=== PATIENT | male | born 1960 ===

== ENCOUNTER 2024-02-03 10:49 | Inpatient (IN) ==
--- NOTE | 2024-02-03 10:53 | Emergency Department Note ---
Impression & Plan Aspiration pneumonia, Metabolic encephalopathy, Thrombocytopenia, Hypoglycemia, SHE (acute kidney injury), Acute dehydration ED Provider Note NAME: TREY DIALLO AGE: 63 SEX: M : 1960 ARRIVES VIA: Ambulance INFORMANT: Caregiver, nursing report ED PROVIDER(S): Salvatore Perez MD CHIEF COMPLAINT: Change in mentation MEDICAL DECISION MAKING: Patient presents due to concern for change in mentation. IV was established and blood work was obtained along with CT and chest x-ray. Patient's blood work shows a normal white count hemoglobin 8.8 chronic and stable. Thrombocytopenia noted. Patient was noted to potentially have petechiae noted to bilateral feet. Creatinine of 2.5 which is new for patient. Initial [id number] BSG 60 9 repeat 75. TSH high free T4 is normal. BioFire negative. The patient's chest x-ray and CT head did not show any acute concerning changes at this time. Given the patient's SHE did speak with the on-call medicine service and the patient was admitted to the hospitalist. Discussion w/ other healthcare providers: None Prior /Outside records reviewed: None Differential diagnosis: Infection, dehydration, metabolic abnormality, hypo/hyperglycemia, electrolyte imbalance, anemia, UTI, pneumonia, thyroid dysfunction among others were considered. Diagnostics, as interpreted by me: ECG: None Cardiac monitoring: An order was placed for continuous cardiac monitoring. The monitor shows a rate of 75 with sinus rhythm. Patient was placed on pulse oximetry Medical decision rules: None Imaging studies: I informally interpreted the patient's chest x-ray does not show obvious pneumonia or pneumothorax with formal report to follow. HPI: Patient presents due to concern for change in mentation. The patient reportedly is at [facility] being treated for aspiration pneumonia with IV vancomycin. Reportedly this morning less talkative and less himself. Patient reportedly is able to have conversations. [facility] been using a [facility] since being admitted and subsequently discharged on the IV vancomycin. Patient reportedly refused his morning medications. Has not been eating or drinking. No reported fever. No BSG checked prior to arrival. PAST MEDICAL HISTORY: See Below PAST SURGICAL HISTORY: See Below SOCIAL HISTORY: See Below HOME MEDICATIONS: See Below ALLERGIES: See Below VITALS: See Below PHYSICAL EXAMINATION: GENERAL: NAD, non-toxic. EYE EXAM: Normal conjunctiva. PERRL, no anisocoria and EOM's grossly intact w/o pain. OROPHARYNX: Moist mucus membranes, grossly normal dentition. NECK: Trachea midline, no stridor. Supple, no nuchal rigidity, no adenopathy, non-tender. No signs of meningismus. FROM of the neck with good chin to chest and neck extension. LUNGS: Alin rhonchi noted in the right chest. Normal chest wall mechanics. HEART: NSR, no MRG. ABDOMEN: Abdomen soft, non-tender, no masses, no rebound or guarding. BACK: No CVA TTP. SKIN: Possible petechiae of the bilateral dorsum of the feet. No significant purpura. UPPER EXTREMITIES: Upper extremities are grossly normal. LOWER EXTREMITIES: Grossly normal, no edema. 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 No obvious facial droop. Weakly moves bilateral lower extremities. Infection, dehydration, metabolic abnormality, hypo/hyperglycemia, electrolyte imbalance, anemia, UTI, pneumonia, thyroid dysfunction among others were considered. Past Med/Surg History Problem List (Updated 02/04/24 @ 08:48 by Salvatore Perez MD) Acute dehydration (Acute) SHE (acute kidney injury) (Acute) Septic shock PAF (paroxysmal atrial fibrillation) Hypoglycemia (Acute) Thrombocytopenia (Acute) Anemia Acute kidney injury superimposed on stage 3b chronic kidney disease Aspiration pneumonia (Acute) Catheter-associated urinary tract infection Bacteremia Metabolic encephalopathy (Acute) SVT (supraventricular tachycardia) (Acute) Medical History History of left heart catheterization (LHC) Hypothyroidism Bipolar disorder Chronic anemia BPH (benign prostatic hyperplasia) Horseshoe kidney Atrial fibrillation Intellectual disability HLD (hyperlipidemia) HTN (hypertension) CHB (complete heart block) Pacemaker Chronic kidney disease Epilepsy Sepsis Surgical History History of cardiac pacemaker H/O cystoscopy Family History Other Family history unobtainable Social History Smoking Status: Never smoker Hx Alcohol Use: No Hx Substance Use: No Preferred Language: Macedonian Communication Ability: non-verbal Beliefs That Will Affect Care: None marital status: Single Current Living Situation: Other Current Living Situation Comment: correction Feels Safe at Home: Yes Assistive Devices: Walker Allergies Allergies Allergy/AdvReac Type Severity Reaction Status Date / Time carbamazepine Allergy Intermediate SHORTNESS Verified 02/01/24 10:58 OF BREATH lamotrigine Allergy Intermediate RASH Verified 02/01/24 10:58 cat dander Allergy Verified 02/01/24 10:58 pollen extracts Allergy Verified 02/01/24 10:58 Home Meds Home Medications Medication Instructions Recorded Confirmed acetaminophen 325 mg tablet 650 mg PO QID PRN Fever/Pain 02/01/24 02/03/24 allopurinol 100 mg tablet 200 mg PO DAILY 02/01/24 02/03/24 atorvastatin 10 mg tablet 10 mg PO DAILY 02/01/24 02/03/24 cetirizine 10 mg capsule 10 mg PO DAILY 02/01/24 02/03/24 divalproex 500 mg tablet,extended 1,000 mg PO HS 02/01/24 02/03/24 release 24 hr docusate sodium 100 mg tablet 100 mg PO DAILY 02/01/24 02/03/24 famotidine 20 mg tablet 20 mg PO DAILY 02/01/24 02/03/24 gabapentin 100 mg capsule 100 mg PO TID 02/01/24 02/03/24 metoprolol succinate 25 mg 25 mg PO DAILY 02/01/24 02/03/24 tablet,extended release 24 hr olanzapine 10 mg tablet 10 mg PO BID 02/01/24 02/03/24 pantoprazole 40 mg tablet,delayed 40 mg PO DAILY 02/01/24 02/03/24 release (Protonix) tamsulosin 0.4 mg capsule 0.4 mg PO BID 02/01/24 02/03/24 topiramate 100 mg tablet 100 mg PO QPM 02/01/24 02/03/24 topiramate 50 mg tablet 50 mg PO QAM 02/01/24 02/03/24 bisacodyl 10 mg rectal suppository 10 mg [place] DAILY PRN Constipation 02/03/24 02/03/24 (Dulcolax (bisacodyl)) calcium carbonate (Calcium 600) 600 mg PO BID 02/03/24 02/03/24 cholecalciferol (vitamin D3) 25 50 mcg PO DAILY 02/03/24 02/03/24 mcg (1,000 unit) tablet (Vitamin D3) finasteride 5 mg tablet 5 mg PO DAILY 02/03/24 02/03/24 flecainide 50 mg tablet 50 mg PO BID 02/03/24 02/03/24 fluticasone propionate 50 1 spray intranasal BID 02/03/24 02/03/24 mcg/actuation nasal spray,suspension levothyroxine 75 mcg tablet 75 mcg PO QAM 02/03/24 02/03/24 magnesium hydroxide 400 mg/5 mL 2,400 mg PO DAILY PRN Constipation 02/03/24 02/03/24 oral suspension (Milk of Magnesia) nystatin 100,000 unit/gram topical 1 applic topical BID 02/03/24 02/03/24 cream psyllium husk 0.52 gram capsule 0.52 g PO QAM 02/03/24 02/03/24 rifampin 300 mg capsule 300 mg PO TID 02/03/24 02/03/24 scopolamine base 1 mg over 3 days 1 patch transdermal Q72H PRN 02/03/24 02/03/24 transdermal patch Nausea And Vomiting sodium phosphates 19 gram-7 118 ml [place] DAILY PRN Constipation 02/03/24 02/03/24 gram/118 mL enema (Fleet Enema) vancomycin 750 mg intravenous 750 mg IV DAILY 02/03/24 02/03/24 solution Results & Data (ED) Vital Signs Vital Signs - 24 hr 02/03/24 10:59 02/03/24 11:02 02/03/24 11:03 Temperature 36.7 C Temperature Source Axillary Pulse Rate 98 H 125 H Pulse Rate from SpO2 Sensor 63 Pulse Rhythm Regular Pulse Strength Normal Respiratory Rate 18 24 Respiratory Effort / Characteristics Non-Labored Respiratory Depth Normal Respiratory Pattern Regular Blood Pressure 100/65 102/77 Blood Pressure Mean 76 86 Blood Pressure Position Lying Pulse Oximetry 97 96 Oxygen Delivery Method Room Air Sepsis Recent Fever Within 48 Hours No Sepsis New/Unexplained Change in Mental Status No Sepsis Action Taken by Nursing No Action Required 02/03/24 11:04 02/03/24 11:11 02/03/24 11:15 Temperature Temperature Source Pulse Rate 90 Pulse Rate from SpO2 Sensor Pulse Rhythm Pulse Strength Respiratory Rate Respiratory Effort / Characteristics Respiratory Depth Respiratory Pattern Blood Pressure Blood Pressure Mean Blood Pressure Position Pulse Oximetry 100 97 Oxygen Delivery Method Room Air Room Air Sepsis Recent Fever Within 48 Hours Sepsis New/Unexplained Change in Mental Status Sepsis Action Taken by Nursing 02/03/24 11:30 02/03/24 11:30 02/03/24 11:30 Temperature Temperature Source Pulse Rate Pulse Rate from SpO2 Sensor 64 Pulse Rhythm Pulse Strength Respiratory Rate 24 Respiratory Effort / Characteristics Respiratory Depth Respiratory Pattern Blood Pressure 110/73 110/73 Blood Pressure Mean 85 85 Blood Pressure Position Pulse Oximetry 97 Oxygen Delivery Method Sepsis Recent Fever Within 48 Hours Sepsis New/Unexplained Change in Mental Status Sepsis Action Taken by Nursing 02/03/24 12:00 02/03/24 12:02 02/03/24 12:39 Temperature Temperature Source Pulse Rate 69 99 H Pulse Rate from SpO2 Sensor 60 Pulse Rhythm Pulse Strength Respiratory Rate 22 22 Respiratory Effort / Characteristics Respiratory Depth Respiratory Pattern Blood Pressure 121/50 L Blood Pressure Mean 63 Blood Pressure Position Pulse Oximetry 100 Oxygen Delivery Method Sepsis Recent Fever Within 48 Hours Sepsis New/Unexplained Change in Mental Status Sepsis Action Taken by [facility] Medications Current Medication List: was personally reviewed by me Laboratory Data Attestation: I reviewed the patient's lab results. 02/04/24 04:41 02/04/24 04:41 Lab Results 02/03/24 02/03/24 02/03/24 Range/Units 11:02 11:23 11:30 WBC 5.94 (4.8-10.8) K/ul RBC 2.85 L (4.70-6.10) M/uL Hgb 8.8 L (14.0-18.0) g/dl Hct 27.3 L (42.0-52.0) % MCV 95.8 (80.0-100.0) fL MCH 30.9 (25.0-34.0) pg MCHC 32.2 (32.0-36.0) g/dL RDW Std Deviation 62.4 H (36.4-46.3) fL RDW Coeff of Jenifer 17.8 H (11.5-14.5) % Plt Count 80 L (130-400) K/uL MPV 13.7 H (9.4-12.4) fL Immature Gran % (Auto) 0.8 % Neut % (Auto) 70.8 % Lymph % (Auto) 20.4 % Glynn % (Auto) 6.7 % Eos % (Auto) 1.0 % Baso % (Auto) 0.3 % Neut # (Auto) 4.20 (1.40-6.50) K/uL Lymph # (Auto) 1.21 (1.20-3.40) K/uL Glynn # (Auto) 0.40 (0.11-0.59) K/uL Eos # (Auto) 0.06 (0.00-0.50) K/uL Baso # (Auto) 0.02 (0.00-0.20) K/uL Immature Gran # (Auto) 0.05 (0.01-0.20) K/uL Absolute Nucleated RBC 0.05 (0.00-0.12) K/uL Nucleated RBC % (auto) 0.8 % Sodium 145 (136-145) mmol/L Potassium 4.6 (3.5-5.1) mmol/L Chloride 109 H (98-107) mmol/L Carbon Dioxide 28 (21-32) mmol/L Anion Gap 8 (3-11) BUN 56 H (6-23) mg/dl Creatinine 2.55 H (0.6-1.4) mg/dl Est Cr Clr Drug Dosing 29.2 ml/min eGFR 27.67 BUN/Creatinine Ratio 22.0 H (10-20) Glucose 75 (70-99(Fasting)) mg/dl POC Glucose 69 L* (70-99) mg/dl Calcium 10.2 (8.6-10.3) mg/dl Magnesium 2.5 H (1.7-2.4) mg/dl Total Bilirubin 0.5 (0.2-1.0) mg/dl AST 24 (13-39) U/L ALT 17 (7-52) U/L Alkaline Phosphatase 103 (34-104) U/L Total Creatine Kinase 23 L (30-223) U/L Total Protein 7.3 (6.0-8.3) gm/dl Albumin 2.7 L (3.4-5.0) gm/dl Globulin 4.6 H (2.5-4.0) gm/dl Albumin/Globulin Ratio 0.6 L (0.9-2) Procalcitonin 2.05 H (0-0.5) ng/ml TSH 5.261 H (0.300-4.500) uIu/ml Free T4 1.02 (0.61-1.60) ng/dl Urine Color Dark Yellow Urine Appearance Cloudy A (Clear) Urine pH 7.5 (4.5-7.5) Ur Specific Bradford 1.013 (1.000-1.030) Urine Protein 1+ H (Negative) Urine Glucose (UA) Negative (Negative) Urine Ketones Trace H (Negative) Urine Blood 3+ H (Negative) Urine Nitrite Negative (Negative) Urine Bilirubin Negative (Negative) Urine Urobilinogen Negative (Negative) Ur Leukocyte Esterase 3+ H (Negative) Urine WBC (Auto) >50 H (0-5) /hpf Urine RBC (Auto) >20 H (0-2) /hpf U Hyaline Cast (Auto) 3-5 H (0-2) /lpf U Epithel Cells (Auto) 0-2 (0-2) /hpf Urine Bacteria (Auto) None Seen (None Seen) Adenovirus (PCR) Not Detected (NotDetected) B. pertussis DNA (PCR) Not Detected (NotDetected) B.parapertussis DNA PCR Not Detected (NotDetected) C. pneumoniae DNA (PCR) Not Detected (NotDetected) Coronavirus OC43 (PCR) Not Detected (NotDetected) Coronavirus HKU1 (PCR) Not Detected (NotDetected) Coronavirus 229E (PCR) Not Detected (NotDetected) SARS-CoV-2 (PCR) Not Detected (NotDetected) Coronavirus NL63 (PCR) Not Detected (NotDetected) Human Metapneumovir PCR Not Detected (NotDetected) Influenza Type A (PCR) Not Detected (NotDetected) Influenza Type B (PCR) Not Detected (NotDetected) M. pneumoniae (PCR) Not Detected (NotDetected) Parainfluenza 1 (PCR) Not Detected (NotDetected) Parainfluenza 2 (PCR) Not Detected (NotDetected) Parainfluenza 3 (PCR) Not Detected (NotDetected) Parainfluenza 4 (PCR) Not Detected (NotDetected) RSV (PCR) Not Detected (NotDetected) Entero/Rhino (PCR) Not Detected (NotDetected) Administered Medications Calcium Carbonate (Calcium Carbonate 1250mg Tab) 1 tab PO BID SIMIN Stop: 03/04/24 20:59 Last Admin: 12/12/24 20:14 Dose: Not Given Documented By: ELC Divalproex Sodium (Divalproex Extended Release 500 Mg Tab) 1,000 mg PO HS [facility] Stop: 03/04/24 20:59 Last Admin: 02/03/24 20:14 Dose: Not Given Documented By: ELC Flecainide Acetate (Flecainide Acetate 100 Mg Tablet) 50 mg PO BID SIMIN Stop: 03/04/24 20:59 Last Admin: 02/03/24 20:14 Dose: Not Given Documented By: ELC Gabapentin (Gabapentin 100 Mg Cap) 100 mg PO TID SIMIN Stop: 03/04/24 20:59 Last Admin: 02/03/24 20:15 Dose: Not Given Documented By: JORDYN Dextrose/Sodium Chloride (D5w And 1/2nss) 1,000 mls @ 50 mls/hr IV .Q20H [facility] Stop: 02/04/24 09:14 Last Admin: 02/03/24 13:26 Dose: 50 mls/hr Documented By: ALBINO Piperacillin Sod/Tazobactam Sod (Zosyn) 4.5 gm in 100 mls @ 25 mls/hr IV Q8H [facility]; Protocol Stop: 02/10/24 20:59 Last Admin: 02/04/24 05:56 Dose: 25 mls/hr Documented By: Infusion: 02/04/24 00:49 Dose: Infused Documented By: Admin: 02/03/24 20:39 Dose: 25 mls/hr Documented By: JORDYN Daptomycin 400 mg/ Syringe 8 mls @ 4 mls/min IV Q48H [facility]; Protocol Stop: 02/17/24 14:59 Last Admin: 02/03/24 15:41 Dose: 4 mls/min Documented By: DUNIAL Norepinephrine Bitartrate (Levophed/D5w) 4 mg in 250 mls @ 17.404 mls/hr IV .[id number] [facility]; Protocol Stop: 03/04/24 20:29 Last Titration: 02/04/24 03:30 Dose: 0.07 mcg/kg/min, 17.4 mls/hr Documented By: Titration: 02/04/24 01:15 Dose: 0.05 mcg/kg/min, 12.4 mls/hr Documented By: Titration: 02/03/24 21:46 Dose: 0.07 mcg/kg/min, 17.4 mls/hr Documented By: Admin: 02/03/24 20:38 Dose: 0.05 mcg/kg/min, 12.4 mls/hr Documented By: JORDYN Co-signed By: MARIA VICTORIA Hydrocortisone Sodium (Succinate 100 mg/ Syringe) 2 mls @ 4 mls/min IV Q8H SIMIN Stop: 03/04/24 21:59 Last Admin: 02/04/24 05:59 Dose: 4 mls/min Documented By: Admin: 02/03/24 22:12 Dose: 4 mls/min Documented By: JORDYN Levothyroxine Sodium (Levothyroxine Sodium 75 Mcg Tablet) 75 mcg PO DAILYBB SIMIN Stop: 03/05/24 06:29 Last Admin: 02/04/24 05:56 Dose: Not Given Documented By: JORDYN Rifampin (Rifampin 300 Mg Capsule) 300 mg PO TID SIMIN Stop: 03/04/24 20:59 Last Admin: 02/03/24 20:32 Dose: Not Given Documented By: JORDYN Tamsulosin HCl (Tamsulosin Hcl 0.4 Mg Cap) 0.4 mg PO BID SIMIN Stop: 03/04/24 20:59 Last Admin: 02/03/24 20:32 Dose: Not Given Documented By: JORDYN Topiramate (Topiramate 100 Mg Tab) 100 mg PO QPM SIMIN Stop: 03/04/24 20:59 Last Admin: 02/03/24 20:32 Dose: Not Given Documented By: JORDYN Discontinued Medications Sodium Chloride (Nss) 500 mls @ 999 mls/hr IV .Q31M ONE Stop: 02/03/24 11:53 Last Infusion: 02/03/24 12:20 Dose: Infused Documented By: Admin: 02/03/24 11:49 Dose: 999 mls/hr Documented By: ALBINO Sodium Chloride (Nss) 1,000 mls @ 999 mls/hr IV .Q1H1M ONE Stop: 02/03/24 13:28 Last Infusion: 02/03/24 13:52 Dose: Infused Documented By: Admin: 02/03/24 13:01 Dose: 999 mls/hr Documented By: ALBINO Piperacillin Sod/Tazobactam Sod (Zosyn) 4.5 gm in 100 mls @ 200 mls/hr IV NOW STA; Protocol Stop: 02/03/24 15:15 Last Infusion: 02/03/24 17:08 Dose: Infused Documented By: Admin: 02/03/24 16:03 Dose: 200 mls/hr Documented By: MILIND Sodium Chloride (Nss) 1,000 mls @ 999 mls/hr IV .Q1H1M ONE Stop: 02/03/24 19:49 Last Infusion: 02/03/24 20:33 Dose: Infused Documented By: Admin: 02/03/24 18:54 Dose: 999 mls/hr Documented By: MILIND Levetiracetam (Levetiracetam 500 Mg/5 Ml Vial) 2,650 mg 40 mg/kg (2650 mg) IV NOW STA Stop: 02/04/24 03:08 Last Admin: 02/04/24 03:38 Dose: 2,650 mg Documented By: Jazzmine Lorazepam (Lorazepam 2 Mg/1 Ml Vial) Confirm Administered Dose 2 mg .ROUTE .STK- MED ONE Stop: 02/04/24 03:02 Last Admin: 02/04/24 03:35 Dose: Not Given Documented By: Jazzmine Lorazepam (Lorazepam 2 Mg/1 Ml Vial) 2 mg IV NOW STA Stop: 02/04/24 03:08 Last Admin: 02/04/24 03:35 Dose: 2 mg Documented By: Jazzmine Olanzapine (Olanzapine 10 Mg Tab) 10 mg PO BID SIMIN Stop: 03/04/24 20:59 Last Admin: 02/03/24 20:14 Dose: Not Given Documented By: [facility] Imaging Data Radiologist's Impression: Chest X-Ray 02/03/24 11:23 XR chest 1V portable HISTORY: 63 years-old Male weakness COMPARISON: 02/01/2024 TECHNIQUE: AP view of the chest FINDINGS: Cardiac silhouette is enlarged. There is persistent interstitial coarsening with ill-defined left basilar and right midlung predominant opacities. Overall improved aeration of the lungs. Probable trace pleural effusions. No pneumothorax. Left subclavian pacer/AICD. Bones appear grossly intact. IMPRESSION: 1. Cardiomegaly with improved aeration of the lungs suggestive of resolving pulmonary edema. 2. Trace pleural effusions. ACT 112: Negative or not required by law. The above report was generated using voice recognition software. It may contain grammatical, syntax or spelling errors. Electronically signed by: Jason Marte M.D. 02/03/2024 11:[address] 02/03/24 11:24 CT head/brain wo con CLINICAL HISTORY: change in mentation Technique: Contiguous axial CT images of the head were acquired from the base of the skull to the vertex without intravenous contrast administration. Images were viewed in brain, subdural and bone windows. Automated dose lowering techniques and/or adjustment according to patient size were utilized for this exam. Comparison: None available at the time of this dictation. Findings: Areas of decreased attenuation are present in the periventricular and subcortical white matter bilaterally consistent with small vessel ischemic disease. Generalized cerebral atrophy with commensurate enlargement of the ventricles, sulci, and cisterns is also present. There is no acute intracranial hemorrhage or evidence of acute territorial infarction. No shift of the midline structures, mass effect, or extra-axial abnormalities are shown. Atherosclerotic calcifications are present in the intracranial segments of the internal carotid arteries. Imaged portions of the paranasal sinuses and mastoid air cells are clear. The orbits appear normal. There are no acute fractures of the calvaria or scalp swelling. Impression: No acute intracranial hemorrhage, no evidence of acute territorial infarction or other acute intracranial disease process. ACT 112: Negative or not required by law. Electronically signed by: Jordan Gupta M.D. 02/03/2024 12:00 PM Discharge Plan Visit Data Chief Complaint: Weakness ED Provider: Salvatore Perez Discharge Problem: Aspiration pneumonia, Metabolic encephalopathy, Thrombocytopenia, Hypoglycemia, SHE (acute kidney injury), Acute dehydration Patient Disposition: Admitted As Inpatient Discharge Instructions Interventions: ED Discharge Assessment Last Done: 02/03/24 14:00 Discharge Problem: Aspiration pneumonia Qualifiers: Aspiration pneumonia type: unspecified Laterality: right Lung location: u nspecified part of lung Qualified Code(s): J69.0 - Pneumonitis due to inhalation of food and vomit
[2024-02-03 11:41] LABS: Basophils # (auto) 0.02 K/uL (0.00-0.20); Basophils % (auto) 0.3 %; Eosinophils # (auto) 0.06 K/uL (0.00-0.50); Hematocrit (blood only) 27.3 % (42.0-52.0); Hemoglobin 8.8 g/dl (14.0-18.0); Immature Granulocytes # (auto) 0.05 K/uL (0.01-0.20); Immature Granulocytes % (auto) 0.8 %; Lymphocytes # (auto) 1.21 K/uL (1.20-3.40); Lymphocytes % (auto) 20.4 %; Mean Corpuscular Hemoglobin 30.9 pg (25.0-34.0); Mean Corpuscular Hgb Conc 32.2 g/dL (32.0-36.0); Mean Corpuscular Volume 95.8 fL (80.0-100.0); Mean Platelet Volume 13.7 fL (9.4-12.4); Monocytes % (auto) 6.7 %; Neutrophils % (auto) 70.8 %; Nucleated RBC # (auto) 0.05 K/uL (0.00-0.12); Nucleated RBC % (auto) 0.8 %; Platelet Count 80 K/uL (130-400); RDW Coefficient of Variation 17.8 % (11.5-14.5); RDW Standard Deviation 62.4 fL (36.4-46.3); Red Blood Count 2.85 M/uL (4.70-6.10); White Blood Count 5.94 K/ul (4.8-10.8)
[2024-02-03] MEDS: SODIUM CHLORIDE 0.9% 500 ML IV ONE (11:49)
--- NOTE | 2024-02-03 11:59 | XRay Report ---
XR chest 1V portable HISTORY: 63 years-old Male weakness COMPARISON: 02/01/2024 TECHNIQUE: AP view of the chest FINDINGS: Cardiac silhouette is enlarged. There is persistent interstitial coarsening with ill-defined left bas ilar and right midlung predominant opacities. Overall improved aeration of the lungs. Probable trace pleural effusions. No pneumothorax. Left subclavian pacer/AICD. Bones appear grossly intact. IMPRESSION: 1. Cardiomegaly with improved aeration of the lungs suggestive of resolving pulmonary edema. 2. Trace pleural effusions. ACT 112: Negative or not required by law. The above report was generated using voice recognition software. It may contain grammatical, syntax o r spelling errors. Electronically signed by: Jason Marte M.D. 02/03/2024 11:58 AM
[2024-02-03 12:00] LABS: Albumin Globulin Ratio 0.6 (0.9-2); Albumin Level 2.7 gm/dl (3.4-5.0); Bilirubin,Total 0.5 mg/dl (0.2-1.0); Calcium 10.2 mg/dl (8.6-10.3); Creatinine Clr Calc Pharmacy 29.2 ml/min; Globulin 4.6 gm/dl (2.5-4.0); Magnesium 2.5 mg/dl (1.7-2.4); Potassium 4.6 mmol/L (3.5-5.1); Total Protein 7.3 gm/dl (6.0-8.3)
--- NOTE | 2024-02-03 12:01 | CT Scan Report ---
CT head/brain wo con CLINICAL HISTORY: change in mentation Technique: Contiguous axial CT images of the head were acquired from the base of the skull to the easton jon without intravenous contrast administration. Images were viewed in brain, subdural and [facility]. Automated dose lowering techniques and/or adjustment according to patient size were utilized for this exam. Comparison: None available at the time of this dictation. Findings: Areas of decreased attenuation are present in the periventricular and subcortical white matter bilate rally consistent with small vessel ischemic disease. Generalized cerebral atrophy with commensurate e nlargement of the ventricles, sulci, and cisterns is also present. There is no acute intracranial hem orrhage or evidence of acute territorial infarction. No shift of the midline structures, mass effect, or extra-axial abnormalities are shown. Atherosclerotic calcifications are present in the intracran ial segments of the internal carotid arteries. Imaged portions of the paranasal sinuses and mastoid air cells are clear. The orbits appear normal. There are no acute fractures of the calvaria or scalp swelling. Impression: No acute intracranial hemorrhage, no evidence of acute territorial infarction or other acute intracra nial disease process. ACT 112: Negative or not required by law. Electronically signed by: Jordan Gupta M.D. 02/03/2024 12:00 PM
[2024-02-03 12:12] LABS: Appearance Urine Cloudy (Clear); Bacteria Urine Automated None Seen (None Seen); Bilirubin Urine Negative (Negative); Blood Urine 3+ (Negative); Color Urine Dark Yellow; Epithelial Cell Urine Auto 0-2 /hpf (0-2); Glucose Urine UA Negative (Negative); Ketones Urine Trace (Negative); Leukocyte Esterase Urine 3+ (Negative); Nitrite Urine Negative (Negative); Protein Urine 1+ (Negative); RBC Urine Automated >20 /hpf (0-2); Specific Gravity Urine 1.013 (1.000-1.030); Urobilinogen Urine Negative (Negative); WBC Urine Automated >50 /hpf (0-5); pH Urine 7.5 (4.5-7.5)
[2024-02-03 12:14] LABS: Thyroid Stimulating Hormone 5.261 uIu/ml (0.300-4.500)
[2024-02-03 12:31] LABS: Adenovirus PCR Not Detected (NotDetected); Bordetella parapertussis PCR Not Detected (NotDetected); Bordetella pertussis PCR Not Detected (NotDetected); Chlamydia pneumoniae PCR Not Detected (NotDetected); Coronavirus 229E PCR Not Detected (NotDetected); Coronavirus CoV-2 (COVID19)PCR Not Detected (NotDetected); Coronavirus HKU1 PCR Not Detected (NotDetected); Coronavirus NL63 PCR Not Detected (NotDetected); Coronavirus OC43PCR Not Detected (NotDetected); Human Metapneumovirus PCR Not Detected (NotDetected); Influenza A PCR Not Detected (NotDetected); Influenza B PCR Not Detected (NotDetected); Mycoplasma pneumoniae PCR Not Detected (NotDetected); Parainfluenza Virus 1 PCR Not Detected (NotDetected); Parainfluenza Virus 2 PCR Not Detected (NotDetected); Parainfluenza Virus 3 PCR Not Detected (NotDetected); Parainfluenza Virus 4 PCR Not Detected (NotDetected); Respiratory Syncytial VirusPCR Not Detected (NotDetected); Rhinovirus/Enterovirus PCR Not Detected (NotDetected)
[2024-02-03 12:48] LABS: T4 Free Thyroxine 1.02 ng/dl (0.61-1.60)
--- NOTE | 2024-02-03 12:57 | History & Physical Report ---
Date of Service February 03, 2024 Assessment & Plan (1) Metabolic encephalopathy: (2) Bacteremia: (3) Catheter-associated urinary tract infection: (4) Aspiration pneumonia: (5) Acute kidney injury superimposed on stage 3b chronic kidney disease: (6) Anemia: (7) Thrombocytopenia: (8) Hypoglycemia: (9) PAF (paroxysmal atrial fibrillation): Plan This is a 63-year-old male who has a significant past medical history of baseline intellectual disability, atrial fibrillation on Eliquis, history of CHB status post permanent pacemaker placement, hypothyroidism, BPH, bipolar disorder, CKD stage III with baseline creatinine 1.4-1.5, horseshoe kidney, bilateral renal masses, BPH, chronic anemia who presents to ED secondary to altered mental status and lethargy. Recent hospitalization 01/11-01/24 @ [facility] / Staphylococcus Haemolyticus, PNA presumed aspiration, negative TTE/DE; however ID recommends treating with 6 week course of IV Vanco/rifampin given negative cultures with treatment and no clear source of bacteremia. He was seen and evaluated by ST and underwent videofluoroscopy which described moderate oral pharyngeal dysphagia. Hosp course also complicated with hematuria, a/c anemia, thrombocytopenia. He was D/C To [facility] to complete course of antibiotics. He is from a nursing home. In ED pt with mild hypotension, tachycardia, altered mental status, elevated BUN/Cr from baseline, worsening anemia/thrombocytopenia in setting of IV Vanco with elevated vanco level at 27, oral rifampin and concern for worsened aspiration Altered mental status with suspected metabolic encephalopathy Staph hemolyticus bacteremia - on treatment through 02/27 Possible Aspiration Pneumonia Possible catheter associated complicated UTI admit to PCU Consult infectious disease, + culture from [facility] 01/11 Staph hemolyticus, resistant except for vanco - unknown source, negative DE/TTE, cleared with treatment, ID recommend tx through 02/27 Switch to IV dapto due to concern for nephrotoxicity, add IV zosyn for aspiration coverage, and continue rifampin for now MRSA Swab, procal, CK ordered await blood and urine cultures Bilateral Petechiae Thrombocytopenia Acute on chronic anemia Hematuria ? if related to rifampin work up for HUS, hemolytic anemia, DIC obtain peripheral smear, PTT, PT/INR, Haptoglobin, LDH, fibrinogen, retic count repeat h/h @ 1900 Acute/Chronic CKD-3b baseline cr 1.4-1.5, consult nephro bun/cr 56 and 2.55, ? if pre renal in setting of poor intake vs intrarenal from ATN/nephrotoxicity gentle IVF D5 1/2NSS x 1 L follow labs Atrial Fibrillation hx of CHB s/p PPM HLD continue metoprolol and flecanide eliquis on hold due to bleeding, thrombocytopenia Hypoglycemia: no hx of T2DM, a1c 5.4 01/16, likely due to poor intake, on D5W + 1/2NSS, hypoglycemia protocol Falls - pt with 2 falls in 3 days, likely 2/2 to suspected illness, will need PT/OT when approp Mild Oropharyngeal dysphagia: had video fluoroscopy at [facility] which was negative for jade aspiration - continue with soft bite size meals, aspiration precautions Mild intellectual disability: resides in nursing home at baseline, 2 staff members at bedside on admission BPH/Gross hematuria: likely from traumatic cath vs thrombocytopenia - will need urology follow up at discharge, cath placed at [facility] Bipolar disorder: continue home meds, mood stable Seizure disorder: continue topamax, depakote, no witnessed seizure in several years Hypothyroidism: continue levothyroxine, TSH 5.261 uIu/ml and free T4 1.0 DVT ppx: Eliquis on hold, SCDS for now FULL CODE PCP: Guilherme Berger Dispo: admit to PCU, pt from SNF [facility] ( he was sent here from [facility] for IV antibiotics), plan to eventually return to nursing home if able Pts baseline is that he is very talkative, is aware of his staffs names and mostly functional of ADLS. He does need a walker to ambulate at baseline. PT was seen and examined in collaboration with Dr. Arrington, please see addendum I spent a total of 76 minutes reviewing notes, outpatient records, labs, medication, coordinating, documenting and providing care for this patient excluding time spent in the performance of separately billed services. History of Present Illness Chief Complaint: Referred by [facility] for AMS. Primary Care Provider: Scarlett Berger MD This is a 63-year-old male who has a significant past medical history of baseline intellectual disability, atrial fibrillation on Eliquis, history of CHB status post permanent pacemaker placement, hypothyroidism, BPH, bipolar disorder, CKD stage III with baseline creatinine 1.4-1.5, horseshoe kidney, bilateral renal masses, BPH, chronic anemia who presents to ED secondary to altered mental status and lethargy. Of significance patient resides in a nursing home due to his intellectual disability. 2 staff members from the nursing home are at bedside. At baseline he is very talkative and able to perform his own ADLS. Of significance patient was recently hospitalized at [facility] from 01/11 to 01/24 secondary to sepsis in setting of right lower lobe pneumonia and acute respiratory failure with hypoxia. CT chest showed a right lower lobe consolidation and he had a positive blood culture for coag negative staph. There was concern for aspiration pneumonia. He did have a speech evaluation and dysphagia eval revealed mild oropharyngeal dysphagia on videofluoroscopy and his diet was modified. Regarding positive blood culture infectious disease was involved. He underwent a TTE and DE which were negative for infectious endocarditis. Infectious disease recommended a 6-week course of IV vancomycin and oral rifampin to cover for IE given unknown course of bactermia. A PICC line was placed. His hospital course was complicated with episodes of hypoglycemia due to poor oral oral intake. This was treated with assisted feeding and D5 fluid administration. Further it was complicated by gross hematuria and nosebleeds. He did require Foster catheter placement. Because of this and worsening baseline anemia his Eliquis was placed on hold. ROS unobtainable from pt given underlying current cognition. Staff reports after being discharge from [facility] to [facility] he was his normal self and playing bingo approx 3 days ago. They went to see he him this morning and he was completely lethargic and not responding to normal questions which isn't like him. He also has another rash on his legs which was noticed at [facility] hospital. He had 2 falls in the past 3 days. It was also reported pts roommate tested positive for covid. He has a hx of seizure disorder but caregiver at bedside states she has been with him for 15 years and never witnessed seizure activity. In ED patient was tachycardic and borderline hypotensive. Lab work revealed H&H of 8.8 and 27.3, BUN 56, creatinine 2.55, glucose 69, mag 2.5, abnormal urinalysis, negative respiratory bio fire. His head CT was negative for acute abnormality. Chest x-ray revealed trace of bilateral pleural effusions and resolving pulmonary edema. Allergies Allergy/AdvReac Type Severity Reaction Status Date / Time carbamazepine Allergy Intermediate SHORTNESS Verified 02/01/24 10:58 OF BREATH lamotrigine Allergy Intermediate RASH Verified 02/01/24 10:58 cat dander Allergy Verified 02/01/24 10:58 pollen extracts Allergy Verified 02/01/24 10:58 Home Medications Medication Instructions Recorded Confirmed Type acetaminophen 325 mg tablet 650 mg PO QID PRN Fever/Pain 02/01/24 02/03/24 History allopurinol 100 mg tablet 200 mg PO DAILY 02/01/24 02/03/24 History atorvastatin 10 mg tablet 10 mg PO DAILY 02/01/24 02/03/24 History cetirizine 10 mg capsule 10 mg PO DAILY 02/01/24 02/03/24 History divalproex 500 mg tablet,extended 1,000 mg PO HS 02/01/24 02/03/24 History release 24 hr docusate sodium 100 mg tablet 100 mg PO DAILY 02/01/24 02/03/24 History famotidine 20 mg tablet 20 mg PO DAILY 02/01/24 02/03/24 History gabapentin 100 mg capsule 100 mg PO TID 02/01/24 02/03/24 History metoprolol succinate 25 mg 25 mg PO DAILY 02/01/24 02/03/24 History tablet,extended release 24 hr olanzapine 10 mg tablet 10 mg PO BID 02/01/24 02/03/24 History pantoprazole 40 mg tablet,delayed 40 mg PO DAILY 02/01/24 02/03/24 History release (Protonix) tamsulosin 0.4 mg capsule 0.4 mg PO BID 02/01/24 02/03/24 History topiramate 100 mg tablet 100 mg PO QPM 02/01/24 02/03/24 History topiramate 50 mg tablet 50 mg PO QAM 02/01/24 02/03/24 History bisacodyl 10 mg rectal suppository [address] DAILY PRN Constipation 02/03/24 02/03/24 History (Dulcolax (bisacodyl)) calcium carbonate (Calcium 600) 600 mg PO BID 02/03/24 02/03/24 History cholecalciferol (vitamin D3) 25 50 mcg PO DAILY 02/03/24 02/03/24 History mcg (1,000 unit) tablet (Vitamin D3) finasteride 5 mg tablet 5 mg PO DAILY 02/03/24 02/03/24 History flecainide 50 mg tablet 50 mg PO BID 02/03/24 02/03/24 History fluticasone propionate 50 1 spray intranasal BID 02/03/24 02/03/24 History mcg/actuation nasal spray,suspension levothyroxine 75 mcg tablet 75 mcg PO QAM 02/03/24 02/03/24 History magnesium hydroxide 400 mg/5 mL 2,400 mg PO DAILY PRN Constipation 02/03/24 02/03/24 History oral suspension (Milk of Magnesia) nystatin 100,000 unit/gram topical 1 applic topical BID 02/03/24 02/03/24 History cream psyllium husk 0.52 gram capsule 0.52 g PO QAM 02/03/24 02/03/24 History rifampin 300 mg capsule 300 mg PO TID 02/03/24 02/03/24 History scopolamine base 1 mg over 3 days 1 patch transdermal Q72H PRN 02/03/24 02/03/24 History transdermal patch Nausea And Vomiting sodium phosphates 19 gram-[address] DAILY PRN Constipation 02/03/24 02/03/24 History gram/118 mL enema (Fleet Enema) vancomycin 750 mg intravenous 750 mg IV DAILY 02/03/24 02/03/24 History solution Past Med/Surg History Problem List (Updated 02/03/24 @ 14:05 by Tamica Welch PA-C) PAF (paroxysmal atrial fibrillation) Hypoglycemia Thrombocytopenia Anemia Acute kidney injury superimposed on stage 3b chronic kidney disease Aspiration pneumonia Catheter-associated urinary tract infection Bacteremia Metabolic encephalopathy SVT (supraventricular tachycardia) (Acute) Medical History (Updated 02/03/24 @ 14:05 by Tamica Welch PA-C) History of left heart catheterization (LHC) Hypothyroidism Bipolar disorder Chronic anemia BPH (benign prostatic hyperplasia) Horseshoe kidney Atrial fibrillation Intellectual disability HLD (hyperlipidemia) HTN (hypertension) CHB (complete heart block) Pacemaker Chronic kidney disease Epilepsy Sepsis Surgical History (Updated 02/03/24 @ 13:26 by Tamica Welch PA-C) History of cardiac pacemaker H/O cystoscopy Family History (Updated 02/03/24 @ 13:26 by Tamica Welch PA-C) Other Family history unobtainable Social History (Updated 02/03/24 @ 13:26 by Tamica Welch PA-C) Smoking Status: Never smoker Hx Alcohol Use: No Hx Substance Use: No Preferred Language: Upper Sorbian Communication Ability: non-verbal Beliefs That Will Affect Care: None marital status: Single Current Living Situation: Other Current Living Situation Comment: nursing home Feels Safe at Home: Yes Assistive Devices: Walker Review of Systems Review of Systems: Unobtainable due to cognitive status Physical Exam Physical Exam: please refer to Dr. Arrington addendum for physical exam findings. Results & Data Results & Data Vital Signs (Past 12 Hours) Vital Signs Temp Pulse Resp BP Pulse Ox O2 Del Method 02/03/24 11:30 110/73 02/03/24 11:30 24 97 02/03/24 11:15 97 Room Air 02/03/24 11:11 100 Room Air 02/03/24 11:04 90 02/03/24 11:03 125 H 24 96 02/03/24 11:02 102/77 02/03/24 10:59 36.7 C 98 H 18 100/65 97 Room Air Laboratory Results I have independently reviewed and interpreted patient's admitting labs including CBC, CMP, mag, TSH, UA and troponin. Diagnostic Findings Chest X-Ray 02/03/24 11:23 XR chest 1V portable HISTORY: 63 years-old Male weakness COMPARISON: 02/01/2024 TECHNIQUE: AP view of the chest FINDINGS: Cardiac silhouette is enlarged. There is persistent interstitial coarsening with ill-defined left basilar and right midlung predominant opacities. Overall improved aeration of the lungs. Probable trace pleural effusions. No pneumothorax. Left subclavian pacer/AICD. Bones appear grossly intact. IMPRESSION: 1. Cardiomegaly with improved aeration of the lungs suggestive of resolving pulmonary edema. 2. Trace pleural effusions. ACT 112: Negative or not required by law. The above report was generated using voice recognition software. It may contain grammatical, syntax or spelling errors. Electronically signed by: Jason Marte M.D. 02/03/2024 11:[address] 02/03/24 11:24 CT head/brain wo con CLINICAL HISTORY: change in mentation Technique: Contiguous axial CT images of the head were acquired from the base of the skull to the vertex without intravenous contrast administration. Images were viewed in brain, subdural and bone windows. Automated dose lowering techniques and/or adjustment according to patient size were utilized for this exam. Comparison: None available at the time of this dictation. Findings: Areas of decreased attenuation are present in the periventricular and subcortical white matter bilaterally consistent with small vessel ischemic disease. Generalized cerebral atrophy with commensurate enlargement of the ventricles, sulci, and cisterns is also present. There is no acute intracranial hemorrhage or evidence of acute territorial infarction. No shift of the midline structures, mass effect, or extra-axial abnormalities are shown. Atherosclerotic calcifications are present in the intracranial segments of the internal carotid arteries. Imaged portions of the paranasal sinuses and mastoid air cells are clear. The orbits appear normal. There are no acute fractures of the calvaria or scalp swelling. Impression: No acute intracranial hemorrhage, no evidence of acute territorial infarction or other acute intracranial disease process. ACT 112: Negative or not required by law. Electronically signed by: Jordan Gupta M.D. 02/03/2024 12:00 PM Medications Administered Medication List Discontinued Medications Sodium Chloride (Nss) 500 mls @ 999 mls/hr IV .Q31M ONE Stop: 02/03/24 11:53 Last Admin: 02/03/24 11:49 Dose: 999 mls/hr Documented By: ALBINO COVID-19 Results Results COVID-19 Adm Lab Results: RBC 2.85 M/uL (4.70-6.10) L 02/03/24 WBC 5.94 K/ul (4.8-10.8) 02/03/24 Hgb 7.2 g/dl (14.0-18.0) L 02/03/24 Hct 22.7 % (42.0-52.0) L 02/03/24 Plt Count 80 K/uL (130-400) L 02/03/24 Neutrophils (%) (Auto) 70.8 % 02/03/24 Lymphocytes (%) (Auto) 20.4 % 02/03/24 Monocytes # (Auto) 0.40 K/uL (0.11-0.59) 02/03/24 Eosinophils # (Auto) 0.06 K/uL (0.00-0.50) 02/03/24 Immature Granulocyte % (Auto) 0.8 % 02/03/24 Neutrophils # (Auto) 4.20 K/uL (1.40-6.50) 02/03/24 Lymphocytes # (Auto) 1.21 K/uL (1.20-3.40) 02/03/24 Monocytes # (Auto) 0.40 K/uL (0.11-0.59) 02/03/24 Eosinophils # (Auto) 0.06 K/uL (0.00-0.50) 02/03/24 Basophils # (Auto) 0.02 K/uL (0.00-0.20) 02/03/24 Immature Granulocyte # (Auto) 0.05 K/uL (0.01-0.20) 4 Na 145 mmol/L (136-145) 02/03/24 K 4.6 mmol/L (3.5-5.1) 02/03/24 Cl 109 mmol/L (98-107) H 02/03/24 CO2 28 mmol/L (21-32) 02/03/24 Anion Gap 8 (3-11) 02/03/24 BUN 56 mg/dl (6-23) H 02/03/24 Creatinine 2.55 mg/dl (0.6-1.4) H 02/03/24 BUN/Creatinine Ratio 22.0 (10-20) H 02/03/24 Glucose Level 75 mg/dl (70-99(Fasting)) 02/03/24 Ca 10.2 mg/dl (8.6-10.3) 02/03/24 Total Bilirubin 0.5 mg/dl (0.2-1.0) 02/03/24 AST/SGOT 24 U/L (13-39) 02/03/24 ALT/SGPT 17 U/L (7-52) 02/03/24 Alkaline Phosphatase 103 U/L (34-104) 02/03/24 Total Protein 7.3 gm/dl (6.0-8.3) 02/03/24 Albumin 2.7 gm/dl (3.4-5.0) L 02/03/24 Globulin 4.6 gm/dl (2.5-4.0) H 02/03/24 Albumin/Globulin Ratio 0.6 (0.9-2) L 02/03/24 LDH 152 U/L (86-244) 02/03/24 Total CK 23 U/L (30-223) L 02/03/24 Procalcitonin 2.05 ng/ml (0-0.5) H 02/03/24 Fibrinogen 730 mg/dl (184-400) H 02/03/24 PTT 52 Seconds (21-31) H 02/03/24 INR 1.4 (0.9-1.1) H 02/03/24 Adenovirus (PCR) Not Detected (NotDetected) 02/03/24 B. parapertussis DNA (PCR) Not Detected (NotDetected) 01/22 04/17 B. pertussis DNA (PCR) Not Detected (NotDetected) 02/03/24 C. pneumoniae DNA (PCR) Not Detected (NotDetected) 4 Coronavirus Type OC43 (PCR) Not Detected (NotDetected) 02/14 Coronavirus Type HKU1 (PCR) Not Detected (NotDetected) 02/14 Coronavirus Type 229E (PCR) Not Detected (NotDetected) 02/14 COVID-19 PCR Not Detected (NotDetected) 02/03/24 Coronavirus Type NL63 (PCR) Not Detected (NotDetected) 02/14 Human Metapneumovirus (PCR) Not Detected (NotDetected) 02/14 Influenza Virus Type A (PCR) Not Detected (NotDetected) Influenza Virus Type B (PCR) Not Detected (NotDetected) M. pneumoniae (PCR) Not Detected (NotDetected) 02/03/24 Parainfluenza Type 1 (PCR) Not Detected (NotDetected) 01/22 04/17 Parainfluenza Type 2 (PCR) Not Detected (NotDetected) 01/22 04/17 Parainfluenza Type 3 (PCR) Not Detected (NotDetected) 01/22 04/17 Parainfluenza Type 4 (PCR) Not Detected (NotDetected) 01/22 04/17 RSV (PCR) Not Detected (NotDetected) 02/03/24 Enterovirus/Rhinovirus (PCR) Not Detected (NotDetected) Chest X-Ray 02/03/24 Code Status & VTE Plan VTE Prophylaxis Plan VTE Prophylaxis will be ordered: Yes Supervising Physician Co-Signing Physician Notes Patient is a 63-year-old male with history of intellectual disability, A-fib on anticoagulation with Eliquis, bipolar disorder, seizure disorder, GERD, gout, BPH, CKD stage III, chronic anemia and other medical problems who was recently hospitalized at [facility] and was treated for right lower lobe pneumonia, respiratory failure and staph hemolyticus bacteremia. Patient unable to provide history and most of the history is obtained from patient's caregivers at bedside. Patient underwent TTE, DE and was thought to be negative for infective endocarditis. Patient was evaluated by infectious disease recommended 6-week course of IV vancomycin and rifampin. Patient was discharged to personal care facility and later developed change in mental status. Patient has been refusing to take food, medications and has been confused which has been gradually worsening over the last 3 days. Patient was also noticed to have some hematuria but no known history of fever, chills. At baseline patient was able to make conversations but currently unable to and does not follow commands. Patient has been incontinent over the last 1 year and was recently placed on a Foster catheter which was exchanged 2 days ago. Please review HPI for complete details of presentation. I personally reviewed blood work and imaging studies. CT head showed no acute process. BioFire negative. Hemoglobin 8.8, hematocrit 27.3, platelet count 80K, creatinine elevated 2.5, BUN 56, glucose 69, TSH 5.26, normal free T4. LFTs within normal limits. Urinalysis suggestive of possible UTI. Vancomycin level elevated at 27.5. Chest x-ray suggestive of resolving pulmonary edema, trace pleural effusions. Patient's repeat blood cultures from 01/22/2024 at [facility] have been negative. Physical Exam: Vitals signs as noted above General Appearance: Thin, frail, chronic ill appearing, no apparent distress Head: normocephalic, Atraumatic Eyes: normal inspection, EOMI Neck: supple, Trachea midline Respiratory/Chest: Coarse decreased breath sounds,No accessory muscle use Cardiovascular: S1, S2, No murmur, + pacer Abdomen/GI:Soft, Non tender, Bowel sounds present Extremities/Musculoskeletal:normal inspection, 2+ edema Neurologic/Psych: Alert, awake, confused, grossly moves all extremities, does not follow commands. Unable to perform complete neurological exam. Skin: normal color, warm, + petechiae Acute metabolic encephalopathy Complicated urinary tract infection Possible sepsis SHE on CKD stage III Thrombocytopenia likely due to rifampin Rule out acute hemolytic anemia Staph hemolyticus bacteremia Right lower lobe pneumonia ? Secondary to aspiration Hypoglycemia Given worsening kidney function, will change vancomycin to daptomycin Added Zosyn Hemolytic workup pending. Continue rifampin for now Nephrology, infectious disease consulted Monitor renal function, avoid nephrotoxic agents as able Monitor I's and O's, daily weight IV fluids Speech therapy evaluation Avoid anticoagulation given hematuria, thrombocytopenia Fall, aspiration precautions Consider MRI brain if no improvement Place on hypoglycemia protocol Low threshold to move to ICU if blood pressure remains unimproved with IV fluids I personally interviewed and examined at bedside. Patient's care is coordinated with Tamica Welch PA-C. I have reviewed the advanced practitioner's documentation, and I agree with plan of care. Please refer to the documentation above for details of patient's presentation and for discussion of other issues. I spent a total [id number] coordinating, documenting, and providing care for this patient excluding time spent in the performance of separately billed soreni veronica.
[2024-02-03] MEDS: SODIUM CHLORIDE 0.9% 1,000 ML IV ONE ×2 (13:01→18:54)
[2024-02-03] MEDS: D5W AND 1/2NSS 1,000 ML IV SCH (13:26)
[2024-02-03] MEDS ORDERED: GLUCOSE 40% GEL 15 GM TUBE PO PRN (13:58)
[2024-02-03] MEDS ORDERED: DEXTROSE 50% 50 ML SYRINGE IV PRN (13:58)
[2024-02-03] MEDS ORDERED: CARBOHYDRATES FOR HYPOGLYCEMIA PO PRN (13:58)
[2024-02-03] MEDS ORDERED: GLUCOSE 10 TAB/TUBE PO PRN (13:58)
[2024-02-03] MEDS ORDERED: GLUCAGON FOR INJ 1 MG VIAL SQ PRN (13:58)
[2024-02-03] MEDS ORDERED: POLYETHYLENE (MIRALAX) 17 GM PACK PO PRN (14:28)
[2024-02-03] MEDS ORDERED: ACETAMINOPHEN 325 MG TAB PO PRN (14:28)
[2024-02-03 15:09] LABS: Reticulocyte % 3.35 % (0.50-2.00); Reticulocytes # 0.09 10^6/uL (0.020-0.100)
[2024-02-03 15:33] LABS: Fibrinogen 730 mg/dl (184-400); INR 1.4 (0.9-1.1); Partial Thromboplastin Ratio 1.9; Partial Thromboplastin Time 52 Seconds (21-31); Prothrombin Time 14.9 Seconds (9.0-12.0)
[2024-02-03] MEDS: DAPTOmycin 400 MG in SYRINGE 0 ML IV SCH (15:41)
[2024-02-03] MEDS: PIPERACILLIN/TAZOBACTAM 4.5 GM/100 ML BAG IV STA (16:03)
[2024-02-03 19:00] LABS: Hematocrit (blood only) 22.7 % (42.0-52.0); Hemoglobin 7.2 g/dl (14.0-18.0)
[2024-02-03] MEDS: CALCIUM CARBONATE 1250MG TAB PO SCH (20:14)
[2024-02-03] MEDS: DIVALPROEX EXTENDED RELEASE 500 MG TAB PO SCH (20:14)
[2024-02-03] MEDS: OLANZapine 10 MG TAB PO SCH (20:14)
[2024-02-03] MEDS: FLECAINIDE ACETATE 100 MG TABLET PO SCH (20:14)
[2024-02-03] MEDS: GABAPENTIN 100 MG CAP PO SCH (20:15)
--- NOTE | 2024-02-03 20:18 | Communication Note ---
Date of Service: February 03, 2024 @1845 was notified by RN pt BP 60/40s. 1L fluid bolus was ordered, repeat hgb 7.2, lactic acid 0.6 Pt is hypothermic 32.5C on Rossy Hugger. This is a change in condition from pts admission status. He received 2L of IVF in ED, additional 1L of fluid support in PCU and BP still 70/40s. Will transfer pt to ICU for vasopressor support. I discussed with pts guardian from [facility] [phone] and updated her on pts current change in condition. She informed me pts Sister, Priti Aaron, , is POA to make medical decisions regarding patients care. I spoke to Priti and updated her regarding her brothers current condition and guarded prognosis. She understands and is in agreement with plan of care DDx: Presumed Septic SHock, Hypovolemic Shock (though suspect hgb dilutional) Dispo: To ICU for vasopressor support Lorrie Welch PA-C
[2024-02-03] MEDS ORDERED: STAT IV Infusion **Titration per Protocol STA (20:26)
[2024-02-03] MEDS: TAMSULOSIN HCL 0.4 MG CAP PO SCH (20:32)
[2024-02-03] MEDS: TOPIRAMATE 100 MG TAB PO SCH (20:32)
[2024-02-03] MEDS: rifAMPin 300 MG CAPSULE PO SCH (20:32)
[2024-02-03] MEDS: NOREPINEPHRINE/D5W 4 MG/250 ML PLCT IV SCH (20:38)
[2024-02-03] MEDS: PIPERACILLIN/TAZOBACTAM 4.5 GM/100 ML BAG IV SCH (20:39)
[2024-02-03] MEDS ORDERED: MELATONIN 3 MG TAB PO PRN (21:00)
[2024-02-03 21:06] LABS: Albumin Globulin Ratio 0.6 (0.9-2); Albumin Level 2.3 gm/dl (3.4-5.0); BUN Creatinine Ratio 21.1 (10-20); Bilirubin,Total 0.3 mg/dl (0.2-1.0); Calcium 8.6 mg/dl (8.6-10.3); Creatinine Clr Calc Pharmacy 29.2 ml/min; Globulin 3.6 gm/dl (2.5-4.0); Phosphorus 4.9 mg/dl (2.5-4.9); Potassium 4.4 mmol/L (3.5-5.1); Total Protein 5.9 gm/dl (6.0-8.3)
[2024-02-03 21:13] LABS: Troponin I High Sensitivity 11.1 pg/ml (0-20)
[2024-02-03 21:22] LABS: Hematocrit (blood only) 23.1 % (42.0-52.0); Hemoglobin 7.5 g/dl (14.0-18.0); Mean Corpuscular Hgb Conc 32.5 g/dL (32.0-36.0); Mean Corpuscular Volume 95.5 fL (80.0-100.0); Mean Platelet Volume 12.1 fL (9.4-12.4); Nucleated RBC # (auto) 0.04 K/uL (0.00-0.12); Nucleated RBC % (auto) 0.9 %; Platelet Count 71 K/uL (130-400); RDW Coefficient of Variation 17.5 % (11.5-14.5); RDW Standard Deviation 61.9 fL (36.4-46.3); Red Blood Count 2.42 M/uL (4.70-6.10); White Blood Count 4.44 K/ul (4.8-10.8)
[2024-02-03] MEDS: HYDROCORTISONE SOD 100 MG in SYRINGE 0 ML IV SCH (22:12)
[2024-02-03 22:15] LABS: Anisocytosis Present; Basophils # (auto) 0.01 K/uL (0.00-0.20); Basophils % (auto) 0.2 %; Eosinophils # (auto) 0.03 K/uL (0.00-0.50); Eosinophils % (auto) 0.7 %; Immature Granulocytes # (auto) 0.04 K/uL (0.01-0.20); Immature Granulocytes % (auto) 0.9 %; Lymphocytes # (auto) 1.03 K/uL (1.20-3.40); Lymphocytes % (auto) 23.2 %; Monocytes # (auto) 0.33 K/uL (0.11-0.59); Monocytes % (auto) 7.4 %; Neutrophils % (auto) 67.6 %; Target Cells 1+
--- NOTE | 2024-02-04 01:05 | Critical Care Consultation ---
Date of Consultation February 03, 2024 Assessment & Plan (1) Septic shock: Reason Critically Ill: 63-year-old male with past medical history significant for cognitive deficit, atrial fibrillation (on Eliquis), BPH, seizure disorder, HLD, CKD, hypothyroidism, and recent diagnosis of bacteremia with Staphylococcus hemolyticus, presents to the ICU with septic shock requiring vasopressor support with Levophed drip. Neuro - Metabolic encephalopathypatient with altered mental status compared to baseline although he does have neurological deficit and seizure disorder. He was reported to be verbal at [facility]. - CT head negative for acute intracranial findings - Suspect underlying sepsis likely contributing. Elevated BUN may also be contributing to patient's encephalopathy. Will monitor closely for now Seizure disorderwe will start on valproic acid IV. Appears stable at this time. Monitor Cardiac - Septic shockpatient appears to be hypotensive requiring vasopressor support with Levophed drip - Progressive anemia likely hemodilution with multiple IV boluses. Continue with IV fluid resuscitation. Transfuse for hemoglobin less than 7 - Random cortisol 12, will start on hydrocortisone IV - See ID for treatment of sepsis below - Troponin unremarkable -Hold antihypertensives - Continuous monitoring on telemetry History of complete heart block/PAFcurrently in paced rhythm on monitor. Metoprolol on hold due to hypotension Respiratory - No history of pulmonary disease. Currently maintaining oxygen saturation on room air. Continuous monitoring pulse ox GI - N.p.o. for now GERDFamotidine RENAL/LYTES - SHE on CKD Initial creatinine of 2.55 with previous baseline around 1.73. Likely ATN in the setting of sepsis/hypotension - Continue with IV fluid resuscitation -Maintain MAP greater than 65 - Avoid nephrotoxins and renally adjust medications - Monitor routine BMPs and Replete electrolytes as indicated - Foleystrict I's and O's ENDO - Hypoglycemialikely secondary to sepsis. Dextrose added to IV fluids. Improving Hypothyroidismcontinue Synthroid when appropriate HEME - Anemia Hemoglobin 7.5 following aggressive fluid resuscitation likely hemodilution. Baseline hemoglobin is around 10 as of 01/25 - No indication for transfusion at this time. Will transfuse hemoglobin for less than 7 Thrombocytopeniapatient with platelet count of 75,000 in the setting of sepsis. No indication for transfusion at this time. Monitor routine CBC ID - Sepsisunsure of source at this time. Patient was undergoing treatment with IV vancomycin for Staphylococcus hemolyticus. Per report, DE was negative for vegetation - ID consult - Blood cultures and urine culture pending -Nasal MRSA negative -BioFire negative - Continue daptomycin, Zosyn LINES/IV ACCESS - PICC line, peripheral IV DVT PROPHYLAXIS - SCDs I have personally spent 55 minutes of critical care time in the direct management of this patient. This is a life/limb threatening event. This includes time spent evaluating patient, direct bedside care, chart review, placing o rders, interpretation of diagnostic studies, discussion with consultants, patient, and family members, as well as other required patient management activities. This time is exclusive of all separately billable procedures, and teaching time and separate from and in addition to any other critical care service time. Thank you for allowing us to participate in the care of this patient. Please refer to my attending physician's documentation for any further recommendations. (2) PAF (paroxysmal atrial fibrillation): (3) Hypoglycemia: (4) Thrombocytopenia: (5) Anemia: (6) Acute kidney injury superimposed on stage 3b chronic kidney disease: (7) Metabolic encephalopathy: History of Present Illness Attending Physician: Alton Arrington MD History of Present Illness Patient is a 63-year-old male with past medical history of PAF (on eliquis), Heart block (s/p pacemaker), hypothyroidism, epilepsy, CKD, gout, HLD, GERD, BPH, Intellectual disability and current resident of [facility]. Patient presented to the emergency department earlier this evening with altered mental status and reported the less talkative and less himself. He was undergoing treatment bacteremia of unknown source wiith Staphylococcus hemolyticus. In the emergency department patient was found to be tachycardic, hypotensive, and lab work concerning for SHE with elevated vancomycin level of 27. He was also found to be anemic with thrombocytopenia. Patient was started on broad-spectrum antibiotics and admitted to PCU initially, however he became progressively hypotensive after receiving adequate fluid resuscitation and was placed on vasopressors. Patient now transferred to ICU for further management. Allergies Allergy/AdvReac Type Severity Reaction Status Date / Time carbamazepine Allergy Intermediate SHORTNESS Verified 02/01/24 10:58 OF BREATH lamotrigine Allergy Intermediate RASH Verified 02/01/24 10:58 cat dander Allergy Verified 02/01/24 10:58 pollen extracts Allergy Verified 02/01/24 10:58 Home Medications Medication Instructions Recorded Confirmed Type acetaminophen 325 mg tablet 650 mg PO QID PRN Fever/Pain 02/01/24 02/03/24 History allopurinol 100 mg tablet 200 mg PO DAILY 02/01/24 02/03/24 History atorvastatin 10 mg tablet 10 mg PO DAILY 02/01/24 02/03/24 History cetirizine 10 mg capsule 10 mg PO DAILY 02/01/24 02/03/24 History divalproex 500 mg tablet,extended 1,000 mg PO HS 02/01/24 02/03/24 History release 24 hr docusate sodium 100 mg tablet 100 mg PO DAILY 02/01/24 02/03/24 History famotidine 20 mg tablet 20 mg PO DAILY 02/01/24 02/03/24 History gabapentin 100 mg capsule 100 mg PO TID 02/01/24 02/03/24 History metoprolol succinate 25 mg 25 mg PO DAILY 02/01/24 02/03/24 History tablet,extended release 24 hr olanzapine 10 mg tablet 10 mg PO BID 02/01/24 02/03/24 History pantoprazole 40 mg tablet,delayed 40 mg PO DAILY 02/01/24 02/03/24 History release (Protonix) tamsulosin 0.4 mg capsule 0.4 mg PO BID 02/01/24 02/03/24 History topiramate 100 mg tablet 100 mg PO QPM 02/01/24 02/03/24 History topiramate 50 mg tablet 50 mg PO QAM 02/01/24 02/03/24 History bisacodyl 10 mg rectal suppository 10 mg ID DAILY PRN Constipation 02/03/24 02/03/24 History (Dulcolax (bisacodyl)) calcium carbonate (Calcium 600) 600 mg PO BID 02/03/24 02/03/24 History cholecalciferol (vitamin D3) 25 50 mcg PO DAILY 02/03/24 02/03/24 History mcg (1,000 unit) tablet (Vitamin D3) finasteride 5 mg tablet 5 mg PO DAILY 02/03/24 02/03/24 History flecainide 50 mg tablet 50 mg PO BID 02/03/24 02/03/24 History fluticasone propionate 50 1 spray intranasal BID 02/03/24 02/03/24 History mcg/actuation nasal spray,suspension levothyroxine 75 mcg tablet 75 mcg PO QAM 02/03/24 02/03/24 History magnesium hydroxide 400 mg/5 mL 2,400 mg PO DAILY PRN Constipation 02/03/24 02/03/24 History oral suspension (Milk of Magnesia) nystatin 100,000 unit/gram topical 1 applic topical BID 02/03/24 02/03/24 History cream psyllium husk 0.52 gram capsule 0.52 g PO QAM 02/03/24 02/03/24 History rifampin 300 mg capsule 300 mg PO TID 02/03/24 02/03/24 History scopolamine base 1 mg over 3 days 1 patch transdermal Q72H PRN 02/03/24 02/03/24 History transdermal patch Nausea And Vomiting sodium phosphates 19 gram-7 118 ml ID DAILY PRN Constipation 02/03/24 02/03/24 History gram/118 mL enema (Fleet Enema) vancomycin 750 mg intravenous 750 mg IV DAILY 02/03/24 02/03/24 History solution Patient History Medical History (Updated 02/04/24 @ 01:33 by NIMA Brown) History of left heart catheterization (LHC) Hypothyroidism Bipolar disorder Chronic anemia BPH (benign prostatic hyperplasia) [place] kidney Atrial fibrillation Intellectual disability HLD (hyperlipidemia) HTN (hypertension) CHB (complete heart block) Pacemaker Chronic kidney disease Epilepsy Sepsis Surgical History (Updated 02/03/24 @ 13:26 by Tamica Welch PA-C) History of cardiac pacemaker H/O cystoscopy Family History (Updated 02/03/24 @ 13:26 by Tamica Welch PA-C) Other Family history unobtainable Social History (Updated 02/03/24 @ 13:26 by Tamica Welch PA-C) Smoking Status: Never smoker Hx Alcohol Use: No Hx Substance Use: No Preferred Language: Salvadorean Communication Ability: non-verbal Beliefs That Will Affect Care: None marital status: Single Current Living Situation: Other Current Living Situation Comment: care home Feels Safe at Home: Yes Assistive Devices: Walker Review of Systems Review of Systems: Unobtainable due to cognitive status Physical Exam Constitutional: + lethargic; + uncooperative Eyes: PERRL, conjunctivae normal, anicteric sclerae ENMT: external ear and nose normal, oropharynx normal Neck: trachea midline, no thyromegaly Respiratory: Rhonchi auscultated left lower lobe, symmetrical chest wall movement, mild ta chypnea but no use of accessory muscles. Symmetrical chest wall movement. Cardiovascular: Paced rhythm. No murmur. Bilateral lower extremity +2 edema. No JVD Gastrointestinal (Abdomen): normal bowel sounds, soft, nontender, no hepatosplenomegaly Musculoskeletal: no cyanosis or clubbing, extremities motor strength 5/5 Skin: no rashes, warm and dry Neurologic: Patient confused, does not follow commands. PERRLA. Cough gag corneal intact Psychiatric: A+Ox3, euthymic affect Results & Data Results & Data Vital Signs (Past 12 Hours) Vital Signs Temp Pulse Pulse Resp BP BP Pulse Ox 02/03/24 19:40 75 24 71/42 L 97 02/03/24 19:37 63/41 L 02/03/24 19:23 02/03/24 19:19 76/47 L 02/03/24 19:10 60 64/41 L 02/03/24 18:55 60 62/41 L 96 02/03/24 18:49 78/42 L 02/03/24 18:46 60 20 67/45 L 97 02/03/24 17:53 32.5 C L 02/03/24 16:00 32.1 C L 16 108/73 91 02/03/24 15:00 02/03/24 14:24 80 02/03/24 13:06 100 H 20 93/59 L 02/03/24 12:39 99 H 22 02/03/24 12:02 121/50 L 02/03/24 12:00 69 22 100 02/03/24 11:30 110/73 02/03/24 11:30 110/73 02/03/24 11:30 24 97 02/03/24 11:15 97 02/03/24 11:11 100 02/03/24 11:04 90 02/03/24 11:03 125 H 24 96 02/03/24 11:02 102/77 02/03/24 10:59 36.7 C 98 H 18 100/65 97 O2 Del Method 02/03/24 19:40 Room Air 02/03/24 19:37 02/03/24 19:23 Room Air 02/03/24 19:19 02/03/24 19:10 02/03/24 18:55 Room Air 02/03/24 18:49 02/03/24 18:46 Room Air 02/03/24 17:53 02/03/24 16:00 Room Air 02/03/24 15:00 Room Air 02/03/24 14:24 02/03/24 13:06 02/03/24 12:39 02/03/24 12:02 02/03/24 12:00 02/03/24 11:30 02/03/24 11:30 02/03/24 11:30 02/03/24 11:15 Room Air 02/03/24 11:11 Room Air 02/03/24 11:04 02/03/24 11:03 02/03/24 11:02 02/03/24 10:59 Room Air Coding Level of Care Code 19588 CRITICAL CARE 1ST 30-74M Diagnoses Septic shock A41.9; R65.21 PAF (paroxysmal atrial fibrillation) I48.0 Hypoglycemia E16.2 Thrombocytopenia D69.6 Anemia D64.9 Acute kidney injury superimposed on stage 3b chronic kidney disease N17.9; N18.32 Metabolic encephalopathy G93.41
[2024-02-04] MEDS: LORazepam 2 MG/1 ML VIAL IV STA (03:35)
[2024-02-04] MEDS: LORazepam 2 MG/1 ML VIAL ONE (03:35)
[2024-02-04] MEDS: levETIRAcetam 500 MG/5 ML VIAL IV STA (03:38)
[2024-02-04 05:02] LABS: Basophils # (auto) 0.01 K/uL (0.00-0.20); Basophils % (auto) 0.1 %; Eosinophils # (auto) 0.01 K/uL (0.00-0.50); Eosinophils % (auto) 0.1 %; Hemoglobin 7.8 g/dl (14.0-18.0); Immature Granulocytes % (auto) 1.3 %; Lymphocytes # (auto) 0.72 K/uL (1.20-3.40); Lymphocytes % (auto) 9.6 %; Mean Corpuscular Hgb Conc 32.5 g/dL (32.0-36.0); Mean Corpuscular Volume 95.2 fL (80.0-100.0); Mean Platelet Volume 12.8 fL (9.4-12.4); Monocytes # (auto) 0.22 K/uL (0.11-0.59); Monocytes % (auto) 2.9 %; Neutrophils # (auto) 6.42 K/uL (1.40-6.50); Nucleated RBC # (auto) 0.09 K/uL (0.00-0.12); Nucleated RBC % (auto) 1.2 %; Platelet Count 98 K/uL (130-400); RDW Coefficient of Variation 17.8 % (11.5-14.5); RDW Standard Deviation 61.1 fL (36.4-46.3); Red Blood Count 2.52 M/uL (4.70-6.10); White Blood Count 7.48 K/ul (4.8-10.8)
[2024-02-04 05:16] LABS: Albumin Globulin Ratio 0.6 (0.9-2); Albumin Level 2.5 gm/dl (3.4-5.0); BUN Creatinine Ratio 18.9 (10-20); Bilirubin,Total 0.3 mg/dl (0.2-1.0); Calcium 8.9 mg/dl (8.6-10.3); Creatinine Clr Calc Pharmacy 28.3 ml/min; Magnesium 2.1 mg/dl (1.7-2.4); Total Protein 6.5 gm/dl (6.0-8.3)
[2024-02-04 05:26] LABS: Polychromasia 1+; Target Cells 1+
[2024-02-04] MEDS: LEVOTHYROXINE SODIUM 75 MCG TABLET PO SCH (05:56)
[2024-02-04] MEDS: FAMOTIDINE 20 MG TAB PO SCH (08:57)
[2024-02-04] MEDS: allopurinoL 100 MG TAB PO SCH (08:57)
[2024-02-04] MEDS: CETIRIZINE HCL 10 MG TABLET PO SCH (08:57)
[2024-02-04] MEDS: CHOLECALCIFEROL 25 MCG (1000 UNITS) TAB PO SCH (08:57)
[2024-02-04] MEDS: DOCUSATE SODIUM 100 MG CAP PO SCH (08:57)
[2024-02-04] MEDS: FINASTERIDE 5 MG TAB PO SCH (08:58)
[2024-02-04] MEDS: TOPIRAMATE 50 MG TAB PO SCH (08:58)
[2024-02-04] MEDS: PANTOprazole 40 MG TAB PO SCH (08:58)
[2024-02-04] MEDS: ADVANCED PROBIOTIC 625 MG CAPSULE PO SCH (08:58)
[2024-02-04] MEDS ORDERED: METOPROLOL SUCC 25MG EXT REL TAB PO SCH (09:00)
--- NOTE | 2024-02-04 09:38 | Critical Care Progress Note ---
Date of Service February 04, 2024 Assessment & Plan (1) Septic shock: Plan: Reason Critically Ill: 63-year-old male with past medical history significant for cognitive deficit, atrial fibrillation (on Eliquis), BPH, seizure disorder, HLD, CKD, hypothyroidism, and recent diagnosis of bacteremia with Staphylococcus hemolyticus, presents to the ICU with septic shock requiring vasopressor support with Levophed drip. Neuro - Metabolic encephalopathypatient with altered mental status compared to baseline although he does have neurological deficit and seizure disorder. He was reported to be verbal at [facility]. Seizure disorderwe will start on valproic acid IV. Appears stable at this time. Monitor Breakthrough seizure -Reported to be on rifampin which could lower anticonvulsant dosing -Levels sent however they will be reference levels unsure turnaround time -Insert NG tube and will resume oral meds if possible Cardiac - Septic shockpatient appears to be hypotensive requiring vasopressor support with Levophed drip - Progressive anemia likely hemodilution with multiple IV boluses. Continue with IV fluid resuscitation. Transfuse for hemoglobin less than 7 - Random cortisol 12, will start on hydrocortisone IV - See ID for treatment of sepsis below - Troponin unremarkable - Hold antihypertensives - Continuous monitoring on telemetry Repeat echo History of complete heart block/PAFcurrently in paced rhythm on monitor. Metoprolol on hold due to hypotension Respiratory - No history of pulmonary disease. Currently maintaining oxygen saturation on room air. Continuous monitoring pulse ox GI - N.p.o. for now -Place NG tube/core safe for supplemental feeding GERDFamotidine RENAL/LYTES - SHE on CKD Initial creatinine of 2.55 with previous baseline around 1.73. Likely ATN in the setting of sepsis/hypotension - Continue with IV fluid resuscitation - Maintain MAP greater than 65 -Acute kidney injury could increase anticonvulsant levels however this clinically appears to be a breakthrough seizure - Monitor routine BMPs and Replete electrolytes as indicated - Foleystrict I's and O's ENDO - Hypoglycemialikely secondary to sepsis. Dextrose added to IV fluids. Impr oving Hypothyroidismcontinue Synthroid when appropriate HEME - Anemia Hemoglobin 7.5 following aggressive fluid resuscitation likely hemodilution. Baseline hemoglobin is around 10 as of 01/25 - No indication for transfusion at this time. Will transfuse hemoglobin for less than 7 Thrombocytopeniapatient with platelet count of 75,000 in the setting of sepsis. No indication for transfusion at this time. Monitor routine CBC ID - Sepsisunsure of source at this time. Patient was undergoing treatment with IV vancomycin for Staphylococcus hemolyticus. Per report, DE was negative for veg etation - ID consult: Discussed with ID -Discontinue rifampin - Continue daptomycin, Zosyn LINES/IV ACCESS - PICC line, peripheral IV DVT PROPHYLAXIS - SCDs (2) PAF (paroxysmal atrial fibrillation): (3) Hypoglycemia: (4) Thrombocytopenia: (5) Anemia: (6) Acute kidney injury superimposed on stage 3b chronic kidney disease: (7) Metabolic encephalopathy: Admission and Anticipated Discharge Date Admission Date: February 03, 2024 Supervising Physician Co-Signing Physician Notes I have personally spent 50 minutes of critical care time in the direct management of this patient. This is a life/limb threatening event. This includes time spent evaluating patient, direct bedside care, chart review, placing orders, interpretation of diagnostic studies, discussion with consultants, patient, and family members, as well as other required patient management activities. This time is exclusive of all separately billable procedures, and teaching time and separate from and in addition to any other critical care service time. Subjective Patient unable to participate in history taking Physical Exam Physical Exam: General: Arousable with verbal and tactile stimuli. Skin: Warm, dry, Head: Atraumatic Ears, nose, mouth and throat: airway patent Cardiovascular: Normal peripheral perfusion Respiratory: no respiratory distress Gastrointestinal: Non distended Musculoskeletal: No deformity Results & Data Results & Data Vital Signs (Past 12 Hours) Vital Signs Temp Pulse Resp BP Pulse Ox 02/04/24 06:45 104/55 L 02/04/24 06:27 36.0 C L 65 38 H 95 02/04/24 06:15 110/58 L 02/04/24 06:15 36.1 C L 60 34 H 95 02/04/24 06:03 36.1 C L 61 25 H 95 02/04/24 06:00 109/58 L 02/04/24 05:54 36.1 C L 61 28 H 95 02/04/24 05:45 110/63 02/04/24 05:36 36.2 C L 66 23 95 02/04/24 05:30 36.2 C L 64 30 H 96 02/04/24 05:30 110/62 02/04/24 05:30 110/62 02/04/24 05:30 110/62 02/04/24 05:30 110/62 02/04/24 05:15 108/58 L 02/04/24 05:12 36.2 C L 61 26 H 95 02/04/24 05:09 36.2 C L 63 31 H 96 02/04/24 04:45 89/65 L 02/04/24 04:39 36.3 C L 64 31 H 96 02/04/24 04:35 108/55 L 02/04/24 04:35 108/55 L 02/04/24 04:30 105/53 L 02/04/24 04:25 99/59 L 02/04/24 04:21 97/51 L 02/04/24 04:15 107/61 02/04/24 04:15 107/61 02/04/24 04:15 107/61 02/04/24 04:10 104/68 02/04/24 04:10 104/68 02/04/24 04:00 36.4 C L 62 26 H 95 02/04/24 04:00 78/50 L 02/04/24 04:00 78/50 L 02/04/24 04:00 78/50 L 02/04/24 03:55 97/57 L 02/04/24 03:55 97/57 L 02/04/24 03:55 97/57 L 02/04/24 03:48 36.5 C 70 35 H 97 02/04/24 03:47 106/62 02/04/24 03:47 106/62 02/04/24 03:45 36.5 C 64 27 H 95 02/04/24 03:41 104/56 L 02/04/24 03:41 104/56 L 02/04/24 03:41 104/56 L 02/04/24 03:39 36.5 C 71 36 H 95 02/04/24 03:36 36.5 C 82 46 H 96 02/04/24 03:36 98/54 L 02/04/24 03:36 98/54 L 02/04/24 03:25 99/47 L 02/04/24 03:15 107/56 L 02/04/24 03:06 36.6 C 98 H 33 H 95 02/04/24 03:05 89/66 L 02/04/24 03:05 89/66 L 02/04/24 03:03 36.6 C 122 H 39 H 95 02/04/24 03:00 94/68 L 02/04/24 03:00 94/68 L 02/04/24 03:00 94/68 L 02/04/24 03:00 94/68 L 02/04/24 02:50 98/51 L 02/04/24 02:48 36.6 C 68 36 H 94 02/04/24 02:45 36.6 C 69 29 H 95 02/04/24 02:45 96/51 L 02/04/24 02:45 96/51 L 02/04/24 02:40 97/52 L 02/04/24 02:40 97/52 L 02/04/24 02:36 36.6 C 78 33 H 94 02/04/24 02:35 99/51 L 02/04/24 02:35 99/51 L 02/04/24 02:27 36.6 C 109 H 40 H 94 02/04/24 02:26 95/62 L 02/04/24 02:10 110/55 L 02/04/24 02:09 36.6 C 62 37 H 97 02/04/24 02:05 103/55 L 02/04/24 02:05 103/55 L 02/04/24 02:05 103/55 L 02/04/24 02:05 103/55 L 02/04/24 02:03 36.6 C 61 30 H 97 02/04/24 02:00 103/57 L 02/04/24 02:00 103/57 L 02/04/24 02:00 103/57 L 02/04/24 01:55 95/70 L 02/04/24 01:55 95/70 L 02/04/24 01:51 36.6 C 62 33 H 96 02/04/24 01:50 108/55 L 02/04/24 01:50 108/55 L 02/04/24 01:45 107/55 L 02/04/24 01:13 70 02/04/24 01:11 99/61 L 02/04/24 01:05 107/60 02/04/24 00:55 103/59 L 02/04/24 00:51 36.5 C 70 32 H 96 02/04/24 00:50 101/57 L 02/04/24 00:50 101/57 L 02/04/24 00:50 101/57 L 02/04/24 00:48 36.5 C 64 31 H 95 02/04/24 00:45 98/53 L 02/04/24 00:40 106/53 L 02/04/24 00:40 106/53 L 02/04/24 00:36 36.5 C 67 31 H 96 02/04/24 00:35 108/51 L 02/04/24 00:35 108/51 L 02/04/24 00:35 108/51 L 02/04/24 00:35 108/51 L 02/04/24 00:30 36.5 C 65 24 96 02/04/24 00:30 101/55 L 02/04/24 00:30 101/55 L 02/04/24 00:25 99/49 L 02/04/24 00:25 99/49 L 02/04/24 00:20 113/64 02/04/24 00:15 36.4 C L 64 31 H 96 02/04/24 00:15 97/54 L 02/04/24 00:15 97/54 L 02/04/24 00:15 97/54 L 02/04/24 00:15 97/54 L 02/04/24 00:09 36.4 C L 78 32 H 95 02/04/24 00:05 105/55 L 02/04/24 00:01 104/56 L 02/03/24 23:55 109/55 L 02/03/24 23:50 100/58 L 02/03/24 23:45 36.1 C L 65 29 H 96 02/03/24 23:45 102/47 L 02/03/24 23:45 102/47 L 02/03/24 23:40 100/55 L 02/03/24 23:40 100/55 L 02/03/24 23:36 36.0 C L 62 23 92 02/03/24 23:35 100/51 L 02/03/24 23:35 100/51 L 02/03/24 23:35 100/51 L 02/03/24 23:30 101/49 L 02/03/24 23:30 101/49 L 02/03/24 23:30 101/49 L 02/03/24 23:30 101/49 L 02/03/24 23:30 36.0 C L 67 40 H 96 02/03/24 23:27 107/54 L 02/03/24 23:27 107/54 L 02/03/24 23:21 35.8 C L 64 24 97 02/03/24 23:20 114/52 L 02/03/24 21:45 79/48 L 02/03/24 21:42 34.6 C L 60 34 H 97 Critical Care Results & Data Vital Signs (Past 12 Hours) Vital Signs Temp Pulse Resp BP Pulse Ox 02/04/24 06:45 104/55 L 02/04/24 06:27 36.0 C L 65 38 H 95 02/04/24 06:15 110/58 L 02/04/24 06:15 36.1 C L 60 34 H 95 02/04/24 06:03 36.1 C L 61 25 H 95 02/04/24 06:00 109/58 L 02/04/24 05:54 36.1 C L 61 28 H 95 02/04/24 05:45 110/63 02/04/24 05:36 36.2 C L 66 23 95 02/04/24 05:30 36.2 C L 64 30 H 96 02/04/24 05:30 110/62 02/04/24 05:30 110/62 02/04/24 05:30 110/62 02/04/24 05:30 110/62 02/04/24 05:15 108/58 L 02/04/24 05:12 36.2 C L 61 26 H 95 02/04/24 05:09 36.2 C L 63 31 H 96 02/04/24 04:45 89/65 L 02/04/24 04:39 36.3 C L 64 31 H 96 02/04/24 04:35 108/55 L 02/04/24 04:35 108/55 L 02/04/24 04:30 105/53 L 02/04/24 04:25 99/59 L 02/04/24 04:21 97/51 L 02/04/24 04:15 107/61 02/04/24 04:15 107/61 02/04/24 04:15 107/61 02/04/24 04:10 104/68 02/04/24 04:10 104/68 02/04/24 04:00 36.4 C L 62 26 H 95 02/04/24 04:00 78/50 L 02/04/24 04:00 78/50 L 02/04/24 04:00 78/50 L 02/04/24 03:55 97/57 L 02/04/24 03:55 97/57 L 02/04/24 03:55 97/57 L 02/04/24 03:48 36.5 C 70 35 H 97 02/04/24 03:47 106/62 02/04/24 03:47 106/62 02/04/24 03:45 36.5 C 64 27 H 95 02/04/24 03:41 104/56 L 02/04/24 03:41 104/56 L 02/04/24 03:41 104/56 L 02/04/24 03:39 36.5 C 71 36 H 95 02/04/24 03:36 36.5 C 82 46 H 96 02/04/24 03:36 98/54 L 02/04/24 03:36 98/54 L 02/04/24 03:25 99/47 L 02/04/24 03:15 107/56 L 02/04/24 03:06 36.6 C 98 H 33 H 95 02/04/24 03:05 89/66 L 02/04/24 03:05 89/66 L 02/04/24 03:03 36.6 C 122 H 39 H 95 02/04/24 03:00 94/68 L 02/04/24 03:00 94/68 L 02/04/24 03:00 94/68 L 02/04/24 03:00 94/68 L 02/04/24 02:50 98/51 L 02/04/24 02:48 36.6 C 68 36 H 94 02/04/24 02:45 36.6 C 69 29 H 95 02/04/24 02:45 96/51 L 02/04/24 02:45 96/51 L 02/04/24 02:40 97/52 L 02/04/24 02:40 97/52 L 02/04/24 02:36 36.6 C 78 33 H 94 02/04/24 02:35 99/51 L 02/04/24 02:35 99/51 L 02/04/24 02:27 36.6 C 109 H 40 H 94 02/04/24 02:26 95/62 L 02/04/24 02:10 110/55 L 02/04/24 02:09 36.6 C 62 37 H 97 02/04/24 02:05 103/55 L 02/04/24 02:05 103/55 L 02/04/24 02:05 103/55 L 02/04/24 02:05 103/55 L 02/04/24 02:03 36.6 C 61 30 H 97 02/04/24 02:00 103/57 L 02/04/24 02:00 103/57 L 02/04/24 02:00 103/57 L 02/04/24 01:55 95/70 L 02/04/24 01:55 95/70 L 02/04/24 01:51 36.6 C 62 33 H 96 02/04/24 01:50 108/55 L 02/04/24 01:50 108/55 L 02/04/24 01:45 107/55 L 02/04/24 01:13 70 02/04/24 01:11 99/61 L 02/04/24 01:05 107/60 02/04/24 00:55 103/59 L 02/04/24 00:51 36.5 C 70 32 H 96 02/04/24 00:50 101/57 L 02/04/24 00:50 101/57 L 02/04/24 00:50 101/57 L 02/04/24 00:48 36.5 C 64 31 H 95 02/04/24 00:45 98/53 L 02/04/24 00:40 106/53 L 02/04/24 00:40 106/53 L 02/04/24 00:36 36.5 C 67 31 H 96 02/04/24 00:35 108/51 L 02/04/24 00:35 108/51 L 02/04/24 00:35 108/51 L 02/04/24 00:35 108/51 L 02/04/24 00:30 36.5 C 65 24 96 02/04/24 00:30 101/55 L 02/04/24 00:30 101/55 L 02/04/24 00:25 99/49 L 02/04/24 00:25 99/49 L 02/04/24 00:20 113/64 02/04/24 00:15 36.4 C L 64 31 H 96 02/04/24 00:15 97/54 L 02/04/24 00:15 97/54 L 02/04/24 00:15 97/54 L 02/04/24 00:15 97/54 L 02/04/24 00:09 36.4 C L 78 32 H 95 02/04/24 00:05 105/55 L 02/04/24 00:01 104/56 L 02/03/24 23:55 109/55 L 02/03/24 23:50 100/58 L 02/03/24 23:45 36.1 C L 65 29 H 96 02/03/24 23:45 102/47 L 02/03/24 23:45 102/47 L 02/03/24 23:40 100/55 L 02/03/24 23:40 100/55 L 02/03/24 23:36 36.0 C L 62 23 92 02/03/24 23:35 100/51 L 02/03/24 23:35 100/51 L 02/03/24 23:35 100/51 L 02/03/24 23:30 101/49 L 02/03/24 23:30 101/49 L 02/03/24 23:30 101/49 L 02/03/24 23:30 101/49 L 02/03/24 23:30 36.0 C L 67 40 H 96 02/03/24 23:27 107/54 L 02/03/24 23:27 107/54 L 02/03/24 23:21 35.8 C L 64 24 97 02/03/24 23:20 114/52 L 02/03/24 21:45 79/48 L 02/03/24 21:42 34.6 C L 60 34 H 97 Lab & Micro Results (Past 24 Hours) RBC 2.52 M/uL (4.70-6.10) L 02/04/24 WBC 7.48 K/ul (4.8-10.8) 02/04/24 Hgb 7.8 g/dl (14.0-18.0) L 02/04/24 Hct 24.0 % (42.0-52.0) L 02/04/24 MCV 95.2 fL (80.0-100.0) 02/04/24 MCH 31.0 pg (25.0-34.0) 02/04/24 MCHC 32.5 g/dL (32.0-36.0) 02/04/24 RDW Standard Deviation 61.1 fL (36.4-46.3) H 02/04/24 RDW Coefficient of Variation 17.8 % (11.5-14.5) H 02/04/24 Plt Count 98 K/uL (130-400) L 02/04/24 MPV 12.8 fL (9.4-12.4) H 02/04/24 Nucleated Red Blood Cells % (auto) 1.2 % 02/03 Nucleated RBC Absolute Count (auto) 0.09 K/uL (0.00-0.12) 1 04/06/23 Neutrophils (%) (Auto) 86.0 % 02/04/24 Lymphocytes (%) (Auto) 9.6 % 02/04/24 Monocytes # (Auto) 0.22 K/uL (0.11-0.59) 02/04/24 Eosinophils # (Auto) 0.01 K/uL (0.00-0.50) 02/04/24 Immature Granulocyte % (Auto) 1.3 % 02/04/24 Neutrophils # (Auto) 6.42 K/uL (1.40-6.50) 02/04/24 Lymphocytes # (Auto) 0.72 K/uL (1.20-3.40) L 02/04/24 Monocytes # (Auto) 0.22 K/uL (0.11-0.59) 02/04/24 Eosinophils # (Auto) 0.01 K/uL (0.00-0.50) 02/04/24 Basophils # (Auto) 0.01 K/uL (0.00-0.20) 02/04/24 Immature Granulocyte # (Auto) 0.10 K/uL (0.01-0.20) 4 Polychromasia 1+ 02/04/24 Anisocytosis Present 02/03/24 Target Cells 1+ 02/04/24 Na 145 mmol/L (136-145) 02/04/24 K 5.0 mmol/L (3.5-5.1) 02/04/24 Cl 115 mmol/L (98-107) H 02/04/24 CO2 22 mmol/L (21-32) 02/04/24 Anion Gap 8 (3-11) 02/04/24 BUN 48 mg/dl (6-23) H 02/04/24 Creatinine 2.54 mg/dl (0.6-1.4) H 02/04/24 BUN/Creatinine Ratio 18.9 (10-20) 02/04/24 Glu 105 mg/dl (70-99(Fasting)) H 02/04/24 Ca 8.9 mg/dl (8.6-10.3) 02/04/24 Phosphorus Level 4.9 mg/dl (2.5-4.9) 02/03/24 Total Bilirubin 0.3 mg/dl (0.2-1.0) 02/04/24 AST 22 U/L (13-39) 02/04/24 ALT 17 U/L (7-52) 02/04/24 Alkaline Phosphatase 163 U/L (34-104) H 02/04/24 TP 6.5 gm/dl (6.0-8.3) 02/04/24 Albumin 2.5 gm/dl (3.4-5.0) L 02/04/24 Globulin 4.0 gm/dl (2.5-4.0) 02/04/24 Albumin/Globulin Ratio 0.6 (0.9-2) L 02/04/24 Mg 2.1 mg/dl (1.7-2.4) 02/04/24 04:41 Calcium Level 8.9 mg/dl (8.6-10.3) 02/04/24 04:41 Diagnostic Findings (Past 24 Hours) Chest X-Ray 02/03/24 11:23 XR chest 1V portable HISTORY: 63 years-old Male weakness COMPARISON: 02/01/2024 TECHNIQUE: AP view of the chest FINDINGS: Cardiac silhouette is enlarged. There is persistent interstitial coarsening with ill-defined left basilar and right midlung predominant opacities. Overall improved aeration of the lungs. Probable trace pleural effusions. No pneumothorax. Left subclavian pacer/AICD. Bones appear grossly intact. IMPRESSION: 1. Cardiomegaly with improved aeration of the lungs suggestive of resolving pulmonary edema. 2. Trace pleural effusions. ACT 112: Negative or not required by law. The above report was generated using voice recognition software. It may contain grammatical, syntax or spelling errors. Electronically signed by: Jason Marte M.D. 02/03/2024 11:[address] 02/03/24 11:24 CT head/brain wo con CLINICAL HISTORY: change in mentation Technique: Contiguous axial CT images of the head were acquired from the base of the skull to the vertex without intravenous contrast administration. Images were viewed in brain, subdural and bone windows. Automated dose lowering techniques and/or adjustment according to patient size were utilized for this exam. Comparison: None available at the time of this dictation. Findings: Areas of decreased attenuation are present in the periventricular and subcortical white matter bilaterally consistent with small vessel ischemic disea se. Generalized cerebral atrophy with commensurate enlargement of the ventricles, sulci, and cisterns is also present. There is no acute intracranial hemorrhage or evidence of acute territorial infarction. No shift of the midline structures, mass effect, or extra-axial abnormalities are shown. Atherosclerotic calcifications are present in the intracranial segments of the internal carotid arteries. Imaged portions of the paranasal sinuses and mastoid air cells are clear. The orbits appear normal. There are no acute fractures of the calvaria or scalp swelling. Impression: No acute intracranial hemorrhage, no evidence of acute territorial infarction or other acute intracranial disease process. ACT 112: Negative or not required by law. Electronically signed by: Jordan Gupta M.D. 02/03/2024 12:00 PM I & O Totals 24 Hours 02/03/24 02/04/24 02/05/24 06:59 06:59 06:59 Intake Total 2802.563 / 2802.563 Output Total 656 / 656 Balance 2146.563 / 2146.563 Cumulative 02/03/24 10:36 thru 02/04/24 06:10 Intake Total 2802.563 Output Total 656 Balance 2146.563 RT Ventilator Mngmt (Last Documented) Ventilator Ordered Settings Respiratory Rate 38 02/04/24 06:27 Ventilator - PT Measurements Respiratory Rate 38 Coding Level of Care Code 08184 CRITICAL CARE 1ST 30-74M Diagnoses Septic shock A41.9; R65.21 PAF (paroxysmal atrial fibrillation) I48.0 Hypoglycemia E16.2 Thrombocytopenia D69.6 Anemia D64.9 Acute kidney injury superimposed on stage 3b chronic kidney disease N17.9; N18.32 Metabolic encephalopathy G93.41
[2024-02-04] MEDS: VALPROATE SOD 500 MG in DEXTROSE 5% 50 ML IV SCH (09:52)
--- NOTE | 2024-02-04 10:23 | Nephrology Consultation ---
Date of Consultation February 04, 2024 Assessment & Plan (1) Septic shock: Unclear source. Was already On Iv vancomicin. Vanco level high at 27 Off this drug now. BP is sill low and is pressors. has got lot of fluid already and also startedon Stress dose Steroid. (2) Acute kidney injury superimposed on stage 3b chronic kidney disease: SHE most likely Sec to ATN in the setting Of Possible sepsis and Hypotension. Despite aggressive iv hydration BP is still low and on Levophed now. Was on daily iV Vancomicin also and that could be the cause of SHE also. Currently vancomicin on hold and getting Iv Zosyn + dapto. less likely to ause renal issues so continue This is not simple pre renal SHE. Can give Iv fluid to some extent but very carefully. Already starting to progress to Pulm edema so may need lasix. Can give lasix if felt needed. Will co-ordinate with ICU. Creat actually went down a bit with adequate urine output so unlikely to need dialysis but will also depend on his overall status improvement. with SHE many meds levels could be affected so Do check levels of drugs where levels can be checked including Valproic Acid. hgb and PLT both low with sepsis. Will follow. May need PRBC if Drops below 7. Plan Case complexity high and total time spent 62 mins. Discussed with Primary team and Hospitalist team History of Present Illness Reason for Consultation: SHE on CKD Attending Physician: Israel Vences MD History of Present Illness 63/M-with baseline intellectual disability, atrial fibrillation on Eliquis, history of CHB status post permanent pacemaker placement, hypothyroidism, BPH, bipolar disorder, CKD stage III with baseline creatinine 1.4-1.5, horseshoe kidney, bilateral renal masses, BPH, chronic anemia who presented to ED secondary to altered mental status and lethargy. Patient resides in a detention due to his intellectual disability. At baseline he is very talkative and able to perform his own ADLS. Of significance patient was recently hospitalized at [facility] from 01/11 to 01/24 secondary to sepsis in setting of right lower lobe pneumonia and acute respiratory failure with hypoxia. CT chest showed a right lower lobe consolidation and he had a positive blood culture for coag negative staph. There was concern for aspiration pneumonia. He did have a speech evaluation and dysphagia eval revealed mild oropharyngeal dysphagia on videofluoroscopy and his diet was modified. Regarding positive blood culture infectious disease was involved. He underwent a TTE and DE which were negative for infectious endocarditis. Infectious disease recommended a 6-week course of IV vancomycin and oral rifampin to cover for IE given unknown course of bacteremia. A PICC line was placed. His hospital course was complicated with episodes of hypoglycemia due to poor oral oral intake. This was treated with assisted feeding and D5 fluid administration. Further it was complicated by gross hematuria and nosebleeds. He did require Foster catheter placement. Because of this and worsening baseline anemia his Eliquis was placed on hold. ROS unobtainable from pt given underlying current cognition. Staff reports after being discharge from [facility] to [facility] he was his normal self and playing bingo for 3 and then he became lethargic and not responding to normal questions. . It was also reported pts roommate tested positive for covid. He has a hx of seizure disorder but caregiver at bedside states she has been with him for 15 years and never witnessed seizure activity. In ED patient was tachycardic and borderline hypotensive. Lab work revealed H&H of 8.8 and 27.3, BUN 56, creatinine 2.55, glucose 69, mag 2.5, abnormal urinalysis, negative respiratory bio fire. His head CT was negative for acute abnormality. Chest x-ray revealed trace of bilateral pleural effusions and resolving pulmonary edema. So far Blood C/s here is negative. Vancomycin on hold. Got one dose of Daptomicin and currently getting Iv Zosyn. BP is still low and on norepi drip. Creat was 2.74 on admission and now is 2.54. while in [facility] creat was in the 1.4---1.6 range. Last creat 1.6 as of 01/25/2024. No new renal imaging here but making urine and Urine Output--650 ml so far. ROS----unable to obtain. Patiet is unresponsive.Care givers inlcuing one taking care of him for 15+ years was at bedside and reviewed. exam: Unresponsive. eyes Closed. Did not open eyes on name call. NO resp Dstress. BP is low 86/43 MM Moist. Neck Supple. No JVD. NG tube+ Limited exam--Chest Occ basal rhonchi CVS--tarce edema. RRR. Abd--Soft nontender. neuro--unresponsive and could not test Allergies Allergy/AdvReac Type Severity Reaction Status Date / Time carbamazepine Allergy Intermediate SHORTNESS Verified 02/01/24 10:58 OF BREATH lamotrigine Allergy Intermediate RASH Verified 02/01/24 10:58 cat dander Allergy Verified 02/01/24 10:58 pollen extracts Allergy Verified 02/01/24 10:58 Home Medications Medication Instructions Recorded Confirmed Type acetaminophen 325 mg tablet 650 mg PO QID PRN Fever/Pain 02/01/24 02/03/24 History allopurinol 100 mg tablet 200 mg PO DAILY 02/01/24 02/03/24 History atorvastatin 10 mg tablet 10 mg PO DAILY 02/01/24 02/03/24 History cetirizine 10 mg capsule 10 mg PO DAILY 02/01/24 02/03/24 History divalproex 500 mg tablet,extended 1,000 mg PO HS 02/01/24 02/03/24 History release 24 hr docusate sodium 100 mg tablet 100 mg PO DAILY 02/01/24 02/03/24 History famotidine 20 mg tablet 20 mg PO DAILY 02/01/24 02/03/24 History gabapentin 100 mg capsule 100 mg PO TID 02/01/24 02/03/24 History metoprolol succinate 25 mg 25 mg PO DAILY 02/01/24 02/03/24 History tablet,extended release 24 hr olanzapine 10 mg tablet 10 mg PO BID 02/01/24 02/03/24 History pantoprazole 40 mg tablet,delayed 40 mg PO DAILY 02/01/24 02/03/24 History release (Protonix) tamsulosin 0.4 mg capsule 0.4 mg PO BID 02/01/24 02/03/24 History topiramate 100 mg tablet 100 mg PO QPM 02/01/24 02/03/24 History topiramate 50 mg tablet 50 mg PO QAM 02/01/24 02/03/24 History bisacodyl 10 mg rectal suppository 10 mg PA DAILY PRN Constipation 02/03/24 02/03/24 History (Dulcolax (bisacodyl)) calcium carbonate (Calcium 600) 600 mg PO BID 02/03/24 02/03/24 History cholecalciferol (vitamin D3) 25 50 mcg PO DAILY 02/03/24 02/03/24 History mcg (1,000 unit) tablet (Vitamin D3) finasteride 5 mg tablet 5 mg PO DAILY 02/03/24 02/03/24 History flecainide 50 mg tablet 50 mg PO BID 02/03/24 02/03/24 History fluticasone propionate 50 1 spray intranasal BID 02/03/24 02/03/24 History mcg/actuation nasal spray,suspension levothyroxine 75 mcg tablet 75 mcg PO QAM 02/03/24 02/03/24 History magnesium hydroxide 400 mg/5 mL 2,400 mg PO DAILY PRN Constipation 02/03/24 02/03/24 History oral suspension (Milk of Magnesia) nystatin 100,000 unit/gram topical 1 applic topical BID 02/03/24 02/03/24 History cream psyllium husk 0.52 gram capsule 0.52 g PO QAM 02/03/24 02/03/24 History rifampin 300 mg capsule 300 mg PO TID 02/03/24 02/03/24 History scopolamine base 1 mg over 3 days 1 patch transdermal Q72H PRN 02/03/24 02/03/24 History transdermal patch Nausea And Vomiting sodium phosphates 19 gram-7 118 ml PA DAILY PRN Constipation 02/03/24 02/03/24 History gram/118 mL enema (Fleet Enema) vancomycin 750 mg intravenous 750 mg IV DAILY 02/03/24 02/03/24 History solution Patient History Medical History History of left heart catheterization (LHC) Hypothyroidism Bipolar disorder Chronic anemia BPH (benign prostatic hyperplasia) Horseshoe kidney Atrial fibrillation Intellectual disability HLD (hyperlipidemia) HTN (hypertension) CHB (complete heart block) Pacemaker Chronic kidney disease Epilepsy Sepsis Surgical History History of cardiac pacemaker H/O cystoscopy Family History Other Family history unobtainable Social History Smoking Status: Never smoker Hx Alcohol Use: No Hx Substance Use: No Preferred Language: German Communication Ability: non-verbal Beliefs That Will Affect Care: None marital status: Single Current Living Situation: Other Current Living Situation Comment: detention Feels Safe at Home: Yes Assistive Devices: Walker Results & Data Vital Signs (Past 12 Hours) Vital Signs Temp Pulse Resp BP BP Pulse Ox 02/04/24 10:19 86/43 L 02/04/24 06:45 104/55 L 02/04/24 06:27 36.0 C L 65 38 H 95 02/04/24 06:15 110/58 L 02/04/24 06:15 36.1 C L 60 34 H 95 02/04/24 06:03 36.1 C L 61 25 H 95 02/04/24 06:00 109/58 L 02/04/24 05:54 36.1 C L 61 28 H 95 02/04/24 05:45 110/63 02/04/24 05:36 36.2 C L 66 23 95 02/04/24 05:30 36.2 C L 64 30 H 96 02/04/24 05:30 110/62 02/04/24 05:30 110/62 02/04/24 05:30 110/62 02/04/24 05:30 110/62 02/04/24 05:15 108/58 L 02/04/24 05:12 36.2 C L 61 26 H 95 02/04/24 05:09 36.2 C L 63 31 H 96 02/04/24 04:45 89/65 L 02/04/24 04:39 36.3 C L 64 31 H 96 02/04/24 04:35 108/55 L 02/04/24 04:35 108/55 L 02/04/24 04:30 105/53 L 02/04/24 04:25 99/59 L 02/04/24 04:21 97/51 L 02/04/24 04:15 107/61 02/04/24 04:15 107/61 02/04/24 04:15 107/61 02/04/24 04:10 104/68 02/04/24 04:10 104/68 02/04/24 04:00 36.4 C L 62 26 H 95 02/04/24 04:00 78/50 L 02/04/24 04:00 78/50 L 02/04/24 04:00 78/50 L 02/04/24 03:55 97/57 L 02/04/24 03:55 97/57 L 02/04/24 03:55 97/57 L 02/04/24 03:48 36.5 C 70 35 H 97 02/04/24 03:47 106/62 02/04/24 03:47 106/62 02/04/24 03:45 36.5 C 64 27 H 95 02/04/24 03:41 104/56 L 02/04/24 03:41 104/56 L 02/04/24 03:41 104/56 L 02/04/24 03:39 36.5 C 71 36 H 95 02/04/24 03:36 36.5 C 82 46 H 96 02/04/24 03:36 98/54 L 02/04/24 03:36 98/54 L 02/04/24 03:25 99/47 L 02/04/24 03:15 107/56 L 02/04/24 03:06 36.6 C 98 H 33 H 95 02/04/24 03:05 89/66 L 02/04/24 03:05 89/66 L 02/04/24 03:03 36.6 C 122 H 39 H 95 02/04/24 03:00 94/68 L 02/04/24 03:00 94/68 L 02/04/24 03:00 94/68 L 02/04/24 03:00 94/68 L 02/04/24 02:50 98/51 L 02/04/24 02:48 36.6 C 68 36 H 94 02/04/24 02:45 36.6 C 69 29 H 95 02/04/24 02:45 96/51 L 02/04/24 02:45 96/51 L 02/04/24 02:40 97/52 L 02/04/24 02:40 97/52 L 02/04/24 02:36 36.6 C 78 33 H 94 02/04/24 02:35 99/51 L 02/04/24 02:35 99/51 L 02/04/24 02:27 36.6 C 109 H 40 H 94 02/04/24 02:26 95/62 L 02/04/24 02:10 110/55 L 02/04/24 02:09 36.6 C 62 37 H 97 02/04/24 02:05 103/55 L 02/04/24 02:05 103/55 L 02/04/24 02:05 103/55 L 02/04/24 02:05 103/55 L 02/04/24 02:03 36.6 C 61 30 H 97 02/04/24 02:00 103/57 L 02/04/24 02:00 103/57 L 02/04/24 02:00 103/57 L 02/04/24 01:55 95/70 L 02/04/24 01:55 95/70 L 02/04/24 01:51 36.6 C 62 33 H 96 02/04/24 01:50 108/55 L 02/04/24 01:50 108/55 L 02/04/24 01:45 107/55 L 02/04/24 01:13 70 02/04/24 01:11 99/61 L 02/04/24 01:05 107/60 02/04/24 00:55 103/59 L 02/04/24 00:51 36.5 C 70 32 H 96 02/04/24 00:50 101/57 L 02/04/24 00:50 101/57 L 02/04/24 00:50 101/57 L 02/04/24 00:48 36.5 C 64 31 H 95 02/04/24 00:45 98/53 L 02/04/24 00:40 106/53 L 02/04/24 00:40 106/53 L 02/04/24 00:36 36.5 C 67 31 H 96 02/04/24 00:35 108/51 L 02/04/24 00:35 108/51 L 02/04/24 00:35 108/51 L 02/04/24 00:35 108/51 L 02/04/24 00:30 36.5 C 65 24 96 02/04/24 00:30 101/55 L 02/04/24 00:30 101/55 L 02/04/24 00:25 99/49 L 02/04/24 00:25 99/49 L 02/04/24 00:20 113/64 02/04/24 00:15 36.4 C L 64 31 H 96 02/04/24 00:15 97/54 L 02/04/24 00:15 97/54 L 02/04/24 00:15 97/54 L 02/04/24 00:15 97/54 L 02/04/24 00:09 36.4 C L 78 32 H 95 02/04/24 00:05 105/55 L 02/04/24 00:01 104/56 L 02/03/24 23:55 109/55 L 02/03/24 23:50 100/58 L 02/03/24 23:45 36.1 C L 65 29 H 96 02/03/24 23:45 102/47 L 02/03/24 23:45 102/47 L 02/03/24 23:40 100/55 L 02/03/24 23:40 100/55 L 02/03/24 23:36 36.0 C L 62 23 92 02/03/24 23:35 100/51 L 02/03/24 23:35 100/51 L 02/03/24 23:35 100/51 L 02/03/24 23:30 101/49 L 02/03/24 23:30 101/49 L 02/03/24 23:30 101/49 L 02/03/24 23:30 101/49 L 02/03/24 23:30 36.0 C L 67 40 H 96 02/03/24 23:27 107/54 L 02/03/24 23:27 107/54 L 02/03/24 23:21 35.8 C L 64 24 97 02/03/24 23:20 114/52 L Laboratory Results CBC, renal Panel , urine tests, Imaging reviewed
--- NOTE | 2024-02-04 12:23 | Electrocardiogram Report ---
Test Reason : Blood Pressure : */* mmHG Vent. Rate : 62 BPM Atrial Rate : 62 BPM P-R Int : 178 ms QRS Dur : 232 ms QT Int : 590 ms P-R-T Axes : * 18 224 degrees QTcB Int : 598 ms AV dual-paced rhythm Abnormal ECG When compared with ECG of 05-Dec-2014 16:49, Electronic ventricular pacemaker has replaced Sinus rhythm Confirmed by Ricardo Blancas ([id number]) on 02/04/2024 12:23:30 PM Referred By: [facility] Confirmed By: Ricardo Blancas
--- NOTE | 2024-02-04 13:10 | Infectious Disease Consult ---
Date of Service February 04, 2024 Telehealth Information I performed this visit using a real-time telehealth connection between my location and the patients location ([facility]). After connecting through interactive tele-video, patient was identified by name and date of and/or wristband check.Patient (or authorized healthcare pest control service representative) was informed that this was a telemedicine visit and it was being conducted confidentially over secure lines. My office door was closed and no one else was present in the room with me.Patient (or authorized healthcare pest control service representative) provided consent to proceed with the visit, expressed an understanding of privacy and security of the telemedicine visit, and gave permission to have a hospital pest control service representative in the room in order to assist with the visit and to conduct portions of the visit, as needed. I informed the patient (or authorized healthcare pest control service representative) that I reviewed their record and presented the opportunity for them to ask any questions regarding the visit today. The patient agreed to participate. Assessment & Plan (1) Thrombocytopenia: Plan: Possibly related to vanco and/or RIF - I recommend to hold both of these ABX. Discuss the rifampin with pharmacy because even holding rifampin may cause drug- drug issues and other medications may need to be adjusted accordingly. Check tick panel including Anaplasma PCR. (2) Acute kidney injury superimposed on stage 3b chronic kidney disease: Plan: Possibly related to vanco. Agree with renally dosed daptomycin as dosed by your pharmacist. (3) Bacteremia: Plan: Noted history of CONS bacteremia with CIED. If the paitent's condition worsens (and espeically if his BCX turn positive for CONS) then I would re-address the need for CIED extraction with EP. Given the shock state, I would consider empirically removing central line(s). If the patient does not improve (or if he worsens), can consider giving a dose of micafungin pending blood culture results. (4) Metabolic encephalopathy: Plan: Possibly related to SHE on CKD. Will defer the need for further workup of a BODY LINER infection to the primary team. Plan No definite aspiration event as related by caretakers but no objection to continuing Zosyn pending culture results. History of Present Illness History of Present Illness The patient was admitted for change in mentation (in the context of a recent CONS bacteremia with CIED in place that is being treated with IV vancomycin and PO rifampin). Workup revealed SHE on CKD and thrombocytopenia. The patient was unable to provide ROS today but per staff at bedside there is no concern for productive cough/purulent secretions, abdominal distention/diarrhea, skin breakdown. Allergies Allergy/AdvReac Type Severity Reaction Status Date / Time carbamazepine Allergy Intermediate SHORTNESS Verified 02/01/24 10:58 OF BREATH lamotrigine Allergy Intermediate RASH Verified 02/01/24 10:58 cat dander Allergy Verified 02/01/24 10:58 pollen extracts Allergy Verified 02/01/24 10:58 Home Medications Medication Instructions Recorded Confirmed Type acetaminophen 325 mg tablet 650 mg PO QID PRN Fever/Pain 02/01/24 02/03/24 History allopurinol 100 mg tablet 200 mg PO DAILY 02/01/24 02/03/24 History atorvastatin 10 mg tablet 10 mg PO DAILY 02/01/24 02/03/24 History cetirizine 10 mg capsule 10 mg PO DAILY 02/01/24 02/03/24 History divalproex 500 mg tablet,extended 1,000 mg PO HS 02/01/24 02/03/24 History release 24 hr docusate sodium 100 mg tablet 100 mg PO DAILY 02/01/24 02/03/24 History famotidine 20 mg tablet 20 mg PO DAILY 02/01/24 02/03/24 History gabapentin 100 mg capsule 100 mg PO TID 02/01/24 02/03/24 History metoprolol succinate 25 mg 25 mg PO DAILY 02/01/24 02/03/24 History tablet,extended release 24 hr olanzapine 10 mg tablet 10 mg PO BID 02/01/24 02/03/24 History pantoprazole 40 mg tablet,delayed 40 mg PO DAILY 02/01/24 02/03/24 History release (Protonix) tamsulosin 0.4 mg capsule 0.4 mg PO BID 02/01/24 02/03/24 History topiramate 100 mg tablet 100 mg PO QPM 02/01/24 02/03/24 History topiramate 50 mg tablet 50 mg PO QAM 02/01/24 02/03/24 History bisacodyl 10 mg rectal suppository 10 mg [place] DAILY PRN Constipation 02/03/24 02/03/24 History (Dulcolax (bisacodyl)) calcium carbonate (Calcium 600) 600 mg PO BID 02/03/24 02/03/24 History cholecalciferol (vitamin D3) 25 50 mcg PO DAILY 02/03/24 02/03/24 History mcg (1,000 unit) tablet (Vitamin D3) finasteride 5 mg tablet 5 mg PO DAILY 02/03/24 02/03/24 History flecainide 50 mg tablet 50 mg PO BID 02/03/24 02/03/24 History fluticasone propionate 50 1 spray intranasal BID 02/03/24 02/03/24 History mcg/actuation nasal spray,suspension levothyroxine 75 mcg tablet 75 mcg PO QAM 02/03/24 02/03/24 History magnesium hydroxide 400 mg/5 mL 2,400 mg PO DAILY PRN Constipation 02/03/24 02/03/24 History oral suspension (Milk of Magnesia) nystatin 100,000 unit/gram topical 1 applic topical BID 02/03/24 02/03/24 History cream psyllium husk 0.52 gram capsule 0.52 g PO QAM 02/03/24 02/03/24 History rifampin 300 mg capsule 300 mg PO TID 02/03/24 02/03/24 History scopolamine base 1 mg over 3 days 1 patch transdermal Q72H PRN 02/03/24 02/03/24 History transdermal patch Nausea And Vomiting sodium phosphates 19 gram-7 118 ml [place] DAILY PRN Constipation 02/03/24 02/03/24 History gram/118 mL enema (Fleet Enema) vancomycin 750 mg intravenous 750 mg IV DAILY 02/03/24 02/03/24 History solution Patient History Medical History History of left heart catheterization (LHC) Hypothyroidism Bipolar disorder Chronic anemia BPH (benign prostatic hyperplasia) Horseshoe kidney Atrial fibrillation Intellectual disability HLD (hyperlipidemia) HTN (hypertension) CHB (complete heart block) Pacemaker Chronic kidney disease Epilepsy Sepsis Surgical History History of cardiac pacemaker H/O cystoscopy Family History Other Family history unobtainable Social History Smoking Status: Never smoker Hx Alcohol Use: No Hx Substance Use: No Preferred Language: Urdu Communication Ability: Impaired Beliefs That Will Affect Care: None marital status: Single Current Living Situation: Other Current Living Situation Comment: [facility] Feels Safe at Home: Yes Assistive Devices: Walker Review of Systems The patient was unable to provide a full ROS. Physical Exam Vitals: see EMR Exam limited due to constraints of telemedicine Gen/Constitutional: appears at stated age, ill, supine Head: AT, NC, not on MV Resp: not tachypneic, nml effort, symmetric chest rise, no accessory muscle use Derm: no visible diaphoresis, no visible jaundice Results & Data Vital Signs (Past 12 Hours) Vital Signs Temp Pulse Resp BP BP Pulse Ox 02/04/24 12:30 95/49 L 02/04/24 12:30 36.7 C 60 32 H 95 02/04/24 12:06 36.6 C 60 31 H 94 02/04/24 12:00 98/50 L 02/04/24 11:45 102/55 L 02/04/24 11:45 102/55 L 02/04/24 11:45 36.7 C 60 37 H 94 02/04/24 11:30 106/56 L 02/04/24 11:30 106/56 L 02/04/24 11:21 36.5 C 60 36 H 94 02/04/24 11:15 111/57 L 02/04/24 11:15 111/57 L 02/04/24 11:15 36.5 C 60 36 H 95 02/04/24 11:09 36.4 C L 60 37 H 95 02/04/24 10:30 115/54 L 02/04/24 10:30 115/54 L 02/04/24 10:29 36.2 C L 60 39 H 95 02/04/24 10:19 86/43 L 02/04/24 10:17 86/43 L 02/04/24 10:17 86/43 L 02/04/24 10:17 86/43 L 02/04/24 10:17 36.2 C L 60 27 H 94 02/04/24 10:02 36.1 C L 60 35 H 94 02/04/24 10:00 97/55 L 02/04/24 10:00 97/55 L 02/04/24 09:59 36.1 C L 60 36 H 94 02/04/24 09:45 94/54 L 12/13/24 09:45 94/54 L 02/04/24 09:45 94/54 L 02/04/24 09:45 94/54 L 02/04/24 09:38 35.9 C L 60 32 H 93 02/04/24 09:30 110/59 L 02/04/24 09:29 35.9 C L 60 38 H 95 02/04/24 09:00 35.7 C L 60 34 H 94 02/04/24 09:00 100/57 L 02/04/24 09:00 100/57 L 02/04/24 08:45 102/54 L 02/04/24 08:45 102/54 L 02/04/24 08:42 35.7 C L 60 29 H 94 02/04/24 08:30 35.7 C L 60 34 H 93 02/04/24 08:30 83/51 L 02/04/24 08:30 83/51 L 02/04/24 08:30 83/51 L 02/04/24 08:15 35.7 C L 62 31 H 91 02/04/24 08:15 105/61 02/04/24 08:15 105/61 02/04/24 06:45 104/55 L 02/04/24 06:27 36.0 C L 65 38 H 95 02/04/24 06:15 110/58 L 02/04/24 06:15 36.1 C L 60 34 H 95 02/04/24 06:03 36.1 C L 61 25 H 95 02/04/24 06:00 109/58 L 02/04/24 05:54 36.1 C L 61 28 H 95 02/04/24 05:45 110/63 02/04/24 05:36 36.2 C L 66 23 95 02/04/24 05:30 36.2 C L 64 30 H 96 02/04/24 05:30 110/62 02/04/24 05:30 110/62 02/04/24 05:30 110/62 02/04/24 05:30 110/62 02/04/24 05:15 108/58 L 02/04/24 05:12 36.2 C L 61 26 H 95 02/04/24 05:09 36.2 C L 63 31 H 96 02/04/24 04:45 89/65 L 02/04/24 04:39 36.3 C L 64 31 H 96 02/04/24 04:35 108/55 L 02/04/24 04:35 108/55 L 02/04/24 04:30 105/53 L 02/04/24 04:25 99/59 L 02/04/24 04:21 97/51 L 02/04/24 04:15 107/61 02/04/24 04:15 107/61 02/04/24 04:15 107/61 02/04/24 04:10 104/68 02/04/24 04:10 104/68 02/04/24 04:00 36.4 C L 62 26 H 95 02/04/24 04:00 78/50 L 02/04/24 04:00 78/50 L 02/04/24 04:00 78/50 L 02/04/24 03:55 97/57 L 02/04/24 03:55 97/57 L 02/04/24 03:55 97/57 L 02/04/24 03:48 36.5 C 70 35 H 97 02/04/24 03:47 106/62 02/04/24 03:47 106/62 02/04/24 03:45 36.5 C 64 27 H 95 02/04/24 03:41 104/56 L 02/04/24 03:41 104/56 L 02/04/24 03:41 104/56 L 02/04/24 03:39 36.5 C 71 36 H 95 02/04/24 03:36 36.5 C 82 46 H 96 02/04/24 03:36 98/54 L 02/04/24 03:36 98/54 L 02/04/24 03:25 99/47 L 02/04/24 03:15 107/56 L 02/04/24 03:06 36.6 C 98 H 33 H 95 02/04/24 03:05 89/66 L 02/04/24 03:05 89/66 L 02/04/24 03:03 36.6 C 122 H 39 H 95 02/04/24 03:00 94/68 L 02/04/24 03:00 94/68 L 02/04/24 03:00 94/68 L 02/04/24 03:00 94/68 L 02/04/24 02:50 98/51 L 02/04/24 02:48 36.6 C 68 36 H 94 02/04/24 02:45 36.6 C 69 29 H 95 02/04/24 02:45 96/51 L 02/04/24 02:45 96/51 L 02/04/24 02:40 97/52 L 02/04/24 02:40 97/52 L 02/04/24 02:36 36.6 C 78 33 H 94 02/04/24 02:35 99/51 L 02/04/24 02:35 99/51 L 02/04/24 02:27 36.6 C 109 H 40 H 94 02/04/24 02:26 95/62 L 02/04/24 02:10 110/55 L 02/04/24 02:09 36.6 C 62 37 H 97 02/04/24 02:05 103/55 L 02/04/24 02:05 103/55 L 02/04/24 02:05 103/55 L 02/04/24 02:05 103/55 L 02/04/24 02:03 36.6 C 61 30 H 97 02/04/24 02:00 103/57 L 02/04/24 02:00 103/57 L 02/04/24 02:00 103/57 L 02/04/24 01:55 95/70 L 02/04/24 01:55 95/70 L 02/04/24 01:51 36.6 C 62 33 H 96 02/04/24 01:50 108/55 L 02/04/24 01:50 108/55 L 02/04/24 01:45 107/55 L 02/04/24 01:13 70 02/04/24 01:11 99/61 L Laboratory Results SEE EMR Diagnostic Findings SEE EMR
--- NOTE | 2024-02-04 13:20 | XRay Report ---
KUB HISTORY: Status post placement of an enteric tube NG tube placement COMPARISON: None. FINDINGS: Cardiomegaly with partially imaged pacer leads. Distal tip of enteric tube projects over th e abdominal left upper quadrant, likely within the gastric body. Moderate colonic fecal retention. No nobstructive bowel gas pattern. No renal calculi. No ureteral calculi. No pneumoperitoneum or pneumat osis. No fracture. IMPRESSION: Distal tip of feeding tube projects over the stomach. ACT 112: Negative or not required by law. The above report was generated using voice recognition software. It may contain grammatical, syntax o r spelling errors. Electronically signed by: Jason Marte M.D. 02/04/2024 1:18 PM
[2024-02-04] MEDS: GABAPENTIN 250 MG/5 ML 470 ML BTL PO SCH (13:48)
[2024-02-04] MEDS ORDERED: PEPTAMEN 1.5 CAL 1,000 ML BAG NG SCH (14:00)
[2024-02-04] MEDS: TUBE FEEDING WATER FLUSH NG SCH (14:29)
[2024-02-04] MEDS: VALPROATE SOD 250 MG in DEXTROSE 5% 50 ML IV SCH (16:04)
--- NOTE | 2024-02-04 17:18 | Hospitalist Progress Note ---
Date of Service February 04, 2024 Assessment & Plan (1) Metabolic encephalopathy: (2) Bacteremia: (3) Catheter-associated urinary tract infection: (4) Aspiration pneumonia: (5) Acute kidney injury superimposed on stage 3b chronic kidney disease: (6) Anemia: (7) Thrombocytopenia: (8) Hypoglycemia: (9) PAF (paroxysmal atrial fibrillation): Plan Per admitting service notes with addendum: This is a 63-year-old male who has a significant past medical history of baseline intellectual disability, atrial fibrillation on Eliquis, history of CHB status post permanent pacemaker placement, hypothyroidism, BPH, bipolar disorder, CKD stage III with baseline creatinine 1.4-1.5, horseshoe kidney, bilateral renal masses, BPH, chronic anemia who presents to ED secondary to altered mental status and lethargy. Recent hospitalization 01/11-01/24 @ [facility] 2/ Staphylococcus Haemolyticus, PNA presumed aspiration, negative TTE/DE; however ID recommends treating with 6 week course of IV Vanco/rifampin given negative cultures with treatment and no clear source of bacteremia. He was seen and evaluated by ST and underwent videofluoroscopy which described moderate oral pharyngeal dysphagia. Hosp course also complicated with hematuria, a/c anemia, thrombocytopenia. He was D/C To [facility] to complete course of antibiotics. He is from a [place] [facility]. In ED pt with mild hypotension, tachycardia, altered mental status, elevated BUN/Cr from baseline, worsening anemia/thrombocytopenia in setting of IV Vanco with elevated vanco level at 27, oral rifampin and concern for worsened aspiration Septic shock Altered mental status with suspected metabolic encephalopathy Staph hemolyticus bacteremia - on treatment through 02/27 Possible Aspiration Pneumonia Possible catheter associated complicated UTI admit to PCU Consult infectious disease, + culture from [facility] 01/11 Staph hemolyticus, resistant except for vanco - unknown source, negative DE/TTE, cleared with treatment, ID recommend tx through 02/27 Switch to IV dapto due to concern for nephrotoxicity, add IV zosyn for aspiration coverage, and continue rifampin for now MRSA Swab, procal, CK ordered await blood and urine cultures 02/03 Remains on Levophed Also on hydrocortisone every 8 hours Follow-up cultures ID consulted Continue daptomycin plus Zosyn Bilateral Petechiae Thrombocytopenia Acute on chronic anemia Hematuria ? if related to rifampin work up for HUS, hemolytic anemia, DIC obtain peripheral smear, PTT, PT/INR, Haptoglobin, LDH, fibrinogen, retic count repeat h/h @ 1900 02/03 Hematuria seems to be resolving Hemoglobin stable at 7.8 Platelet count increased to 98 Peripheral smear: Nonspecific pancytopenia Vancomycin plus rifampicin discontinued Monitor closely Acute/Chronic CKD-3b baseline cr 1.4-1.5, consult nephro bun/cr 56 and 2.55, ? if pre renal in setting of poor intake vs intrarenal from ATN/nephrotoxicity gentle IVF D5 1/2NSS x 1 L follow labs 02/03 Creatinine 2.7, currently 2.5 Likely ATN from septic shock Nephrology on board Atrial Fibrillation hx of CHB s/p PPM HLD continue metoprolol and flecanide eliquis on hold due to bleeding, thrombocytopenia Hypoglycemia: no hx of T2DM, a1c 5.4 01/16, likely due to poor intake, on D5W + 1/2NSS, hypoglycemia protocol Falls - pt with 2 falls in 3 days, likely 2/2 to suspected illness, will need PT/OT when approp Mild Oropharyngeal dysphagia: had video fluoroscopy at [facility] which was negative for jade aspiration - continue with soft bite size meals, aspiration precautions Mild intellectual disability: resides in [place] [facility] at baseline, 2 staff members at bedside on admission BPH/Gross hematuria: likely from traumatic cath vs thrombocytopenia - will need urology follow up at discharge, cath placed at [facility] Bipolar disorder: continue home meds, mood stable Seizure disorder: continue topamax, depakote, no witnessed seizure in several years Hypothyroidism: continue levothyroxine, TSH 5.261 uIu/ml and free T4 1.0 DVT ppx: Eliquis on hold, SCDS for now FULL CODE PCP: Guilherme Berger Dispo: admit to PCU, pt from [facility] ( he was sent here from [facility] for IV antibiotics), plan to eventually return to [place] [facility] if able Pts baseline is that he is very talkative, is aware of his staffs names and mostly functional of ADLS. He does need a walker to ambulate at baseline. Admission and Anticipated Discharge Date Admission Date: February 03, 2024 Subjective Follow-up for septic shock, etc. Seen resting in bed, sitting up, very drowsy Does not appear to be in distress or pain Discussed with RN Patient only grimaces with painful stimuli Still on Levophed No other issues noted Review of Systems Review of Systems: Unobtainable due to reduced consciousness Physical Exam Physical Exam: General- Very drowsy, breathing with no effort or accessory muscle use Eyes- anicteric Neck- no JVD Lungs- clear breath sounds bilaterally, no rales/wheezes Heart- normal rate, regular rhythm; no murmurs Abdomen- normal bowel sounds, nondistended, soft, nontender Extremities- no pretibial edema, no calf tenderness Neuro- Very drowsy Skin- warm & dry Results & Data Results & Data Vital Signs (Past 12 Hours) Vital Signs Temp Pulse Resp BP BP Pulse Ox O2 Del Method 02/04/24 16:15 108/65 02/04/24 16:15 36.0 C L 60 32 H 94 02/04/24 16:00 108/65 02/04/24 16:00 36.0 C L 60 29 H 92 02/04/24 15:45 115/60 02/04/24 15:45 36.1 C L 60 32 H 94 02/04/24 15:30 36.1 C L 60 37 H 94 02/04/24 15:30 117/62 02/04/24 15:30 117/62 02/04/24 15:30 117/62 02/04/24 15:15 111/57 L 02/04/24 15:00 36.2 C L 61 42 H 94 02/04/24 15:00 109/59 L 02/04/24 14:45 114/60 02/04/24 14:45 114/60 02/04/24 14:45 36.2 C L 61 37 H 94 02/04/24 14:30 107/56 L 02/04/24 14:18 36.3 C L 60 34 H 92 02/04/24 14:15 103/55 L 02/04/24 14:12 36.3 C L 60 35 H 92 02/04/24 13:45 94/49 L 02/04/24 13:30 109/55 L 02/04/24 13:30 36.4 C L 62 32 H 92 02/04/24 13:26 103/53 L 02/04/24 13:15 103/53 L 02/04/24 13:00 110/55 L 02/04/24 12:54 36.5 C 64 24 91 02/04/24 12:45 112/50 L 02/04/24 12:36 36.5 C 66 21 96 02/04/24 12:30 95/49 L 02/04/24 12:30 36.7 C 60 32 H 95 02/04/24 12:06 36.6 C 60 31 H 94 02/04/24 12:00 98/50 L 02/04/24 11:45 102/55 L 02/04/24 11:45 102/55 L 02/04/24 11:45 36.7 C 60 37 H 94 02/04/24 11:30 106/56 L 02/04/24 11:30 106/56 L 02/04/24 11:21 36.5 C 60 36 H 94 02/04/24 11:15 111/57 L 02/04/24 11:15 111/57 L 02/04/24 11:15 36.5 C 60 36 H 95 02/04/24 11:09 36.4 C L 60 37 H 95 02/04/24 10:30 115/54 L 02/04/24 10:30 115/54 L 02/04/24 10:29 36.2 C L 60 39 H 95 02/04/24 10:19 86/43 L 02/04/24 10:17 86/43 L 02/04/24 10:17 86/43 L 02/04/24 10:17 86/43 L 02/04/24 10:17 36.2 C L 60 27 H 94 02/04/24 10:02 36.1 C L 60 35 H 94 02/04/24 10:00 97/55 L 02/04/24 10:00 97/55 L 02/04/24 09:59 36.1 C L 60 36 H 94 02/04/24 09:45 94/54 L 02/04/24 09:45 94/54 L 02/04/24 09:45 94/54 L 02/04/24 09:45 94/54 L 02/04/24 09:38 35.9 C L 60 32 H 93 02/04/24 09:30 110/59 L 02/04/24 09:29 35.9 C L 60 38 H 95 02/04/24 09:00 35.7 C L 60 34 H 94 02/04/24 09:00 100/57 L 02/04/24 09:00 100/57 L 02/04/24 08:45 102/54 L 02/04/24 08:45 102/54 L 02/04/24 08:42 35.7 C L 60 29 H 94 02/04/24 08:30 35.7 C L 60 34 H 93 02/04/24 08:30 83/51 L 02/04/24 08:30 83/51 L 02/04/24 08:30 83/51 L 02/04/24 08:15 35.7 C L 62 31 H 91 02/04/24 08:15 105/61 02/04/24 08:15 105/61 02/04/24 07:30 Room Air 02/04/24 06:45 104/55 L 02/04/24 06:27 36.0 C L 65 38 H 95 02/04/24 06:15 110/58 L 02/04/24 06:15 36.1 C L 60 34 H 95 02/04/24 06:03 36.1 C L 61 25 H 95 02/04/24 06:00 109/58 L 02/04/24 05:54 36.1 C L 61 28 H 95 02/04/24 05:45 110/63 02/04/24 05:36 36.2 C L 66 23 95 02/04/24 05:30 36.2 C L 64 30 H 96 02/04/24 05:30 110/62 02/04/24 05:30 110/62 02/04/24 05:30 110/62 02/04/24 05:30 110/62 all noted and reviewed including below (4) Aspiration pneumonia Aspiration pneumonia type: unspecified Laterality: right Lung location: unspecified part of lung Qualified Code(s): J69.0 - Pneumonitis due to inhalation of food and vomit
[2024-02-04] MEDS ORDERED: LANSOPRAZOLE 30 MG SOLTAB NG SCH (21:00)
[2024-02-05 05:09] LABS: Hematocrit (blood only) 25.1 % (42.0-52.0); Hemoglobin 8.1 g/dl (14.0-18.0); Mean Corpuscular Hemoglobin 30.9 pg (25.0-34.0); Mean Corpuscular Hgb Conc 32.3 g/dL (32.0-36.0); Mean Corpuscular Volume 95.8 fL (80.0-100.0); Mean Platelet Volume 12.6 fL (9.4-12.4); Nucleated RBC # (auto) 0.24 K/uL (0.00-0.12); Nucleated RBC % (auto) 2.9 %; Platelet Count 96 K/uL (130-400); RDW Coefficient of Variation 18.1 % (11.5-14.5); RDW Standard Deviation 63.3 fL (36.4-46.3); Red Blood Count 2.62 M/uL (4.70-6.10); White Blood Count 8.15 K/ul (4.8-10.8)
[2024-02-05 05:29] LABS: Basophils # (auto) 0.01 K/uL (0.00-0.20); Basophils % (auto) 0.1 %; Immature Granulocytes # (auto) 0.43 K/uL (0.01-0.20); Immature Granulocytes % (auto) 5.3 %; Lymphocytes % (auto) 13.5 %; Monocytes # (auto) 0.23 K/uL (0.11-0.59); Monocytes % (auto) 2.8 %; Neutrophils # (auto) 6.38 K/uL (1.40-6.50); Neutrophils % (auto) 78.3 %; Polychromasia 1+; Target Cells 2+
[2024-02-05 05:30] LABS: Calcium 8.8 mg/dl (8.6-10.3); Creatinine Clr Calc Pharmacy 28.5 ml/min; Magnesium 2.1 mg/dl (1.7-2.4); Phosphorus 3.3 mg/dl (2.5-4.9); Potassium 4.1 mmol/L (3.5-5.1)
[2024-02-05] MEDS: LANSOPRAZOLE 30 MG SOLTAB NG SCH (11:03)
--- NOTE | 2024-02-05 12:37 | Critical Care Progress Note ---
Date of Service February 05, 2024 Assessment & Plan (1) Septic shock: Plan: Reason Critically Ill: 63-year-old male with past medical history significant for cognitive deficit, atrial fibrillation (on Eliquis), BPH, seizure disorder, HLD, CKD, hypothyroidism, and recent diagnosis of bacteremia with Staphylococcus hemolyticus, presents to the ICU with septic shock requiring vasopressor support with Levophed drip. Neuro - Metabolic encephalopathypatient with altered mental status compared to baseline although he does have neurological deficit and seizure disorder. He was reported to be verbal at [facility]. Seizure disorderwe will start on valproic acid IV. Appears stable at this time. Monitor Breakthrough seizure -Reported to be on rifampin which could lower anticonvulsant dosing -Levels sent however they will be reference levels unsure turnaround time -Insert NG tube and will resume oral meds if possible Cardiac - Septic shockresolved -History of recent Staphylococcus haemolyticus with presumed aspiration pneumonia Repeat echo History of complete heart block/PAFcurrently in paced rhythm on monitor. Metoprolol on hold due to hypotension Respiratory - No history of pulmonary disease. Currently maintaining oxygen saturation on room air. -Records indicated known history of silent aspiration -Patient eats at baseline, will keep patient n.p.o. today, presuming usp is comfortable knowing risks of recurrent silent aspiration GI - N.p.o. for now GERDFamotidine RENAL/LYTES - SHE on CKDcreatinine remains elevated -Continue supplemental IV fluids until taking full nutrition - Foleystrict I's and O's ENDO - Hypothyroidismcontinue Synthroid when appropriate Relative adrenal insufficiency on stress dose steroids HEME - Anemia Hemoglobin 7.5 following aggressive fluid resuscitation likely hemodilution. Baseline hemoglobin is around 10 as of 01/25 - No indication for transfusion at this time. Will transfuse hemoglobin for less than 7 Thrombocytopeniasuspect related to underlying medical conditions/infection, no active bleeding will start heparin 5000 units twice daily subcu ID - Sepsisunsure of source at this time. Patient was undergoing treatment with IV vancomycin for Staphylococcus hemolyticus. Per report, DE was negative for vegetation - ID consult: Discussed with ID -Discontinue rifampin - Continue daptomycin, Zosyn LINES/IV ACCESS - PICC line, peripheral IV DVT PROPHYLAXIS - SCDs (2) PAF (paroxysmal atrial fibrillation): (3) Hypoglycemia: (4) Thrombocytopenia: (5) Anemia: (6) Acute kidney injury superimposed on stage 3b chronic kidney disease: (7) Metabolic encephalopathy: Admission and Anticipated Discharge Date Admission Date: February 03, 2024 Subjective More readily arousable today somewhat interactive. Vasoactives were able to be discontinued today at approximately 6:00 Since patient self discontinued course a feeding tube. Physical Exam Physical Exam: General: Arousable with verbal stimuli. Skin: Warm, dry, Head: Atraumatic Ears, nose, mouth and throat: airway patent Cardiovascular: Normal peripheral perfusion Respiratory: no respiratory distress Gastrointestinal: Non distended Musculoskeletal: No deformity Results & Data Results & Data Vital Signs (Past 12 Hours) Vital Signs Temp Pulse Resp BP Pulse Ox O2 Del Method 02/05/24 10:45 119/63 02/05/24 10:42 35.8 C L 60 38 H 94 02/05/24 10:30 119/62 02/05/24 10:30 35.9 C L 60 38 H 95 02/05/24 10:24 35.9 C L 66 37 H 95 02/05/24 10:15 117/60 02/05/24 10:00 113/59 L 02/05/24 09:51 35.8 C L 60 36 H 91 02/05/24 09:45 117/58 L 02/05/24 09:33 36.3 C L 61 41 H 96 02/05/24 09:30 122/65 02/05/24 09:24 36.3 C L 60 42 H 96 02/05/24 09:16 114/72 02/05/24 09:03 36.4 C L 62 36 H 97 02/05/24 09:00 115/60 02/05/24 09:00 36.4 C L 62 30 H 96 02/05/24 08:45 115/60 02/05/24 08:42 36.5 C 66 35 H 96 02/05/24 08:30 121/63 02/05/24 08:15 117/70 02/05/24 08:15 36.6 C 65 21 96 02/05/24 08:00 36.6 C 60 37 H 96 02/05/24 08:00 114/62 02/05/24 07:30 110/57 L 02/05/24 07:30 36.7 C 61 37 H 95 02/05/24 07:30 Room Air 02/05/24 07:15 115/56 L 02/05/24 07:12 36.7 C 69 20 94 02/05/24 07:09 36.7 C 61 41 H 94 02/05/24 07:00 111/55 L 02/05/24 06:45 104/51 L 02/05/24 06:33 36.9 C 60 38 H 91 02/05/24 06:30 111/57 L 02/05/24 06:18 36.9 C 60 8 L 95 02/05/24 06:15 115/66 02/05/24 06:15 115/66 02/05/24 06:15 115/66 02/05/24 06:15 115/66 02/05/24 06:12 36.9 C 60 38 H 98 02/05/24 06:00 37.0 C 62 17 97 02/05/24 06:00 118/68 02/05/24 05:51 37.0 C 72 21 96 02/05/24 05:45 105/55 L 02/05/24 05:45 105/55 L 02/05/24 05:30 102/54 L 02/05/24 05:30 102/54 L 02/05/24 05:30 102/54 L 02/05/24 05:18 37.2 C 61 41 H 93 02/05/24 05:15 110/54 L 02/05/24 05:15 37.2 C 62 39 H 94 02/05/24 05:09 37.2 C 61 40 H 93 02/05/24 05:00 126/64 02/05/24 05:00 126/64 02/05/24 04:57 37.3 C 66 22 94 02/05/24 04:45 112/53 L 02/05/24 04:45 112/53 L 02/05/24 04:36 37.4 C 67 18 94 02/05/24 04:30 113/61 02/05/24 04:30 113/61 02/05/24 04:30 113/61 02/05/24 04:30 37.4 C 76 45 H 94 02/05/24 04:00 103/52 L 02/05/24 04:00 37.5 C 60 41 H 94 02/05/24 03:45 37.5 C 60 39 H 94 02/05/24 03:45 108/51 L 02/05/24 03:45 108/51 L 02/05/24 03:45 108/51 L 02/05/24 03:30 103/50 L 02/05/24 03:30 37.5 C 60 43 H 93 02/05/24 03:06 37.5 C 60 37 H 95 02/05/24 03:00 107/54 L 02/05/24 02:54 37.5 C 61 31 H 97 02/05/24 02:45 110/57 L 02/05/24 02:30 109/54 L 02/05/24 02:30 109/54 L 02/05/24 02:24 37.5 C 60 42 H 90 02/05/24 02:15 37.5 C 62 34 H 97 02/05/24 02:15 104/51 L 02/05/24 02:06 37.5 C 61 29 H 96 02/05/24 02:00 103/52 L 02/05/24 01:57 37.5 C 62 38 H 95 02/05/24 01:48 37.4 C 69 20 93 02/05/24 01:45 97/55 L 02/05/24 01:45 97/55 L 02/05/24 01:18 37.4 C 60 36 H 93 02/05/24 01:15 99/49 L 02/05/24 01:15 99/49 L 02/05/24 01:15 99/49 L 02/05/24 01:09 37.3 C 60 36 H 92 02/05/24 01:00 37.3 C 60 39 H 95 02/05/24 01:00 98/49 L 02/05/24 01:00 98/49 L 02/05/24 01:00 98/49 L 02/05/24 00:45 106/51 L 02/05/24 00:45 106/51 L Critical Care Results & Data Vital Signs (Past 12 Hours) Vital Signs Temp Pulse Resp BP Pulse Ox O2 Del Method 02/05/24 10:45 119/63 02/05/24 10:42 35.8 C L 60 38 H 94 02/05/24 10:30 119/62 02/05/24 10:30 35.9 C L 60 38 H 95 02/05/24 10:24 35.9 C L 66 37 H 95 02/05/24 10:15 117/60 02/05/24 10:00 113/59 L 02/05/24 09:51 35.8 C L 60 36 H 91 02/05/24 09:45 117/58 L 02/05/24 09:33 36.3 C L 61 41 H 96 02/05/24 09:30 122/65 02/05/24 09:24 36.3 C L 60 42 H 96 02/05/24 09:16 114/72 02/05/24 09:03 36.4 C L 62 36 H 97 02/05/24 09:00 115/60 02/05/24 09:00 36.4 C L 62 30 H 96 02/05/24 08:45 115/60 02/05/24 08:42 36.5 C 66 35 H 96 02/05/24 08:30 121/63 02/05/24 08:15 117/70 02/05/24 08:15 36.6 C 65 21 96 02/05/24 08:00 36.6 C 60 37 H 96 02/05/24 08:00 114/62 02/05/24 07:30 110/57 L 02/05/24 07:30 36.7 C 61 37 H 95 02/05/24 07:30 Room Air 02/05/24 07:15 115/56 L 02/05/24 07:12 36.7 C 69 20 94 02/05/24 07:09 36.7 C 61 41 H 94 02/05/24 07:00 111/55 L 02/05/24 06:45 104/51 L 02/05/24 06:33 36.9 C 60 38 H 91 02/05/24 06:30 111/57 L 02/05/24 06:18 36.9 C 60 8 L 95 02/05/24 06:15 115/66 02/05/24 06:15 115/66 02/05/24 06:15 115/66 02/05/24 06:15 115/66 02/05/24 06:12 36.9 C 60 38 H 98 02/05/24 06:00 37.0 C 62 17 97 02/05/24 06:00 118/68 02/05/24 05:51 37.0 C 72 21 96 02/05/24 05:45 105/55 L 02/05/24 05:45 105/55 L 02/05/24 05:30 102/54 L 02/05/24 05:30 102/54 L 02/05/24 05:30 102/54 L 02/05/24 05:18 37.2 C 61 41 H 93 02/05/24 05:15 110/54 L 02/05/24 05:15 37.2 C 62 39 H 94 02/05/24 05:09 37.2 C 61 40 H 93 02/05/24 05:00 126/64 02/05/24 05:00 126/64 02/05/24 04:57 37.3 C 66 22 94 02/05/24 04:45 112/53 L 02/05/24 04:45 112/53 L 02/05/24 04:36 37.4 C 67 18 94 02/05/24 04:30 113/61 02/05/24 04:30 113/61 02/05/24 04:30 113/61 02/05/24 04:30 37.4 C 76 45 H 94 02/05/24 04:00 103/52 L 02/05/24 04:00 37.5 C 60 41 H 94 02/05/24 03:45 37.5 C 60 39 H 94 02/05/24 03:45 108/51 L 02/05/24 03:45 108/51 L 02/05/24 03:45 108/51 L 02/05/24 03:30 103/50 L 02/05/24 03:30 37.5 C 60 43 H 93 02/05/24 03:06 37.5 C 60 37 H 95 02/05/24 03:00 107/54 L 02/05/24 02:54 37.5 C 61 31 H 97 02/05/24 02:45 110/57 L 02/05/24 02:30 109/54 L 02/05/24 02:30 109/54 L 02/05/24 02:24 37.5 C 60 42 H 90 02/05/24 02:15 37.5 C 62 34 H 97 02/05/24 02:15 104/51 L 02/05/24 02:06 37.5 C 61 29 H 96 02/05/24 02:00 103/52 L 02/05/24 01:57 37.5 C 62 38 H 95 02/05/24 01:48 37.4 C 69 20 93 02/05/24 01:45 97/55 L 02/05/24 01:45 97/55 L 02/05/24 01:18 37.4 C 60 36 H 93 02/05/24 01:15 99/49 L 02/05/24 01:15 99/49 L 02/05/24 01:15 99/49 L 02/05/24 01:09 37.3 C 60 36 H 92 02/05/24 01:00 37.3 C 60 39 H 95 02/05/24 01:00 98/49 L 02/05/24 01:00 98/49 L 02/05/24 01:00 98/49 L 02/05/24 00:45 106/51 L 02/05/24 00:45 106/51 L Lab & Micro Results (Past 24 Hours) RBC 2.62 M/uL (4.70-6.10) L 02/05/24 WBC 8.15 K/ul (4.8-10.8) 02/05/24 Hgb 8.1 g/dl (14.0-18.0) L 02/05/24 Hct 25.1 % (42.0-52.0) L 02/05/24 MCV 95.8 fL (80.0-100.0) 02/05/24 MCH 30.9 pg (25.0-34.0) 02/05/24 MCHC 32.3 g/dL (32.0-36.0) 02/05/24 RDW Standard Deviation 63.3 fL (36.4-46.3) H 02/05/24 RDW Coefficient of Variation 18.1 % (11.5-14.5) H 02/05/24 Plt Count 96 K/uL (130-400) L 02/05/24 MPV 12.6 fL (9.4-12.4) H 02/05/24 Nucleated Red Blood Cells % (auto) 2.9 % 02/04 Nucleated RBC Absolute Count (auto) 0.24 K/uL (0.00-0.12) H 02/05/24 Neutrophils (%) (Auto) 78.3 % 02/05/24 Lymphocytes (%) (Auto) 13.5 % 02/05/24 Monocytes # (Auto) 0.23 K/uL (0.11-0.59) 02/05/24 Eosinophils # (Auto) 0.00 K/uL (0.00-0.50) 02/05/24 Immature Granulocyte % (Auto) 5.3 % 02/05/24 Neutrophils # (Auto) 6.38 K/uL (1.40-6.50) 02/05/24 Lymphocytes # (Auto) 1.10 K/uL (1.20-3.40) L 02/05/24 Monocytes # (Auto) 0.23 K/uL (0.11-0.59) 02/05/24 Eosinophils # (Auto) 0.00 K/uL (0.00-0.50) 02/05/24 Basophils # (Auto) 0.01 K/uL (0.00-0.20) 02/05/24 Immature Granulocyte # (Auto) 0.43 K/uL (0.01-0.20) H 02/04 Hyposegmented Neutrophils 1+ 02/05/24 Polychromasia 1+ 02/05/24 Target Cells 2+ 02/05/24 Na 145 mmol/L (136-145) 02/05/24 K 4.1 mmol/L (3.5-5.1) 02/05/24 Cl 115 mmol/L (98-107) H 02/05/24 CO2 24 mmol/L (21-32) 02/05/24 Anion Gap 6 (3-11) 02/05/24 BUN 39 mg/dl (6-23) H 02/05/24 Creatinine 2.60 mg/dl (0.6-1.4) H 02/05/24 BUN/Creatinine Ratio 15.0 (10-20) 02/05/24 Glu 177 mg/dl (70-99(Fasting)) H 02/05/24 Ca 8.8 mg/dl (8.6-10.3) 02/05/24 Phosphorus Level 3.3 mg/dl (2.5-4.9) 02/05/24 Mg 2.1 mg/dl (1.7-2.4) 02/05/24 04:27 Calcium Level 8.8 mg/dl (8.6-10.3) 02/05/24 04:27 Microbiology 02/03/24 11:30 Urine Culture - Final Urine,Straight Cath No growth - less than 1,000 colonies/mL. 02/03/24 14:44 Aerobic Blood Culture - Preliminary Blood No growth in Aerobic bottle after 24 hours. Anaerobic Blood Culture - Preliminary No growth in Anaerobic bottle after 24 hours. 02/03/24 14:00 Aerobic Blood Culture - Preliminary Blood No growth in Aerobic bottle after 24 hours. Anaerobic Blood Culture - Preliminary No growth in Anaerobic bottle after 24 hours. Diagnostic Findings (Past 24 Hours) KUB X-Ray 02/04/24 12:15 KUB HISTORY: Status post placement of an enteric tube NG tube placement COMPARISON: None. FINDINGS: Cardiomegaly with partially imaged pacer leads. Distal tip of enteric tube projects over the abdominal left upper quadrant, likely within the gastric body. Moderate colonic fecal retention. Nonobstructive bowel gas pattern. No renal calculi. No ureteral calculi. No pneumoperitoneum or pneumatosis. No fracture. IMPRESSION: Distal tip of feeding tube projects over the stomach. ACT 112: Negative or not required by law. The above report was generated using voice recognition software. It may contain grammatical, syntax or spelling errors. Electronically signed by: Jason Marte M.D. 02/04/2024 1:18 PM I & O Totals 24 Hours 02/04/24 02/05/24 02/06/24 06:59 06:59 06:59 Intake Total 2802.563 / 2802.563 1986.614 / 614 152.5 / 152.5 Output Total 656 / 656 900 / 900 Balance 2146.563 / 2146.563 1087.614 / 1087.614 151.5 / 151.5 Cumulative 02/03/24 10:36 thru 02/05/24 12:29 Intake Total 4942.677 Output Total 1557 Balance 3385.677 RT Ventilator Mngmt (Last Documented) Ventilator Ordered Settings Respiratory Rate 38 02/05/24 10:42 Ventilator - PT Measurements Respiratory Rate 38 Coding Level of Care Code 83016 SUB INP/OBS CARE 3/50MIN Diagnoses Septic shock A41.9; R65.21 PAF (paroxysmal atrial fibrillation) I48.0 Hypoglycemia E16.2 Thrombocytopenia D69.6 Anemia D64.9 Acute kidney injury superimposed on stage 3b chronic kidney disease N17.9; N18.32 Metabolic encephalopathy G93.41
--- NOTE | 2024-02-05 15:33 | Nephrology Progress Note ---
Date of Service February 05, 2024 Assessment & Plan (1) Acute kidney injury superimposed on stage 3b chronic kidney disease: Plan: Plateau'd stage 1 nonoliguric SHE most likely Sec to ATN in the setting Of sepsis and Hypotension. most recent baseline creatinine mid ones. no longer needing pressors. Was on daily iV Vancomicin [employer] and that could be the cause of SHE also. Currently vancomicin on hold and getting Iv Zosyn + dapto. less likely to ause renal issues so continue This is not simple pre renal SHE but on the whole today would not give IV fluid or lasix, though could give latter if worsening respiratory status. Can give Iv fluid to some extent but very carefully. Already starting to progress to Pulm edema so may need lasix. Can give lasix if felt needed. Will co-ordinate with ICU. Creat actually went down a bit with adequate urine output so unlikely to need dialysis but will also depend on his overall status improvement. with SHE many meds levels could be affected >> VPA and topa levels pending and does remain on both meds at this time. hgb and PLT both low with sepsis but stable. Will follow. May need PRBC if Drops below 7. (2) Septic shock: Plan: Source unclear and improving now. Was already On Iv vancomycin for S hemolyticus bacteremia. Vanco level high at 27 on presentation > no vanco this admission; on dapto now. off pressors now and BP holding has got lot of fluid already (2.9L + on the admission); and also on Stress dose Steroid. Admission and Anticipated Discharge Date Admission Date: February 03, 2024 Subjective awake today and following commands, trying to verbalize per RN. ROS limited for me. off pressors Review of Systems 2 Review of Systems: Other (limited by cognitive/clinical status) Physical Exam 2 Constitutional: well developed, well nourished, + frail appearing and comfortable; no acute distress Eyes: EOM intact bilaterally ENMT: Mouth: + dry oral mucous membranes Respiratory: normal respiratory effort Auscultation: + diminished lung sounds Cardiovascular: Rate/Rhythm: regular rate and regular rhythm Extremities: n o edema Gastrointestinal (Abdomen): Inspection/Auscultation: normal bowel sounds P ercussion/Palpation: abdomen soft; abdomen nontender Musculoskeletal: Extremities: strength 5/5 throughout Skin: no rashes, warm and dry Neurologic: schwarz, fluent speech, no tremor Results & Data Vital Signs (Past 12 Hours) Vital Signs Temp Pulse Resp BP Pulse Ox O2 Del Method 02/05/24 12:30 126/63 02/05/24 12:30 126/63 02/05/24 12:24 66 11 L 93 02/05/24 12:15 127/63 02/05/24 12:15 127/63 02/05/24 12:15 127/63 02/05/24 12:09 35.1 C L 66 43 H 94 02/05/24 12:01 123/58 L 02/05/24 12:01 123/58 L 02/05/24 11:54 35.6 C L 60 28 H 95 02/05/24 11:45 117/73 02/05/24 11:45 35.8 C L 64 36 H 96 02/05/24 11:30 116/64 02/05/24 11:30 116/64 02/05/24 11:30 35.8 C L 60 33 H 95 02/05/24 11:15 118/59 L 02/05/24 11:15 118/59 L 02/05/24 11:15 35.8 C L 60 33 H 94 02/05/24 11:00 122/61 02/05/24 11:00 35.8 C L 66 25 H 94 02/05/24 10:48 35.8 C L 63 34 H 94 02/05/24 10:45 119/63 02/05/24 10:42 35.8 C L 60 38 H 94 02/05/24 10:30 119/62 02/05/24 10:30 35.9 C L 60 38 H 95 02/05/24 10:24 35.9 C L 66 37 H 95 02/05/24 10:15 117/60 02/05/24 10:00 113/59 L 02/05/24 09:51 35.8 C L 60 36 H 91 02/05/24 09:45 117/58 L 02/05/24 09:33 36.3 C L 61 41 H 96 02/05/24 09:30 122/65 02/05/24 09:24 36.3 C L 60 42 H 96 02/05/24 09:16 114/72 02/05/24 09:03 36.4 C L 62 36 H 97 02/05/24 09:00 115/60 02/05/24 09:00 36.4 C L 62 30 H 96 02/05/24 08:45 115/60 02/05/24 08:42 36.5 C 66 35 H 96 02/05/24 08:30 121/63 02/05/24 08:15 117/70 02/05/24 08:15 36.6 C 65 21 96 02/05/24 08:00 36.6 C 60 37 H 96 02/05/24 08:00 114/62 02/05/24 07:30 110/57 L 02/05/24 07:30 36.7 C 61 37 H 95 02/05/24 07:30 Room Air 02/05/24 07:15 115/56 L 02/05/24 07:12 36.7 C 69 20 94 02/05/24 07:09 36.7 C 61 41 H 94 02/05/24 07:00 111/55 L 02/05/24 06:45 104/51 L 02/05/24 06:33 36.9 C 60 38 H 91 02/05/24 06:30 111/57 L 02/05/24 06:18 36.9 C 60 8 L 95 02/05/24 06:15 115/66 02/05/24 06:15 115/66 02/05/24 06:15 115/66 02/05/24 06:15 115/66 02/05/24 06:12 36.9 C 60 38 H 98 02/05/24 06:00 37.0 C 62 17 97 02/05/24 06:00 118/68 02/05/24 05:51 37.0 C 72 21 96 02/05/24 05:45 105/55 L 02/05/24 05:45 105/55 L 02/05/24 05:30 102/54 L 02/05/24 05:30 102/54 L 02/05/24 05:30 102/54 L 02/05/24 05:18 37.2 C 61 41 H 93 02/05/24 05:15 110/54 L 02/05/24 05:15 37.2 C 62 39 H 94 02/05/24 05:09 37.2 C 61 40 H 93 02/05/24 05:00 126/64 12/14/24 05:00 126/64 02/05/24 04:57 37.3 C 66 22 94 02/05/24 04:45 112/53 L 02/05/24 04:45 112/53 L 02/05/24 04:36 37.4 C 67 18 94 02/05/24 04:30 113/61 02/05/24 04:30 113/61 02/05/24 04:30 113/61 02/05/24 04:30 37.4 C 76 45 H 94 02/05/24 04:00 103/52 L 02/05/24 04:00 37.5 C 60 41 H 94 02/05/24 03:45 37.5 C 60 39 H 94 02/05/24 03:45 108/51 L 02/05/24 03:45 108/51 L 02/05/24 03:45 108/51 L Laboratory Results 02/05/24 04:27 02/05/24 04:27
[2024-02-05] MEDS: DAPTOmycin 550 MG in SYRINGE 0 ML IV SCH (16:08)
--- NOTE | 2024-02-05 17:12 | Hospitalist Progress Note ---
Date of Service February 05, 2024 Assessment & Plan (1) Metabolic encephalopathy: (2) Bacteremia: (3) Catheter-associated urinary tract infection: (4) Aspiration pneumonia: (5) Acute kidney injury superimposed on stage 3b chronic kidney disease: (6) Anemia: (7) Thrombocytopenia: (8) Hypoglycemia: (9) PAF (paroxysmal atrial fibrillation): Plan Per admitting service notes with addendum: This is a 63-year-old male who has a significant past medical history of baseline intellectual disability, atrial fibrillation on Eliquis, history of CHB status post permanent pacemaker placement, hypothyroidism, BPH, bipolar disorder, CKD stage III with baseline creatinine 1.4-1.5, horseshoe kidney, bilateral renal masses, BPH, chronic anemia who presents to ED secondary to altered mental status and lethargy. Recent hospitalization 01/11-01/24 @ [facility] 2/ Staphylococcus Haemolyticus, PNA presumed aspiration, negative TTE/DE; however ID recommends treating with 6 week course of IV Vanco/rifampin given negative cultures with treatment and no clear source of bacteremia. He was seen and evaluated by ST and underwent videofluoroscopy which described moderate oral pharyngeal dysphagia. Hosp course also complicated with hematuria, a/c anemia, thrombocytopenia. He was D/C To [facility] to complete course of antibiotics. He is from a long-term. In ED pt with mild hypotension, tachycardia, altered mental status, elevated BUN/Cr from baseline, worsening anemia/thrombocytopenia in setting of IV Vanco with elevated vanco level at 27, oral rifampin and concern for worsened aspiration Septic shock Altered mental status with suspected metabolic encephalopathy Staph hemolyticus bacteremia - on treatment through 02/27 Possible Aspiration Pneumonia Possible catheter associated complicated UTI admit to PCU Consult infectious disease, + culture from [facility] 01/11 Staph hemolyticus, resistant except for vanco - unknown source, negative DE/TTE, cleared with treatment, ID recommend tx through 02/27 Switch to IV dapto due to concern for nephrotoxicity, add IV zosyn for aspiration coverage, and continue rifampin for now MRSA Swab, procal, CK ordered await blood and urine cultures 02/03 Remains on Levophed Also on hydrocortisone every 8 hours Follow-up cultures ID consulted Continue daptomycin plus Zosyn 02/04 Blood pressure improved Off Levophed Insulin hydrocortisone every 8 hours Blood culture and urine culture negative so far Continue daptomycin plus Zosyn Bilateral Petechiae Thrombocytopenia Acute on chronic anemia Hematuria ? if related to rifampin work up for HUS, hemolytic anemia, DIC obtain peripheral smear, PTT, PT/INR, Haptoglobin, LDH, fibrinogen, retic count repeat h/h @ 1900 02/03 Hematuria seems to be resolving Hemoglobin stable at 7.8 Platelet count increased to 98 Peripheral smear: Nonspecific pancytopenia Vancomycin plus rifampicin discontinued Monitor closely 02/04 Hemoglobin 8.1 Platelet count 96 No signs of active bleeding Monitor closely Acute/Chronic CKD-3b baseline cr 1.4-1.5, consult nephro bun/cr 56 and 2.55, ? if pre renal in setting of poor intake vs intrarenal from ATN/nephrotoxicity gentle IVF D5 1/2NSS x 1 L follow labs 02/03 Creatinine 2.7, currently 2.5 Likely ATN from septic shock Nephrology on board 02/04 Creatinine 2.6 Nephro on board Atrial Fibrillation hx of CHB s/p PPM HLD continue metoprolol and flecanide eliquis on hold due to bleeding, thrombocytopenia Hypoglycemia: no hx of T2DM, a1c 5.4 01/16, likely due to poor intake, on D5W + 1/2NSS, hypoglycemia protocol Falls - pt with 2 falls in 3 days, likely 2/2 to suspected illness, will need PT/OT when approp Mild Oropharyngeal dysphagia: had video fluoroscopy at [facility] which was negative for jade aspiration - continue with soft bite size meals, aspiration precautions -- Tube feeding started Mild intellectual disability: resides in long-term at baseline, 2 staff members at bedside on admission BPH/Gross hematuria: likely from traumatic cath vs thrombocytopenia - will need urology follow up at discharge, cath placed at [facility] Bipolar disorder: continue home meds, mood stable Seizure disorder: continue topamax, depakote, no witnessed seizure in several years -- Valproic acid added for possible breakthrough seizure Hypothyroidism: continue levothyroxine, TSH 5.261 uIu/ml and free T4 1.0 DVT ppx: Eliquis on hold, SCDS for now FULL CODE PCP: Guilherme Berger Dispo: ICU Admission and Anticipated Discharge Date Admission Date: February 03, 2024 Subjective Follow-up for septic shock, etc. Seen resting in bed, sitting up Off Levophed drip Opens eyes to verbal stimuli, but still not conversant or follows commands No signs of pain, shortness of breath Tube feeding via NG tube also in progress No other issues per juvenile corrections officer of Systems Review of Systems: all noted and negative except for above Physical Exam Physical Exam: General- opening eyes, breathing with no effort or accessory muscle use Eyes- anicteric Neck- no JVD Lungs- mild rales at the bases Heart- normal rate, regular rhythm; no murmurs Abdomen- normal bowel sounds, nondistended, soft, no tenderness Extremities- no pretibial edema, no calf tenderness Neuro-no new gross focal neurologic deficits Skin- warm & dry Results & Data Results & Data Vital Signs (Past 12 Hours) Vital Signs Temp Pulse Resp BP Pulse Ox O2 Del Method 02/05/24 16:45 123/60 02/05/24 16:33 36.7 C 60 93 02/05/24 16:31 124/73 02/05/24 16:27 36.7 C 61 94 02/05/24 16:16 131/78 02/05/24 16:02 132/60 02/05/24 15:54 36.8 C 66 37 H 94 02/05/24 15:45 122/67 02/05/24 15:42 36.8 C 60 25 H 93 02/05/24 15:36 36.8 C 60 27 H 92 02/05/24 15:30 124/65 02/05/24 15:18 36.8 C 60 26 H 93 02/05/24 15:15 36.8 C 60 20 92 02/05/24 15:15 124/65 02/05/24 15:00 125/61 02/05/24 15:00 36.8 C 60 38 H 91 02/05/24 14:45 127/64 02/05/24 14:39 36.8 C 61 16 92 02/05/24 14:31 130/62 02/05/24 14:30 36.7 C 60 23 92 02/05/24 14:16 129/61 02/05/24 14:09 36.7 C 60 34 H 92 02/05/24 14:00 36.7 C 61 26 H 92 02/05/24 13:45 122/63 02/05/24 13:45 36.7 C 60 18 92 02/05/24 13:30 36.7 C 60 31 H 91 02/05/24 13:30 125/57 L 02/05/24 13:15 116/75 02/05/24 13:15 36.7 C 62 28 H 90 02/05/24 13:03 36.6 C 60 25 H 94 02/05/24 13:00 117/66 02/05/24 12:57 36.6 C 63 31 H 93 02/05/24 12:46 120/64 02/05/24 12:33 36.6 C 61 37 H 93 02/05/24 12:30 126/63 02/05/24 12:30 126/63 02/05/24 12:24 66 11 L 93 02/05/24 12:15 127/63 02/05/24 12:15 127/63 02/05/24 12:15 127/63 02/05/24 12:09 35.1 C L 66 43 H 94 02/05/24 12:01 123/58 L 02/05/24 12:01 123/58 L 02/05/24 11:54 35.6 C L 60 28 H 95 02/05/24 11:45 117/73 02/05/24 11:45 35.8 C L 64 36 H 96 02/05/24 11:30 116/64 02/05/24 11:30 116/64 02/05/24 11:30 35.8 C L 60 33 H 95 02/05/24 11:15 118/59 L 02/05/24 11:15 118/59 L 02/05/24 11:15 35.8 C L 60 33 H 94 02/05/24 11:00 122/61 02/05/24 11:00 35.8 C L 66 25 H 94 02/05/24 10:48 35.8 C L 63 34 H 94 02/05/24 10:45 119/63 02/05/24 10:42 35.8 C L 60 38 H 94 02/05/24 10:30 119/62 02/05/24 10:30 35.9 C L 60 38 H 95 02/05/24 10:24 35.9 C L 66 37 H 95 02/05/24 10:15 117/60 02/05/24 10:00 113/59 L 02/05/24 09:51 35.8 C L 60 36 H 91 02/05/24 09:45 117/58 L 02/05/24 09:33 36.3 C L 61 41 H 96 02/05/24 09:30 122/65 02/05/24 09:24 36.3 C L 60 42 H 96 02/05/24 09:16 114/72 02/05/24 09:03 36.4 C L 62 36 H 97 02/05/24 09:00 115/60 02/05/24 09:00 36.4 C L 62 30 H 96 02/05/24 08:45 115/60 02/05/24 08:42 36.5 C 66 35 H 96 02/05/24 08:30 121/63 02/05/24 08:15 117/70 02/05/24 08:15 36.6 C 65 21 96 02/05/24 08:00 36.6 C 60 37 H 96 02/05/24 08:00 114/62 02/05/24 07:30 110/57 L 02/05/24 07:30 36.7 C 61 37 H 95 02/05/24 07:30 Room Air 02/05/24 07:15 115/56 L 02/05/24 07:12 36.7 C 69 20 94 02/05/24 07:09 36.7 C 61 41 H 94 02/05/24 07:00 111/55 L 02/05/24 06:45 104/51 L 02/05/24 06:33 36.9 C 60 38 H 91 02/05/24 06:30 111/57 L 02/05/24 06:18 36.9 C 60 8 L 95 02/05/24 06:15 115/66 02/05/24 06:15 115/66 02/05/24 06:15 115/66 02/05/24 06:15 115/66 02/05/24 06:12 36.9 C 60 38 H 98 02/05/24 06:00 37.0 C 62 17 97 02/05/24 06:00 118/68 02/05/24 05:51 37.0 C 72 21 96 02/05/24 05:45 105/55 L 02/05/24 05:45 105/55 L 02/05/24 05:30 102/54 L 02/05/24 05:30 102/54 L 02/05/24 05:30 102/54 L 02/05/24 05:18 37.2 C 61 41 H 93 02/05/24 05:15 110/54 L 02/05/24 05:15 37.2 C 62 39 H 94 02/05/24 05:09 37.2 C 61 40 H 93 all noted and reviewed including below (4) Aspiration pneumonia Aspiration pneumonia type: unspecified Laterality: right Lung location: uns pecified part of lung Qualified Code(s): J69.0 - Pneumonitis due to inhalation of food and vomit
[2024-02-05] MEDS: HEPARIN SOD 5,000 UNIT/0.5 ML VIAL SQ SCH (21:36)
[2024-02-06 04:53] LABS: Hematocrit (blood only) 23.9 % (42.0-52.0); Hemoglobin 7.6 g/dl (14.0-18.0); Mean Corpuscular Hemoglobin 30.5 pg (25.0-34.0); Mean Corpuscular Hgb Conc 31.8 g/dL (32.0-36.0); Mean Platelet Volume 12.2 fL (9.4-12.4); Nucleated RBC # (auto) 0.09 K/uL (0.00-0.12); Nucleated RBC % (auto) 1.1 %; Platelet Count 94 K/uL (130-400); RDW Coefficient of Variation 17.6 % (11.5-14.5); Red Blood Count 2.49 M/uL (4.70-6.10); White Blood Count 8.29 K/ul (4.8-10.8)
[2024-02-06 04:55] LABS: BUN Creatinine Ratio 15.1 (10-20); Calcium 8.8 mg/dl (8.6-10.3); Creatinine Clr Calc Pharmacy 33.7 ml/min; Magnesium 2.2 mg/dl (1.7-2.4); Phosphorus 3.4 mg/dl (2.5-4.9); Potassium 3.5 mmol/L (3.5-5.1)
[2024-02-06 05:03] LABS: Basophils # (auto) 0.01 K/uL (0.00-0.20); Basophils % (auto) 0.1 %; Hypochromasia Present; Immature Granulocytes # (auto) 0.64 K/uL (0.01-0.20); Immature Granulocytes % (auto) 7.7 %; Lymphocytes # (auto) 1.44 K/uL (1.20-3.40); Lymphocytes % (auto) 17.4 %; Monocytes # (auto) 0.35 K/uL (0.11-0.59); Monocytes % (auto) 4.2 %; Neutrophils # (auto) 5.85 K/uL (1.40-6.50); Neutrophils % (auto) 70.6 %
[2024-02-06] MEDS ORDERED: ACETAMINOPHEN SUSP 325 MG/10.15 ML UDC PO PRN (10:14)
--- NOTE | 2024-02-06 10:30 | Critical Care Progress Note ---
Date of Service February 06, 2024 Assessment & Plan (1) Septic shock: Plan: Neuro - Metabolic encephalopathysignificantly improved, possibly at baseline Seizure disorder -Possible breakthrough seizure: No seizure-like activity since initial report -Discontinuing IV Depakote and reinitiate home medications Cardiac - Septic shockresolved -History of recent Staphylococcus haemolyticus with presumed aspiration pneumonia History of complete heart block/PAFcurrently in paced rhythm on monitor. Respiratory - No history of pulmonary disease. Currently maintaining oxygen saturation on room air. -Records indicated known history of silent aspiration -Patient eats at baseline, will keep patient n.p.o. today, presuming alf is comfortable knowing risks of recurrent silent aspiration GI - Restart diet GERDFamotidine RENAL/LYTES - SHE on CKDcreatinine improving -Reviewed nephrology notes off supplemental fluids - Foleystrict I's and O's ENDO - Hypothyroidismcontinue Synthroid when appropriate Relative adrenal insufficiency on stress dose steroids -Discontinuing stress dose steroids HEME - Anemia Baseline hemoglobin is around 10 as of 01/25 - No indication for transfusion at this time. Will transfuse hemoglobin for less than 7 Thrombocytopeniasuspect related to underlying medical conditions/infection, DVT prophylaxis: No active bleeding will start heparin 5000 units twice daily subcu ID - Sepsisless likely patient was undergoing treatment with IV vancomycin for Staphylococcus hemolyticus. Per report, DE was negative for vegetation - ID consult: Reviewed ID consult -Discontinue rifampin - Continue daptomycin -Repeat echocardiogram: Transthoracic is unchanged from prior, will discontinue Zosyn. Continue daptomycin and follow-up with infectious disease regarding antibiotic for Staphylococcus haemolyticus LINES/IV ACCESS - PICC line, peripheral IV Critical care needs have resolved stable for downgrade out of ICU. (2) PAF (paroxysmal atrial fibrillation): (3) Hypoglycemia: (4) Thrombocytopenia: (5) Anemia: (6) Acute kidney injury superimposed on stage 3b chronic kidney disease: (7) Metabolic encephalopathy: Admission and Anticipated Discharge Date Admission Date: February 03, 2024 Subjective Patient alert and interactive pointing at television. I suspect this is approximately near the patient's baseline Physical Exam Physical Exam: General: Alert. nontoxic. Skin: Warm, dry, Head: Atraumatic Ears, nose, mouth and throat: airway patent Cardiovascular: Normal peripheral perfusion Respiratory: no respiratory distress Gastrointestinal: Non distended Musculoskeletal: No deformity Results & Data Results & Data Vital Signs (Past 12 Hours) Vital Signs Temp Pulse Resp BP Pulse Ox O2 Del Method O2 Flow Rate 02/06/24 09:00 36.2 C L 60 23 145/93 H 95 Room Air 02/06/24 08:00 36.1 C L 58 L 24 145/71 H 94 Room Air 02/06/24 08:00 Room Air 02/06/24 08:00 36.1 C L 02/06/24 07:00 35.9 C L 58 L 22 133/89 99 Room Air 02/06/24 06:00 126/87 02/06/24 06:00 126/87 02/06/24 06:00 35.4 C L 62 26 H 97 02/06/24 05:03 60 30 H 96 02/06/24 05:00 137/78 02/06/24 05:00 137/78 02/06/24 05:00 137/78 02/06/24 04:21 63 30 H 95 02/06/24 04:03 63 32 H 96 02/06/24 04:00 128/67 02/06/24 04:00 128/67 02/06/24 04:00 128/67 02/06/24 04:00 128/67 02/06/24 03:54 60 38 H 88 L 02/06/24 03:33 61 30 H 88 L 02/06/24 03:00 63 19 94 02/06/24 03:00 126/63 02/06/24 03:00 126/63 02/06/24 03:00 126/63 02/06/24 02:30 66 34 H 96 02/06/24 02:09 25.1 C L 63 37 H 95 02/06/24 02:00 130/66 02/06/24 02:00 130/66 02/06/24 01:48 36.6 C 60 27 H 96 02/06/24 01:39 36.6 C 63 41 H 97 02/06/24 01:00 126/66 02/06/24 01:00 126/66 02/06/24 01:00 126/66 02/06/24 01:00 126/66 02/06/24 01:00 126/66 02/06/24 01:00 36.6 C 63 32 H 97 02/06/24 00:34 130/68 02/06/24 00:34 130/68 02/06/24 00:30 36.5 C 60 29 H 96 02/06/24 00:00 36.5 C 60 29 H 98 02/05/24 23:42 36.4 C L 60 32 H 98 02/05/24 23:15 36.2 C L 60 30 H 98 02/05/24 22:47 Nasal Cannula 2 02/05/24 22:42 36.1 C L 60 35 H 95 02/05/24 22:39 155/72 H 02/05/24 22:39 155/72 H 02/05/24 22:39 155/72 H 02/05/24 22:33 36.1 C L 60 33 H 96 Critical Care Results & Data Vital Signs (Past 12 Hours) Vital Signs Temp Pulse Resp BP Pulse Ox O2 Del Method O2 Flow Rate 02/06/24 09:00 36.2 C L 60 23 145/93 H 95 Room Air 02/06/24 08:00 36.1 C L 58 L 24 145/71 H 94 Room Air 02/06/24 08:00 Room Air 02/06/24 08:00 36.1 C L 02/06/24 07:00 35.9 C L 58 L 22 133/89 99 Room Air 02/06/24 06:00 126/87 02/06/24 06:00 126/87 02/06/24 06:00 35.4 C L 62 26 H 97 02/06/24 05:03 60 30 H 96 02/06/24 05:00 137/78 02/06/24 05:00 137/78 02/06/24 05:00 137/78 02/06/24 04:21 63 30 H 95 02/06/24 04:03 63 32 H 96 02/06/24 04:00 128/67 02/06/24 04:00 128/67 02/06/24 04:00 128/67 02/06/24 04:00 128/67 02/06/24 03:54 60 38 H 88 L 02/06/24 03:33 61 30 H 88 L 02/06/24 03:00 63 19 94 02/06/24 03:00 126/63 02/06/24 03:00 126/63 02/06/24 03:00 126/63 02/06/24 02:30 66 34 H 96 02/06/24 02:09 25.1 C L 63 37 H 95 02/06/24 02:00 130/66 02/06/24 02:00 130/66 02/06/24 01:48 36.6 C 60 27 H 96 02/06/24 01:39 36.6 C 63 41 H 97 02/06/24 01:00 126/66 02/06/24 01:00 126/66 02/06/24 01:00 126/66 02/06/24 01:00 126/66 02/06/24 01:00 12602/06/24 01:00 36.6 C 63 32 H 97 02/06/24 00:34 130/68 02/06/24 00:34 130/68 02/06/24 00:30 36.5 C 60 29 H 96 02/06/24 00:00 36.5 C 60 29 H 98 02/05/24 23:42 36.4 C L 60 32 H 98 02/05/24 23:15 36.2 C L 60 30 H 98 02/05/24 22:47 Nasal Cannula 2 02/05/24 22:42 36.1 C L 60 35 H 95 02/05/24 22:39 155/72 H 02/05/24 22:39 155/72 H 02/05/24 22:39 155/72 H 02/05/24 22:33 36.1 C L 60 33 H 96 Lab & Micro Results (Past 24 Hours) RBC 2.49 M/uL (4.70-6.10) L 02/06/24 WBC 8.29 K/ul (4.8-10.8) 02/06/24 Hgb 7.6 g/dl (14.0-18.0) L 02/06/24 Hct 23.9 % (42.0-52.0) L 02/06/24 MCV 96.0 fL (80.0-100.0) 02/06/24 MCH 30.5 pg (25.0-34.0) 02/06/24 MCHC 31.8 g/dL (32.0-36.0) L 02/06/24 RDW Standard Deviation 62.0 fL (36.4-46.3) H 02/06/24 RDW Coefficient of Variation 17.6 % (11.5-14.5) H 02/06/24 Plt Count 94 K/uL (130-400) L 02/06/24 MPV 12.2 fL (9.4-12.4) 02/06/24 Nucleated Red Blood Cells % (auto) 1.1 % 02/05 Nucleated RBC Absolute Count (auto) 0.09 K/uL (0.00-0.12) 1 04/08/23 Neutrophils (%) (Auto) 70.6 % 02/06/24 Lymphocytes (%) (Auto) 17.4 % 02/06/24 Monocytes # (Auto) 0.35 K/uL (0.11-0.59) 02/06/24 Eosinophils # (Auto) 0.00 K/uL (0.00-0.50) 02/06/24 Immature Granulocyte % (Auto) 7.7 % 02/06/24 Neutrophils # (Auto) 5.85 K/uL (1.40-6.50) 02/06/24 Lymphocytes # (Auto) 1.44 K/uL (1.20-3.40) 02/06/24 Monocytes # (Auto) 0.35 K/uL (0.11-0.59) 02/06/24 Eosinophils # (Auto) 0.00 K/uL (0.00-0.50) 02/06/24 Basophils # (Auto) 0.01 K/uL (0.00-0.20) 02/06/24 Immature Granulocyte # (Auto) 0.64 K/uL (0.01-0.20) H 02/05 Hyposegmented Neutrophils 1+ 02/06/24 Hypochromasia Present 02/06/24 Na 147 mmol/L (136-145) H 02/06/24 K 3.5 mmol/L (3.5-5.1) 02/06/24 Cl 117 mmol/L (98-107) H 02/06/24 CO2 25 mmol/L (21-32) 02/06/24 Anion Gap 5 (3-11) 02/06/24 BUN 33 mg/dl (6-23) H 02/06/24 Creatinine 2.19 mg/dl (0.6-1.4) H 02/06/24 BUN/Creatinine Ratio 15.1 (10-20) 02/06/24 Glu 146 mg/dl (70-99(Fasting)) H 02/06/24 Ca 8.8 mg/dl (8.6-10.3) 02/06/24 Phosphorus Level 3.4 mg/dl (2.5-4.9) 02/06/24 Mg 2.2 mg/dl (1.7-2.4) 02/06/24 04:11 Calcium Level 8.8 mg/dl (8.6-10.3) 02/06/24 04:11 Microbiology 02/03/24 14:44 Aerobic Blood Culture - Preliminary Blood No growth in Aerobic bottle after 48 hours. Anaerobic Blood Culture - Preliminary No growth in Anaerobic bottle after 48 hours. 02/03/24 14:00 Aerobic Blood Culture - Preliminary Blood No growth in Aerobic bottle after 48 hours. Anaerobic Blood Culture - Preliminary No growth in Anaerobic bottle after 48 hours. 02/03/24 11:30 Urine Culture - Final Urine,Straight Cath No growth - less than 1,000 colonies/mL. I & O Totals 24 Hours 02/05/24 02/06/24 02/07/24 06:59 06:59 06:59 Intake Total 1987.614 / 1987.614 510.0 / 510.0 100 / 100 Output Total 900 / 900 948 / 948 82 / 82 Balance 1087.614 / 1087.614 -438.0 / -438.0 Cumulative 02/03/24 10:36 thru 02/06/24 09:55 Intake Total 5400.177 Output Total 2586 Balance 2814.177 RT Ventilator Mngmt (Last Documented) Ventilator Ordered Settings Respiratory Rate 23 02/06/24 09:00 Ventilator - PT Measurements Respiratory Rate 23 Coding Level of Care Code 07796 SUB INP/OBS CARE 3/50MIN Diagnoses Septic shock A41.9; R65.21 PAF (paroxysmal atrial fibrillation) I48.0 Hypoglycemia E16.2 Thrombocytopenia D69.6 Anemia D64.9 Acute kidney injury superimposed on stage 3b chronic kidney disease N17.9; N18.32 Metabolic encephalopathy G93.41
--- NOTE | 2024-02-06 13:51 | Nephrology Progress Note ---
Date of Service February 06, 2024 Assessment & Plan (1) Acute kidney injury superimposed on stage 3b chronic kidney disease: Plan: improving stage 1 nonoliguric SHE most likely Sec to ATN in the setting Of sepsis and Hypotension. most recent baseline creatinine mid ones. Creat peaked at 2.7 on 02/02 admission; down to 2.2 today. no longer needing pressors. 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 Currently vancomicin on hold and getting Iv Zosyn + dapto. less likely to ause renal issues so continue This is not simple pre renal SHE, but creat improving w/ supportive care. Remains on RA w/ no edema and now w/ sNa climbing >>already getting 20 mEq IV K >>will give 1/2 L D5W as well for mild hypernatremia sNa 147 with SHE many meds levels could be affected >> VPA and topa levels pending and does remain on both meds at this time. hgb and PLT both low with sepsis and hgb down to 7.6 today. Will follow. May need PRBC if Drops below 7. (2) Septic shock: Plan: Unclear if aspiration PNA or catheter assoc complicated UTI; improving now. Was already On Iv vancomycin for S hemolyticus bacteremia. Vanco level high at 27 on presentation > no vanco this admission; on dapto now. off pressors now and BP holding 2.8L + on the admission; and also on Stress dose Steroid. Admission and Anticipated Discharge Date Admission Date: February 03, 2024 Subjective no interval events. more alert/interactive today but still basically nonverbal. pulled out his OG yesterday. Review of Systems 2 Review of Systems: Unobtainable due to cognitive status Physical Exam 2 Constitutional: well developed, well nourished, + frail appearing and comfortable; no acute distress Eyes: EOM intact bilaterally ENMT: Mouth: + dry oral mucous membranes Respiratory: normal respiratory effort Auscultation: + diminished lung sounds Cardiovascular: Rate/Rhythm: regular rate and regular rhythm Extremities: n o edema Gastrointestinal (Abdomen): Inspection/Auscultation: normal bowel sounds P ercussion/Palpation: abdomen soft; abdomen nontender Musculoskeletal: Extremities: strength 5/5 throughout Skin: no rashes, warm and dry Results & Data Vital Signs (Past 12 Hours) Vital Signs Temp Pulse Resp BP Pulse Ox O2 Del Method 12/15/24 13:00 36.3 C L 62 18 128/70 95 Room Air 02/06/24 12:03 36.2 C L 75 25 H 128/70 95 Room Air 02/06/24 12:00 36.2 C L 61 24 128/70 96 Room Air 02/06/24 11:00 36.1 C L 60 23 143/74 H 97 Room Air 02/06/24 10:00 36.1 C L 60 16 95 02/06/24 09:00 36.2 C L 60 23 145/93 H 95 Room Air 02/06/24 08:00 36.1 C L 58 L 24 145/71 H 94 Room Air 02/06/24 08:00 Room Air 02/06/24 08:00 36.1 C L 02/06/24 07:00 35.9 C L 58 L 22 133/89 99 Room Air 02/06/24 06:00 126/87 02/06/24 06:00 126/87 02/06/24 06:00 35.4 C L 62 26 H 97 02/06/24 05:03 60 30 H 96 02/06/24 05:00 137/78 02/06/24 05:00 137/78 02/06/24 05:00 137/78 02/06/24 04:21 63 30 H 95 02/06/24 04:03 63 32 H 96 02/06/24 04:00 128/67 02/06/24 04:00 128/67 02/06/24 04:00 128/67 02/06/24 04:00 128/67 02/06/24 03:54 60 38 H 88 L 02/06/24 03:33 61 30 H 88 L 02/06/24 03:00 63 19 94 02/06/24 03:00 126/63 02/06/24 03:00 126/63 02/06/24 03:00 126/63 02/06/24 02:30 66 34 H 96 02/06/24 02:09 25.1 C L 63 37 H 95 02/06/24 02:00 130/66 02/06/24 02:00 130/66 Laboratory Results 02/06/24 04:11 02/06/24 04:11
--- NOTE | 2024-02-06 17:04 | Hospitalist Progress Note ---
Date of Service February 06, 2024 delayed entry date of service noted above Assessment & Plan (1) Metabolic encephalopathy: (2) Bacteremia: (3) Catheter-associated urinary tract infection: (4) Aspiration pneumonia: (5) Acute kidney injury superimposed on stage 3b chronic kidney disease: (6) Anemia: (7) Thrombocytopenia: (8) Hypoglycemia: (9) PAF (paroxysmal atrial fibrillation): Plan Per admitting service notes with addendum: This is a 63-year-old male who has a significant past medical history of baseline intellectual disability, atrial fibrillation on Eliquis, history of CHB status post permanent pacemaker placement, hypothyroidism, BPH, bipolar disorder, CKD stage III with baseline creatinine 1.4-1.5, horseshoe kidney, bilateral renal masses, BPH, chronic anemia who presents to ED secondary to altered mental status and lethargy. Recent hospitalization 01/11-01/24 @ [facility] 03/26 Staphylococcus Haemolyticus, PNA presumed aspiration, negative TTE/DE; however ID recommends treating with 6 week course of IV Vanco/rifampin given negative cultures with treatment and no clear source of bacteremia. He was seen and evaluated by ST and underwent videofluoroscopy which described moderate oral pharyngeal dysphagia. Hosp course also complicated with hematuria, a/c anemia, thrombocytopenia. He was D/C To [facility] to complete course of antibiotics. [facility] is [facility] a [facility]. In ED pt with mild hypotension, tachycardia, altered mental status, elevated BUN/Cr from baseline, worsening anemia/thrombocytopenia in setting of IV Vanco with elevated vanco level at 27, oral rifampin and concern for worsened aspiration Septic shock Altered mental status with suspected metabolic encephalopathy Staph hemolyticus bacteremia - on treatment through 02/27 Possible Aspiration Pneumonia Possible catheter associated complicated UTI admit to PCU Consult infectious disease, + culture from [facility] 01/11 Staph hemolyticus, resistant except for vanco - unknown source, negative DE/TTE, cleared with treatment, ID recommend tx through 02/27 Switch to IV dapto due to concern for nephrotoxicity, add IV zosyn for aspiration coverage, and continue rifampin for now MRSA Swab, procal, CK ordered await blood and urine cultures 02/03 Remains on Levophed Also on hydrocortisone every 8 hours Follow-up cultures ID consulted Continue daptomycin plus Zosyn 02/04 Blood pressure improved Off Levophed Insulin hydrocortisone every 8 hours Blood culture and urine culture negative so far Continue daptomycin plus Zosyn 02/05 mental status much better urine culture: negative blood cultures: negative Zosyn discontinued Daptomycin continued- on treatment for previously diagnosed Staph hemolyticus bacteremia until 02/27 Bilateral Petechiae Thrombocytopenia Acute on chronic anemia Hematuria ? if related to rifampin work up for HUS, hemolytic anemia, DIC obtain peripheral smear, PTT, PT/INR, Haptoglobin, LDH, fibrinogen, retic count repeat h/h @ 1900 02/03 Hematuria seems to be resolving Hemoglobin stable at 7.8 Platelet count increased to 98 Peripheral smear: Nonspecific pancytopenia Vancomycin plus rifampicin discontinued Monitor closely 02/04 Hemoglobin 8.1 Platelet count 96 No signs of active bleeding Monitor closely 02/05 Hg stable at 7.6 Acute/Chronic CKD-3b baseline cr 1.4-1.5, consult nephro bun/cr 56 and 2.55, ? if pre renal in setting of poor intake vs intrarenal from ATN/nephrotoxicity gentle IVF D5 1/2NSS x 1 L follow labs 02/03 Creatinine 2.7, currently 2.5 Likely ATN from septic shock Nephrology on board 02/04 Creatinine 2.6 Nephro on board 02/05 crea 2.7 --> 2.6 --> 2.19 Nephro on board Atrial Fibrillation hx of CHB s/p PPM HLD continue metoprolol and flecainide eliquis on hold due to bleeding, thrombocytopenia notified by RN re: episode of non sustained v tach? seen on telemetry pacemaker interrogation ordered Hypoglycemia: no hx of T2DM, a1c 5.4 01/16, likely due to poor intake, on D5W + 1/2NSS given, hypoglycemia protocol -- no recurrence Falls - pt with 2 falls in 3 days, likely 2/2 to suspected illness -- PT/OT eval Mild Oropharyngeal dysphagia: had video fluoroscopy at [facility] which was negative for jade aspiration - continue with soft bite size meals, aspiration precautions Mild intellectual disability: resides in [facility] at baseline, 2 staff members at bedside on admission BPH/Gross hematuria: likely from traumatic cath vs thrombocytopenia - will need urology follow up at discharge, cath placed at [facility] -- resolved Bipolar disorder: continue home meds, mood stable Seizure disorder: continue topamax, depakote, no witnessed seizure in several years -- on Valproic acid Hypothyroidism: continue levothyroxine, TSH 5.261 uIu/ml and free T4 1.0 DVT ppx: Eliquis on hold, SCDS for now FULL CODE PCP: Guilherme Berger Dispo: transfer to PCU Admission and Anticipated Discharge Date Admission Date: February 03, 2024 Subjective ff up for septic shock, etc seen resting in bed, sitting up in good spirits, alert, trying to communicate with few words no shortness of breath, pain no other symptoms Review of Systems Review of Systems: all noted and negative except for above Physical Exam Physical Exam: General-alert, not in distress, speaks in sentences with no effort or accessory muscle use Eyes- anicteric Neck- no JVD Lungs- clear breath sounds bilaterally, no crackles/wheezing Heart- normal rate, regular rhythm; no murmurs Abdomen- normal bowel sounds, nondistended, soft, nontender Extremities- no pretibial edema, no calf tenderness Foster cath in place: yellow uring Neuro- alert, no new gross focal neurologic deficits Skin- warm & dry Results & Data Results & Data Vital Signs (Past 12 Hours) Vital Signs Temp Pulse Resp BP Pulse Ox O2 Del Method 02/06/24 16:00 62 19 122/68 97 Room Air 02/06/24 16:00 36.5 C 02/06/24 15:00 63 18 132/75 96 Room Air 02/06/24 14:00 36.4 C L 60 25 H 132/72 96 Room Air 02/06/24 13:00 36.3 C L 62 18 128/70 95 Room Air 02/06/24 12:03 36.2 C L 75 25 H 128/70 95 Room Air 02/06/24 12:00 36.2 C L 61 24 128/70 96 Room Air 02/06/24 11:00 36.1 C L 60 23 143/74 H 97 Room Air 02/06/24 10:00 36.1 C L 60 16 95 02/06/24 09:00 36.2 C L 60 23 145/93 H 95 Room Air 02/06/24 08:00 36.1 C L 58 L 24 145/71 H 94 Room Air 02/06/24 08:00 Room Air 02/06/24 08:00 36.1 C L 02/06/24 07:00 35.9 C L 58 L 22 133/89 99 Room Air 02/06/24 06:00 126/87 12/15/24 06:00 02/06/24 06:00 35.4 C L 62 26 H 97 all noted and reviewed including below (4) Aspiration pneumonia Aspiration pneumonia type: unspecified Laterality: right Lung location: unspecified part of lung Qualified Code(s): J69.0 - Pneumonitis due to inhalation of food and vomit
[2024-02-06] MEDS: VALPROIC ACID SOLN 250 MG/5 ML UDC PO SCH (18:19)
[2024-02-06] MEDS: POTASSIUM CHLORIDE / WTR 10 MEQ/100 ML PLCT IV SCH (18:30)
[2024-02-06] MEDS: DEXTROSE 5% 500 ML IV SCH (20:03)
[2024-02-06] MEDS: CALCIUM CARBONATE 500 MG CHEWABLE TAB PO SCH (20:13)
--- NOTE | 2024-02-06 20:53 | Communication Note ---
Date of Service: February 06, 2024 Aspiration concerns with crushed pills as per RN. MEDICAID NURSE reconsult in a.m.
[2024-02-07 05:13] LABS: Hematocrit (blood only) 25.5 % (42.0-52.0); Mean Corpuscular Hemoglobin 30.3 pg (25.0-34.0); Mean Corpuscular Hgb Conc 31.4 g/dL (32.0-36.0); Mean Corpuscular Volume 96.6 fL (80.0-100.0); Nucleated RBC # (auto) 0.07 K/uL (0.00-0.12); Platelet Count 97 K/uL (130-400); RDW Coefficient of Variation 17.5 % (11.5-14.5); RDW Standard Deviation 61.8 fL (36.4-46.3); Red Blood Count 2.64 M/uL (4.70-6.10); White Blood Count 7.21 K/ul (4.8-10.8)
[2024-02-07 05:26] LABS: BUN Creatinine Ratio 15.6 (10-20); Creatinine Clr Calc Pharmacy 35.5 ml/min; Magnesium 2.1 mg/dl (1.7-2.4); Phosphorus 3.3 mg/dl (2.5-4.9); Potassium 3.2 mmol/L (3.5-5.1)
[2024-02-07 06:10] LABS: Basophils # (auto) 0.03 K/uL (0.00-0.20); Basophils % (auto) 0.4 %; Eosinophils # (auto) 0.14 K/uL (0.00-0.50); Eosinophils % (auto) 1.9 %; Immature Granulocytes # (auto) 0.42 K/uL (0.01-0.20); Immature Granulocytes % (auto) 5.8 %; Lymphocytes # (auto) 2.56 K/uL (1.20-3.40); Lymphocytes % (auto) 35.5 %; Monocytes # (auto) 0.43 K/uL (0.11-0.59); Neutrophils # (auto) 3.63 K/uL (1.40-6.50); Neutrophils % (auto) 50.4 %; Polychromasia 1+; Target Cells 1+
[2024-02-07] MEDS ORDERED: DOCUSATE SODIUM SYRUP 100 MG/10 ML UDC PO SCH (09:00)
[2024-02-07] MEDS ORDERED: allopurinoL 100 MG TAB PEG SCH (09:00)
[2024-02-07] MEDS: POTASSIUM CHLORIDE CRTAB 20 MEQ TABCR PO STA (09:29)
[2024-02-07] MEDS: FAMOTIDINE SUSP 20 MG/2.5 ML UDP PO SCH (10:16)
[2024-02-07] MEDS: allopurinoL 100 MG TAB PO SCH (10:17)
[2024-02-07] MEDS: CETIRIZINE ORAL SOLN 1 MG/ML PEG SCH (10:18)
--- NOTE | 2024-02-07 11:32 | Nephrology Progress Note ---
Date of Service February 07, 2024 Assessment & Plan Admission and Anticipated Discharge Date Admission Date: February 03, 2024 Subjective Assessment & Plan (1) Acute kidney injury superimposed on stage 3b chronic kidney disease: Plan: nonoliguric SHE most likely Sec to ATN in the setting Of sepsis and Hypotension. most recent baseline creatinine mid ones. Creat peaked at 2.7 on 02/02 admission; down to 2 today. no longer needing pressors. 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 Currently vancomicin on hold and getting Iv Zosyn + dapto. less likely to cause renal issues so continue This is not simple pre renal SHE, but creat improving w/ supportive care. Remains on RA w/ no edema and now w/ sNa climbing--encourage free fluid intake. hgb and PLT both low with sepsis but both are rising slowly--so good sign. May need PRBC if Drops below 7. (2) Septic shock: Plan: Unclear if aspiration PNA or catheter assoc complicated UTI; improving now. Was already On Iv vancomycin for S hemolyticus bacteremia. Vanco level high at 27 on presentation > no vanco this admission; on dapto now. off pressors now and BP holding Subjective no interval events. more alert/interactive today. Review of Systems Review of Systems: Unobtainable due to cognitive status Physical Exam Constitutional: well developed, well nourished, + frail appearing and comfortable; no acute distress Eyes: EOM intact bilaterally ENMT: Mouth: + dry oral mucous membranes Respiratory: normal respiratory effort Auscultation: + diminished lung sounds Cardiovascular: Rate/Rhythm: regular rate and regular rhythm Extremities: no edema Gastrointestinal (Abdomen): Inspection/Auscultation: normal bowel sounds Percussion/Palpation: abdomen soft; abdomen nontender Musculoskeletal: Extremities: strength 5/5 throughout Skin: no rashes, warm and dry Results & Data Vital Signs (Past 12 Hours) Vital Signs Temp Pulse Pulse Resp BP Pulse Ox O2 Del Method 02/07/24 11:24 36.3 C L 63 18 163/82 H 98 Room Air 02/07/24 09:30 65 02/07/24 09:30 Room Air 02/07/24 07:14 36.5 C 64 18 146/76 H 96 Room Air 02/07/24 02:30 36.3 C L 62 16 132/72 94 Room Air 02/07/24 00:00 60
--- NOTE | 2024-02-07 12:21 | Hospitalist Progress Note ---
Date of Service February 07, 2024 Assessment & Plan (1) Metabolic encephalopathy: (2) Bacteremia: (3) Catheter-associated urinary tract infection: (4) Aspiration pneumonia: (5) Acute kidney injury superimposed on stage 3b chronic kidney disease: (6) Anemia: (7) Thrombocytopenia: (8) Hypoglycemia: (9) PAF (paroxysmal atrial fibrillation): Plan Per admitting service notes with addendum: This is a 63-year-old male who has a significant past medical history of baseline intellectual disability, atrial fibrillation on Eliquis, history of CHB status post permanent pacemaker placement, hypothyroidism, BPH, bipolar disorder, CKD stage III with baseline creatinine 1.4-1.5, horseshoe kidney, bilateral renal masses, BPH, chronic anemia who presents to ED secondary to altered mental status and lethargy. Recent hospitalization 01/11-01/24 @ [facility] 2/ Staphylococcus Haemolyticus, PNA presumed aspiration, negative TTE/DE; however ID recommends treating with 6 week course of IV Vanco/rifampin given negative cultures with treatment and no clear source of bacteremia. He was seen and evaluated by ST and underwent videofluoroscopy which described moderate oral pharyngeal dysphagia. Hosp course also complicated with hematuria, a/c anemia, thrombocytopenia. He was D/C To [facility] to complete course of antibiotics. [facility] In ED pt with mild hypotension, tachycardia, altered mental status, elevated BUN/Cr from baseline, worsening anemia/thrombocytopenia in setting of IV Vanco with elevated vanco level at 27, oral rifampin and concern for worsened aspiration Septic shock Altered mental status with suspected metabolic encephalopathy Staph hemolyticus bacteremia - on treatment through 02/27 Possible Aspiration Pneumonia Possible catheter associated complicated UTI admit to PCU Consult infectious disease, + culture from [facility] 01/11 Staph hemolyticus, resistant except for vanco - unknown source, negative DE/TTE, cleared with treatment, ID recommend tx through 02/27 Switch to IV dapto due to concern for nephrotoxicity, add IV zosyn for aspiration coverage, and continue rifampin for now MRSA Swab, procal, CK ordered await blood and urine cultures 02/03 Remains on Levophed Also on hydrocortisone every 8 hours Follow-up cultures ID consulted Continue daptomycin plus Zosyn 02/04 Blood pressure improved Off Levophed Insulin hydrocortisone every 8 hours Blood culture and urine culture negative so far Continue daptomycin plus Zosyn 02/05 mental status much better urine culture: negative blood cultures: negative Zosyn discontinued Daptomycin continued- on treatment for previously diagnosed Staph hemolyticus bacteremia until 02/27 02/06 afebrile mental status continues to improve continue Dapto Bilateral Petechiae Thrombocytopenia Acute on chronic anemia Hematuria ? if related to rifampin work up for HUS, hemolytic anemia, DIC obtain peripheral smear, PTT, PT/INR, Haptoglobin, LDH, fibrinogen, retic count repeat h/h @ 1900 02/03 Hematuria seems to be resolving Hemoglobin stable at 7.8 Platelet count increased to 98 Peripheral smear: Nonspecific pancytopenia Vancomycin plus rifampicin discontinued Monitor closely 02/04 Hemoglobin 8.1 Platelet count 96 No signs of active bleeding Monitor closely 02/05 Hg stable at 7.6 02/06 Hg stable at 8.0 Acute/Chronic CKD-3b baseline cr 1.4-1.5, consult nephro bun/cr 56 and 2.55, ? if pre renal in setting of poor intake vs intrarenal from ATN/nephrotoxicity gentle IVF D5 1/2NSS x 1 L follow labs 02/03 Creatinine 2.7, currently 2.5 Likely ATN from septic shock Nephrology on board 02/04 Creatinine 2.6 Nephro on board 02/05 crea 2.7 --> 2.6 --> 2.19 Nephro on board 02/06 crea 2.0 Atrial Fibrillation hx of CHB s/p PPM HLD metoprolol held for low BP flecainide continued eliquis on hold due to bleeding, thrombocytopenia notified by RN re: episode of non sustained v tach? seen on telemetry pacemaker interrogation ordered: pending -- hopefully resume Eliquis Hypoglycemia: no hx of T2DM, a1c 5.4 01/16, likely due to poor intake, on D5W + 1/2NSS given, hypoglycemia protocol -- no recurrence Falls - pt with 2 falls in 3 days, likely 2/2 to suspected illness -- PT/OT eval Mild Oropharyngeal dysphagia: had video fluoroscopy at [facility] which was negative for jade aspiration - continue with soft bite size meals, aspiration precautions -- Speech Therapy eval requested today Mild intellectual disability: [facility], 2 staff members at bedside on admission BPH/Gross hematuria: likely from traumatic cath vs thrombocytopenia - will need urology follow up at discharge, cath placed at [facility] -- resolved Bipolar disorder: continue home medication, mood stable Seizure disorder: continue topamax, depakote, no witnessed seizure in several years -- on Valproic acid Hypothyroidism: continue levothyroxine, TSH 5.261 uIu/ml and free T4 1.0 DVT ppx: Eliquis on hold, Heparin SC BID FULL CODE PCP: Guilherme Berger Dispo: PCU PT/OT evaluation Admission and Anticipated Discharge Date Admission Date: February 03, 2024 Subjective ff up for septic shock, etc seen resting in bed, comfortable sitting up, in good spirits seen resting in bed, comfortable trying to talk, interactive no shortness of breath, pain Review of Systems Review of Systems: all noted and negative except for above Physical Exam Physical Exam: General- not in distress, speaks in sentences with no effort or accessory muscle use Eyes- anicteric Neck- no JVD Lungs- clear breath sounds bilaterally, no rales/wheezes Heart- normal rate, regular rhythm; no murmurs Abdomen- normal bowel sounds, nondistended, soft, no tenderness Extremities- no pretibial edema, no calf tenderness Neuro- alert, no new gross focal neurologic deficits Skin- warm & dry Results & Data Results & Data Vital Signs (Past 12 Hours) Vital Signs Temp Pulse Pulse Resp BP Pulse Ox O2 Del Method 02/07/24 11:24 36.3 C L 63 18 163/82 H 98 Room Air 02/07/24 09:30 65 02/07/24 09:30 Room Air 02/07/24 07:14 36.5 C 64 18 146/76 H 96 Room Air 02/07/24 02:30 36.3 C L 62 16 132/72 94 Room Air all noted and reviewed including below (4) Aspiration pneumonia Aspiration pneumonia type: unspecified Laterality: right Lung location: unspecified part of lung Qualified Code(s): J69.0 - Pneumonitis due to inhalation of food and vomit
[2024-02-07] MEDS: VALPROATE SOD 250 MG in DEXTROSE 5% 50 ML IV SCH (13:10)
[2024-02-07] MEDS: FAMOTIDINE 20MG IV PUSH 20 MG/5 ML SYR IV SCH (13:11)
[2024-02-07] MEDS: POTASSIUM CHLORIDE / WTR 10 MEQ/100 ML PLCT IV SCH (13:54)
[2024-02-07] MEDS: DEXTROSE 5% 1,000 ML IV SCH (14:57)
[2024-02-07] MEDS: DAPTOmycin 550 MG in SYRINGE 0 ML IV SCH (14:58)
--- NOTE | 2024-02-08 11:05 | Nephrology Progress Note ---
Date of Service February 08, 2024 Assessment & Plan Admission and Anticipated Discharge Date Admission Date: February 03, 2024 Subjective Assessment & Plan (1) Acute kidney injury superimposed on stage 3b chronic kidney disease: Plan: nonoliguric SHE most likely Sec to ATN in the setting Of sepsis and Hypotension. most recent baseline creatinine mid ones. Creat peaked at 2.7 on 02/02 admission; down to 2 today. no longer needing pressors. 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 Currently vancomicin on hold and getting Iv Zosyn + dapto. less likely to cause renal issues so continue This is not simple pre renal SHE, but creat improving but slowly. not quite to baseline but should get there eventually. Given hypernatremia/exam and [place]k of adequate PO--continue d5w at 60ml /hr. Daily CBC and renal panel. No labs today. Remains on RA w/ no edema and now w/ sNa climbing--encourage free fluid intake. hgb and PLT both low with sepsis but both are rising slowly--so good sign. May need PRBC if Drops below 7. (2) Septic shock: Plan: Unclear if aspiration PNA or catheter assoc complicated UTI. improving now. Was already On Iv vancomycin for S hemolyticus bacteremia. Vanco level high at 27 on presentation > no vanco this admission; on dapto now. off pressors now and BP holding Subjective no interval events. more alert/interactive Review of Systems Review of Systems: Unobtainable due to cognitive status Physical Exam Constitutional: well developed, well nourished, + frail appearing and comfortable; no acute distress Eyes: EOM intact bilaterally ENMT: Mouth: + dry oral mucous membranes Respiratory: normal respiratory effort Auscultation: + diminished lung sounds Cardiovascular: Rate/Rhythm: regular rate and regular rhythm Extremities: no edema Gastrointestinal (Abdomen): Inspection/Auscultation: normal bowel sounds Percussion/Palpation: abdomen soft; abdomen nontender Musculoskeletal: Extremities: strength 5/5 throughout Skin: no rashes, warm and dry Results & Data Vital Signs (Past 12 Hours) Vital Signs Temp Pulse Pulse Resp BP Pulse Ox O2 Del Method 02/08/24 10:55 36.2 C L 69 18 118/71 96 Room Air 02/08/24 08:12 36.4 C L 68 18 161/88 H 96 Room Air 02/08/24 07:52 Room Air 02/08/24 07:22 60 02/08/24 03:48 36.3 C L 64 17 132/80 95 Room Air 02/07/24 23:16 36.4 C L 60 17 134/80 96 Room Air
[2024-02-08] MEDS: ACETAMINOPHEN 1,000 MG/100 ML VIAL IV PRN (12:03)
[2024-02-08] MEDS: CETIRIZINE ORAL SOLN 1 MG/ML PO SCH (12:06)
[2024-02-08 14:57] LABS: Topiramate 1.4 mcg/mL (see note); Valproic Acid, Free <4.0 mg/L (4.8-17.3); Valproic Acid, Total 16.8 mg/L (50.0-100.0)
--- NOTE | 2024-02-08 17:51 | Hospitalist Progress Note ---
Date of Service February 08, 2024 Assessment & Plan (1) Septic shock: Plan: (1) Metabolic encephalopathy: (2) Bacteremia: (3) Catheter-associated urinary tract infection: (4) Aspiration pneumonia: (5) Acute kidney injury superimposed on stage 3b chronic kidney disease: (6) Anemia: (7) Thrombocytopenia: (8) Hypoglycemia: (9) PAF (paroxysmal atrial fibrillation): Plan Per admitting service notes with addendum: This is a 63-year-old male who has a significant past medical history of baseline intellectual disability, atrial fibrillation on Eliquis, history of CHB status post permanent pacemaker placement, hypothyroidism, BPH, bipolar disorder, CKD stage III with baseline creatinine 1.4-1.5, horseshoe kidney, bilateral renal masses, BPH, chronic anemia who presents to ED secondary to altered mental status and lethargy. Recent hospitalization 01/11-01/24 @ [facility] / Staphylococcus Haemolyticus, PNA presumed aspiration, negative TTE/DE; however ID recommends treating with 6 week course of IV Vanco/rifampin given negative cultures with treatment and no clear source of bacteremia. He was seen and evaluated by ST and underwent videofluoroscopy which described moderate oral pharyngeal dysphagia. Hosp course also complicated with hematuria, a/c anemia, thrombocytopenia. He was D/C To [facility] to complete course of antibiotics. [facility]. In ED pt with mild hypotension, tachycardia, altered mental status, elevated BUN/Cr from baseline, worsening anemia/thrombocytopenia in setting of IV Vanco with elevated vanco level at 27, oral rifampin and concern for worsened aspiration Septic shock Altered mental status with suspected metabolic encephalopathy likely from Staph hemolyticus bacteremia - on treatment through 02/27 Possible Aspiration Pneumonia? Possible catheter associated complicated UTI- ruled out Consult infectious disease, + culture from [facility] 01/11 Staph hemolyticus, resistant except for vanco - unknown source, negative DE/TTE, cleared with treatment, ID recommend tx through 02/27 Switch to IV dapto due to concern for nephrotoxicity, add IV zosyn for aspiration coverage, and continue rifampin for now MRSA Swab, procal, CK ordered await blood and urine cultures 02/03 Remains on Levophed Also on hydrocortisone every 8 hours ID consulted Continue daptomycin plus Zosyn 02/04 Blood pressure improved Off Levophed Insulin hydrocortisone every 8 hours Blood culture and urine culture negative so far Continue daptomycin plus Zosyn 02/05 mental status much better urine culture: negative blood cultures: negative Zosyn discontinued Daptomycin continued- on treatment for previously diagnosed Staph hemolyticus bacteremia until 02/27 02/06 afebrile mental status continues to improve continue Dapto 02/07 remains afebrile, clinically stable continue Daptomycin scheduled to finish 02/28/24 touch base with ID to confirm above plan Bilateral Petechiae Thrombocytopenia Acute on chronic anemia Hematuria- resolved possibly from Vanco + Rifampicin being taken as outpatient--> discontinued 02/03 Hematuria seems to be resolving Hemoglobin stable at 7.8 Platelet count increased to 98 Peripheral smear: Nonspecific pancytopenia Vancomycin plus rifampicin discontinued Monitor closely 02/04 Hemoglobin 8.1 Platelet count 96 No signs of active bleeding Monitor closely 02/05 Hg stable at 7.6 02/06 Hg stable at 8.0 02/07 Hg stable at 8.0 Plt also stable at 90s Acute/Chronic CKD-3b baseline cr 1.4-1.5, consult nephro bun/cr 56 and 2.55, ? if pre renal in setting of poor intake vs intrarenal from ATN/nephrotoxicity gentle IVF D5 1/2NSS x 1 L follow labs 02/03 Creatinine 2.7, currently 2.5 Likely ATN from septic shock Nephrology on board 02/04 Creatinine 2.6 Nephro on board 02/05 crea 2.7 --> 2.6 --> 2.19 Nephro on board 02/06 crea 2.0 Atrial Fibrillation hx of CHB s/p PPM HLD metoprolol held for low BP flecainide continued eliquis held due to bleeding, thrombocytopenia notified by RN re: episode of non sustained v tach? seen on telemetry pacemaker interrogation ordered: pending -- HR stable -- resume Eliquis tomorrow Hypoglycemia: no hx of T2DM, a1c 5.4 01/16, likely due to poor intake, on D5W + 1/2NSS given, hypoglycemia protocol -- no recurrence Falls - pt with 2 falls in 3 days, likely 2/2 to suspected illness -- PT/OT eval Mild Oropharyngeal dysphagia: had video fluoroscopy at [facility] which was negative for jade aspiration - continue with soft bite size meals, aspiration precautions -- as per Caregivers, patient was having drooling while at the penitentiary At [facility], patient was found to have mild dysphagia discharge after hospitalization to [facility], patient noted to have worsening of dysphagia -- Speech Therapy eval: recommend full liquid diet As of today, patient is able to take crushed medications In the afternoon was also able to take some pudding/ice cream Hopefully, patient's oral intake will continue to improve in 1 to 2 days Mild intellectual disability: resides in penitentiary at baseline, 2 staff members at bedside on admission BPH/Gross hematuria: likely from traumatic cath vs thrombocytopenia - will need urology follow up at discharge, cath placed at [facility] -- resolved Bipolar disorder: continue home medication, mood stable Seizure disorder: continue topamax, depakote, no witnessed seizure in several years -- on Valproic acid IV --> cause of facial rash? transition to usual Depakote at Hypothyroidism: continue levothyroxine, TSH 5.261 uIu/ml and free T4 1.0 DVT ppx: Eliquis on hold, Heparin SC BID FULL CODE PCP: Guilherme Berger Dispo: PCU PT/OT evaluation Admission and Anticipated Discharge Date Admission Date: February 03, 2024 Subjective ff up for septic shock, etc seen with patient's caregivers at bedside resting in bed, sitting up, alert, in good spirits, smiling comfortable, not in distress no shortness of breath, pain speech still not at baseline per caregivers- somewhat garbled able to take crushed meds this morning, was not opening mouth when offered clear liquid diet Review of Systems Review of Systems: all noted and negative except for above Physical Exam Physical Exam: General-awake, alert, playful, not in distress, speaks in sentences with no effort or accessory muscle use Face- mild papular erythematous rash BL sides of the face and anterior neck Eyes- anicteric Neck- no JVD Lungs- clear breath sounds bilaterally, no rales/wheezes Heart- normal rate, regular rhythm; no murmurs Abdomen- normal bowel sounds, nondistended, soft, nontender Extremities- no pretibial edema, no calf tenderness Neuro- alert, no new gross focal neurologic deficits Skin- warm & dry Results & Data Results & Data Vital Signs (Past 12 Hours) Vital Signs Temp Pulse Pulse Resp BP Pulse Ox O2 Del Method 02/08/24 15:32 36.1 C L 63 18 117/65 98 Room Air 12/17/24 14:18 60 02/08/24 10:55 36.2 C L 69 18 118/71 96 Room Air 02/08/24 08:12 36.4 C L 68 18 161/88 H 96 Room Air 02/08/24 07:52 Room Air 02/08/24 07:22 60 all noted and reviewed including below
[2024-02-08] MEDS: DIVALPROEX EXTENDED RELEASE 500 MG TAB PO ONE (20:33)
[2024-02-09 07:06] LABS: Albumin Level 2.3 gm/dl (3.4-5.0); BUN Creatinine Ratio 14.9 (10-20); Calcium 8.9 mg/dl (8.6-10.3); Creatinine Clr Calc Pharmacy 46.8 ml/min; Phosphorus 3.9 mg/dl (2.5-4.9); Potassium 3.8 mmol/L (3.5-5.1)
[2024-02-09 07:16] LABS: Basophils # (auto) 0.01 K/uL (0.00-0.20); Basophils % (auto) 0.2 %; Eosinophils # (auto) 0.17 K/uL (0.00-0.50); Eosinophils % (auto) 2.6 %; Hematocrit (blood only) 25.4 % (42.0-52.0); Hemoglobin 8.1 g/dl (14.0-18.0); Immature Granulocytes % (auto) 6.1 %; Lymphocytes # (auto) 1.92 K/uL (1.20-3.40); Lymphocytes % (auto) 29.4 %; Mean Corpuscular Hemoglobin 30.6 pg (25.0-34.0); Mean Corpuscular Hgb Conc 31.9 g/dL (32.0-36.0); Mean Corpuscular Volume 95.8 fL (80.0-100.0); Mean Platelet Volume 11.3 fL (9.4-12.4); Monocytes # (auto) 0.36 K/uL (0.11-0.59); Monocytes % (auto) 5.5 %; Neutrophils # (auto) 3.66 K/uL (1.40-6.50); Neutrophils % (auto) 56.2 %; Nucleated RBC # (auto) 0.04 K/uL (0.00-0.12); Nucleated RBC % (auto) 0.6 %; Platelet Count 89 K/uL (130-400); RDW Coefficient of Variation 17.3 % (11.5-14.5); RDW Standard Deviation 60.5 fL (36.4-46.3); Red Blood Count 2.65 M/uL (4.70-6.10); White Blood Count 6.52 K/ul (4.8-10.8)
[2024-02-09] MEDS: LANSOPRAZOLE 30 MG SOLTAB PO SCH (09:10)
--- NOTE | 2024-02-09 17:08 | Hospitalist Progress Note ---
Date of Service February 09, 2024 Assessment & Plan (1) Septic shock: Plan: Per previous hospitalist w/ addendum: (1) Metabolic encephalopathy: (2) Bacteremia: (3) Catheter-associated urinary tract infection: (4) Aspiration pneumonia: (5) Acute kidney injury superimposed on stage 3b chronic kidney disease: (6) Anemia: (7) Thrombocytopenia: (8) Hypoglycemia: (9) PAF (paroxysmal atrial fibrillation): Plan Per admitting service notes with addendum: This is a 63-year-old male who has a significant past medical history of baseline intellectual disability, atrial fibrillation on Eliquis, history of CHB status post permanent pacemaker placement, hypothyroidism, BPH, bipolar disorder, CKD stage III with baseline creatinine 1.4-1.5, horseshoe kidney, bilateral renal masses, BPH, chronic anemia who presents to ED secondary to altered mental status and lethargy. Recent hospitalization 01/11-01/24 @ [facility] 2/ Staphylococcus Haemolyticus, PNA presumed aspiration, negative TTE/DE; however ID recommends treating with 6 week course of IV Vanco/rifampin given negative cultures with treatment and no clear source of bacteremia. He was seen and evaluated by ST and underwent videofluoroscopy which described moderate oral pharyngeal dysphagia. Hosp course also complicated with hematuria, a/c anemia, thrombocytopenia. He was D/C To [facility] to complete course of antibiotics. He is from a intermediate. In ED pt with mild hypotension, tachycardia, altered mental status, elevated BUN/Cr from baseline, worsening anemia/thrombocytopenia in setting of IV Vanco with elevated vanco level at 27, oral rifampin and concern for worsened aspiration Septic shock Altered mental status with suspected metabolic encephalopathy likely from Staph hemolyticus bacteremia - on treatment through 02/27 Possible Aspiration Pneumonia? Possible catheter associated complicated UTI- ruled out Consult infectious disease, + culture from [facility] 01/11 Staph hemolyticus, resistant except for vanco - unknown source, negative DE/TTE, cleared with treatment, ID recommend tx through 02/27 Switched to IV dapto due to concern for nephrotoxicity, added IV zosyn for aspiration coverage, and continued rifampin initially MRSA Swab, procal, CK ordered await blood and urine cultures 02/03 on Levophed, on hydrocortisone every 8 hours ID consulted Continue daptomycin + Zosyn 02/04 Off Levophed 02/05 mental status improved urine culture: negative blood cultures: negative Zosyn discontinued Daptomycin continued- on treatment for previously diagnosed Staph hemolyticus bacteremia until 02/27 02/06 afebrile mental status continues to improve continue Dapto 02/07 remains afebrile, clinically stable continue Daptomycin scheduled to finish 02/28/24 touch base with ID to confirm above plan 02/08 Met pt today. Pt awake, no complaints, asking about going home. No caregivers at the bedside. Per RN pt seems improved from yesterday. ID contacted - will further discuss plan Bilateral Petechiae Thrombocytopenia Acute on chronic anemia Hematuria- resolved possibly from Vanco + Rifampicin being taken as outpatient--> discontinued 02/03 Hematuria seems to be resolving, Hemoglobin 7.8, Platelet 98 Peripheral smear: Nonspecific pancytopenia Vancomycin plus rifampicin discontinued 02/04 Hemoglobin 8.1, Platelet count 96 No signs of active bleeding 02/07 Hg stable at 8.0 Plt also stable at 90s Acute/Chronic CKD-3b baseline cr 1.4-1.5, consulted nephrology bun/cr 56 and 2.55, ? if pre renal in setting of poor intake vs intrarenal from ATN/nephrotoxicity gentle IVF D5 1/2NSS x 1 L follow labs 02/03 Creatinine 2.7, Likely ATN from septic shock Nephrology following 02/05 Cr 2.7 --> 2.6 --> 2.19 02/08 Cr 1.7 Atrial Fibrillation hx of CHB s/p PPM HLD Metoprolol held for low BP Flecainide continued Eliquis held due to bleeding, thrombocytopenia notified by RN re: episode of non sustained v tach? seen on telemetry pacemaker interrogation ordered by previous provider -- HR stable -- resume Eliquis tomorrow Hypoglycemia: no hx of T2DM, a1c 5.4 01/16, likely due to poor intake, on D5W + 1/2NSS given, hypoglycemia protocol -- no recurrence Falls - pt with 2 falls in 3 days, likely 2/2 to suspected illness -- PT/OT eval Mild Oropharyngeal dysphagia: had video fluoroscopy at [facility] which was negative for jade aspiration - continue with soft bite size meals, aspiration precautions -- as per Caregivers, patient was having drooling while at the intermediate At [facility], patient was found to have mild dysphagia discharge after hospitalization to [facility], patient noted to have worsening of dysphagia -- Speech Therapy eval: recommend full liquid diet Hopefully, patient's oral intake will continue to improve in 1 to 2 days Mild intellectual disability: resides in intermediate at baseline, 2 staff members at bedside on admission BPH/Gross hematuria: likely from traumatic cath vs thrombocytopenia - will need urology follow up at discharge, cath placed at [facility] -- resolved Bipolar disorder: continue home medication, mood stable Seizure disorder: continue topamax, depakote, no witnessed seizure in several years -- on Valproic acid IV --> cause of facial rash? transition to usual Depakote at Hypothyroidism: continue levothyroxine, TSH 5.261 uIu/ml and free T4 1.0 DVT ppx: Eliquis on hold, Heparin SC BID FULL CODE PCP: Guilherme Berger Dispo: PCU PT/OT evaluation Admission and Anticipated Discharge Date Admission Date: February 03, 2024 Subjective Pt seen in follow up of septic shock, etc Pt is sitting up in bed in NAD. States he feels well and keeps saying that he wants to go home. comfortable, not in distress no shortness of breath, pain Discussed w/ RN - pt seems to be improving from yesterday Review of Systems Review of Systems: All systems reviewed & are unremarkable except as noted in Subjective Physical Exam Physical Exam: General-awake, alert, not in distress, speaks in sentences with no effort or accessory muscle use Eyes- anicteric Neck- no JVD Lungs- clear breath sounds bilaterally, no rales/wheezes Heart- normal rate, regular rhythm; no murmurs Abdomen- normal bowel sounds, nondistended, soft, nontender Extremities- no pretibial edema, no calf tenderness Neuro- alert, no new gross focal neurologic deficits Skin- warm & dry Results & Data Results & Data Vital Signs (Past 12 Hours) Vital Signs Temp Pulse Pulse Resp BP Pulse Ox O2 Del Method 02/09/24 15:54 60 02/09/24 15:16 36.7 C 65 18 145/74 H 96 Room Air 02/09/24 11:44 36.7 C 63 18 124/69 93 Room Air 02/09/24 10:16 Room Air 02/09/24 07:51 60 02/09/24 07:07 36.8 C 68 18 125/62 93 Room Air Laboratory Results 02/09/24 02/09/24 Range/Units 13:37 05:53 WBC 6.52 (4.8-10.8) K/ul RBC 2.65 L (4.70-6.10) M/uL Hgb 8.1 L (14.0-18.0) g/dl Hct 25.4 L (42.0-52.0) % MCV 95.8 (80.0-100.0) fL MCH 30.6 (25.0-34.0) pg MCHC 31.9 L (32.0-36.0) g/dL RDW Std Deviation 60.5 H (36.4-46.3) fL RDW Coeff of Jenifer 17.3 H (11.5-14.5) % Plt Count 89 L (130-400) K/uL MPV 11.3 (9.4-12.4) fL Immature Gran % (Auto) 6.1 % Neut % (Auto) 56.2 % Lymph % (Auto) 29.4 % Candler % (Auto) 5.5 % Eos % (Auto) 2.6 % Baso % (Auto) 0.2 % Neut # (Auto) 3.66 (1.40-6.50) K/uL Lymph # (Auto) 1.92 (1.20-3.40) K/uL Candler # (Auto) 0.36 (0.11-0.59) K/uL Eos # (Auto) 0.17 (0.00-0.50) K/uL Baso # (Auto) 0.01 (0.00-0.20) K/uL Immature Gran # (Auto) 0.40 H (0.01-0.20) K/uL Absolute Nucleated RBC 0.04 (0.00-0.12) K/uL Nucleated RBC % (auto) 0.6 % Sodium 147 H (136-145) mmol/L Potassium 3.8 (3.5-5.1) mmol/L Chloride 115 H (98-107) mmol/L Carbon Dioxide 27 (21-32) mmol/L Anion Gap 5 (3-11) BUN 25 H (6-23) mg/dl Creatinine 1.68 H (0.6-1.4) mg/dl Est Cr Clr Drug Dosing 46.8 ml/min eGFR 45.66 BUN/Creatinine Ratio 14.9 (10-20) Glucose 78 (70-99(Fasting)) mg/dl Calcium 8.9 (8.6-10.3) mg/dl Phosphorus 3.9 (2.5-4.9) mg/dl Albumin 2.3 L (3.4-5.0) gm/dl Stl C. diff Tox B Gene Negative Cdiff Gene (Neg) Medications Administered Current Inpatient Medications Allopurinol (Allopurinol 100 Mg Tab) 100 mg PO DAILY [facility] Stop: 03/08/24 08:59 Last Admin: 02/09/24 09:10 Dose: 100 mg Calcium Carbonate (Calcium Carbonate 500 Mg Chewable Tab) 500 mg PO BID [facility] Stop: 03/07/24 20:59 Last Admin: 02/09/24 09:10 Dose: 500 mg Cetirizine HCl (Cetirizine Oral Soln 1 Mg/Ml) 10 mg PO DAILY [facility] Stop: 03/09/24 09:59 Last Admin: 02/09/24 09:13 Dose: 10 mg Dextrose (Dextrose 50% 50 Ml Syringe) 25 - 50 ml IV UD PRN; Protocol PRN Reason: Hypoglycemia Protocol Stop: 03/04/24 13:57 Divalproex Sodium (Divalproex Extended Release 500 Mg Tab) 1,000 mg PO HS [facility] Stop: 03/10/24 20:59 Docusate Sodium (Docusate Sodium Syrup 100 Mg/10 Ml Udc) 100 mg PO DAILY [facility] Stop: 03/08/24 08:59 Famotidine (Famotidine 20 Mg Tab) 20 mg PO DAILY [facility]; Protocol Stop: 03/11/24 08:59 Finasteride (Finasteride 5 Mg Tab) 5 mg PO DAILY [facility] Stop: 03/05/24 08:59 Last Admin: 02/05/24 09:11 Dose: 5 mg Flecainide Acetate (Flecainide Acetate 100 Mg Tablet) 50 mg PO BID [facility] Stop: 03/04/24 20:59 Last Admin: 02/09/24 10:45 Dose: 50 mg Gabapentin (Gabapentin 250 Mg/5 Ml 470 Ml Btl) 100 mg PO TID [facility] Stop: 03/05/24 13:59 Last Admin: 02/09/24 15:06 Dose: 100 mg Glucagon (Glucagon For Inj 1 Mg Vial) 1 mg SQ UD PRN; Protocol PRN Reason: Hypoglycemia Protocol Stop: 03/04/24 13:57 Glucose (Glucose 40% Gel 15 Gm Tube) 15 - 30 gm PO UD PRN; Protocol PRN Reason: Hypoglycemia Protocol Stop: 03/04/24 13:57 Glucose (Glucose 10 Tab/Tube) 4 - 8 tab PO UD PRN; Protocol PRN Reason: Hypoglycemia Protocol Stop: 03/04/24 13:57 Heparin Sodium (Porcine) (Heparin Sod 5,000 Unit/0.5 Ml Vial) 5,000 units SQ Q12 [facility] Stop: 03/06/24 20:59 Last Admin: 02/09/24 09:10 Dose: 5,000 units Daptomycin 550 mg/ Syringe 11 mls @ 4 mls/min IV Q24H [facility]; Protocol Stop: 02/17/24 14:59 Last Admin: 02/09/24 15:06 Dose: 4 mls/min Acetaminophen (Ofirmev) 1,000 mg in 100 mls @ 400 mls/hr IV Q8H PRN PRN Reason: fever/chills Stop: 02/11/24 11:51 Last Infusion: 02/09/24 16:08 Dose: Infused Lactobacillus Acidophilus (Advanced Probiotic 625 Mg Capsule) 1,250 mg PO DAILY [facility] Stop: 03/05/24 08:59 Last Admin: 02/05/24 09:11 Dose: 1,250 mg Lansoprazole (Lansoprazole 30 Mg Soltab) 30 mg PO DAILY [facility] Stop: 03/10/24 08:59 Last Admin: 02/09/24 09:10 Dose: 30 mg Levothyroxine Sodium (Levothyroxine Sodium 75 Mcg Tablet) 75 mcg PO DAILYBB [facility] Stop: 03/05/24 06:29 Last Admin: 02/09/24 06:44 Dose: 75 mcg Miscellaneous (Carbohydrates For Hypoglycemia ) 15 - 30 gm PO UD PRN PRN Reason: Hypoglycemia Protocol Stop: 03/04/24 13:57 Ondansetron HCl (Ondansetron Inj 2 Mg/Ml 2 Ml Vial) 4 mg IV Q6H PRN PRN Reason: Nausea Stop: 03/04/24 14:27 Polyethylene Glycol (Polyethylene (Miralax) 17 Gm Pack) 17 gm PO DAILY PRN PRN Reason: Constipation Stop: 03/04/24 14:27 Rifampin (Rifampin 300 Mg Capsule) 300 mg PO TID [facility] Stop: 03/04/24 20:59 Last Admin: 02/04/24 13:44 Dose: 300 mg Tamsulosin HCl (Tamsulosin Hcl 0.4 Mg Cap) 0.4 mg PO BID [facility] Stop: 03/04/24 20:59 Last Admin: 02/05/24 21:32 Dose: Not Given Topiramate (Topiramate 100 Mg Tab) 100 mg PO QPM [facility] Stop: 03/04/24 20:59 Last Admin: 02/08/24 20:32 Dose: 100 mg Topiramate (Topiramate 50 Mg Tab) 50 mg PO QAM [facility] Stop: 03/05/24 08:59 Last Admin: 02/09/24 09:10 Dose: 50 mg Vitamin D (Cholecalciferol 25 Mcg (1000 Units) Tab) 50 mcg PO DAILY [facility] Stop: 03/05/24 08:59 Last Admin: 02/05/24 11:03 Dose: Not Given
--- NOTE | 2024-02-09 18:15 | Nephrology Progress Note ---
Date of Service February 09, 2024 Assessment & Plan (1) Acute kidney injury superimposed on stage 3b chronic kidney disease: Plan: improving stage 1 nonoliguric SHE most likely Sec to ATN in the setting Of sepsis and Hypotension. most recent baseline creatinine mid ones. Creat peaked at 2.7 on 02/02 admission; down to 1.7 today. needed pressors earlier in admission Was on daily iV Vancomicin [employer] and that could be the cause of SHE also. Currently vancomycin on hold and getting dapto. less likely to cause renal issues so continue This is not simple pre renal SHE, but creat improving w/ supportive care. Remains on RA w/ no edema and now w/ sNa climbing sodium levels > 147 - steady x 2 days >> suggest D5W at 100 mL hourly (so ordered) and continue to feed pt with SHE many meds levels could be affected >> VPA and topa levels pending and does remain on both meds at this time. hgb and PLT both low with sepsis and hgb down to 7.6 today. Will follow. May need PRBC if Drops below 7. Will sign off No specific nephro f/u recs except htat he should have bmp at pcp office after d/c likely that hypernatremia will be ongoing /IVF dependent unless pt fed/ helped to drink consistently Care coordinated w/ Dr Bonilla re f/u labs, feeding, likelihood of chornic hypernatremia via TText; we are in agreemnt. (2) Septic shock: Plan: Unclear if aspiration PNA or catheter assoc complicated UTI; improving now. Was already On Iv vancomycin for S hemolyticus bacteremia. Vanco level high at 27 on presentation > no vanco this admission; on dapto now. off pressors now and BP holding 2.8L + on the admission; and also on Stress dose Steroid. Admission and Anticipated Discharge Date Admission Date: February 03, 2024 Subjective no interval events. more alert; being fed at meals. Review of Systems 2 Review of Systems: Unobtainable due to cognitive status Physical Exam 2 Constitutional: well developed, + frail appearing and comfortable; no acute distress (tries repeatedly to converse but I can't understand/no words) Eyes: EOM intact bilaterally ENMT: Mouth: + dry oral mucous membranes Respiratory: normal respiratory effort Auscultation: + diminished lung sounds Cardiovascular: Rate/Rhythm: regular rate and regular rhythm Extremities: n o edema Gastrointestinal (Abdomen): Inspection/Auscultation: normal bowel sounds P ercussion/Palpation: abdomen soft; abdomen nontender Musculoskeletal: Extremities: strength 5/5 throughout Skin: no rashes, warm and dry Results & Data Vital Signs (Past 12 Hours) Vital Signs Temp Pulse Pulse Resp BP Pulse Ox O2 Del Method 02/09/24 15:54 60 02/09/24 15:16 36.7 C 65 18 145/74 H 96 Room Air 02/09/24 11:44 36.7 C 63 18 124/69 93 Room Air 02/09/24 10:16 Room Air 02/09/24 07:51 60 02/09/24 07:07 36.8 C 68 18 125/62 93 Room Air Laboratory Results 02/09/24 05:53 02/09/24 05:53
[2024-02-09] MEDS: DEXTROSE 5% 1,000 ML IV SCH (18:40)
[2024-02-09] MEDS: DIVALPROEX EXTENDED RELEASE 500 MG TAB PO SCH (21:06)
[2024-02-10] MEDS: LACTOBACILLUS ACIDOPHILUS 1 GM PACK PO SCH (07:29)
[2024-02-10 07:46] LABS: Basophils # (auto) 0.02 K/uL (0.00-0.20); Basophils % (auto) 0.2 %; Eosinophils # (auto) 0.13 K/uL (0.00-0.50); Eosinophils % (auto) 1.6 %; Hematocrit (blood only) 22.7 % (42.0-52.0); Hemoglobin 7.3 g/dl (14.0-18.0); Immature Granulocytes # (auto) 0.28 K/uL (0.01-0.20); Immature Granulocytes % (auto) 3.4 %; Lymphocytes # (auto) 1.57 K/uL (1.20-3.40); Lymphocytes % (auto) 19.3 %; Mean Corpuscular Hemoglobin 30.8 pg (25.0-34.0); Mean Corpuscular Hgb Conc 32.2 g/dL (32.0-36.0); Mean Corpuscular Volume 95.8 fL (80.0-100.0); Mean Platelet Volume 11.9 fL (9.4-12.4); Monocytes # (auto) 0.41 K/uL (0.11-0.59); Neutrophils # (auto) 5.72 K/uL (1.40-6.50); Neutrophils % (auto) 70.5 %; Nucleated RBC # (auto) 0.02 K/uL (0.00-0.12); Nucleated RBC % (auto) 0.2 %; Platelet Count 88 K/uL (130-400); RDW Coefficient of Variation 17.2 % (11.5-14.5); Red Blood Count 2.37 M/uL (4.70-6.10); White Blood Count 8.13 K/ul (4.8-10.8)
[2024-02-10 08:02] LABS: Albumin Level 2.3 gm/dl (3.4-5.0); BUN Creatinine Ratio 12.9 (10-20); Calcium 8.7 mg/dl (8.6-10.3); Creatinine Clr Calc Pharmacy 44.6 ml/min; Magnesium 1.7 mg/dl (1.7-2.4); Phosphorus 3.5 mg/dl (2.5-4.9); Potassium 3.8 mmol/L (3.5-5.1)
[2024-02-10 08:10] LABS: Anisocytosis Present
[2024-02-10] MEDS: FAMOTIDINE 20 MG TAB PO SCH (08:12)
--- NOTE | 2024-02-10 08:56 | Infectious Disease Progress Nt ---
Date of Service February 10, 2024 Telehealth Information I performed this visit using a real-time telehealth connection between my location and the patients location ([facility]). After connecting through interactive tele-video, patient was identified by name and date of and/or wristband check.Patient (or authorized healthcare human resources representative) was informed that this was a telemedicine visit and it was being conducted confidentially over secure lines. My office door was closed and no one else was present in the room with me.Patient (or authorized healthcare human resources representative) provided consent to proceed with the visit, expressed an understanding of privacy and security of the telemedicine visit, and gave permission to have a hospital human resources representative in the room in order to assist with the visit and to conduct portions of the visit, as needed. I informed the patient (or authorized healthcare human resources representative) that I reviewed their record and presented the opportunity for them to ask any questions regarding the visit today. The patient agreed to participate. Subjective INFECTIOUS DISEASES COMMUNICATION NOTE Re-reviewed clinical course, labs and micro results from December at [facility] and this admission at [facility]. Risk/benefit ratio seems to be in favor of abx cessation altogether at this point. No evidence of ongoing infection. Outside DE negative. Some side effects from abx noted to date. ID will sign off for now. Please call with any questions or should his clinical course change. Results & Data Vital Signs (Past 12 Hours) Vital Signs Temp Pulse Pulse Resp BP Pulse Ox O2 Del Method 02/10/24 08:01 36.5 C 65 17 145/68 H 95 Room Air 02/10/24 07:39 Room Air 02/10/24 07:39 61 02/10/24 04:00 36.5 C 60 18 134/68 96 Room Air 02/09/24 23:54 62 02/09/24 22:43 36.2 C L 60 18 158/76 H 96 Room Air
[2024-02-10] MEDS: MAGNESIUM SULFATE / D5W 1 GM/100 ML BAG IV ONE (10:26)
--- NOTE | 2024-02-10 10:31 | Hospitalist Progress Note ---
Date of Service February 10, 2024 Assessment & Plan (1) Septic shock: Plan: Per previous hospitalist w/ addendum: (1) Metabolic encephalopathy: (2) Bacteremia: (3) Catheter-associated urinary tract infection: (4) Aspiration pneumonia: (5) Acute kidney injury superimposed on stage 3b chronic kidney disease: (6) Anemia: (7) Thrombocytopenia: (8) Hypoglycemia: (9) PAF (paroxysmal atrial fibrillation): Plan Per admitting service notes with addendum: This is a 63-year-old male who has a significant past medical history of baseline intellectual disability, atrial fibrillation on Eliquis, history of CHB status post permanent pacemaker placement, hypothyroidism, BPH, bipolar disorder, CKD stage III with baseline creatinine 1.4-1.5, horseshoe kidney, bilateral renal masses, BPH, chronic anemia who presents to ED secondary to altered mental status and lethargy. Recent hospitalization 01/11-01/24 @ [facility] 2/ Staphylococcus Haemolyticus, PNA presumed aspiration, negative TTE/DE; however ID recommends treating with 6 week course of IV Vanco/rifampin given negative cultures with treatment and no clear source of bacteremia. He was seen and evaluated by ST and underwent videofluoroscopy which described moderate oral pharyngeal dysphagia. Hosp course also complicated with hematuria, a/c anemia, thrombocytopenia. He was D/C To [facility] to complete course of antibiotics. He is from a correction. In ED pt with mild hypotension, tachycardia, altered mental status, elevated BUN/Cr from baseline, worsening anemia/thrombocytopenia in setting of IV Vanco with elevated vanco level at 27, oral rifampin and concern for worsened aspiration Septic shock Altered mental status with suspected metabolic encephalopathy likely from Staph hemolyticus bacteremia - on treatment through 02/27 Possible Aspiration Pneumonia? Possible catheter associated complicated UTI- ruled out Consult infectious disease, + culture from [facility] 01/11 Staph hemolyticus, resistant except for vanco - unknown source, negative DE/TTE, cleared with treatment, ID recommend tx through 02/27 Switched to IV dapto due to concern for nephrotoxicity, added IV zosyn for aspiration coverage, and continued rifampin initially MRSA Swab, procal, CK ordered await blood and urine cultures 02/03 on Levophed, on hydrocortisone every 8 hours ID consulted Continue daptomycin + Zosyn 02/04 Off Levophed 02/05 mental status improved urine culture: negative blood cultures: negative Zosyn discontinued Daptomycin continued- on treatment for previously diagnosed Staph hemolyticus bacteremia until 02/27 02/06 afebrile mental status continues to improve continue Dapto 02/07 remains afebrile, clinically stable continue Daptomycin scheduled to finish 02/28/24 touch base with ID to confirm above plan 02/08 Met pt today. Pt awake, no complaints, asking about going home. No caregivers at the bedside. Per RN pt seems improved from yesterday. ID contacted - will further discuss plan 02/09 Discussed w/ ID - will stop daptomycin Bilateral Petechiae Thrombocytopenia Acute on chronic anemia Hematuria- resolved possibly from Vanco + Rifampicin being taken as outpatient--> discontinued 02/03 Hematuria seems to be resolving, Hemoglobin 7.8, Platelet 98 Peripheral smear: Nonspecific pancytopenia Vancomycin plus rifampicin discontinued 02/04 Hemoglobin 8.1, Platelet count 96 No signs of active bleeding 02/07 Hg stable at 8.0 Plt also stable at 90s 02/09 Hgb 7.3, cont. to monitor Acute/Chronic CKD-3b baseline cr 1.4-1.5, consulted nephrology bun/cr 56 and 2.55, ? if pre renal in setting of poor intake vs intrarenal from ATN/nephrotoxicity gentle IVF D5 1/2NSS x 1 L follow labs 02/03 Creatinine 2.7, Likely ATN from septic shock Nephrology following 02/05 Cr 2.7 --> 2.6 --> 2.19 02/08 - Cr 1.7 Hypernatremia Nephrology was consulted Will sign off No specific nephro f/u recs except htat he should have bmp at pcp office after d/c likely that hypernatremia will be ongoing /IVF dependent unless pt fed/ helped to drink consistently Atrial Fibrillation hx of CHB s/p PPM HLD Metoprolol held for low BP Flecainide continued Eliquis held due to bleeding, thrombocytopenia notified by RN re: episode of non sustained v tach? seen on telemetry pacemaker interrogation ordered by previous provider -- HR stable -- resume Eliquis when Hgb stable (current hgb 7.3, down from 8) Hypoglycemia: no hx of T2DM, a1c 5.4 01/16, likely due to poor intake, on D5W + 1/2NSS given, hypoglycemia protocol -- no recurrence Falls - pt with 2 falls in 3 days, likely 2/2 to suspected illness -- PT/OT eval Mild Oropharyngeal dysphagia: had video fluoroscopy at [facility] which was negative for jade aspiration - continue with soft bite size meals, aspiration precautions -- as per Caregivers, patient was having drooling while at the correction At [facility], patient was found to have mild dysphagia discharge after hospitalization to [facility], patient noted to have worsening of dysphagia -- Speech Therapy eval: recommend full liquid diet Hopefully, patient's oral intake will continue to improve in 1 to 2 days Mild intellectual disability: resides in correction at baseline, 2 staff members at bedside on admission BPH/Gross hematuria: likely from traumatic cath vs thrombocytopenia - will need urology follow up at discharge, cath placed at [facility] -- resolved Bipolar disorder: continue home medication, mood stable Seizure disorder: continue topamax, depakote, no witnessed seizure in several years -- on Valproic acid IV --> cause of facial rash? transition to usual Depakote at Hypothyroidism: continue levothyroxine, TSH 5.261 uIu/ml and free T4 1.0 DVT ppx: Eliquis on hold, Heparin SC BID FULL CODE PCP: Guilherme Berger Dispo: PCU PT/OT evaluation Admission and Anticipated Discharge Date Admission Date: February 03, 2024 Subjective Pt seen in follow up of septic shock, etc Pt is sitting up in bed in NAD. States he feels well and keeps saying that he wants to go home. comfortable, not in distress no shortness of breath, pain Discussed w/ RN - pt seems to be improving Discussed w/ ID - will stop abx altogether - daptomycin stopped Review of Systems Review of Systems: All systems reviewed & are unremarkable except as noted in Subjective Physical Exam Physical Exam: General-awake, alert, not in distress, speaks in sentences with no effort or accessory muscle use Eyes- anicteric Neck- no JVD Lungs- clear breath sounds bilaterally, no rales/wheezes Heart- normal rate, regular rhythm; no murmurs Abdomen- normal bowel sounds, nondistended, soft, nontender Extremities- no pretibial edema, no calf tenderness Neuro- alert, no new gross focal neurologic deficits Skin- warm & dry Results & Data Results & Data Vital Signs (Past 12 Hours) Vital Signs Temp Pulse Pulse Resp BP Pulse Ox O2 Del Method 02/10/24 08:01 36.5 C 65 17 145/68 H 95 Room Air 02/10/24 07:39 Room Air 02/10/24 07:39 61 02/10/24 04:00 36.5 C 60 18 134/68 96 Room Air 02/09/24 23:54 62 02/09/24 22:43 36.2 C L 60 18 158/76 H 96 Room Air Laboratory Results 02/10/24 02/09/24 Range/Units 07:05 13:37 WBC 8.13 (4.8-10.8) K/ul RBC 2.37 L (4.70-6.10) M/uL Hgb 7.3 L (14.0-18.0) g/dl Hct 22.7 L (42.0-52.0) % MCV 95.8 (80.0-100.0) fL MCH 30.8 (25.0-34.0) pg MCHC 32.2 (32.0-36.0) g/dL RDW Std Deviation 60.0 H (36.4-46.3) fL RDW Coeff of Jenifer 17.2 H (11.5-14.5) % Plt Count 88 L (130-400) K/uL MPV 11.9 (9.4-12.4) fL Immature Gran % (Auto) 3.4 % Neut % (Auto) 70.5 % Lymph % (Auto) 19.3 % [place] % (Auto) 5.0 % Eos % (Auto) 1.6 % Baso % (Auto) 0.2 % Neut # (Auto) 5.72 (1.40-6.50) K/uL Lymph # (Auto) 1.57 (1.20-3.40) K/uL [place] # (Auto) 0.41 (0.11-0.59) K/uL Eos # (Auto) 0.13 (0.00-0.50) K/uL Baso # (Auto) 0.02 (0.00-0.20) K/uL Immature Gran # (Auto) 0.28 H (0.01-0.20) K/uL Absolute Nucleated RBC 0.02 (0.00-0.12) K/uL Nucleated RBC % (auto) 0.2 % Anisocytosis Present Sodium 146 H (136-145) mmol/L Potassium 3.8 (3.5-5.1) mmol/L Chloride 114 H (98-107) mmol/L Carbon Dioxide 29 (21-32) mmol/L Anion Gap 3 (3-11) BUN 22 (6-23) mg/dl Creatinine 1.71 H (0.6-1.4) mg/dl Est Cr Clr Drug Dosing 44.6 ml/min eGFR 44.70 BUN/Creatinine Ratio 12.9 (10-20) Glucose 97 (70-99(Fasting)) mg/dl Calcium 8.7 (8.6-10.3) mg/dl Phosphorus 3.5 (2.5-4.9) mg/dl Magnesium 1.7 (1.7-2.4) mg/dl Albumin 2.3 L (3.4-5.0) gm/dl Stl C. diff Tox B Gene Negative Cdiff Gene (Neg) Medications Administered Current Inpatient Medications Allopurinol (Allopurinol 100 Mg Tab) 100 mg PO DAILY SIMIN Stop: 03/08/24 08:59 Last Admin: 02/10/24 08:12 Dose: 100 mg Calcium Carbonate (Calcium Carbonate 500 Mg Chewable Tab) 500 mg PO BID SIMIN Stop: 03/07/24 20:59 Last Admin: 02/10/24 08:12 Dose: 500 mg Cetirizine HCl (Cetirizine Oral Soln 1 Mg/Ml) 10 mg PO DAILY SIMIN Stop: 03/09/24 09:59 Last Admin: 02/10/24 08:10 Dose: 10 mg Dextrose (Dextrose 50% 50 Ml Syringe) 25 - 50 ml IV UD PRN; Protocol PRN Reason: Hypoglycemia Protocol Stop: 03/04/24 13:57 Divalproex Sodium (Divalproex Extended Release 500 Mg Tab) 1,000 mg PO HS SIMIN Stop: 03/10/24 20:59 Last Admin: 02/09/24 21:06 Dose: 1,000 mg Docusate Sodium (Docusate Sodium Syrup 100 Mg/10 Ml Udc) 100 mg PO DAILY SIMIN Stop: 03/08/24 08:59 Famotidine (Famotidine 20 Mg Tab) 20 mg PO DAILY [facility]; Protocol Stop: 03/11/24 08:59 Last Admin: 02/10/24 08:12 Dose: 20 mg Finasteride (Finasteride 5 Mg Tab) 5 mg PO DAILY [facility] Stop: 03/05/24 08:59 Last Admin: 02/05/24 09:11 Dose: 5 mg Flecainide Acetate (Flecainide Acetate 100 Mg Tablet) 50 mg PO BID [facility] Stop: 03/04/24 20:59 Last Admin: 02/10/24 08:12 Dose: 50 mg Gabapentin (Gabapentin 250 Mg/5 Ml 470 Ml Btl) 100 mg PO TID [facility] Stop: 03/05/24 13:59 Last Admin: 02/10/24 08:10 Dose: 100 mg Glucagon (Glucagon For Inj 1 Mg Vial) 1 mg SQ UD PRN; Protocol PRN Reason: Hypoglycemia Protocol Stop: 03/04/24 13:57 Glucose (Glucose 40% Gel 15 Gm Tube) 15 - 30 gm PO UD PRN; Protocol PRN Reason: Hypoglycemia Protocol Stop: 03/04/24 13:57 Glucose (Glucose 10 Tab/Tube) 4 - 8 tab PO UD PRN; Protocol PRN Reason: Hypoglycemia Protocol Stop: 03/04/24 13:57 Heparin Sodium (Porcine) (Heparin Sod 5,000 Unit/0.5 Ml Vial) 5,000 units SQ Q12 SIMIN Stop: 03/06/24 20:59 Last Admin: 02/10/24 07:26 Dose: 5,000 units Acetaminophen (Ofirmev) 1,000 mg in 100 mls @ 400 mls/hr IV Q8H PRN PRN Reason: fever/chills Stop: 02/11/24 11:51 Last Infusion: 02/09/24 16:08 Dose: Infused Dextrose (D5w) 1,000 mls @ 80 mls/hr IV .[id number] [facility] Stop: 02/10/24 18:29 Last Admin: 02/10/24 07:23 Dose: 80 mls/hr Magnesium Sulfate/Dextrose (Magnesium Sulfate / D5w) 1 gm in 100 mls @ 50 mls/hr IV ONE ONE Stop: 02/10/24 12:14 Last Admin: 02/10/24 10:26 Dose: 50 mls/hr Lactobacillus Acidophilus (Advanced Probiotic 625 Mg Capsule) 1,250 mg PO DAILY SIMIN Stop: 03/05/24 08:59 Last Admin: 02/05/24 09:11 Dose: 1,250 mg Lactobacillus Acidophilus (Lactobacillus Acidophilus 1 Gm Pack) 1 packet PO TIDM SIMIN Stop: 03/11/24 07:59 Last Admin: 02/10/24 10:28 Dose: 1 packet Lansoprazole (Lansoprazole 30 Mg Soltab) 30 mg PO DAILY SIMIN Stop: 03/10/24 08:59 Last Admin: 02/10/24 08:12 Dose: 30 mg Levothyroxine Sodium (Levothyroxine Sodium 75 Mcg Tablet) 75 mcg PO DAILYBB SIMIN Stop: 03/05/24 06:29 Last Admin: 02/10/24 05:34 Dose: 75 mcg Miscellaneous (Carbohydrates For Hypoglycemia ) 15 - 30 gm PO UD PRN PRN Reason: Hypoglycemia Protocol Stop: 03/04/24 13:57 Ondansetron HCl (Ondansetron Inj 2 Mg/Ml 2 Ml Vial) 4 mg IV Q6H PRN PRN Reason: Nausea Stop: 03/04/24 14:27 Polyethylene Glycol (Polyethylene (Miralax) 17 Gm Pack) 17 gm PO DAILY PRN PRN Reason: Constipation Stop: 03/04/24 14:27 Rifampin (Rifampin 300 Mg Capsule) 300 mg PO TID SIMIN Stop: 03/04/24 20:59 Last Admin: 02/04/24 13:44 Dose: 300 mg Tamsulosin HCl (Tamsulosin Hcl 0.4 Mg Cap) 0.4 mg PO BID SIMIN Stop: 03/04/24 20:59 Last Admin: 02/05/24 21:32 Dose: Not Given Topiramate (Topiramate 100 Mg Tab) 100 mg PO QPM SIMIN Stop: 03/04/24 20:59 Last Admin: 02/09/24 21:27 Dose: 100 mg Topiramate (Topiramate 50 Mg Tab) 50 mg PO QAM [facility] Stop: 03/05/24 08:59 Last Admin: 02/10/24 08:13 Dose: 50 mg Vitamin D (Cholecalciferol 25 Mcg (1000 Units) Tab) 50 mcg PO DAILY SIMIN Stop: 03/05/24 08:59 Last Admin: 02/05/24 11:03 Dose: Not Given
[2024-02-10 18:57] LABS: Hemoglobin 7.7 g/dl (14.0-18.0)
[2024-02-11 07:22] LABS: Hemoglobin 7.9 g/dl (14.0-18.0); Mean Corpuscular Hemoglobin 30.5 pg (25.0-34.0); Mean Corpuscular Hgb Conc 31.6 g/dL (32.0-36.0); Mean Corpuscular Volume 96.5 fL (80.0-100.0); Mean Platelet Volume 11.8 fL (9.4-12.4); Platelet Count 99 K/uL (130-400); RDW Coefficient of Variation 17.4 % (11.5-14.5); RDW Standard Deviation 62.2 fL (36.4-46.3); Red Blood Count 2.59 M/uL (4.70-6.10); White Blood Count 7.83 K/ul (4.8-10.8)
[2024-02-11 07:35] LABS: Albumin Level 2.4 gm/dl (3.4-5.0); BUN Creatinine Ratio 11.5 (10-20); Calcium 8.9 mg/dl (8.6-10.3); Creatinine Clr Calc Pharmacy 41.8 ml/min; Magnesium 1.9 mg/dl (1.7-2.4); Phosphorus 3.5 mg/dl (2.5-4.9)
[2024-02-11 07:39] LABS: Basophils # (auto) 0.01 K/uL (0.00-0.20); Basophils % (auto) 0.1 %; Eosinophils # (auto) 0.13 K/uL (0.00-0.50); Eosinophils % (auto) 1.7 %; Immature Granulocytes # (auto) 0.14 K/uL (0.01-0.20); Immature Granulocytes % (auto) 1.8 %; Lymphocytes # (auto) 1.78 K/uL (1.20-3.40); Lymphocytes % (auto) 22.7 %; Monocytes % (auto) 5.1 %; Neutrophils # (auto) 5.37 K/uL (1.40-6.50); Neutrophils % (auto) 68.6 %; Platelet Estimate Decreased (Normal); Polychromasia 1+
--- NOTE | 2024-02-11 07:44 | Hospitalist Progress Note ---
Date of Service February 11, 2024 Assessment & Plan (1) Septic shock: Plan: Per previous hospitalist w/ addendum: (1) Metabolic encephalopathy: (2) Bacteremia: (3) Catheter-associated urinary tract infection: (4) Aspiration pneumonia: (5) Acute kidney injury superimposed on stage 3b chronic kidney disease: (6) Anemia: (7) Thrombocytopenia: (8) Hypoglycemia: (9) PAF (paroxysmal atrial fibrillation): Plan Per admitting service notes with addendum: This is a 63-year-old male who has a significant past medical history of baseline intellectual disability, atrial fibrillation on Eliquis, history of CHB status post permanent pacemaker placement, hypothyroidism, BPH, bipolar disorder, CKD stage III with baseline creatinine 1.4-1.5, horseshoe kidney, bilateral renal masses, BPH, chronic anemia who presents to ED secondary to altered mental status and lethargy. Recent hospitalization 01/11-01/24 @ [facility] 2/ Staphylococcus Haemolyticus, PNA presumed aspiration, negative TTE/DE; however ID recommends treating with 6 week course of IV Vanco/rifampin given negative cultures with treatment and no clear source of bacteremia. He was seen and evaluated by ST and underwent videofluoroscopy which described moderate oral pharyngeal dysphagia. Hosp course also complicated with hematuria, a/c anemia, thrombocytopenia. He was D/C To [facility] to complete course of antibiotics. He is from a prison. In ED pt with mild hypotension, tachycardia, altered mental status, elevated BUN/Cr from baseline, worsening anemia/thrombocytopenia in setting of IV Vanco with elevated vanco level at 27, oral rifampin and concern for worsened aspiration Septic shock Altered mental status with suspected metabolic encephalopathy likely from Staph hemolyticus bacteremia - on treatment through 02/27 Possible Aspiration Pneumonia? Possible catheter associated complicated UTI- ruled out Consult infectious disease, + culture from [facility] 01/11 Staph hemolyticus, resistant except for vanco - unknown source, negative DE/TTE, cleared with treatment, ID recommend tx through 02/27 Switched to IV dapto due to concern for nephrotoxicity, added IV zosyn for aspiration coverage, and continued rifampin initially MRSA Swab, procal, CK ordered await blood and urine cultures 02/03 on Levophed, on hydrocortisone every 8 hours ID consulted Continue daptomycin + Zosyn 02/04 Off Levophed 02/05 mental status improved urine culture: negative blood cultures: negative Zosyn discontinued Daptomycin continued- on treatment for previously diagnosed Staph hemolyticus bacteremia until 02/27 02/06 afebrile mental status continues to improve continue Dapto 02/07 remains afebrile, clinically stable continue Daptomycin scheduled to finish 02/28/24 touch base with ID to confirm above plan 02/08 Met pt today. Pt awake, no complaints, asking about going home. No caregivers at the bedside. Per RN pt seems improved from yesterday. ID contacted - will further discuss plan 02/09 Discussed w/ ID - Daptomycin stopped Bilateral Petechiae Thrombocytopenia Acute on chronic anemia Hematuria- resolved possibly from Vanco + Rifampicin being taken as outpatient--> discontinued 02/03 Hematuria seems to be resolving, Hemoglobin 7.8, Platelet 98 Peripheral smear: Nonspecific pancytopenia Vancomycin plus rifampicin discontinued 02/04 Hemoglobin 8.1, Platelet count 96 No signs of active bleeding 02/07 Hg stable at 8.0 Plt also stable at 90s 02/09 Hgb 7.3, cont. to monitor 02/10 Hgb 7.9 Acute/Chronic CKD-3b baseline cr 1.4-1.5, consulted nephrology bun/cr 56 and 2.55, ? if pre renal in setting of poor intake vs intrarenal from ATN/nephrotoxicity gentle IVF D5 1/2NSS x 1 L follow labs 02/03 Creatinine 2.7, Likely ATN from septic shock Nephrology following 02/05 Cr 2.7 --> 2.6 --> 2.19 02/08 - Cr 1.7 Hypernatremia Nephrology was consulted Will sign off No specific nephro f/u recs except htat he should have bmp at pcp office after d/c likely that hypernatremia will be ongoing /IVF dependent unless pt fed/ helped to drink consistently Atrial Fibrillation hx of CHB s/p PPM HLD Metoprolol held for low BP Flecainide continued Eliquis held due to bleeding, thrombocytopenia notified by RN re: episode of non sustained v tach? seen on telemetry pacemaker interrogation ordered by previous provider -- HR stable -- (02/10) will resume Eliquis and cont to monitor Hgb and plt Hypoglycemia: no hx of T2DM, a1c 5.4 01/16, likely due to poor intake, on D5W + 1/2NSS given, hypoglycemia protocol -- no recurrence Falls - pt with 2 falls in 3 days, likely 2/2 to suspected illness -- PT/OT eval Mild Oropharyngeal dysphagia: had video fluoroscopy at [facility] which was negative for jade aspiration - continue with soft bite size meals, aspiration precautions -- as per Caregivers, patient was having drooling while at the prison At [facility], patient was found to have mild dysphagia discharge after hospitalization to [facility], patient noted to have worsening of dysphagia -- Speech Therapy eval: recommend full liquid diet Hopefully, patient's oral intake will continue to improve in 1 to 2 days Mild intellectual disability: resides in prison at baseline, 2 staff members at bedside on admission BPH/Gross hematuria: likely from traumatic cath vs thrombocytopenia - will need urology follow up at discharge, cath placed at [facility] -- resolved Bipolar disorder: continue home medication, mood stable Seizure disorder: continue topamax, depakote, no witnessed seizure in several years -- on Valproic acid IV --> cause of facial rash? transition to usual Depakote at Hypothyroidism: continue levothyroxine, TSH 5.261 uIu/ml and free T4 1.0 DVT ppx: Eliquis resume FULL CODE PCP: Guilherme Berger Dispo: PCU PT/OT evaluation Admission and Anticipated Discharge Date Admission Date: February 03, 2024 Subjective Pt seen in follow up of septic shock, etc Pt is sitting up in bed in NAD. States he feels well and keeps saying that he wants to go home. comfortable, not in distress no shortness of breath, pain Discussed w/ RN - pt seems to be improving, ate better this AM Discussed w/ ID yesterday - stopped abx altogether - daptomycin stopped Review of Systems Review of Systems: All systems reviewed & are unremarkable except as noted in Subjective Physical Exam Physical Exam: General-awake, alert, not in distress, speaks in sentences with no effort or accessory muscle use Eyes- anicteric Neck- no JVD Lungs- clear breath sounds bilaterally, no rales/wheezes Heart- normal rate, regular rhythm; no murmurs Abdomen- normal bowel sounds, nondistended, soft, nontender Extremities- no pretibial edema, no calf tenderness Neuro- alert, no new gross focal neurologic deficits Skin- warm & dry Results & Data Results & Data Vital Signs (Past 12 Hours) Vital Signs Temp Pulse Pulse Resp BP Pulse Ox O2 Del Method 02/10/24 23:06 36.9 C 59 L 22 147/78 H 96 Room Air 02/10/24 23:02 60 02/10/24 19:56 36.8 C 62 19 132/73 95 Room Air Laboratory Results 02/11/24 02/10/24 02/10/24 Range/Units 06:41 18:34 07:05 WBC 7.83 8.13 (4.8-10.8) K/ul RBC 2.59 L 2.37 L (4.70-6.10) M/uL Hgb 7.9 L 7.7 L 7.3 L (14.0-18.0) g/dl Hct 25.0 L 24.0 L 22.7 L (42.0-52.0) % MCV 96.5 95.8 (80.0-100.0) fL MCH 30.5 30.8 (25.0-34.0) pg MCHC 31.6 L 32.2 (32.0-36.0) g/dL RDW Std Deviation 62.2 H 60.0 H (36.4-46.3) fL RDW Coeff of Jenifer 17.4 H 17.2 H (11.5-14.5) % Plt Count 99 L 88 L (130-400) K/uL MPV 11.8 11.9 (9.4-12.4) fL Immature Gran % (Auto) 1.8 3.4 % Neut % (Auto) 68.6 70.5 % Lymph % (Auto) 22.7 19.3 % Sargent % (Auto) 5.1 5.0 % Eos % (Auto) 1.7 1.6 % Baso % (Auto) 0.1 0.2 % Neut # (Auto) 5.37 5.72 (1.40-6.50) K/uL Lymph # (Auto) 1.78 1.57 (1.20-3.40) K/uL Sargent # (Auto) 0.40 0.41 (0.11-0.59) K/uL Eos # (Auto) 0.13 0.13 (0.00-0.50) K/uL Baso # (Auto) 0.01 0.02 (0.00-0.20) K/uL Immature Gran # (Auto) 0.14 0.28 H (0.01-0.20) K/uL Absolute Nucleated RBC 0.02 (0.00-0.12) K/uL Nucleated RBC % (auto) 0.2 % Platelet Estimate Decreased L (Normal) Polychromasia 1+ Anisocytosis Present Sodium 145 146 H (136-145) mmol/L Potassium 4.0 3.8 (3.5-5.1) mmol/L Chloride 113 H 114 H (98-107) mmol/L Carbon Dioxide 27 29 (21-32) mmol/L Anion Gap 5 3 (3-11) BUN 20 22 (6-23) mg/dl Creatinine 1.74 H 1.71 H (0.6-1.4) mg/dl Est Cr Clr Drug Dosing 41.8 44.6 ml/min eGFR 43.78 44.70 BUN/Creatinine Ratio 11.5 12.9 (10-20) Glucose 73 97 (70-99(Fasting)) mg/dl Calcium 8.9 8.7 (8.6-10.3) mg/dl Phosphorus 3.5 3.5 (2.5-4.9) mg/dl Magnesium 1.9 1.7 (1.7-2.4) mg/dl Albumin 2.4 L 2.3 L (3.4-5.0) gm/dl Medications Administered Current Inpatient Medications Allopurinol (Allopurinol 100 Mg Tab) 100 mg PO DAILY SIMIN Stop: 03/08/24 08:59 Last Admin: 02/10/24 08:12 Dose: 100 mg Calcium Carbonate (Calcium Carbonate 500 Mg Chewable Tab) 500 mg PO BID SIMIN Stop: 03/07/24 20:59 Last Admin: 02/10/24 21:00 Dose: 500 mg Cetirizine HCl (Cetirizine Oral Soln 1 Mg/Ml) 10 mg PO DAILY SIMIN Stop: 03/09/24 09:59 Last Admin: 02/10/24 08:10 Dose: 10 mg Dextrose (Dextrose 50% 50 Ml Syringe) 25 - 50 ml IV UD PRN; Protocol PRN Reason: Hypoglycemia Protocol Stop: 03/04/24 13:57 Divalproex Sodium (Divalproex Extended Release 500 Mg Tab) 1,000 mg PO HS [facility] Stop: 03/10/24 20:59 Last Admin: 02/10/24 20:57 Dose: 1,000 mg Docusate Sodium (Docusate Sodium Syrup 100 Mg/10 Ml Udc) 100 mg PO DAILY [facility] Stop: 03/08/24 08:59 Famotidine (Famotidine 20 Mg Tab) 20 mg PO DAILY [facility]; Protocol Stop: 03/11/24 08:59 Last Admin: 02/10/24 08:12 Dose: 20 mg Finasteride (Finasteride 5 Mg Tab) 5 mg PO DAILY [facility] Stop: 03/05/24 08:59 Last Admin: 02/05/24 09:11 Dose: 5 mg Flecainide Acetate (Flecainide Acetate 100 Mg Tablet) 50 mg PO BID [facility] Stop: 03/04/24 20:59 Last Admin: 02/10/24 20:58 Dose: 50 mg Gabapentin (Gabapentin 250 Mg/5 Ml 470 Ml Btl) 100 mg PO TID [facility] Stop: 03/05/24 13:59 Last Admin: 02/10/24 21:00 Dose: 100 mg Glucagon (Glucagon For Inj 1 Mg Vial) 1 mg SQ UD PRN; Protocol PRN Reason: Hypoglycemia Protocol Stop: 03/04/24 13:57 Glucose (Glucose 40% Gel 15 Gm Tube) 15 - 30 gm PO UD PRN; Protocol PRN Reason: Hypoglycemia Protocol Stop: 03/04/24 13:57 Glucose (Glucose 10 Tab/Tube) 4 - 8 tab PO UD PRN; Protocol PRN Reason: Hypoglycemia Protocol Stop: 03/04/24 13:57 Heparin Sodium (Porcine) (Heparin Sod 5,000 Unit/0.5 Ml Vial) 5,000 units SQ Q12 [facility] Stop: 03/06/24 20:59 Last Admin: 02/10/24 21:00 Dose: 5,000 units Acetaminophen (Ofirmev) 1,000 mg in 100 mls @ 400 mls/hr IV Q8H PRN PRN Reason: fever/chills Stop: 02/11/24 11:51 Last Infusion: 02/09/24 16:08 Dose: Infused Magnesium Sulfate/Dextrose (Magnesium Sulfate / D5w) 1 gm in 100 mls @ 50 mls /hr IV ONE ONE Stop: 02/11/24 09:39 Lactobacillus Acidophilus (Advanced Probiotic 625 Mg Capsule) 1,250 mg PO DAILY SIMIN Stop: 03/05/24 08:59 Last Admin: 02/05/24 09:11 Dose: 1,250 mg Lactobacillus Acidophilus (Lactobacillus Acidophilus 1 Gm Pack) 1 packet PO TIDM [facility] Stop: 03/11/24 07:59 Last Admin: 02/10/24 18:06 Dose: 1 packet Lansoprazole (Lansoprazole 30 Mg Soltab) 30 mg PO DAILY [facility] Stop: 03/10/24 08:59 Last Admin: 02/10/24 08:12 Dose: 30 mg Levothyroxine Sodium (Levothyroxine Sodium 75 Mcg Tablet) 75 mcg PO DAILYBB [facility] Stop: 03/05/24 06:29 Last Admin: 02/11/24 06:28 Dose: 75 mcg Miscellaneous (Carbohydrates For Hypoglycemia ) 15 - 30 gm PO UD PRN PRN Reason: Hypoglycemia Protocol Stop: 03/04/24 13:57 Ondansetron HCl (Ondansetron Inj 2 Mg/Ml 2 Ml Vial) 4 mg IV Q6H PRN PRN Reason: Nausea Stop: 03/04/24 14:27 Polyethylene Glycol (Polyethylene (Miralax) 17 Gm Pack) 17 gm PO DAILY PRN PRN Reason: Constipation Stop: 03/04/24 14:27 Rifampin (Rifampin 300 Mg Capsule) 300 mg PO TID [facility] Stop: 03/04/24 20:59 Last Admin: 02/04/24 13:44 Dose: 300 mg Tamsulosin HCl (Tamsulosin Hcl 0.4 Mg Cap) 0.4 mg PO BID [facility] Stop: 03/04/24 20:59 Last Admin: 02/05/24 21:32 Dose: Not Given Topiramate (Topiramate 100 Mg Tab) 100 mg PO QPM [facility] Stop: 03/04/24 20:59 Last Admin: 02/10/24 20:57 Dose: 100 mg Topiramate (Topiramate 50 Mg Tab) 50 mg PO QAM [facility] Stop: 03/05/24 08:59 Last Admin: 02/10/24 08:13 Dose: 50 mg Vitamin D (Cholecalciferol 25 Mcg (1000 Units) Tab) 50 mcg PO DAILY [facility] Stop: 03/05/24 08:59 Last Admin: 02/05/24 11:03 Dose: Not Given
[2024-02-11] MEDS: MAGNESIUM SULFATE / D5W 1 GM/100 ML BAG IV ONE (08:50)
[2024-02-11] MEDS: ONDANSETRON INJ 2 MG/ML 2 ML VIAL IV PRN (20:47)
[2024-02-11] MEDS: APIXABAN 5 MG TABLET PO SCH (20:47)
[2024-02-11] MEDS: ACETAMINOPHEN 325 MG TAB PO PRN (20:48)
[2024-02-11] MEDS: OLANZapine 10 MG TAB PO STA (22:44)
[2024-02-12] MEDS: LORazepam 2 MG/1 ML VIAL IV STA (00:38)
[2024-02-12 08:24] LABS: Basophils # (auto) 0.02 K/uL (0.00-0.20); Basophils % (auto) 0.4 %; Eosinophils # (auto) 0.15 K/uL (0.00-0.50); Eosinophils % (auto) 2.9 %; Hematocrit (blood only) 26.2 % (42.0-52.0); Hemoglobin 8.1 g/dl (14.0-18.0); Immature Granulocytes # (auto) 0.05 K/uL (0.01-0.20); Lymphocytes # (auto) 2.02 K/uL (1.20-3.40); Lymphocytes % (auto) 38.4 %; Mean Corpuscular Hemoglobin 30.2 pg (25.0-34.0); Mean Corpuscular Hgb Conc 30.9 g/dL (32.0-36.0); Mean Corpuscular Volume 97.8 fL (80.0-100.0); Mean Platelet Volume 11.7 fL (9.4-12.4); Monocytes # (auto) 0.32 K/uL (0.11-0.59); Monocytes % (auto) 6.1 %; Neutrophils % (auto) 51.2 %; Platelet Count 119 K/uL (130-400); RDW Coefficient of Variation 17.6 % (11.5-14.5); RDW Standard Deviation 63.2 fL (36.4-46.3); Red Blood Count 2.68 M/uL (4.70-6.10); White Blood Count 5.26 K/ul (4.8-10.8)
[2024-02-12 08:38] LABS: Albumin Level 2.5 gm/dl (3.4-5.0); BUN Creatinine Ratio 13.1 (10-20); Calcium 9.1 mg/dl (8.6-10.3); Creatinine Clr Calc Pharmacy 40.6 ml/min; Magnesium 2.2 mg/dl (1.7-2.4); Phosphorus 4.2 mg/dl (2.5-4.9)
--- NOTE | 2024-02-12 08:58 | Hospitalist Progress Note ---
Date of Service February 12, 2024 Assessment & Plan (1) Septic shock: Plan: Per previous hospitalist w/ addendum: (1) Metabolic encephalopathy: (2) Bacteremia: (3) Catheter-associated urinary tract infection: (4) Aspiration pneumonia: (5) Acute kidney injury superimposed on stage 3b chronic kidney disease: (6) Anemia: (7) Thrombocytopenia: (8) Hypoglycemia: (9) PAF (paroxysmal atrial fibrillation): Plan Per admitting service notes with addendum: This is a 63-year-old male who has a significant past medical history of baseline intellectual disability, atrial fibrillation on Eliquis, history of CHB status post permanent pacemaker placement, hypothyroidism, BPH, bipolar disorder, CKD stage III with baseline creatinine 1.4-1.5, horseshoe kidney, bilateral renal masses, BPH, chronic anemia who presents to ED secondary to altered mental status and lethargy. Recent hospitalization 01/11-01/24 @ [facility] 2/ Staphylococcus Haemolyticus, PNA presumed aspiration, negative TTE/DE; however ID recommends treating with 6 week course of IV Vanco/rifampin given negative cultures with treatment and no clear source of bacteremia. He was seen and evaluated by ST and underwent videofluoroscopy which described moderate oral pharyngeal dysphagia. Hosp course also complicated with hematuria, a/c anemia, thrombocytopenia. He was D/C To [facility] to complete course of antibiotics. He is from a prison. In ED pt with mild hypotension, tachycardia, altered mental status, elevated BUN/Cr from baseline, worsening anemia/thrombocytopenia in setting of IV Vanco with elevated vanco level at 27, oral rifampin and concern for worsened aspiration Septic shock Altered mental status with suspected metabolic encephalopathy likely from Staph hemolyticus bacteremia - on treatment through 02/27 Possible Aspiration Pneumonia? Possible catheter associated complicated UTI- ruled out Consult infectious disease, + culture from [facility] 01/11 Staph hemolyticus, resistant except for vanco - unknown source, negative DE/TTE, cleared with treatment, ID recommend tx through 02/27 Switched to IV dapto due to concern for nephrotoxicity, added IV zosyn for aspiration coverage, and continued rifampin initially MRSA Swab, procal, CK ordered await blood and urine cultures 02/03 on Levophed, on hydrocortisone every 8 hours ID consulted Continue daptomycin + Zosyn 02/04 Off Levophed 02/05 mental status improved urine culture: negative blood cultures: negative Zosyn discontinued Daptomycin continued- on treatment for previously diagnosed Staph hemolyticus bacteremia until 02/27 02/06 afebrile mental status continues to improve continue Dapto 02/07 remains afebrile, clinically stable continue Daptomycin scheduled to finish 02/28/24 touch base with ID to confirm above plan 02/08 Met pt today. Pt awake, no complaints, asking about going home. No caregivers at the bedside. Per RN pt seems improved from yesterday. ID contacted - will further discuss plan 02/09 Discussed w/ ID - Daptomycin stopped 02/11 Pt found hypothermic today 35.6C. Repeated temp. rectally, w/ RN at the bedside - 34.2C, on repeat rectally again 35.5C. BP down 99/65. IVF, albumin ordered. Blood cultx, CXR stat, UA/cultx ordered, CBC, CMP, mag, phos. procalcitonin, random cortisol, lactate. zosyn, daptomycin started will replace sadler - w/ temp. sensor jose bro will also obtain CT abd.pelvis BP rechecked 115/71 Bilateral Petechiae Thrombocytopenia Acute on chronic anemia Hematuria- resolved possibly from Vanco + Rifampicin being taken as outpatient--> discontinued 02/03 Hematuria seems to be resolving, Hemoglobin 7.8, Platelet 98 Peripheral smear: Nonspecific pancytopenia Vancomycin plus rifampicin discontinued 02/04 Hemoglobin 8.1, Platelet count 96 No signs of active bleeding 02/07 Hg stable at 8.0 Plt also stable at 90s 02/09 Hgb 7.3, cont. to monitor 02/10 Hgb 7.9 Acute/Chronic CKD-3b baseline cr 1.4-1.5, consulted nephrology bun/cr 56 and 2.55, ? if pre renal in setting of poor intake vs intrarenal from ATN/nephrotoxicity gentle IVF D5 1/2NSS x 1 L follow labs 02/03 Creatinine 2.7, Likely ATN from septic shock Nephrology following 02/05 Cr 2.7 --> 2.6 --> 2.19 02/08 - Cr 1.7 Hypernatremia Nephrology was consulted Will sign off No specific nephro f/u recs except htat he should have bmp at pcp office after d/c likely that hypernatremia will be ongoing /IVF dependent unless pt fed/ helped to drink consistently Atrial Fibrillation hx of CHB s/p PPM HLD Metoprolol held for low BP Flecainide continued Eliquis held due to bleeding, thrombocytopenia notified by RN re: episode of non sustained v tach? 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 with subc ppx heparin Hypoglycemia: no hx of T2DM, a1c 5.4 01/16, likely due to poor intake, on D5W + 1/2NSS given, hypoglycemia protocol -- no recurrence Falls - pt with 2 falls in 3 days, likely 2/2 to suspected illness -- PT/OT eval Mild Oropharyngeal dysphagia: had video fluoroscopy at [facility] which was negative for jade aspiration - continue with soft bite size meals, aspiration precautions -- as per Caregivers, patient was having drooling while at the prison At [facility], patient was found to have mild dysphagia discharge after hospitalization to [facility], patient noted to have worsening of dysphagia -- Speech Therapy eval: recommend full liquid diet Hopefully, patient's oral intake will continue to improve in 1 to 2 days Mild intellectual disability: resides in prison at baseline, 2 staff members at bedside on admission BPH/Gross hematuria: likely from traumatic cath vs thrombocytopenia - will need urology follow up at discharge, cath placed at [facility] -- resolved Bipolar disorder: continue home medication, mood stable Seizure disorder: continue topamax, depakote, no witnessed seizure in several years -- on Valproic acid IV --> cause of facial rash? transitioned to usual Depakote at Hypothyroidism: continue levothyroxine, TSH 5.261 uIu/ml and free T4 1.0 DVT ppx: Eliquis resume -> back to heparin subc FULL CODE PCP: Guilherme Berger Dispo: PCU PT/OT evaluation Admission and Anticipated Discharge Date Admission Date: February 03, 2024 Subjective Pt seen in follow up of septic shock, etc Pt is sitting up in bed in NAD. Overall seems comfortable, per RN ate breakfast. Pt keeps saying that he wants to go home. no shortness of breath, pain Pt found hypothermic today 35.6C. Repeated temp. rectally, w/ RN at the bedside - 34.2C, on repeat rectally again 35.5C. BP down 99/65. IVF, albumin ordered. Blood cultx, CXR stat, UA/cultx ordered, CBC, CMP, mag, phos. procalcitonin, random cortisol, lactate. zosyn, daptomycin started will replace sadler - w/ temp. sensor jose bro will also obtain CT abd.pelvis BP rechecked 115/71 Discussed w/ RN in detail, and w/ pharmacy Review of Systems Review of Systems: All systems reviewed & are unremarkable except as noted in Subjective Physical Exam Physical Exam: General-awake, alert, not in distress, speaks in sentences with no effort or accessory muscle use Eyes- anicteric Neck- no JVD Lungs- clear breath sounds bilaterally, no rales/wheezes Heart- normal rate, regular rhythm; no murmurs Abdomen- normal bowel sounds, nondistended, soft, nontender Extremities- no pretibial edema, no calf tenderness Neuro- alert, no new gross focal neurologic deficits Skin- warm & dry Results & Data Results & Data Vital Signs (Past 12 Hours) Vital Signs Temp Pulse Pulse Resp BP Pulse Ox O2 Del Method 02/12/24 07:40 36.7 C 70 18 119/75 98 Room Air 02/11/24 23:34 61 02/11/24 23:08 36.5 C 61 22 138/78 95 Room Air Laboratory Results 02/12/24 Range/Units 07:56 WBC 5.26 (4.8-10.8) K/ul RBC 2.68 L (4.70-6.10) M/uL Hgb 8.1 L (14.0-18.0) g/dl Hct 26.2 L (42.0-52.0) % MCV 97.8 (80.0-100.0) fL MCH 30.2 (25.0-34.0) pg MCHC 30.9 L (32.0-36.0) g/dL RDW Std Deviation 63.2 H (36.4-46.3) fL RDW Coeff of Jenifer 17.6 H (11.5-14.5) % Plt Count 119 L (130-400) K/uL MPV 11.7 (9.4-12.4) fL Immature Gran % (Auto) 1.0 % Neut % (Auto) 51.2 % Lymph % (Auto) 38.4 % Simpson % (Auto) 6.1 % Eos % (Auto) 2.9 % Baso % (Auto) 0.4 % Neut # (Auto) 2.70 (1.40-6.50) K/uL Lymph # (Auto) 2.02 (1.20-3.40) K/uL Simpson # (Auto) 0.32 (0.11-0.59) K/uL Eos # (Auto) 0.15 (0.00-0.50) K/uL Baso # (Auto) 0.02 (0.00-0.20) K/uL Immature Gran # (Auto) 0.05 (0.01-0.20) K/uL Sodium 142 (136-145) mmol/L Potassium 4.0 (3.5-5.1) mmol/L Chloride 110 H (98-107) mmol/L Carbon Dioxide 28 (21-32) mmol/L Anion Gap 4 (3-11) BUN 23 (6-23) mg/dl Creatinine 1.76 H (0.6-1.4) mg/dl Est Cr Clr Drug Dosing 40.6 ml/min eGFR 43.18 BUN/Creatinine Ratio 13.1 (10-20) Glucose 72 (70-99(Fasting)) mg/dl Calcium 9.1 (8.6-10.3) mg/dl Phosphorus 4.2 (2.5-4.9) mg/dl Magnesium 2.2 (1.7-2.4) mg/dl Albumin 2.5 L (3.4-5.0) gm/dl Medications Administered Current Inpatient Medications Acetaminophen (Acetaminophen 325 Mg Tab) 650 mg PO Q6H PRN PRN Reason: Pain or Fever Stop: 03/12/24 19:45 Last Admin: 02/11/24 20:48 Dose: 650 mg Allopurinol (Allopurinol 100 Mg Tab) 100 mg PO DAILY [facility] Stop: 03/08/24 08:59 Last Admin: 02/12/24 08:29 Dose: 100 mg Apixaban (Apixaban 5 Mg Tablet) 5 mg PO BID [facility] Stop: 03/12/24 20:59 Last Admin: 02/12/24 08:29 Dose: 5 mg Calcium Carbonate (Calcium Carbonate 500 Mg Chewable Tab) 500 mg PO BID [facility] Stop: 03/07/24 20:59 Last Admin: 02/11/24 20:49 Dose: 500 mg Cetirizine HCl (Cetirizine Oral Soln 1 Mg/Ml) 10 mg PO DAILY [facility] Stop: 03/09/24 09:59 Last Admin: 02/11/24 08:50 Dose: 10 mg Dextrose (Dextrose 50% 50 Ml Syringe) 25 - 50 ml IV UD PRN; Protocol PRN Reason: Hypoglycemia Protocol Stop: 03/04/24 13:57 Divalproex Sodium (Divalproex Extended Release 500 Mg Tab) 1,000 mg PO HS [facility] Stop: 03/10/24 20:59 Last Admin: 02/11/24 20:49 Dose: 1,000 mg Docusate Sodium (Docusate Sodium Syrup 100 Mg/10 Ml Udc) 100 mg PO DAILY [facility] Stop: 03/08/24 08:59 Famotidine (Famotidine 20 Mg Tab) 20 mg PO DAILY [facility]; Protocol Stop: 03/11/24 08:59 Last Admin: 02/12/24 08:30 Dose: 20 mg Finasteride (Finasteride 5 Mg Tab) 5 mg PO DAILY [facility] Stop: 03/05/24 08:59 Last Admin: 02/05/24 09:11 Dose: 5 mg Flecainide Acetate (Flecainide Acetate 100 Mg Tablet) 50 mg PO BID [facility] Stop: 03/04/24 20:59 Last Admin: 02/11/24 20:50 Dose: 50 mg Gabapentin (Gabapentin 250 Mg/5 Ml 470 Ml Btl) 100 mg PO TID [facility] Stop: 03/05/24 13:59 Last Admin: 02/12/24 08:55 Dose: 100 mg Glucagon (Glucagon For Inj 1 Mg Vial) 1 mg SQ UD PRN; Protocol PRN Reason: Hypoglycemia Protocol Stop: 03/04/24 13:57 Glucose (Glucose 40% Gel 15 Gm Tube) 15 - 30 gm PO UD PRN; Protocol PRN Reason: Hypoglycemia Protocol Stop: 03/04/24 13:57 Glucose (Glucose 10 Tab/Tube) 4 - 8 tab PO UD PRN; Protocol PRN Reason: Hypoglycemia Protocol Stop: 03/04/24 13:57 Heparin Sodium (Porcine) (Heparin Sod 5,000 Unit/0.5 Ml Vial) 5,000 units SQ Q12 [facility] Stop: 03/13/24 20:59 Lactobacillus Acidophilus (Advanced Probiotic 625 Mg Capsule) 1,250 mg PO DAILY [facility] Stop: 03/05/24 08:59 Last Admin: 02/05/24 09:11 Dose: 1,250 mg Lactobacillus Acidophilus (Lactobacillus Acidophilus 1 Gm Pack) 1 packet PO TIDM [facility] Stop: 03/11/24 07:59 Last Admin: 02/12/24 08:28 Dose: 1 packet Lansoprazole (Lansoprazole 30 Mg Soltab) 30 mg PO DAILY [facility] Stop: 03/10/24 08:59 Last Admin: 02/12/24 08:36 Dose: 30 mg Levothyroxine Sodium (Levothyroxine Sodium 75 Mcg Tablet) 75 mcg PO DAILYBB [facility] Stop: 03/05/24 06:29 Last Admin: 02/12/24 06:25 Dose: 75 mcg Miscellaneous (Carbohydrates For Hypoglycemia ) 15 - 30 gm PO UD PRN PRN Reason: Hypoglycemia Protocol Stop: 03/04/24 13:57 Ondansetron HCl (Ondansetron Inj 2 Mg/Ml 2 Ml Vial) 4 mg IV Q6H PRN PRN Reason: Nausea Stop: 03/04/24 14:27 Last Admin: 02/11/24 20:47 Dose: 4 mg Polyethylene Glycol (Polyethylene (Miralax) 17 Gm Pack) 17 gm PO DAILY PRN PRN Reason: Constipation Stop: 03/04/24 14:27 Rifampin (Rifampin 300 Mg Capsule) 300 mg PO TID [facility] Stop: 03/04/24 20:59 Last Admin: 02/04/24 13:44 Dose: 300 mg Tamsulosin HCl (Tamsulosin Hcl 0.4 Mg Cap) 0.4 mg PO BID [facility] Stop: 03/04/24 20:59 Last Admin: 02/05/24 21:32 Dose: Not Given Topiramate (Topiramate 100 Mg Tab) 100 mg PO QPM [facility] Stop: 03/04/24 20:59 Last Admin: 02/11/24 20:49 Dose: 100 mg Topiramate (Topiramate 50 Mg Tab) 50 mg PO QAM [facility] Stop: 03/05/24 08:59 Last Admin: 02/12/24 08:36 Dose: 50 mg Vitamin D (Cholecalciferol 25 Mcg (1000 Units) Tab) 50 mcg PO DAILY [facility] Stop: 03/05/24 08:59 Last Admin: 02/05/24 11:03 Dose: Not Given
[2024-02-12] MEDS ORDERED: HEPARIN SOD 5,000 UNIT/0.5 ML VIAL SQ SCH (09:00)
[2024-02-12] MEDS: SODIUM CHLORIDE 0.9% 1,000 ML IV ONE (16:11)
[2024-02-12] MEDS: ALBUMIN 25% 25 GM/100 ML VIAL IV ONE (16:18)
--- NOTE | 2024-02-12 16:20 | XRay Report ---
EXAM: Radiograph of the Chest 1 View INDICATION: Sepsis. TECHNIQUE: Frontal view of the chest. COMPARISON: 02/03/2024 FINDINGS: Lungs and pleural spaces: No consolidation or pulmonary edema. No pleural effusion or pneumothorax. Heart: Stable enlargement and pacing device. Mediastinum: Normal contour. Bones/joints: No fracture, erosion or dislocation. Soft tissues: No abnormality noted. No radiopaque foreign body noted. Tubes, lines and devices: Right peripherally inserted central catheter (PICC) tip in the distal superior vena cava. Upper abdomen: No abnormality noted. IMPRESSION: No acute cardiopulmonary disease. ACT 112: Negative or not required by law. Electronically signed by Rowena Recio 02-12-2024 4:20 PM
[2024-02-12] MEDS: 4.5GM X1 IV STA (16:28)
[2024-02-12] MEDS: DAPTOmycin 400 MG in SYRINGE 0 ML IV SCH (16:28)
[2024-02-12 16:47] LABS: Hematocrit (blood only) 25.6 % (42.0-52.0); Mean Corpuscular Hemoglobin 30.5 pg (25.0-34.0); Mean Corpuscular Hgb Conc 31.3 g/dL (32.0-36.0); Mean Corpuscular Volume 97.7 fL (80.0-100.0); Mean Platelet Volume 11.3 fL (9.4-12.4); Platelet Count 129 K/uL (130-400); RDW Coefficient of Variation 17.3 % (11.5-14.5); Red Blood Count 2.62 M/uL (4.70-6.10)
[2024-02-12 17:02] LABS: Albumin Globulin Ratio 0.7 (0.9-2); Albumin Level 2.7 gm/dl (3.4-5.0); BUN Creatinine Ratio 16.2 (10-20); Bilirubin,Total 0.3 mg/dl (0.2-1.0); Calcium 9.2 mg/dl (8.6-10.3); Creatinine Clr Calc Pharmacy 41.3 ml/min; Magnesium 2.1 mg/dl (1.7-2.4); Phosphorus 4.3 mg/dl (2.5-4.9); Total Protein 6.7 gm/dl (6.0-8.3)
[2024-02-12 17:25] LABS: Appearance Urine Clear (Clear); Bilirubin Urine Negative (Negative); Blood Urine Negative (Negative); Color Urine Yellow; Glucose Urine UA Negative (Negative); Ketones Urine Negative (Negative); Leukocyte Esterase Urine Negative (Negative); Nitrite Urine Negative (Negative); Protein Urine Negative (Negative); Specific Gravity Urine 1.012 (1.000-1.030); Urobilinogen Urine Negative (Negative); pH Urine 6.5 (4.5-7.5)
[2024-02-12] MEDS: DAPTOmycin 150 MG in SYRINGE 0 ML IV ONE (17:40)
[2024-02-12] MEDS: PIPERACILLIN/TAZOBACTAM 4.5 GM/100 ML BAG IV SCH (21:06)
[2024-02-12] MEDS: HEPARIN SOD 5,000 UNIT/0.5 ML VIAL SQ SCH (21:11)
--- NOTE | 2024-02-13 02:35 | CT Scan Report ---
Exam(s): CT ABDOMEN + PELVIS Without Contrast EXAM: CT Abdomen and Pelvis Without Intravenous Contrast CLINICAL HISTORY: Reason for exam: anemia, sepsis. TECHNIQUE: Axial computed tomography images of the abdomen and pelvis without intravenous contrast. Automated exposure control was utilized for the study. A dose lowering technique was utilized adhering to the principles of ALARA. COMPARISON: No relevant prior studies available. FINDINGS: Exam is limited due to lack of contrast. The exam is further limited due to artifact. Lung bases: There is a small left pleural effusion with a trace right pleural effusion. There are bibasilar areas of atelectasis. The heart is enlarged. ABDOMEN: Liver: Lucencies within the liver appear to represent unopacified blood vessels. Gallbladder and bile ducts: No calcified stones. No ductal dilation. Pancreas: The visualized portions of the pancreas, on this noncontrast study, are grossly unremarkable.. Spleen: No splenomegaly. Adrenals: No mass. Kidneys and ureters: The patient has a horseshoe shaped kidney. No obstructing stones. No hydronephrosis. There are hyperdense lesions noted in the kidney. There is a 2.5 cm soft tissue density noted on the right lower pole. Stomach and bowel: There are retained foodstuffs within the stomach. There is air and stool noted in the colon.. PELVIS: Appendix: Unremarkable CT scan appearance noted the appendix.. Bladder: A Foster catheter is noted within the urinary bladder. There is thickening of the urinary bladder wall.. Reproductive: Unremarkable as visualized. ABDOMEN and PELVIS: Intraperitoneal space: No free air. No significant fluid collection. Bones/joints: There are degenerative changes in the spine.. Soft tissues: Unremarkable. Vasculature: No abdominal aortic aneurysm. Lymph nodes: No enlarged lymph nodes. IMPRESSION: Limited exam. There is a small left pleural effusion and a trace right pleural effusion with bibasilar areas of atelectasis. There is thickening of the urinary bladder wall. This may be due to hypertrophy. Cannot exclude cystitis. The patient has a horseshoe shaped kidney. There are hyperdense lesions within the kidney . There is a 2.5 cm soft tissue density within the right side of the kidney. These may represent complex cysts. Masses cannot be excluded on this noncontrast study. Electronically signed by: Loyd Jaramillo MD 02/13/24 02:34 AM
[2024-02-13 06:44] LABS: Hematocrit (blood only) 24.9 % (42.0-52.0); Hemoglobin 7.7 g/dl (14.0-18.0); Mean Corpuscular Hemoglobin 30.4 pg (25.0-34.0); Mean Corpuscular Hgb Conc 30.9 g/dL (32.0-36.0); Mean Corpuscular Volume 98.4 fL (80.0-100.0); Mean Platelet Volume 11.3 fL (9.4-12.4); Platelet Count 143 K/uL (130-400); RDW Coefficient of Variation 17.1 % (11.5-14.5); RDW Standard Deviation 61.7 fL (36.4-46.3); Red Blood Count 2.53 M/uL (4.70-6.10); White Blood Count 6.54 K/ul (4.8-10.8)
[2024-02-13 07:09] LABS: BUN Creatinine Ratio 13.6 (10-20); Creatinine Clr Calc Pharmacy 37.5 ml/min; Phosphorus 4.1 mg/dl (2.5-4.9); Potassium 4.1 mmol/L (3.5-5.1)
--- NOTE | 2024-02-13 07:41 | Hospitalist Progress Note ---
Date of Service February 13, 2024 Assessment & Plan (1) Septic shock: Plan: Per previous hospitalist w/ addendum: (1) Metabolic encephalopathy: (2) Bacteremia: (3) Catheter-associated urinary tract infection: (4) Aspiration pneumonia: (5) Acute kidney injury superimposed on stage 3b chronic kidney disease: (6) Anemia: (7) Thrombocytopenia: (8) Hypoglycemia: (9) PAF (paroxysmal atrial fibrillation): Plan Per admitting service notes with addendum: This is a 63-year-old male who has a significant past medical history of baseline intellectual disability, atrial fibrillation on Eliquis, history of CHB status post permanent pacemaker placement, hypothyroidism, BPH, bipolar disorder, CKD stage III with baseline creatinine 1.4-1.5, horseshoe kidney, bilateral renal masses, BPH, chronic anemia who presents to ED secondary to altered mental status and lethargy. Recent hospitalization 01/11-01/24 @ [facility] 2/ Staphylococcus Haemolyticus, PNA presumed aspiration, negative TTE/DE; however ID recommends treating with 6 week course of IV Vanco/rifampin given negative cultures with treatment and no clear source of bacteremia. He was seen and evaluated by ST and underwent videofluoroscopy which described moderate oral pharyngeal dysphagia. Hosp course also complicated with hematuria, a/c anemia, thrombocytopenia. He was D/C To [facility] to complete course of antibiotics. [facility]. In ED pt with mild hypotension, tachycardia, altered mental status, elevated BUN/Cr from baseline, worsening anemia/thrombocytopenia in setting of IV Vanco with elevated vanco level at 27, oral rifampin and concern for worsened aspiration Septic shock Altered mental status with suspected metabolic encephalopathy likely from Staph hemolyticus bacteremia - on treatment through 02/27 Possible Aspiration Pneumonia? Possible catheter associated complicated UTI- ruled out Consult infectious disease, + culture from [facility] 01/11 Staph hemolyticus, resistant except for vanco - unknown source, negative DE/TTE, cleared with treatment, ID recommend tx through 02/27 Switched to IV dapto due to concern for nephrotoxicity, added IV zosyn for aspiration coverage, and continued rifampin initially MRSA Swab, procal, CK ordered await blood and urine cultures 02/03 on Levophed, on hydrocortisone every 8 hours ID consulted Continue daptomycin + Zosyn 02/04 Off Levophed 02/05 mental status improved urine culture: negative blood cultures: negative Zosyn discontinued Daptomycin continued- on treatment for previously diagnosed Staph hemolyticus bacteremia until 02/27 02/06 afebrile mental status continues to improve continue Dapto 02/07 remains afebrile, clinically stable continue Daptomycin scheduled to finish 02/28/24 touch base with ID to confirm above plan 02/08 Met pt today. Pt awake, no complaints, asking about going home. No caregivers at the bedside. Per RN pt seems improved from yesterday. ID contacted - will further discuss plan 02/09 Discussed w/ ID - Daptomycin stopped 02/11 Pt found hypothermic today 35.6C. Repeated temp. rectally, w/ RN at the bedside - 34.2C, on repeat rectally again 35.5C. BP down 99/65. IVF, albumin ordered. Blood cultx, CXR stat, UA/cultx ordered, CBC, CMP, mag, phos. procalcitonin, random cortisol, lactate. zosyn, daptomycin started will replace sadler - w/ temp. sensor jose hugger will also obtain CT abd.pelvis BP rechecked 115/71 02/12 UA negative Pt's temp. normal - off jose hugger blood cultx pending CXR - negat. procal normal lactate normal cortisol 8- CT abd.pelvis - There is a small left pleural effusion and a trace right pleural effusion with bibasilar areas of atelectasis. There is thickening of the urinary bladder wall. This may be due to hypertrophy. Cannot exclude cystitis. The patient has a horseshoe shaped kidney. There are hyperdense lesions within the kidney . There is a 2.5 cm soft tissue density within the right side of the kidney. These may represent complex cysts. Masses cannot be excluded on this noncontrast study. will further discuss w/ urology Overall pt is feeling well today. Hgb stable, Plt count improved. Updated caregiver at the bedside Bilateral Petechiae Thrombocytopenia Acute on chronic anemia Hematuria- resolved possibly from Vanco + Rifampicin being taken as outpatient--> discontinued 02/03 Hematuria seems to be resolving, Hemoglobin 7.8, Platelet 98 Peripheral smear: Nonspecific pancytopenia Vancomycin plus rifampicin discontinued 02/04 Hemoglobin 8.1, Platelet count 96 No signs of active bleeding 02/07 Hg stable at 8.0 Plt also stable at 90s 02/09 Hgb 7.3, cont. to monitor 02/10 Hgb 7.9 02/12 Hgb 7.7, Plt 143 Acute/Chronic CKD-3b baseline cr 1.4-1.5, consulted nephrology bun/cr 56 and 2.55, ? if pre renal in setting of poor intake vs intrarenal from ATN/nephrotoxicity gentle IVF D5 1/2NSS x 1 L follow labs 02/03 Creatinine 2.7, Likely ATN from septic shock Nephrology following 02/05 Cr 2.7 --> 2.6 --> 2.19 02/08 - Cr 1.7 Hypernatremia Nephrology was consulted Will sign off No specific nephro f/u recs except htat he should have bmp at pcp office after d/c likely that hypernatremia will be ongoing /IVF dependent unless pt fed/ helped to drink consistently Atrial Fibrillation hx of CHB s/p PPM HLD Metoprolol held for low BP Flecainide continued Eliquis held due to bleeding, thrombocytopenia notified by RN re: episode of non sustained v tach? 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 with subc ppx heparin Hypoglycemia: no hx of T2DM, a1c 5.4 01/16, likely due to poor intake, on D5W + 1/2NSS given, hypoglycemia protocol -- no recurrence Falls - pt with 2 falls in 3 days, likely 2/2 to suspected illness -- PT/OT eval Mild Oropharyngeal dysphagia: had video fluoroscopy at [facility] which was negative for jade aspiration - continue with soft bite size meals, aspiration precautions -- as per Caregivers, patient was having drooling while at the [facility], patient was found to have mild dysphagia discharge after hospitalization to [facility], patient noted to have worsening of dysphagia -- Speech Therapy eval: recommend full liquid diet Hopefully, patient's oral intake will continue to improve in 1 to 2 days Mild intellectual disability: resides in penitentiary at baseline, 2 staff members at bedside on admission BPH/Gross hematuria: likely from traumatic cath vs thrombocytopenia - will need urology follow up at discharge, cath placed at [facility] -- resolved Bipolar disorder: continue home medication, mood stable Seizure disorder: continue topamax, depakote, no witnessed seizure in several years -- on Valproic acid IV --> cause of facial rash? transitioned to usual Depakote at Hypothyroidism: continue levothyroxine, TSH 5.261 uIu/ml and free T4 1.0 DVT ppx: heparin subc FULL CODE PCP: Guilherme Berger Dispo: PCU PT/OT evaluation Admission and Anticipated Discharge Date Admission Date: February 03, 2024 Subjective Pt seen in follow up of septic shock, etc Pt is sitting up in bed in NAD. Overall seems comfortable. no shortness of breath, pain Caregiver present at the bedside and updated in room 201. Yesterday pt found hypothermic 35.6C. Repeated temp. rectally, w/ RN at the bedside - 34.2C, on repeat rectally again 35.5C. BP down 99/65. IVF, albumin ordered. Blood cultx, CXR stat, UA/cultx ordered, CBC, CMP, mag, phos. procalcitonin, random cortisol, lactate. zosyn, daptomycin started Replaced sadler - w/ temp. sensor jose hugger also obtained CT abd.pelvis BP rechecked 115/71 At midnight pt off jose hugger and temp. now normal. Plt count increased/ improved Review of Systems Review of Systems: All systems reviewed & are unremarkable except as noted in Subjective Physical Exam Physical Exam: General-awake, alert, not in distress, speaks in sentences with no effort or accessory muscle use Eyes- anicteric Neck- no JVD Lungs- clear breath sounds bilaterally, no rales/wheezes Heart- normal rate, regular rhythm; no murmurs Abdomen- normal bowel sounds, nondistended, soft, nontender Extremities- no pretibial edema, no calf tenderness Neuro- alert, no new gross focal neurologic deficits Skin- warm & dry Results & Data Results & Data Vital Signs (Past 12 Hours) Vital Signs Temp Pulse Pulse Resp BP Pulse Ox O2 Del Method 02/13/24 07:38 36.9 C 60 18 125/64 92 Room Air 02/13/24 06:00 36.8 C 02/13/24 04:35 36.9 C 63 18 135/72 93 Room Air 02/13/24 01:30 36.8 C 02/12/24 23:30 37.1 C 02/12/24 23:00 60 02/12/24 22:05 37 C 66 19 118/66 96 Room Air 02/12/24 22:00 Room Air 02/12/24 21:00 37.0 C 02/12/24 21:00 37.0 C 02/12/24 19:50 36.4 C L 02/12/24 19:45 36.4 C L 60 18 115/64 94 Room Air Laboratory Results 02/13/24 02/12/24 02/12/24 Range/Units 05:49 17:25 16:38 WBC 6.54 (4.8-10.8) K/ul RBC 2.53 L (4.70-6.10) M/uL Hgb 7.7 L (14.0-18.0) g/dl Hct 24.9 L (42.0-52.0) % MCV 98.4 (80.0-100.0) fL MCH 30.4 (25.0-34.0) pg MCHC 30.9 L (32.0-36.0) g/dL RDW Std Deviation 61.7 H (36.4-46.3) fL RDW Coeff of Jenifer 17.1 H (11.5-14.5) % Plt Count 143 (130-400) K/uL MPV 11.3 (9.4-12.4) fL Immature Gran % (Auto) % Neut % (Auto) % Lymph % (Auto) % Divide % (Auto) % Eos % (Auto) % Baso % (Auto) % Neut # (Auto) (1.40-6.50) K/uL Lymph # (Auto) (1.20-3.40) K/uL Divide # (Auto) (0.11-0.59) K/uL Eos # (Auto) (0.00-0.50) K/uL Baso # (Auto) (0.00-0.20) K/uL Immature Gran # (Auto) (0.01-0.20) K/uL Sodium 145 (136-145) mmol/L Potassium 4.1 (3.5-5.1) mmol/L Chloride 112 H (98-107) mmol/L Carbon Dioxide 28 (21-32) mmol/L Anion Gap 5 (3-11) BUN 25 H (6-23) mg/dl Creatinine 1.84 H (0.6-1.4) mg/dl Est Cr Clr Drug Dosing 37.5 ml/min eGFR 40.94 BUN/Creatinine Ratio 13.6 (10-20) Glucose 72 (70-99(Fasting)) mg/dl Lactate 0.7 (0.4-2.0) mmol/L Calcium 9.0 (8.6-10.3) mg/dl Phosphorus 4.1 (2.5-4.9) mg/dl Magnesium 2.0 (1.7-2.4) mg/dl Total Bilirubin (0.2-1.0) mg/dl AST (13-39) U/L ALT (7-52) U/L Alkaline Phosphatase (34-104) U/L Total Protein (6.0-8.3) gm/dl Albumin (3.4-5.0) gm/dl Globulin (2.5-4.0) gm/dl Albumin/Globulin Ratio (0.9-2) Procalcitonin (0-0.5) ng/ml Random Cortisol mcg/dl Urine Color Yellow Urine Appearance Clear (Clear) Urine pH 6.5 (4.5-7.5) Ur Specific [place] 1.012 (1.000-1.030) Urine Protein Negative (Negative) Urine Glucose (UA) Negative (Negative) Urine Ketones Negative (Negative) Urine Blood Negative (Negative) Urine Nitrite Negative (Negative) Urine Bilirubin Negative (Negative) Urine Urobilinogen Negative (Negative) Ur Leukocyte Esterase Negative (Negative) 02/12/24 02/12/24 Range/Units 16:31 07:56 WBC 6.40 5.26 (4.8-10.8) K/ul RBC 2.62 L 2.68 L (4.70-6.10) M/uL Hgb 8.0 L 8.1 L (14.0-18.0) g/dl Hct 25.6 L 26.2 L (42.0-52.0) % MCV 97.7 97.8 (80.0-100.0) fL MCH 30.5 30.2 (25.0-34.0) pg MCHC 31.3 L 30.9 L (32.0-36.0) g/dL RDW Std Deviation 61.0 H 63.2 H (36.4-46.3) fL RDW Coeff of Jenifer 17.3 H 17.6 H (11.5-14.5) % Plt Count 129 L 119 L (130-400) K/uL MPV 11.3 11.7 (9.4-12.4) fL Immature Gran % (Auto) 1.0 % Neut % (Auto) 51.2 % Lymph % (Auto) 38.4 % Divide % (Auto) 6.1 % Eos % (Auto) 2.9 % Baso % (Auto) 0.4 % Neut # (Auto) 2.70 (1.40-6.50) K/uL Lymph # (Auto) 2.02 (1.20-3.40) K/uL Divide # (Auto) 0.32 (0.11-0.59) K/uL Eos # (Auto) 0.15 (0.00-0.50) K/uL Baso # (Auto) 0.02 (0.00-0.20) K/uL Immature Gran # (Auto) 0.05 (0.01-0.20) K/uL Sodium 141 142 (136-145) mmol/L Potassium 4.0 4.0 (3.5-5.1) mmol/L Chloride 109 H 110 H (98-107) mmol/L Carbon Dioxide 28 28 (21-32) mmol/L Anion Gap 4 4 (3-11) BUN 28 H 23 (6-23) mg/dl Creatinine 1.73 H 1.76 H (0.6-1.4) mg/dl Est Cr Clr Drug Dosing 41.3 40.6 ml/min eGFR 44.08 43.18 BUN/Creatinine Ratio 16.2 13.1 (10-20) Glucose 115 H 72 (70-99(Fasting)) mg/dl Lactate (0.4-2.0) mmol/L Calcium 9.2 9.1 (8.6-10.3) mg/dl Phosphorus 4.3 4.2 (2.5-4.9) mg/dl Magnesium 2.1 2.2 (1.7-2.4) mg/dl Total Bilirubin 0.3 (0.2-1.0) mg/dl AST 18 (13-39) U/L ALT 13 (7-52) U/L Alkaline Phosphatase 107 H (34-104) U/L Total Protein 6.7 (6.0-8.3) gm/dl Albumin 2.7 L 2.5 L (3.4-5.0) gm/dl Globulin 4.0 (2.5-4.0) gm/dl Albumin/Globulin Ratio 0.7 L (0.9-2) Procalcitonin 0.10 (0-0.5) ng/ml Random Cortisol 8.91 mcg/dl Urine Color Urine Appearance (Clear) Urine pH (4.5-7.5) Ur Specific [place] (1.000-1.030) Urine Protein (Negative) Urine Glucose (UA) (Negative) Urine Ketones (Negative) Urine Blood (Negative) Urine Nitrite (Negative) Urine Bilirubin (Negative) Urine Urobilinogen (Negative) Ur Leukocyte Esterase (Negative) Medications Administered Current Inpatient Medications Acetaminophen (Acetaminophen 325 Mg Tab) 650 mg PO Q6H PRN PRN Reason: Pain or Fever Stop: 03/12/24 19:45 Last Admin: 02/12/24 10:57 Dose: 650 mg Allopurinol (Allopurinol 100 Mg Tab) 100 mg PO DAILY [facility] Stop: 03/08/24 08:59 Last Admin: 02/12/24 08:29 Dose: 100 mg Apixaban (Apixaban 5 Mg Tablet) 5 mg PO BID [facility] Stop: 03/12/24 20:59 Last Admin: 02/12/24 08:29 Dose: 5 mg Calcium Carbonate (Calcium Carbonate 500 Mg Chewable Tab) 500 mg PO BID [facility] Stop: 03/07/24 20:59 Last Admin: 02/12/24 21:10 Dose: 500 mg Cetirizine HCl (Cetirizine Oral Soln 1 Mg/Ml) 10 mg PO DAILY [facility] Stop: 03/09/24 09:59 Last Admin: 02/12/24 09:14 Dose: 10 mg Dextrose (Dextrose 50% 50 Ml Syringe) 25 - 50 ml IV UD PRN; Protocol PRN Reason: Hypoglycemia Protocol Stop: 03/04/24 13:57 Divalproex Sodium (Divalproex Extended Release 500 Mg Tab) 1,000 mg PO HS [facility] Stop: 03/10/24 20:59 Last Admin: 02/12/24 21:04 Dose: 1,000 mg Docusate Sodium (Docusate Sodium Syrup 100 Mg/10 Ml Udc) 100 mg PO DAILY [facility] Stop: 03/08/24 08:59 Famotidine (Famotidine 20 Mg Tab) 20 mg PO DAILY [facility]; Protocol Stop: 03/11/24 08:59 Last Admin: 02/12/24 08:30 Dose: 20 mg Finasteride (Finasteride 5 Mg Tab) 5 mg PO DAILY [facility] Stop: 03/05/24 08:59 Last Admin: 02/05/24 09:11 Dose: 5 mg Flecainide Acetate (Flecainide Acetate 100 Mg Tablet) 50 mg PO BID [facility] Stop: 03/04/24 20:59 Last Admin: 02/12/24 21:05 Dose: 50 mg Gabapentin (Gabapentin 250 Mg/5 Ml 470 Ml Btl) 100 mg PO TID [facility] Stop: 03/05/24 13:59 Last Admin: 02/12/24 21:06 Dose: 100 mg Glucagon (Glucagon For Inj 1 Mg Vial) 1 mg SQ UD PRN; Protocol PRN Reason: Hypoglycemia Protocol Stop: 03/04/24 13:57 Glucose (Glucose 40% Gel 15 Gm Tube) 15 - 30 gm PO UD PRN; Protocol PRN Reason: Hypoglycemia Protocol Stop: 03/04/24 13:57 Glucose (Glucose 10 Tab/Tube) 4 - 8 tab PO UD PRN; Protocol PRN Reason: Hypoglycemia Protocol Stop: 03/04/24 13:57 Heparin Sodium (Porcine) (Heparin Sod 5,000 Unit/0.5 Ml Vial) 5,000 units SQ Q12 [facility] Stop: 03/13/24 20:59 Last Admin: 02/12/24 21:11 Dose: 5,000 units Piperacillin Sod/Tazobactam Sod (Zosyn) 4.5 gm in 100 mls @ 25 mls/hr IV Q8H [facility]; Protocol Stop: 02/14/24 20:59 Last Admin: 02/13/24 04:37 Dose: 25 mls/hr Daptomycin 550 mg/ Syringe 11 mls @ 5.5 mls/min IV Q24H [facility]; Protocol Stop: 02/15/24 15:59 Lactobacillus Acidophilus (Advanced Probiotic 625 Mg Capsule) 1,250 mg PO DAILY [facility] Stop: 03/05/24 08:59 Last Admin: 02/05/24 09:11 Dose: 1,250 mg Lactobacillus Acidophilus (Lactobacillus Acidophilus 1 Gm Pack) 1 packet PO TIDM [facility] Stop: 03/11/24 07:59 Last Admin: 02/12/24 16:29 Dose: 1 packet Lansoprazole (Lansoprazole 30 Mg Soltab) 30 mg PO DAILY [facility] Stop: 03/10/24 08:59 Last Admin: 02/12/24 08:36 Dose: 30 mg Levothyroxine Sodium (Levothyroxine Sodium 75 Mcg Tablet) 75 mcg PO DAILYBB [facility] Stop: 03/05/24 06:29 Last Admin: 02/13/24 05:30 Dose: 75 mcg Miscellaneous (Carbohydrates For Hypoglycemia ) 15 - 30 gm PO UD PRN PRN Reason: Hypoglycemia Protocol Stop: 03/04/24 13:57 Ondansetron HCl (Ondansetron Inj 2 Mg/Ml 2 Ml Vial) 4 mg IV Q6H PRN PRN Reason: Nausea Stop: 03/04/24 14:27 Last Admin: 02/11/24 20:47 Dose: 4 mg Polyethylene Glycol (Polyethylene (Miralax) 17 Gm Pack) 17 gm PO DAILY PRN PRN Reason: Constipation Stop: 03/04/24 14:27 Rifampin (Rifampin 300 Mg Capsule) 300 mg PO TID [facility] Stop: 03/04/24 20:59 Last Admin: 02/04/24 13:44 Dose: 300 mg Tamsulosin HCl (Tamsulosin Hcl 0.4 Mg Cap) 0.4 mg PO BID [facility] Stop: 03/04/24 20:59 Last Admin: 02/05/24 21:32 Dose: Not Given Topiramate (Topiramate 100 Mg Tab) 100 mg PO QPM [facility] Stop: 03/04/24 20:59 Last Admin: 02/12/24 21:05 Dose: 100 mg Topiramate (Topiramate 50 Mg Tab) 50 mg PO QAM [facility] Stop: 03/05/24 08:59 Last Admin: 02/12/24 08:36 Dose: 50 mg Vitamin D (Cholecalciferol 25 Mcg (1000 Units) Tab) 50 mcg PO DAILY [facility] Stop: 03/05/24 08:59 Last Admin: 02/05/24 11:03 Dose: Not Given
[2024-02-13] MEDS: DAPTOmycin 550 MG in SYRINGE 0 ML IV SCH (17:02)
[2024-02-13 23:41] LABS: A calco-baum cmplx NotReported Not Detected (NotDetected); Bact fragilis Not Reported Not Detected (NotDetected); Blood Culture Id Panel See PCR Comment (NotDetected); C auris Not Reported Not Detected (NotDetected); Calbicans Not Reported Not Detected (NotDetected); Candida glabrata Not Reported Not Detected (NotDetected); Candida krusei Not Reported Not Detected (NotDetected); Cneoformans/gatti Not Reported Not Detected (NotDetected); Cparapsilosis Not Reported Not Detected (NotDetected); E cloacae compx Not Reported Not Detected (NotDetected); Efaecalis Not Reported Not Detected (NotDetected); Efaecium Not Reported Not Detected (NotDetected); Enterobacterales Not Reported Not Detected (NotDetected); Escherichia coli Not Reported Not Detected (NotDetected); H influenzae Not Reported Not Detected (NotDetected); K aerogenes Not Reported Not Detected (NotDetected); Koxytoca Not Reported Not Detected (NotDetected); Kpneumoniae grp Not Reported Not Detected (NotDetected); Lmonocyt Not Reported Not Detected (NotDetected); N meningitidis Not Reported Not Detected (NotDetected); P aeruginosa Not Reported Not Detected (NotDetected); Proteus spp Not Reported Not Detected (NotDetected); Salmonella spp Not Reported Not Detected (NotDetected); Staph lugdunensis Not Reported Not Detected (NotDetected); Staph spp. Not Reported DETECTED (NotDetected); Staphaureus Not Reported Not Detected (NotDetected); Staphepi Not Reported Not Detected (NotDetected); Stenmaltophilia Not Reported Not Detected (NotDetected); Strep agal(GrpB) Not Reported Not Detected (NotDetected); Strep pneum Not Reported Not Detected (NotDetected); Strep pyog (GrpA) Not Reported Not Detected (NotDetected); Strep spp Not Reported Not Detected (NotDetected)
[2024-02-13 23:52] LABS: Staphylococcus spp. DETECTED (NotDetected)
[2024-02-14 06:40] LABS: Hematocrit (blood only) 25.5 % (42.0-52.0); Hemoglobin 7.9 g/dl (14.0-18.0); Mean Corpuscular Hemoglobin 30.3 pg (25.0-34.0); Mean Corpuscular Volume 97.7 fL (80.0-100.0); Mean Platelet Volume 11.8 fL (9.4-12.4); Platelet Count 197 K/uL (130-400); RDW Coefficient of Variation 17.2 % (11.5-14.5); RDW Standard Deviation 61.5 fL (36.4-46.3); Red Blood Count 2.61 M/uL (4.70-6.10); White Blood Count 6.56 K/ul (4.8-10.8)
[2024-02-14 06:58] LABS: BUN Creatinine Ratio 11.9 (10-20); Calcium 9.5 mg/dl (8.6-10.3); Creatinine Clr Calc Pharmacy 31.7 ml/min; Phosphorus 3.3 mg/dl (2.5-4.9); Potassium 4.3 mmol/L (3.5-5.1)
--- NOTE | 2024-02-14 08:24 | Hospitalist Progress Note ---
Date of Service February 14, 2024 Assessment & Plan (1) Septic shock: Plan: Per previous hospitalist w/ addendum: (1) Metabolic encephalopathy: (2) Bacteremia: (3) Catheter-associated urinary tract infection: (4) Aspiration pneumonia: (5) Acute kidney injury superimposed on stage 3b chronic kidney disease: (6) Anemia: (7) Thrombocytopenia: (8) Hypoglycemia: (9) PAF (paroxysmal atrial fibrillation): Plan Per admitting service notes with addendum: This is a 63-year-old male who has a significant past medical history of baseline intellectual disability, atrial fibrillation on Eliquis, history of CHB status post permanent pacemaker placement, hypothyroidism, BPH, bipolar disorder, CKD stage III with baseline creatinine 1.4-1.5, horseshoe kidney, bilateral renal masses, BPH, chronic anemia who presents to ED secondary to altered mental status and lethargy. Recent hospitalization 01/11-01/24 @ [facility] 2/ Staphylococcus Haemolyticus, PNA presumed aspiration, negative TTE/DE; however ID recommends treating with 6 week course of IV Vanco/rifampin given negative cultures with treatment and no clear source of bacteremia. He was seen and evaluated by ST and underwent videofluoroscopy which described moderate oral pharyngeal dysphagia. Hosp course also complicated with hematuria, a/c anemia, thrombocytopenia. He was D/C To [facility] to complete course of antibiotics. He is from a detention. In ED pt with mild hypotension, tachycardia, altered mental status, elevated BUN/Cr from baseline, worsening anemia/thrombocytopenia in setting of IV Vanco with elevated vanco level at 27, oral rifampin and concern for worsened aspiration Septic shock Altered mental status with suspected metabolic encephalopathy likely from Staph hemolyticus bacteremia - on treatment through 02/27 Possible Aspiration Pneumonia? Possible catheter associated complicated UTI- ruled out Consult infectious disease, + culture from [facility] 01/11 Staph hemolyticus, resistant except for vanco - unknown source, negative DE/TTE, cleared with treatment, ID recommend tx through 02/27 Switched to IV dapto due to concern for nephrotoxicity, added IV zosyn for aspiration coverage, and continued rifampin initially MRSA Swab, procal, CK ordered await blood and urine cultures 02/03 on Levophed, on hydrocortisone every 8 hours ID consulted Continue daptomycin + Zosyn 02/04 Off Levophed 02/05 mental status improved urine culture: negative blood cultures: negative Zosyn discontinued Daptomycin continued- on treatment for previously diagnosed Staph hemolyticus bacteremia until 02/27 02/06 afebrile mental status continues to improve continue Dapto 02/07 remains afebrile, clinically stable continue Daptomycin scheduled to finish 02/28/24 touch base with ID to confirm above plan 02/08 Met pt today. Pt awake, no complaints, asking about going home. No caregivers at the bedside. Per RN pt seems improved from yesterday. ID contacted - will further discuss plan 02/09 Discussed w/ ID - Daptomycin stopped 02/11 Pt found hypothermic today 35.6C. Repeated temp. rectally, w/ RN at the bedside - 34.2C, on repeat rectally again 35.5C. BP down 99/65. IVF, albumin ordered. Blood cultx, CXR stat, UA/cultx ordered, CBC, CMP, mag, phos. procalcitonin, random cortisol, lactate. zosyn, daptomycin started will replace sadler - w/ temp. sensor jose hugger will also obtain CT abd.pelvis BP rechecked 115/71 02/12 UA negative Pt's temp. normal - off jose hugger blood cultx pending CXR - negat. procal normal lactate normal cortisol 8-11 CT abd.pelvis - There is a small left pleural effusion and a trace right pleural effusion with bibasilar areas of atelectasis. There is thickening of the urinary bladder wall. This may be due to hypertrophy. Cannot exclude cystitis. The patient has a horseshoe shaped kidney. There are hyperdense lesions within the kidney . There is a 2.5 cm soft tissue density within the right side of the kidney. These may represent complex cysts. Masses cannot be excluded on this noncontrast study. Will further discuss w/ urology Overall pt is feeling well today. Hgb stable, Plt count improved. Updated caregiver at the bedside 02/13 Blood cultx from 02/11 positive for staph - pt already on broad spectrum abx BP low again when pt placed to chair - received NS Bolus and albumin Hgb stable, plt count improved, no leukocytosis Cont. to closely monitor, follow final blood cultx results consult urology given abnormal CT - renal cyst/mass Bilateral Petechiae Thrombocytopenia Acute on chronic anemia Hematuria- resolved possibly from Vanco + Rifampicin being taken as outpatient--> discontinued 02/03 Hematuria seems to be resolving, Hemoglobin 7.8, Platelet 98 Peripheral smear: Nonspecific pancytopenia Vancomycin plus rifampicin discontinued 02/04 Hemoglobin 8.1, Platelet count 96 No signs of active bleeding 02/07 Hg stable at 8.0 Plt also stable at 90s 02/09 Hgb 7.3, cont. to monitor 02/10 Hgb 7.9 02/12 Hgb 7.7, Plt 143 02/13 Hgb 7.9, Plt 197 Acute/Chronic CKD-3b baseline cr 1.4-1.5, consulted nephrology bun/cr 56 and 2.55, ? if pre renal in setting of poor intake vs intrarenal from ATN/nephrotoxicity gentle IVF D5 1/2NSS x 1 L follow labs 02/03 Creatinine 2.7, Likely ATN from septic shock Nephrology following 02/05 Cr 2.7 --> 2.6 --> 2.19 02/08 - Cr 1.7 02/13 Cr 2.1 Hypernatremia Nephrology was consulted Will sign off No specific nephro f/u recs except htat he should have bmp at pcp office after d/c likely that hypernatremia will be ongoing /IVF dependent unless pt fed/ helped to drink consistently Atrial Fibrillation hx of CHB s/p PPM HLD Metoprolol held for low BP Flecainide continued Eliquis held due to bleeding, thrombocytopenia notified by RN re: episode of non sustained v tach? seen on telemetry pacemaker interrogation ordered by previous provider -- HR stable -- (02/10) will resume Eliquis and cont to monitor Hgb and plt Discussed w/ pharmacist as I don't see Eliquis listed on home meds - per pharmacist - Eliquis was discontinued by pt's curriculum facilitator in October - will again cont. with subc ppx heparin Hypoglycemia: no hx of T2DM, a1c 5.4 01/16, likely due to poor intake, on D5W + 1/2NSS given, hypoglycemia protocol -- no recurrence Falls - pt with 2 falls in 3 days, likely 2/2 to suspected illness -- PT/OT eval Mild Oropharyngeal dysphagia: had video fluoroscopy at [facility] which was negative for jade aspiration - continue with soft bite size meals, aspiration precautions -- as per Caregivers, patient was having drooling while at the detention At [facility], patient was found to have mild dysphagia discharge after hospitalization to [facility], patient noted to have worsening of dysphagia -- Speech Therapy eval: recommend full liquid diet Hopefully, patient's oral intake will continue to improve in 1 to 2 days Mild intellectual disability: resides in detention at baseline, 2 staff members at bedside on admission BPH/Gross hematuria: likely from traumatic cath vs thrombocytopenia - will need urology follow up at discharge, cath placed at [facility] -- resolved Bipolar disorder: continue home medication, mood stable Seizure disorder: continue topamax, depakote, no witnessed seizure in several years -- on Valproic acid IV --> cause of facial rash? transitioned to usual Depakote at Hypothyroidism: continue levothyroxine, TSH 5.261 uIu/ml and free T4 1.0 DVT ppx: heparin subc FULL CODE PCP: Guilherme Berger Dispo: PCU PT/OT evaluation Admission and Anticipated Discharge Date Admission Date: February 03, 2024 Subjective Pt seen in follow up of septic shock, etc Pt is sitting up in bed in NAD. Overall seems comfortable. no shortness of breath, pain Caregiver present yesterday at the bedside and updated in room 201. On 02/11 - pt found hypothermic 35.6C. Repeated temp. rectally, w/ RN at the bedside - 34.2C, on repeat rectally again 35.5C. BP down 99/65. IVF, albumin ordered. Blood cultx, CXR stat, UA/cultx ordered, CBC, CMP, mag, phos. procalcitonin, random cortisol, lactate. zosyn, daptomycin started Replaced sadler - w/ temp. sensor jose hugger also obtained CT abd.pelvis Pt is off jose hugger and temp. now normal. Plt count increased/ improved Repeat Blood cutx posit. for staph BP low when pt in chair - gave NS bolus and albumin Review of Systems Review of Systems: All systems reviewed & are unremarkable except as noted in Subjective Physical Exam Physical Exam: General-awake, alert, not in distress, speaks in sentences with no effort or accessory muscle use Eyes- anicteric Neck- no JVD Lungs- clear breath sounds bilaterally, no rales/wheezes Heart- normal rate, regular rhythm; no murmurs Abdomen- normal bowel sounds, nondistended, soft, nontender Extremities- no pretibial edema, no calf tenderness Neuro- alert, no new gross focal neurologic deficits Skin- warm & dry Results & Data Results & Data Vital Signs (Past 12 Hours) Vital Signs Temp Pulse Pulse Resp BP Pulse Ox O2 Del Method 02/14/24 07:33 37.1 C 62 18 142/86 H 95 Room Air 02/14/24 07:16 68 02/14/24 03:00 37.2 C 60 17 131/70 94 Room Air 02/13/24 23:20 65 97 Room Air 02/13/24 23:17 37.0 C 92 H 20 122/70 91 Room Air 02/13/24 23:00 64 02/13/24 21:45 Room Air Laboratory Results 02/14/24 02/13/24 02/12/24 Range/Units 05:32 08:38 16:25 WBC 6.56 (4.8-10.8) K/ul RBC 2.61 L (4.70-6.10) M/uL Hgb 7.9 L (14.0-18.0) g/dl Hct 25.5 L (42.0-52.0) % MCV 97.7 (80.0-100.0) fL MCH 30.3 (25.0-34.0) pg MCHC 31.0 L (32.0-36.0) g/dL RDW Std Deviation 61.5 H (36.4-46.3) fL RDW Coeff of Jenifer 17.2 H (11.5-14.5) % Plt Count 197 (130-400) K/uL MPV 11.8 (9.4-12.4) fL Sodium 145 (136-145) mmol/L Potassium 4.3 (3.5-5.1) mmol/L Chloride 112 H (98-107) mmol/L Carbon Dioxide 28 (21-32) mmol/L Anion Gap 5 (3-11) BUN 25 H (6-23) mg/dl Creatinine 2.10 H (0.6-1.4) mg/dl Est Cr Clr Drug Dosing 31.7 ml/min eGFR 34.93 BUN/Creatinine Ratio 11.9 (10-20) Glucose 74 (70-99(Fasting)) mg/dl Calcium 9.5 (8.6-10.3) mg/dl Phosphorus 3.3 (2.5-4.9) mg/dl Magnesium 2.0 (1.7-2.4) mg/dl Cortisol AM Sample 9.89 (6.2-22.6) mcg/dl Staphylococcus sp PCR DETECTED A (NotDetected) Bld Cult ID Panel PCR See PCR Comment (NotDetected) Medications Administered Current Inpatient Medications Acetaminophen (Acetaminophen 325 Mg Tab) 650 mg PO Q6H PRN PRN Reason: Pain or Fever Stop: 03/12/24 19:45 Last Admin: 02/12/24 10:57 Dose: 650 mg Allopurinol (Allopurinol 100 Mg Tab) 100 mg PO DAILY [facility] Stop: 03/08/24 08:59 Last Admin: 02/14/24 07:39 Dose: 100 mg Apixaban (Apixaban 5 Mg Tablet) 5 mg PO BID [facility] Stop: 03/12/24 20:59 Last Admin: 02/12/24 08:29 Dose: 5 mg Calcium Carbonate (Calcium Carbonate 500 Mg Chewable Tab) 500 mg PO BID [facility] Stop: 03/07/24 20:59 Last Admin: 02/14/24 07:46 Dose: 500 mg Cetirizine HCl (Cetirizine Oral Soln 1 Mg/Ml) 10 mg PO DAILY [facility] Stop: 03/09/24 09:59 Last Admin: 02/14/24 07:38 Dose: 10 mg Dextrose (Dextrose 50% 50 Ml Syringe) 25 - 50 ml IV UD PRN; Protocol PRN Reason: Hypoglycemia Protocol Stop: 03/04/24 13:57 Divalproex Sodium (Divalproex Extended Release 500 Mg Tab) 1,000 mg PO HS [facility] Stop: 03/10/24 20:59 Last Admin: 02/13/24 20:51 Dose: 1,000 mg Docusate Sodium (Docusate Sodium Syrup 100 Mg/10 Ml Udc) 100 mg PO DAILY [facility] Stop: 03/08/24 08:59 Famotidine (Famotidine 20 Mg Tab) 20 mg PO DAILY [facility]; Protocol Stop: 03/11/24 08:59 Last Admin: 02/14/24 07:39 Dose: 20 mg Finasteride (Finasteride 5 Mg Tab) 5 mg PO DAILY [facility] Stop: 03/05/24 08:59 Last Admin: 02/05/24 09:11 Dose: 5 mg Flecainide Acetate (Flecainide Acetate 100 Mg Tablet) 50 mg PO BID [facility] Stop: 03/04/24 20:59 Last Admin: 02/14/24 07:39 Dose: 50 mg Gabapentin (Gabapentin 250 Mg/5 Ml 470 Ml Btl) 100 mg PO TID [facility] Stop: 03/05/24 13:59 Last Admin: 02/14/24 07:46 Dose: 100 mg Glucagon (Glucagon For Inj 1 Mg Vial) 1 mg SQ UD PRN; Protocol PRN Reason: Hypoglycemia Protocol Stop: 03/04/24 13:57 Glucose (Glucose 40% Gel 15 Gm Tube) 15 - 30 gm PO UD PRN; Protocol PRN Reason: Hypoglycemia Protocol Stop: 03/04/24 13:57 Glucose (Glucose 10 Tab/Tube) 4 - 8 tab PO UD PRN; Protocol PRN Reason: Hypoglycemia Protocol Stop: 03/04/24 13:57 Heparin Sodium (Porcine) (Heparin Sod 5,000 Unit/0.5 Ml Vial) 5,000 units SQ Q12 [facility] Stop: 03/13/24 20:59 Last Admin: 02/14/24 07:46 Dose: 5,000 units Piperacillin Sod/Tazobactam Sod (Zosyn) 4.5 gm in 100 mls @ 25 mls/hr IV Q8H [facility]; Protocol Stop: 02/14/24 20:59 Last Admin: 02/14/24 04:30 Dose: 25 mls/hr Daptomycin 550 mg/ Syringe 11 mls @ 5.5 mls/min IV Q24H [facility]; Protocol Stop: 02/15/24 15:59 Last Admin: 02/13/24 17:02 Dose: 5.5 mls/min Lactobacillus Acidophilus (Advanced Probiotic 625 Mg Capsule) 1,250 mg PO DAILY [facility] Stop: 03/05/24 08:59 Last Admin: 02/05/24 09:11 Dose: 1,250 mg Lactobacillus Acidophilus (Lactobacillus Acidophilus 1 Gm Pack) 1 packet PO TIDM [facility] Stop: 03/11/24 07:59 Last Admin: 02/14/24 07:39 Dose: 1 packet Lansoprazole (Lansoprazole 30 Mg Soltab) 30 mg PO DAILY [facility] Stop: 03/10/24 08:59 Last Admin: 02/14/24 07:38 Dose: 30 mg Levothyroxine Sodium (Levothyroxine Sodium 75 Mcg Tablet) 75 mcg PO DAILYBB [facility] Stop: 03/05/24 06:29 Last Admin: 02/14/24 05:30 Dose: 75 mcg Miscellaneous (Carbohydrates For Hypoglycemia ) 15 - 30 gm PO UD PRN PRN Reason: Hypoglycemia Protocol Stop: 03/04/24 13:57 Ondansetron HCl (Ondansetron Inj 2 Mg/Ml 2 Ml Vial) 4 mg IV Q6H PRN PRN Reason: Nausea Stop: 03/04/24 14:27 Last Admin: 02/11/24 20:47 Dose: 4 mg Polyethylene Glycol (Polyethylene (Miralax) 17 Gm Pack) 17 gm PO DAILY PRN PRN Reason: Constipation Stop: 03/04/24 14:27 Rifampin (Rifampin 300 Mg Capsule) 300 mg PO TID [facility] Stop: 03/04/24 20:59 Last Admin: 02/04/24 13:44 Dose: 300 mg Tamsulosin HCl (Tamsulosin Hcl 0.4 Mg Cap) 0.4 mg PO BID [facility] Stop: 03/04/24 20:59 Last Admin: 02/05/24 21:32 Dose: Not Given Topiramate (Topiramate 100 Mg Tab) 100 mg PO QPM [facility] Stop: 03/04/24 20:59 Last Admin: 02/13/24 20:51 Dose: 100 mg Topiramate (Topiramate 50 Mg Tab) 50 mg PO QAM [facility] Stop: 03/05/24 08:59 Last Admin: 02/14/24 07:37 Dose: 50 mg Vitamin D (Cholecalciferol 25 Mcg (1000 Units) Tab) 50 mcg PO DAILY [facility] Stop: 03/05/24 08:59 Last Admin: 02/05/24 11:03 Dose: Not Given
[2024-02-14] MEDS: ALBUMIN 25% 25 GM/100 ML VIAL IV ONE (11:32)
[2024-02-14] MEDS: SODIUM CHLORIDE 0.9% 500 ML IV ONE (11:33)
--- NOTE | 2024-02-14 19:42 | Urology Consultation ---
Date of Consultation February 14, 2024 Assessment & Plan (1) Kidney mass: Patient has been admitted on the hospitalist service. Will defer treatment of patient's underlying medical conditions to their discretion Urology has been asked to see for possible kidney mass and from our perspective would recommend the following: The cyst/mass in question was performed noncontrast CT scan. It would be preferable to have a CT scan with and without intravenous contrast for better delineation of this mass, however the patient has acute kidney injury and this cannot be performed at this time The underlying with question would be how aggressively kidney mass would be persistent/treated in this patient. I did discuss with nursing staff and patient does have a legal guardian and may be best to discuss with this individual if any further diagnostic testing would be desired. Additional recommendations will be forthcoming based on further discussion with patient's legal guardian and his clinical course as unfolds History of Present Illness Reason for Consultation: Kidney mass Attending Physician: Reji Bonilla MD History of Present Illness , This is a 63-year-old male who has been admitted to [facility] since 02/03/2024. The patient has been admitted secondary to metabolic encephalopathy, bacteremia, aspiration pneumonia, acute kidney injury superimposed on chronic kidney disease, and aspiration pneumonia. The patient has a baseline intellectual disability improved to be a very poor historian. I did obtain a history from review of chart as well as discussion with the nurse. Nursing staff notes that the patient has a chronic Foster Foster catheter in place and this has been changed this admission. He was admitted on the above-noted date the above noted problems and has been treated with antibiotics. Patient recently, on 02/12/[address] scan of the abdomen pelvis without contrast. This study was performed as the patient has underlying anemia and sepsis. On this study the patient was noted to have a horseshoe shaped kidney with hyperdense lesions within the kidney. There is a 2.5 cm soft tissue density in the right side of the kidney and the interpreting radiologist could not verify if this represented a complex cyst or mass. I did question the patient on urologic symptoms such as back or flank pain, fevers, shakes, chills, or dysuria but due to his underlying cognitive disability as he was unable to provide any meaningful information. Patient's most recent labs included a CBC from today were white blood cell count and platelet count are normal. His hemoglobin and hematocrit are 7.9 and 25.5. Sodium and potassium are both normal. His BUN and creatinine are 25 and 2.1. His most recent urinalysis was from 02/12/2024 which was negative for infection. He did of note, have a urinalysis on 02/03/2024 with urine was cloudy and he had 3+ leukocyte esterase and pyuria with greater than 50 white blood cells per high-power field. There is no bacteria or nitrates on this study. It is nowhere the mention that the patient did have a urine culture from this date which was negative for growth. At the time of my interview he was resting comfortably in bed he was no distress Allergies Allergy/AdvReac Type Severity Reaction Status Date / Time carbamazepine Allergy Intermediate SHORTNESS Verified 02/01/24 10:58 OF BREATH lamotrigine Allergy Intermediate RASH Verified 02/01/24 10:58 cat dander Allergy Verified 02/01/24 10:58 pollen extracts Allergy Verified 02/01/24 10:58 Home Medications Medication Instructions Recorded Confirmed Type acetaminophen 325 mg tablet 650 mg PO QID PRN Fever/Pain 02/01/24 02/03/24 History allopurinol 100 mg tablet 200 mg PO DAILY 02/01/24 02/03/24 History atorvastatin 10 mg tablet 10 mg PO DAILY 02/01/24 02/03/24 History cetirizine 10 mg capsule 10 mg PO DAILY 02/01/24 02/03/24 History divalproex 500 mg tablet,extended 1,000 mg PO HS 02/01/24 02/03/24 History release 24 hr docusate sodium 100 mg tablet 100 mg PO DAILY 02/01/24 02/03/24 History famotidine 20 mg tablet 20 mg PO DAILY 02/01/24 02/03/24 History gabapentin 100 mg capsule 100 mg PO TID 02/01/24 02/03/24 History metoprolol succinate 25 mg 25 mg PO DAILY 02/01/24 02/03/24 History tablet,extended release 24 hr olanzapine 10 mg tablet 10 mg PO BID 02/01/24 02/03/24 History pantoprazole 40 mg tablet,delayed 40 mg PO DAILY 02/01/24 02/03/24 History release (Protonix) tamsulosin 0.4 mg capsule 0.4 mg PO BID 02/01/24 02/03/24 History topiramate 100 mg tablet 100 mg PO QPM 02/01/24 02/03/24 History topiramate 50 mg tablet 50 mg PO QAM 02/01/24 02/03/24 History bisacodyl 10 mg rectal suppository 10 mg [place] DAILY PRN Constipation 02/03/24 02/03/24 History (Dulcolax (bisacodyl)) calcium carbonate (Calcium 600) 600 mg PO BID 02/03/24 02/03/24 History cholecalciferol (vitamin D3) 25 50 mcg PO DAILY 02/03/24 02/03/24 History mcg (1,000 unit) tablet (Vitamin D3) finasteride 5 mg tablet 5 mg PO DAILY 02/03/24 02/03/24 History flecainide 50 mg tablet 50 mg PO BID 02/03/24 02/03/24 History fluticasone propionate 50 1 spray intranasal BID 02/03/24 02/03/24 History mcg/actuation nasal spray,suspension levothyroxine 75 mcg tablet 75 mcg PO QAM 02/03/24 02/03/24 History magnesium hydroxide 400 mg/5 mL 2,400 mg PO DAILY PRN Constipation 02/03/24 02/03/24 History oral suspension (Milk of Magnesia) nystatin 100,000 unit/gram topical 1 applic topical BID 02/03/24 02/03/24 History cream psyllium husk 0.52 gram capsule 0.52 g PO QAM 02/03/24 02/03/24 History rifampin 300 mg capsule 300 mg PO TID 02/03/24 02/03/24 History scopolamine base 1 mg over 3 days 1 patch transdermal Q72H PRN 02/03/24 02/03/24 History transdermal patch Nausea And Vomiting sodium phosphates 19 gram-7 118 ml [place] DAILY PRN Constipation 02/03/24 02/03/24 History gram/118 mL enema (Fleet Enema) vancomycin 750 mg intravenous 750 mg IV DAILY 02/03/24 02/03/24 History solution apixaban 5 mg tablet (Eliquis) 5 mg PO BID 02/11/24 02/11/24 History Patient History Medical History History of left heart catheterization (LHC) Hypothyroidism Bipolar disorder Chronic anemia BPH (benign prostatic hyperplasia) Horseshoe kidney Atrial fibrillation Intellectual disability HLD (hyperlipidemia) HTN (hypertension) CHB (complete heart block) Pacemaker Chronic kidney disease Epilepsy Sepsis Surgical History History of cardiac pacemaker H/O cystoscopy Family History Other Family history unobtainable Social History Smoking Status: Never smoker Hx Alcohol Use: No Hx Substance Use: No Preferred Language: [place] Communication Ability: Impaired Beliefs That Will Affect Care: None marital status: Single Current Living Situation: Other Current Living Situation Comment: [facility] Feels Safe at Home: Yes Assistive Devices: Walker Review of Systems Review of Systems: All systems reviewed & are unremarkable except as noted in HPI & below Physical Exam Constitutional: no acute distress Eyes: no conjunctival abnormality ENMT: Ears: no external ear abnormality Neck: trachea midline Respiratory: normal respiratory effort; no respiratory distress and no labored breathing Cardiovascular: Rate/Rhythm: regular rate and regular rhythm Gastrointestinal (Abdomen): Soft and nondistended. Palpation did not appear to elicit pain Musculoskeletal: No calf tenderness Skin: no rashes Neurologic: Patient is able to move all 4 extremities without noted focal deficits Psychiatric: Patient is alert only to person Genitourinary: No CVA tenderness with percussion bilaterally. Foster catheter is in place and is draining yellow urine and appears to be patent and draining appropriately Results & Data Vital Signs (Past 12 Hours) Vital Signs Temp Pulse Pulse Resp BP Pulse Ox O2 Del Method 02/14/24 19:19 36.3 C L 60 16 111/67 96 Room Air 02/14/24 15:44 36.7 C 62 17 118/66 95 Room Air 02/14/24 14:25 60 02/14/24 13:37 119/62 02/14/24 11:13 37.4 C 70 18 90/58 L 93 Room Air 02/14/24 08:00 Room Air PG Care Time/CCT Total # of Minutes Spent Total Time Spent with Patient: Total time spent is greater than 50% in coordination of care (as documented) at patient's floor/unit and/or counseling patient: Coding Level of Care Code 97193 IN/OBS CONSULT LVL 5,80M Diagnoses Kidney mass N28.89
--- NOTE | 2024-02-15 09:39 | Urology Progress Note ---
Date of Service February 15, 2024 Assessment & Plan (1) Kidney mass: Plan: Follow-up of right renal complex cyst versus mass Patient will need additional imaging to better characterize 2.5 cm right renal lesion Plan for additional imaging as an outpatient if patient's guardian wishes to pursue Can consider CT w/wo contrast if renal function permits or do surveillance with noncontrast CTs May not be a candidate for an MRI given presence of pacemaker No acute intervention at this time Continue medical management per hospital medicine service Will arrange outpatient follow-up with our service for imaging and management will sign off, please contact our service with any additional questions or concerns Admission and Anticipated Discharge Date Admission Date: February 03, 2024 Subjective Patient seen and examined at bedside this morning. He is awake and alert, appears comfortable. He is unable to provide meaningful history/ROS. Foster intact Review of Systems Review of Systems: As per HPI. Physical Exam Constitutional: no acute distress Respiratory: no respiratory distress and no labored breathing Neurologic: moves all extremities and awake Psychiatric: Orientation: alert Genitourinary: Foster patent and draining clear yellow urine Results & Data Vital Signs (Past 12 Hours) Vital Signs Temp Pulse Pulse Resp BP Pulse Ox O2 Del Method 02/15/24 08:00 Room Air 02/15/24 07:38 36.5 C 61 17 136/68 96 Room Air 02/15/24 07:21 60 02/15/24 03:01 36.6 C 80 21 130/80 94 Room Air 02/14/24 21:47 60 PG Care Time/CCT Total # of Minutes Spent Total Time Spent with Patient: Total time spent is greater than 50% in coordination of care (as documented) at patient's floor/unit and/or counseling patient: Coding Level of Care Code 30047 SUB INP/OBS CARE 03/18MIN Diagnoses Kidney mass N28.89
[2024-02-15 09:59] LABS: Hematocrit (blood only) 24.5 % (42.0-52.0); Hemoglobin 7.7 g/dl (14.0-18.0); Mean Corpuscular Hemoglobin 30.3 pg (25.0-34.0); Mean Corpuscular Hgb Conc 31.4 g/dL (32.0-36.0); Mean Corpuscular Volume 96.5 fL (80.0-100.0); Mean Platelet Volume 11.2 fL (9.4-12.4); Platelet Count 206 K/uL (130-400); RDW Coefficient of Variation 16.6 % (11.5-14.5); RDW Standard Deviation 58.9 fL (36.4-46.3); Red Blood Count 2.54 M/uL (4.70-6.10); White Blood Count 6.29 K/ul (4.8-10.8)
[2024-02-15 10:11] LABS: BUN Creatinine Ratio 11.1 (10-20); Calcium 9.5 mg/dl (8.6-10.3); Creatinine Clr Calc Pharmacy 32.1 ml/min; Magnesium 1.9 mg/dl (1.7-2.4); Potassium 3.6 mmol/L (3.5-5.1)
--- NOTE | 2024-02-15 14:21 | Hospitalist Progress Note ---
Date of Service February 15, 2024 Assessment & Plan (1) Septic shock: Plan: Per previous hospitalist w/ addendum: (1) Metabolic encephalopathy: (2) Bacteremia: (3) Catheter-associated urinary tract infection: (4) Aspiration pneumonia: (5) Acute kidney injury superimposed on stage 3b chronic kidney disease: (6) Anemia: (7) Thrombocytopenia: (8) Hypoglycemia: (9) PAF (paroxysmal atrial fibrillation): Plan Per admitting service notes with addendum: This is a 63-year-old male who has a significant past medical history of baseline intellectual disability, atrial fibrillation on Eliquis, history of CHB status post permanent pacemaker placement, hypothyroidism, BPH, bipolar disorder, CKD stage III with baseline creatinine 1.4-1.5, horseshoe kidney, bilateral renal masses, BPH, chronic anemia who presents to ED secondary to altered mental status and lethargy. Recent hospitalization 01/11-01/24 @ [facility] 2/ Staphylococcus Haemolyticus, PNA presumed aspiration, negative TTE/DE; however ID recommends treating with 6 week course of IV Vanco/rifampin given negative cultures with treatment and no clear source of bacteremia. He was seen and evaluated by ST and underwent videofluoroscopy which described moderate oral pharyngeal dysphagia. Hosp course also complicated with hematuria, a/c anemia, thrombocytopenia. He was D/C To [facility] to complete course of antibiotics. [facility] a [facility]. In ED pt with mild hypotension, tachycardia, altered mental status, elevated BUN/Cr from baseline, worsening anemia/thrombocytopenia in setting of IV Vanco with elevated vanco level at 27, oral rifampin and concern for worsened aspiration Septic shock Altered mental status with suspected metabolic encephalopathy likely from Staph hemolyticus bacteremia - on treatment through 02/27 Possible Aspiration Pneumonia? Possible catheter associated complicated UTI- ruled out Consult infectious disease, + culture from [facility] 01/11 Staph hemolyticus, resistant except for vanco - unknown source, negative DE/TTE, cleared with treatment, ID recommend tx through 02/27 Switched to IV dapto due to concern for nephrotoxicity, added IV zosyn for aspiration coverage, and continued rifampin initially MRSA Swab, procal, CK ordered await blood and urine cultures 02/03 on Levophed, on hydrocortisone every 8 hours ID consulted Continue daptomycin + Zosyn 02/04 Off Levophed 02/05 mental status improved urine culture: negative blood cultures: negative Zosyn discontinued Daptomycin continued- on treatment for previously diagnosed Staph hemolyticus bacteremia until 02/27 02/06 afebrile mental status continues to improve continue Dapto 02/07 remains afebrile, clinically stable continue Daptomycin scheduled to finish 02/28/24 touch base with ID to confirm above plan 02/08 Met pt today. Pt awake, no complaints, asking about going home. No caregivers at the bedside. Per RN pt seems improved from yesterday. ID contacted - will further discuss plan 02/09 Discussed w/ ID - Daptomycin stopped 02/11 Pt found hypothermic today 35.6C. Repeated temp. rectally, w/ RN at the bedside - 34.2C, on repeat rectally again 35.5C. BP down 99/65. IVF, albumin ordered. Blood cultx, CXR stat, UA/cultx ordered, CBC, CMP, mag, phos. procalcitonin, random cortisol, lactate. zosyn, daptomycin started will replace sadler - w/ temp. sensor jose hugger will also obtain CT abd.pelvis BP rechecked 115/71 02/12 UA negative Pt's temp. normal - off jose hugger blood cultx pending CXR - negat. procal normal lactate normal cortisol 8-11 CT abd.pelvis - There is a small left pleural effusion and a trace right pleural effusion with bibasilar areas of atelectasis. There is thickening of the urinary bladder wall. This may be due to hypertrophy. Cannot exclude cystitis. The patient has a horseshoe shaped kidney. There are hyperdense lesions within the kidney . There is a 2.5 cm soft tissue density within the right side of the kidney. These may represent complex cysts. Masses cannot be excluded on this noncontrast study. Will further discuss w/ urology Overall pt is feeling well today. Hgb stable, Plt count improved. Updated caregiver at the bedside 02/13 Blood cultx from 02/11 positive for staph - pt already on broad spectrum abx BP low again when pt placed to chair - received NS Bolus and albumin Hgb stable, plt count improved, no leukocytosis Cont. to closely monitor, follow final blood cultx results consult urology given abnormal CT - renal cyst/mass - per urology - will further work-up as outpt 02/14 blood cultx posit for staph epi and staph capitis ? contaminant -> will discuss w/ ID (contacted Ariella Alejandre from [facility] If felt like contaminant will need to explore other reasons for pt's hypothermia, hypotension episodes such as poss. adrenal insufficiency, cortsisol levels obtained 10-02, will need to further discuss w/ endocrine Bilateral Petechiae Thrombocytopenia Acute on chronic anemia Hematuria- resolved possibly from Vanco + Rifampicin being taken as outpatient--> discontinued 02/03 Hematuria seems to be resolving, Hemoglobin 7.8, Platelet 98 Peripheral smear: Nonspecific pancytopenia Vancomycin plus rifampicin discontinued 02/04 Hemoglobin 8.1, Platelet count 96 No signs of active bleeding 02/07 Hg stable at 8.0 Plt also stable at 90s 02/09 Hgb 7.3, cont. to monitor 02/10 Hgb 7.9 02/12 Hgb 7.7, Plt 143 02/13 Hgb 7.9, Plt 197 Acute/Chronic CKD-3b baseline cr 1.4-1.5, consulted nephrology bun/cr 56 and 2.55, ? if pre renal in setting of poor intake vs intrarenal from ATN/nephrotoxicity gentle IVF D5 1/2NSS x 1 L follow labs 02/03 Creatinine 2.7, Likely ATN from septic shock Nephrology following 02/05 Cr 2.7 --> 2.6 --> 2.19 02/08 - Cr 1.7 02/13 Cr 2.1 Hypernatremia Nephrology was consulted Will sign off No specific nephro f/u recs except htat he should have bmp at pcp office after d/c likely that hypernatremia will be ongoing /IVF dependent unless pt fed/ helped to drink consistently Atrial Fibrillation hx of CHB s/p PPM HLD Metoprolol held for low BP Flecainide continued Eliquis held due to bleeding, thrombocytopenia notified by RN re: episode of non sustained v tach? 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 with subc ppx heparin Hypoglycemia: no hx of T2DM, a1c 5.4 01/16, likely due to poor intake, on D5W + 1/2NSS given, hypoglycemia protocol -- no recurrence Falls - pt with 2 falls in 3 days, likely 2/2 to suspected illness -- PT/OT eval Mild Oropharyngeal dysphagia: had video fluoroscopy at [facility] which was negative for jade aspiration - continue with soft bite size meals, aspiration precautions -- as per Caregivers, patient was having drooling while at the [facility]p At [facility], patient was found to have mild dysphagia discharge after hospitalization to [facility], patient noted to have worsening of dysphagia -- Speech Therapy eval: recommend full liquid diet Hopefully, patient's oral intake will continue to improve in 1 to 2 days Mild intellectual disability: resides in [facility] at baseline, 2 staff members at bedside on admission BPH/Gross hematuria: likely from traumatic cath vs thrombocytopenia - will need urology follow up at discharge, cath placed at [facility] -- resolved Bipolar disorder: continue home medication, mood stable Seizure disorder: continue topamax, depakote, no witnessed seizure in several years -- on Valproic acid IV --> cause of facial rash? transitioned to usual Depakote at Hypothyroidism: continue levothyroxine, TSH 5.261 uIu/ml and free T4 1.0 DVT ppx: heparin subc FULL CODE PCP: Guilherme Berger Dispo: PCU PT/OT evaluation Admission and Anticipated Discharge Date Admission Date: February 03, 2024 Subjective Pt seen in follow up of septic shock, etc Pt is sitting up in bed in NAD. Overall seems comfortable. no shortness of breath, pain On 02/11 - pt found hypothermic 35.6C. Repeated temp. rectally, w/ RN at the bedside - 34.2C, on repeat rectally again 35.5C. BP down 99/65. IVF, albumin ordered. Blood cultx, CXR stat, UA/cultx ordered, CBC, CMP, mag, p hos. procalcitonin, random cortisol, lactate. zosyn, daptomycin started Replaced sadler - w/ temp. sensor jose hugger also obtained CT abd.pelvis Pt is off jose hugger and temp. now normal. Plt count increased/ improved Repeat Blood cutx posit. for staph epi and staph capitis - ? contaminant BP low yesterday when pt in chair - gave NS bolus and albumin - BP now improved Review of Systems Review of Systems: All systems reviewed & are unremarkable except as noted in Subjective Physical Exam Physical Exam: General-awake, alert, not in distress, speaks in sentences with no effort or accessory muscle use Eyes- anicteric Neck- no JVD Lungs- clear breath sounds bilaterally, no rales/wheezes Heart- normal rate, regular rhythm; no murmurs Abdomen- normal bowel sounds, nondistended, soft, nontender Extremities- no pretibial edema, no calf tenderness Neuro- alert, no new gross focal neurologic deficits Skin- warm & dry Results & Data Results & Data Vital Signs (Past 12 Hours) Vital Signs Temp Pulse Pulse Resp BP Pulse Ox O2 Del Method 02/15/24 14:14 60 02/15/24 12:00 36.7 C 61 17 135/69 97 Room Air 02/15/24 08:00 Room Air 02/15/24 07:38 36.5 C 61 17 136/68 96 Room Air 02/15/24 07:21 60 02/15/24 03:01 36.6 C 80 21 130/80 94 Room Air Laboratory Results 02/15/24 Range/Units 09:27 WBC 6.29 (4.8-10.8) K/ul RBC 2.54 L (4.70-6.10) M/uL Hgb 7.7 L (14.0-18.0) g/dl Hct 24.5 L (42.0-52.0) % MCV 96.5 (80.0-100.0) fL MCH 30.3 (25.0-34.0) pg MCHC 31.4 L (32.0-36.0) g/dL RDW Std Deviation 58.9 H (36.4-46.3) fL RDW Coeff of Jenifer 16.6 H (11.5-14.5) % Plt Count 206 (130-400) K/uL MPV 11.2 (9.4-12.4) fL Sodium 143 (136-145) mmol/L Potassium 3.6 (3.5-5.1) mmol/L Chloride 110 H (98-107) mmol/L Carbon Dioxide 27 (21-32) mmol/L Anion Gap 6 (3-11) BUN 23 (6-23) mg/dl Creatinine 2.08 H (0.6-1.4) mg/dl Est Cr Clr Drug Dosing 32.1 ml/min eGFR 35.34 BUN/Creatinine Ratio 11.1 (10-20) Glucose 124 H (70-99(Fasting)) mg/dl Calcium 9.5 (8.6-10.3) mg/dl Phosphorus 3.0 (2.5-4.9) mg/dl Magnesium 1.9 (1.7-2.4) mg/dl Medications Administered Current Inpatient Medications Acetaminophen (Acetaminophen 325 Mg Tab) 650 mg PO Q6H PRN PRN Reason: Pain or Fever Stop: 03/12/24 19:45 Last Admin: 02/12/24 10:57 Dose: 650 mg Allopurinol (Allopurinol 100 Mg Tab) 100 mg PO DAILY SIMIN Stop: 03/08/24 08:59 Last Admin: 02/15/24 08:08 Dose: 100 mg Apixaban (Apixaban 5 Mg Tablet) 5 mg PO BID SIMIN Stop: 03/12/24 20:59 Last Admin: 02/12/24 08:29 Dose: 5 mg Calcium Carbonate (Calcium Carbonate 500 Mg Chewable Tab) 500 mg PO BID SIMIN Stop: 03/07/24 20:59 Last Admin: 02/15/24 08:10 Dose: 500 mg Cetirizine HCl (Cetirizine Oral Soln 1 Mg/Ml) 10 mg PO DAILY SIMIN Stop: 03/09/24 09:59 Last Admin: 02/15/24 08:08 Dose: 10 mg Dextrose (Dextrose 50% 50 Ml Syringe) 25 - 50 ml IV UD PRN; Protocol PRN Reason: Hypoglycemia Protocol Stop: 03/04/24 13:57 Divalproex Sodium (Divalproex Extended Release 500 Mg Tab) 1,000 mg PO HS SIMIN Stop: 03/10/24 20:59 Last Admin: 02/14/24 20:12 Dose: Not Given Docusate Sodium (Docusate Sodium Syrup 100 Mg/10 Ml Udc) 100 mg PO DAILY SIMIN Stop: 03/08/24 08:59 Famotidine (Famotidine 20 Mg Tab) 20 mg PO DAILY [facility]; Protocol Stop: 03/11/24 08:59 Last Admin: 02/15/24 08:08 Dose: 20 mg Finasteride (Finasteride 5 Mg Tab) 5 mg PO DAILY [facility] Stop: 03/05/24 08:59 Last Admin: 02/05/24 09:11 Dose: 5 mg Flecainide Acetate (Flecainide Acetate 100 Mg Tablet) 50 mg PO BID [facility] Stop: 03/04/24 20:59 Last Admin: 02/15/24 08:07 Dose: 50 mg Gabapentin (Gabapentin 250 Mg/5 Ml 470 Ml Btl) 100 mg PO TID SIMIN Stop: 03/05/24 13:59 Last Admin: 02/15/24 13:50 Dose: 100 mg Glucagon (Glucagon For Inj 1 Mg Vial) 1 mg SQ UD PRN; Protocol PRN Reason: Hypoglycemia Protocol Stop: 03/04/24 13:57 Glucose (Glucose 40% Gel 15 Gm Tube) 15 - 30 gm PO UD PRN; Protocol PRN Reason: Hypoglycemia Protocol Stop: 03/04/24 13:57 Glucose (Glucose 10 Tab/Tube) 4 - 8 tab PO UD PRN; Protocol PRN Reason: Hypoglycemia Protocol Stop: 03/04/24 13:57 Heparin Sodium (Porcine) (Heparin Sod 5,000 Unit/0.5 Ml Vial) 5,000 units SQ Q12 SIMIN Stop: 03/13/24 20:59 Last Admin: 02/15/24 08:10 Dose: 5,000 units Piperacillin Sod/Tazobactam Sod (Zosyn) 4.5 gm in 100 mls @ 25 mls/hr IV Q8H SIMIN; Protocol Stop: 02/16/24 23:59 Last Admin: 02/15/24 13:50 Dose: 25 mls/hr Daptomycin 550 mg/ Syringe 11 mls @ 5.5 mls/min IV Q24H [facility]; Protocol Stop: 02/16/24 23:59 Last Admin: 02/14/24 16:46 Dose: 5.5 mls/min Lactobacillus Acidophilus (Advanced Probiotic 625 Mg Capsule) 1,250 mg PO DAILY [facility] Stop: 03/05/24 08:59 Last Admin: 02/05/24 09:11 Dose: 1,250 mg Lactobacillus Acidophilus (Lactobacillus Acidophilus 1 Gm Pack) 1 packet PO TIDM SIMIN Stop: 03/11/24 07:59 Last Admin: 02/15/24 11:31 Dose: 1 packet Lansoprazole (Lansoprazole 30 Mg Soltab) 30 mg PO DAILY SIMIN Stop: 03/10/24 08:59 Last Admin: 02/15/24 08:08 Dose: 30 mg Levothyroxine Sodium (Levothyroxine Sodium 75 Mcg Tablet) 75 mcg PO DAILYBB SIMIN Stop: 03/05/24 06:29 Last Admin: 02/15/24 07:02 Dose: 75 mcg Miscellaneous (Carbohydrates For Hypoglycemia ) 15 - 30 gm PO UD PRN PRN Reason: Hypoglycemia Protocol Stop: 03/04/24 13:57 Ondansetron HCl (Ondansetron Inj 2 Mg/Ml 2 Ml Vial) 4 mg IV Q6H PRN PRN Reason: Nausea Stop: 03/04/24 14:27 Last Admin: 02/11/24 20:47 Dose: 4 mg Polyethylene Glycol (Polyethylene (Miralax) 17 Gm Pack) 17 gm PO DAILY PRN PRN Reason: Constipation Stop: 03/04/24 14:27 Rifampin (Rifampin 300 Mg Capsule) 300 mg PO TID SIMIN Stop: 03/04/24 20:59 Last Admin: 02/04/24 13:44 Dose: 300 mg Tamsulosin HCl (Tamsulosin Hcl 0.4 Mg Cap) 0.4 mg PO BID SIMIN Stop: 03/04/24 20:59 Last Admin: 02/05/24 21:32 Dose: Not Given Topiramate (Topiramate 100 Mg Tab) 100 mg PO QPM SIMIN Stop: 03/04/24 20:59 Last Admin: 02/14/24 20:15 Dose: 100 mg Topiramate (Topiramate 50 Mg Tab) 50 mg PO QAM SIMIN Stop: 03/05/24 08:59 Last Admin: 02/15/24 08:08 Dose: 50 mg Vitamin D (Cholecalciferol 25 Mcg (1000 Units) Tab) 50 mcg PO DAILY SIMIN Stop: 03/05/24 08:59 Last Admin: 02/05/24 11:03 Dose: Not Given
[2024-02-16 07:12] LABS: Hematocrit (blood only) 26.5 % (42.0-52.0); Hemoglobin 8.4 g/dl (14.0-18.0); Mean Corpuscular Hemoglobin 30.4 pg (25.0-34.0); Mean Corpuscular Hgb Conc 31.7 g/dL (32.0-36.0); Mean Platelet Volume 11.3 fL (9.4-12.4); Platelet Count 241 K/uL (130-400); RDW Coefficient of Variation 16.9 % (11.5-14.5); RDW Standard Deviation 59.1 fL (36.4-46.3); Red Blood Count 2.76 M/uL (4.70-6.10); White Blood Count 7.01 K/ul (4.8-10.8)
[2024-02-16 07:23] LABS: BUN Creatinine Ratio 10.6 (10-20); Calcium 9.6 mg/dl (8.6-10.3); Creatinine Clr Calc Pharmacy 33.8 ml/min; Magnesium 1.9 mg/dl (1.7-2.4); Phosphorus 2.9 mg/dl (2.5-4.9); Potassium 3.9 mmol/L (3.5-5.1)
--- NOTE | 2024-02-16 14:51 | Hospitalist Progress Note ---
Date of Service February 16, 2024 Assessment & Plan (1) Septic shock: Plan: 63 yo M w/ PMH of baseline intellectual disability, Afib on Eliquis, CHB s/p permanent pacemaker placement, hypothyroidism, BPH, bipolar disorder, CKD stage III [baseline creatinine 1.4-1.5], horseshoe kidney, bilateral renal masses, BPH, chronic anemia who presents to ED 02/03/24 secondary to altered mental status and lethargy. Recent hospitalization 01/11-01/24 @ [facility] 2/2 Staphylococcus Haemolyticus, PNA presumed aspiration, negative TTE/DE; however ID recommended treating with 6 week course of IV Vanco/rifampin given negative cultures with treatment and no clear source of bacteremia. He was seen and evaluated by ST and underwent videofluoroscopy which described moderate oral pharyngeal dysphagia. Hosp course also complicated with hematuria, a/c anemia, thrombocytopenia. He was D/C To [facility] to complete course of antibiotics. He is from a halfway. In ED pt with mild hypotension, tachycardia, altered mental status, elevated BUN/Cr from baseline, worsening anemia/thrombocytopenia in setting of IV Vanco with elevated vanco level at 27, oral rifampin and concern for worsened aspiration. He is being managed for the following: Septic shock 2/2 possible bacteremia and aspiration pna. Metabolic encephalopathy Recent Staph hemolyticus bacteremia - supposed to be on treatment through 02/27 at the time of presentation Possible Aspiration Pneumonia Possible catheter associated complicated UTI- ruled out At presentation patient was in septic shock requiring Levophed, off of Levophed since 02/04, mentation noted to have improved since 02/05 Patient with recent staph bacteremia [+ culture from [facility] 01/11 Staph hemolyticus, resistant except for vanco - unknown source, negative DE/TTE, cleared with treatment, ID recommend tx through 02/27] MRSA swab negative, admitting CPK level 23, admitting procalcitonin elevated at 2.05, admitting lactate WNL. ID evaluated 02/03, recommended holding both vancomycin and rifampin. Patient was switched to IV daptomycin due to concern for nephrotoxicity and added IV Zosyn for aspiration coverage. 02/03/2024 blood culture negative for 5 days. 02/03/2024 urine culture no growth. Zosyn discontinued 02/05. Daptomycin continued for treatment of previously diagnosed as staph hemolyticus bacteremia until 02/27. Patient was doing well on daptomycin and was afebrile and clinically stable. ID reevaluated 02/09 and recommended antibiotic cessation, hence daptomycin discontinued 02/09. On 02/11, patient found hypothermic [34.2C], hypotensive [99/65] Patient received IV fluid, IV albumin, blood culture, chest x-ray, CTAP, urine analysis, random cortisol, lactate. Foster was replaced w/ temp sensor CXR with no acute finding, CTAP with thickening of the urinary bladder wall, redemonstration of horseshoe shaped kidney and noted was soft tissue density in the right side of the kidney. UA neg, Bl Cx Positive for Staph epidermidis in 2 of 4 bottles and Staph capitis in 1 of 4 bottles. Zosyn and daptomycin were restarted 02/11---> Patient's vitals stabilized and has been afebrile. Home atorvastatin on hold. Per prior attending they reached out to ID 02/14 for re-eval, will await ID re-eval. Uro evaled for rt sided soft tissue density, plan for additional imaging as OP. FU w/ URO as OP. Patient has been afebrile, vitals are stable, continue with daptomycin and Zosyn until ID re-evaluation. Bilateral Petechiae Thrombocytopenia Acute on chronic anemia Hematuria- resolved Possibly from Vanco + Rifampicin being taken as outpatient--> discontinued Hemoglobin has been stable and improving, platelets has normalized. Hematuria resolved. Acute/Chronic CKD-3b: Baseline creatinine of 1.4-1.5, nephrology evaluated, admitting creatinine of 2.74 likely prerenal in the setting of poor intake versus intrarenal from ATN/nephrotoxicity. Status post IV fluid. Creatinine has gradually improved, now slightly trending up likely 2/2 hypotensive episode from 02/11. Avoid nephrotoxic, maintain adequate fluid intake, consider IV fluid if still uptrending tomorrow. Hypernatremia: Admitting sodium of 147, nephrology evaluated, currently appears resolved. Follow. Maintain adequate fluid intake. 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 with subc ppx heparin Pt not on Eliquis per prior attending. Pt on hep sc for dvt px. Hypoglycemia: resolved. Falls - pt with 2 falls in 3 days, likely 2/2 to suspected illness. PT/OT eval - recommends snf. Mild Oropharyngeal dysphagia: : had video fluoroscopy at [facility] which was negative for jade aspiration, speech evaled here as well due to caregiver's concern - continue with minced and moist diet, aspiration precautions Mild intellectual disability: resides in halfway. BPH/Gross hematuria: likely from traumatic cath vs thrombocytopenia - will need urology follow up at discharge, cath placed at [facility]-- resolved Bipolar disorder: continue home medication, mood stable Seizure disorder: continue topamax, depakote, no witnessed seizure in several years Hypothyroidism: continue levothyroxine, TSH 5.261 uIu/ml and free T4 1.0 DVT ppx: heparin subc FULL CODE PCP: Guilherme Berger Dispo: PCU PT/OT evaluation, CM to assist with DC planning. Pending ID reevaluation. Admission and Anticipated Discharge Date Admission Date: February 03, 2024 Subjective Patient was seen and examined at bedside. Patient was lying in bed, on room air, NAD, resting comfortably. Per RN, patient is eating okay and moving bowels okay. Patient's blood pressure has been stable and temperature has been afebrile. Physical Exam Physical Exam: General-awake, alert, not in distress, poor articulation at baseline. Eyes- anicteric Neck- no JVD Lungs- clear breath sounds bilaterally, no rales/wheezes Heart- normal rate, regular rhythm; no murmurs Abdomen- normal bowel sounds, nondistended, soft, nontender Extremities- no pretibial edema, no calf tenderness Neuro- alert, no new gross focal neurologic deficits Skin- warm & dry Results & Data Results & Data Vital Signs (Past 12 Hours) Vital Signs Temp Pulse Resp BP Pulse Ox O2 Del Method 02/16/24 10:49 36.4 C L 61 16 126/77 96 Room Air 02/16/24 08:00 Room Air 02/16/24 07:48 36.3 C L 61 15 123/74 96 Room Air 02/16/24 04:00 37.0 C 62 18 112/67 95 Room Air
[2024-02-17 10:38] LABS: Hematocrit (blood only) 28.6 % (42.0-52.0); Hemoglobin 8.9 g/dl (14.0-18.0); Mean Corpuscular Hemoglobin 29.9 pg (25.0-34.0); Mean Corpuscular Hgb Conc 31.1 g/dL (32.0-36.0); Mean Platelet Volume 11.2 fL (9.4-12.4); Platelet Count 254 K/uL (130-400); RDW Standard Deviation 59.5 fL (36.4-46.3); Red Blood Count 2.98 M/uL (4.70-6.10); White Blood Count 6.82 K/ul (4.8-10.8)
[2024-02-17 10:55] LABS: BUN Creatinine Ratio 12.7 (10-20); Calcium 9.6 mg/dl (8.6-10.3); Creatinine Clr Calc Pharmacy 32.9 ml/min; Phosphorus 2.7 mg/dl (2.5-4.9); Potassium 3.9 mmol/L (3.5-5.1)
--- NOTE | 2024-02-17 15:07 | Hospitalist Progress Note ---
Date of Service February 17, 2024 Assessment & Plan (1) Septic shock: Plan: 63 yo M w/ PMH of baseline intellectual disability, Afib on Eliquis, CHB s/p permanent pacemaker placement, hypothyroidism, BPH, bipolar disorder, CKD stage III [baseline creatinine 1.4-1.5], horseshoe kidney, bilateral renal masses, BPH, chronic anemia who presents to ED 02/03/24 secondary to altered mental status and lethargy. Recent hospitalization 01/11-01/24 @ [facility] 2/2 Staphylococcus Haemolyticus, PNA presumed aspiration, negative TTE/DE; however ID recommended treating with 6 week course of IV Vanco/rifampin given negative cultures with treatment and no clear source of bacteremia. He was seen and evaluated by ST and underwent videofluoroscopy which described moderate oral pharyngeal dysphagia. Hosp course also complicated with hematuria, a/c anemia, thrombocytopenia. He was D/C To [facility] to complete course of antibiotics. He is from [place] [facility]. In ED pt with mild hypotension, tachycardia, altered mental status, elevated BUN/Cr from baseline, worsening anemia/thrombocytopenia in setting of IV Vanco with elevated vanco level at 27, oral rifampin and concern for worsened aspiration. He is being managed for the following: Septic shock 2/2 possible bacteremia and aspiration pna. Metabolic encephalopathy Recent Staph hemolyticus bacteremia - supposed to be on treatment through 02/27 at the time of presentation Possible Aspiration Pneumonia Possible catheter associated complicated UTI- ruled out At presentation patient was in septic shock requiring Levophed, off of Levophed since 02/04, mentation noted to have improved since 02/05 Patient with recent staph bacteremia [+ culture from [facility] 01/11 Staph hemolyticus, resistant except for vanco - unknown source, negative DE/TTE, cleared with treatment, ID recommend tx through 02/27] MRSA swab negative, admitting CPK level 23, admitting procalcitonin elevated at 2.05, admitting lactate WNL. ID evaluated 02/03, recommended holding both vancomycin and rifampin. Patient was switched to IV daptomycin due to concern for nephrotoxicity and added IV Zosyn for aspiration coverage. 02/03/2024 blood culture negative for 5 days. 02/03/2024 urine culture no growth. Zosyn discontinued 02/05. Daptomycin continued for treatment of previously diagnosed as staph hemolyticus bacteremia until 02/27. Patient was doing well on daptomycin and was afebrile and clinically stable. ID reevaluated 02/09 and recommended antibiotic cessation, hence daptomycin discontinued 02/09. On 02/11, patient found hypothermic [34.2C], hypotensive [99/65] Patient received IV fluid, IV albumin, blood culture, chest x-ray, CTAP, urine analysis, random cortisol, lactate. Foster was replaced w/ temp sensor CXR with no acute finding, CTAP with thickening of the urinary bladder wall, redemonstration of horseshoe shaped kidney and noted was soft tissue density in the right side of the kidney. UA neg, Bl Cx Positive for Staph epidermidis in 2 of 4 bottles and Staph capitis in 1 of 4 bottles. Zosyn and daptomycin were restarted 02/11---> Patient's vitals stabilized and has been afebrile. Home atorvastatin on hold. Per prior attending they reached out to ID 02/14 for re-eval, will await ID re-eval. I confirmed w/ Ariella 02/16 for ID re-eval on this patient. Uro evaled for rt sided soft tissue density, plan for additional imaging as OP. FU w/ URO as OP. Patient has been afebrile, vitals are stable, continue with daptomycin and Zosyn until ID re-evaluation. Bilateral Petechiae Thrombocytopenia Acute on chronic anemia Hematuria- resolved Possibly from Vanco + Rifampicin being taken as outpatient--> discontinued Hemoglobin has been stable and improving, platelets has normalized. Hematuria resolved. Acute/Chronic CKD-3b: Baseline creatinine of 1.4-1.5, nephrology evaluated, admitting creatinine of 2.74 likely prerenal in the setting of poor intake versus intrarenal from ATN/nephrotoxicity. Status post IV fluid. Creatinine has gradually improved, now slightly trending up likely 2/2 hypotensive episode from 02/11. Avoid nephrotoxic, maintain adequate fluid intake, Cr very slowly trending towards normal Hypernatremia: Admitting sodium of 147, nephrology evaluated, currently appears resolved. Follow. Maintain adequate fluid intake. Atrial Fibrillation hx of CHB s/p PPM HLD Metoprolol held for low BP Flecainide continued Per OP chart review 02/16: "Apixaban 5 Mg was discontinued at the hospital" Pt on hep sc for dvt px. Resume metoprolol as able. Hypoglycemia: resolved. Falls - pt with 2 falls in 3 days, likely 2/2 to suspected illness. PT/OT eval - recommends snf. Mild Oropharyngeal dysphagia: : had video fluoroscopy at [facility] which was negative for jade aspiration, speech evaled here as well due to caregiver's concern - continue with minced and moist diet, aspiration precautions Mild intellectual disability: [place] [facility]. BPH/Gross hematuria: likely from traumatic cath vs thrombocytopenia - will need urology follow up at discharge, cath placed at [facility]-- resolved Bipolar disorder: continue home medication, mood stable Seizure disorder: continue topamax, depakote, no witnessed seizure in several years Hypothyroidism: continue levothyroxine, TSH 5.261 uIu/ml and free T4 1.0 DVT ppx: heparin subc FULL CODE PCP: Guilherme Berger Dispo: PCU PT/OT evaluation, CM to assist with DC planning. Pending ID re-evaluation. Admission and Anticipated Discharge Date Admission Date: February 03, 2024 Subjective Patient was seen and examined at bedside. Patient was lying in bed, on room air, NAD, resting comfortably. Per RN, patient is eating okay and moving bowels okay. Patient's blood pressure has been stable and temperature has been afebrile. No new acute events overnight. Physical Exam Physical Exam: General-awake, alert, not in distress, poor articulation at baseline. Eyes- anicteric Neck- no JVD Lungs- clear breath sounds bilaterally, no rales/wheezes Heart- normal rate, regular rhythm; no murmurs Abdomen- normal bowel sounds, nondistended, soft, nontender Extremities- no pretibial edema, no calf tenderness Neuro- alert, no new gross focal neurologic deficits Skin- warm & dry Results & Data Results & Data Vital Signs (Past 12 Hours) Vital Signs Temp Pulse Resp BP Pulse Ox O2 Del Method 02/17/24 10:58 36.2 C L 64 15 126/76 97 Room Air 02/17/24 08:03 36.6 C 62 16 123/76 96 Room Air 02/17/24 08:00 Room Air 02/17/24 03:42 36.4 C L 68 18 126/81 97 Room Air
--- NOTE | 2024-02-17 15:59 | Infectious Disease Progress Nt ---
Date of Service February 17, 2024 Telehealth Information This note was written after EMR review and discussion w/ Dr. Walton. The patient was not seen via telemedicine. 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 Please, contact ID if any question or concern. Subjective This is a 63 y/o male w/ hx of intellectual disability, A fib on Eliquis, CHB s/p PPM, CKD III w/ horseshoe kidney and b/l renal masses, BPH and chronic an emia, known to ID for recent hospitalization 01/11-01/25/24 at [facility] for MR Stapyumiko haemolyticus bacteremia (01/12/24: 3 of 4; cleared on 01/17/24) and presumed aspiration pneumonia, recommended to complete 6 weeks of IV vancomycin iv and rifampin (negative DE, 01/21/24, but no clear source of bacteremia?) at a skilled facility. However, the patient was admitted to [facility] on 02/03/24 for lethargy w/ SHE and thrombocytopenia w/ vanco level of 27. Transiently needed levophed w/ clinically improvement on 02/06/24. Vancomycin iv was switched to daptomycin iv. The patient also had a brief course of zosyn for r/o aspiration pneumonia. Antibiotics were discontinued per ID recommendation on 02/10/24. However, the patient was found to be hypothermic and hypotensive on 02/12/24, for which zosyn and daptomycin were restarted on 02/12/24. Currently, the patient is clinically stable w/o specific source or findings suggestive of new infection. Results & Data Vital Signs (Past 12 Hours) Vital Signs Temp Pulse Resp BP Pulse Ox O2 Del Method 02/17/24 15:01 36.3 C L 67 19 123/77 96 Room Air 02/17/24 10:58 36.2 C L 64 15 126/76 97 Room Air 02/17/24 08:03 36.6 C 62 16 123/76 96 Room Air 02/17/24 08:00 Room Air Laboratory Results Labs 02/17/24: WBC 6.82K H 8.9 Plt 254K Cr 2.04 (CrCl 32.9) UA (02/11): unremarkable Blood cx (02/11): MS Staph epi (2 of 4, the same set), MS Staph capitis (1 of 4) Echo (02/03): no evidence of vegetation CXR (02/11): No acute cardiopulmonary disease. CT A/P (02/11): There is a small left pleural effusion and a trace right pleural effusion with bibasilar areas of atelectasis. There is thickening of the urinary bladder wall. This may be due to hypertrophy. The patient has a horseshoe shaped kidney. There are hyperdense lesions within the kidney . There is a 2.5 cm soft tissue density within the right side of the kidney. These may represent complex cysts. Masses cannot be excluded on this noncontrast study.
[2024-02-17] MEDS: rifAMPin 300 MG CAPSULE PO SCH (20:51)
[2024-02-18 06:58] LABS: Hematocrit (blood only) 26.8 % (42.0-52.0); Hemoglobin 8.5 g/dl (14.0-18.0); Mean Corpuscular Hemoglobin 30.7 pg (25.0-34.0); Mean Corpuscular Hgb Conc 31.7 g/dL (32.0-36.0); Mean Corpuscular Volume 96.8 fL (80.0-100.0); Mean Platelet Volume 11.3 fL (9.4-12.4); Platelet Count 259 K/uL (130-400); RDW Standard Deviation 60.9 fL (36.4-46.3); Red Blood Count 2.77 M/uL (4.70-6.10); White Blood Count 7.39 K/ul (4.8-10.8)
[2024-02-18 07:26] LABS: BUN Creatinine Ratio 14.8 (10-20); Calcium 9.8 mg/dl (8.6-10.3); Creatinine Clr Calc Pharmacy 34.7 ml/min; Potassium 4.3 mmol/L (3.5-5.1)
--- NOTE | 2024-02-18 15:31 | Hospitalist Progress Note ---
Date of Service February 18, 2024 Assessment & Plan (1) Septic shock: Plan: 63 yo M w/ PMH of baseline intellectual disability, Afib on Eliquis, CHB s/p permanent pacemaker placement, hypothyroidism, BPH, bipolar disorder, CKD stage III [baseline creatinine 1.4-1.5], horseshoe kidney, bilateral renal masses, BPH, chronic anemia who presents to ED 02/03/24 secondary to altered mental status and lethargy. Recent hospitalization 01/11-01/24 @ [facility] 2/2 Staphylococcus Haemolyticus, PNA presumed aspiration, negative TTE/DE; however ID recommended treating with 6 week course of IV Vanco/rifampin given negative cultures with treatment and no clear source of bacteremia. He was seen and evaluated by ST and underwent videofluoroscopy which described moderate oral pharyngeal dysphagia. Hosp course also complicated with hematuria, a/c anemia, thrombocytopenia. He was D/C To [facility] to complete course of antibiotics. [facility]. In ED pt with mild hypotension, tachycardia, altered mental status, elevated BUN/Cr from baseline, worsening anemia/thrombocytopenia in setting of IV Vanco with elevated vanco level at 27, oral rifampin and concern for worsened aspiration. He is being managed for the following: Septic shock 2/2 possible bacteremia and aspiration pna. Metabolic encephalopathy Recent Staph hemolyticus bacteremia - supposed to be on treatment through 02/27 at the time of presentation Possible Aspiration Pneumonia Possible catheter associated complicated UTI- ruled out At presentation patient was in septic shock requiring Levophed, off of Levophed since 02/04, mentation noted to have improved since 02/05 Patient with recent staph bacteremia [+ culture from [facility] 01/11 Staph hemolyticus, resistant except for vanco - unknown source, negative DE/TTE, cleared with treatment, ID recommend tx through 02/27] MRSA swab negative, admitting CPK level 23, admitting procalcitonin elevated at 2.05, admitting lactate WNL. ID evaluated 02/03, recommended holding both vancomycin and rifampin. Patient was switched to IV daptomycin due to concern for nephrotoxicity and added IV Zosyn for aspiration coverage. 02/03/2024 blood culture negative for 5 days. 02/03/2024 urine culture no growth. Zosyn discontinued 02/05. Daptomycin continued for treatment of previously diagnosed as staph hemolyticus bacteremia until 02/27. Patient was doing well on daptomycin and was afebrile and clinically stable. ID reevaluated 02/09 and recommended antibiotic cessation, hence daptomycin discontinued 02/09. On 02/11, patient found hypothermic [34.2C], hypotensive [99/65] Patient received IV fluid, IV albumin, blood culture, chest x-ray, CTAP, urine analysis, random cortisol, lactate. Foster was replaced w/ temp sensor CXR with no acute finding, CTAP with thickening of the urinary bladder wall, redemonstration of horseshoe shaped kidney and noted was soft tissue density in the right side of the kidney. UA neg, Bl Cx Positive for Staph epidermidis in 2 of 4 bottles and Staph capitis in 1 of 4 bottles. Zosyn and daptomycin were restarted 02/11---> Patient's vitals stabilized and has been afebrile. Home atorvastatin on hold. d/w ID 02/16, dc zosyn, c/w dapto and add rifampicin through 02/28/2024. Uro evaled for rt sided soft tissue density, plan for additional imaging as OP. FU w/ URO as OP. Patient has been afebrile, vitals are stable, continue with daptomycin and rifampin through 02/28/24. Bilateral Petechiae Thrombocytopenia Acute on chronic anemia Hematuria- resolved Possibly from Vanco + Rifampicin being taken as outpatient--> discontinued Hemoglobin has been stable and improving, platelets has normalized. Hematuria resolved. Acute/Chronic CKD-3b: Baseline creatinine of 1.4-1.5, nephrology evaluated, admitting creatinine of 2.74 likely prerenal in the setting of poor intake versus intrarenal from ATN/nephrotoxicity. Status post IV fluid. Creatinine has gradually improved, now slightly trending up likely 2/2 hypotensive episode from 02/11. Avoid nephrotoxic, maintain adequate fluid intake, Cr very slowly trending towards normal Hypernatremia: Admitting sodium of 147, nephrology evaluated, currently appears resolved. Follow. Maintain adequate fluid intake. Atrial Fibrillation hx of CHB s/p PPM HLD Metoprolol held for low BP Flecainide continued Per OP chart review 02/16: "Apixaban 5 Mg was discontinued at the hospital" Pt on hep sc for dvt px. Resume metoprolol as able. Hypoglycemia: resolved. Falls - pt with 2 falls in 3 days, likely 2/2 to suspected illness. PT/OT eval - recommends snf. Mild Oropharyngeal dysphagia: : had video fluoroscopy at [facility] which was negative for jade aspiration, speech evaled here as well due to caregiver's concern - continue with minced and moist diet, aspiration precautions Mild intellectual disability: [facility]. BPH/Gross hematuria: likely from traumatic cath vs thrombocytopenia - will need urology follow up at discharge, cath placed at [facility]-- resolved Bipolar disorder: continue home medication, mood stable Seizure disorder: continue topamax, depakote, no witnessed seizure in several years Hypothyroidism: continue levothyroxine, TSH 5.261 uIu/ml and free T4 1.0 DVT ppx: heparin subc FULL CODE PCP: Guilherme Berger Dispo: PCU PT/OT evaluation, CM to assist with DC planning. can go to snf. Admission and Anticipated Discharge Date Admission Date: February 03, 2024 Subjective Patient was seen and examined at bedside. Patient was lying in bed, on room air, NAD, resting comfortably. Per RN, patient is eating okay and moving bowels okay. Patient's blood pressure has been stable and temperature has been afebrile. No new acute events overnight. Physical Exam Physical Exam: General-awake, alert, not in distress, poor articulation at baseline. Eyes- anicteric Neck- no JVD Lungs- clear breath sounds bilaterally, no rales/wheezes Heart- normal rate, regular rhythm; no murmurs Abdomen- normal bowel sounds, nondistended, soft, nontender Extremities- no pretibial edema, no calf tenderness Neuro- alert, no new gross focal neurologic deficits Skin- warm & dry Results & Data Results & Data Vital Signs (Past 12 Hours) Vital Signs Temp Pulse Pulse Resp BP Pulse Ox O2 Del Method 02/18/24 12:09 36.7 C 69 18 123/69 96 Room Air 02/18/24 07:00 64
[2024-02-19 06:19] LABS: Hematocrit (blood only) 26.7 % (42.0-52.0); Hemoglobin 8.3 g/dl (14.0-18.0); Mean Corpuscular Hemoglobin 30.1 pg (25.0-34.0); Mean Corpuscular Hgb Conc 31.1 g/dL (32.0-36.0); Mean Corpuscular Volume 96.7 fL (80.0-100.0); Mean Platelet Volume 11.2 fL (9.4-12.4); Platelet Count 240 K/uL (130-400); RDW Coefficient of Variation 17.2 % (11.5-14.5); RDW Standard Deviation 60.9 fL (36.4-46.3); Red Blood Count 2.76 M/uL (4.70-6.10); White Blood Count 5.95 K/ul (4.8-10.8)
[2024-02-19 06:33] LABS: BUN Creatinine Ratio 14.5 (10-20); Calcium 9.8 mg/dl (8.6-10.3); Creatinine Clr Calc Pharmacy 28.4 ml/min; Potassium 4.4 mmol/L (3.5-5.1)
[2024-02-19] MEDS ORDERED: SODIUM CHLORIDE 0.45 % 1,000 ML IV SCH (07:30)
[2024-02-19] MEDS: DEXTROSE 5% 1,000 ML IV SCH (07:42)
[2024-02-19] MEDS: METOPROLOL SUCC 25MG EXT REL TAB PO SCH (10:35)
--- NOTE | 2024-02-19 15:50 | Hospitalist Progress Note ---
Date of Service February 19, 2024 Assessment & Plan (1) Septic shock: Plan: 63 yo M w/ PMH of baseline intellectual disability, Afib on Eliquis, CHB s/p permanent pacemaker placement, hypothyroidism, BPH, bipolar disorder, CKD stage III [baseline creatinine 1.4-1.5], horseshoe kidney, bilateral renal masses, BPH, chronic anemia who presents to ED 02/03/24 secondary to altered mental status and lethargy. Recent hospitalization 01/11-01/24 @ [facility] 2/2 Staphylococcus Haemolyticus, PNA presumed aspiration, negative TTE/DE; however ID recommended treating with 6 week course of IV Vanco/rifampin given negative cultures with treatment and no clear source of bacteremia. He was seen and evaluated by ST and underwent videofluoroscopy which described moderate oral pharyngeal dysphagia. Hosp course also complicated with hematuria, a/c anemia, thrombocytopenia. He was D/C To [facility] to complete [facility] In ED pt with mild hypotension, tachycardia, altered mental status, elevated BUN/Cr from baseline, worsening anemia/thrombocytopenia in setting of IV Vanco with elevated vanco level at 27, oral rifampin and concern for worsened aspiration. He is being managed for the following: Septic shock 2/2 possible bacteremia and aspiration pna. Metabolic encephalopathy Recent Staph hemolyticus bacteremia - supposed to be on treatment through 02/27 at the time of presentation Possible Aspiration Pneumonia Possible catheter associated complicated UTI- ruled out At presentation patient was in septic shock requiring Levophed, off of Levophed since 02/04, mentation noted to have improved since 02/05 Patient with recent staph bacteremia [+ culture from [facility] 01/11 Staph hemolyticus, resistant except for vanco - unknown source, negative DE/TTE, cleared with treatment, ID recommend tx through 02/27] MRSA swab negative, admitting CPK level 23, admitting procalcitonin elevated at 2.05, admitting lactate WNL. ID evaluated 02/03, recommended holding both vancomycin and rifampin. Patient was switched to IV daptomycin due to concern for nephrotoxicity and added IV Zosyn for aspiration coverage. 02/03/2024 blood culture negative for 5 days. 02/03/2024 urine culture no growth. Zosyn discontinued 02/05. Daptomycin continued for treatment of previously diagnosed as staph hemolyticus bacteremia until 02/27. Patient was doing well on daptomycin and was afebrile and clinically stable. ID reevaluated 02/09 and recommended antibiotic cessation, hence daptomycin discontinued 02/09. On 02/11, patient found hypothermic [34.2C], hypotensive [99/65] Patient received IV fluid, IV albumin, blood culture, chest x-ray, CTAP, urine analysis, random cortisol, lactate. Foster was replaced w/ temp sensor CXR with no acute finding, CTAP with thickening of the urinary bladder wall, redemonstration of horseshoe shaped kidney and noted was soft tissue density in the right side of the kidney. UA neg, Bl Cx Positive for Staph epidermidis in 2 of 4 bottles and Staph capitis in 1 of 4 bottles. Zosyn and daptomycin were restarted 02/11---> Patient's vitals stabilized and has been afebrile. Home atorvastatin on hold. d/w ID 02/16, dc zosyn, c/w dapto and add rifampicin through 02/28/2024. Uro evaled for rt sided soft tissue density, plan for additional imaging as OP. FU w/ URO as OP. Patient has been afebrile, vitals are stable, continue with daptomycin and rifampin through 02/28/24. Bilateral Petechiae Thrombocytopenia Acute on chronic anemia Hematuria- resolved Possibly from Vanco + Rifampicin being taken as outpatient--> discontinued Hemoglobin has been stable and improving, platelets has normalized. Hematuria resolved. Acute/Chronic CKD-3b: Baseline creatinine of 1.4-1.5, nephrology evaluated, admitting creatinine of 2.74 likely prerenal in the setting of poor intake versus intrarenal from ATN/nephrotoxicity. Status post IV fluid. Creatinine has gradually improved, now slightly trending up, 2.41 today, initiate D5w, encourage PO fluid intake. Avoid nephrotoxic, labs in AM. Hypernatremia: Admitting sodium of 147, nephrology evaluated, increases w/ poor po fluid intake, currently 146, encourage PO intake. Atrial Fibrillation hx of CHB s/p PPM HLD Metoprolol held for low BP Flecainide continued Per OP chart review 02/16: "Apixaban 5 Mg was discontinued at the hospital" Pt on hep sc for dvt px. Resume metoprolol 02/18 Hypoglycemia: resolved. Falls - pt with 2 falls in 3 days, likely 2/2 to suspected illness. PT/OT eval - recommends snf. Mild Oropharyngeal dysphagia: : had video fluoroscopy at [facility] which was negative for jade aspiration, speech evaled here as well due to caregiver's concern - continue with minced and moist diet, aspiration precautions Mild intellectual disability: [facility]. BPH/Gross hematuria: likely from traumatic cath vs thrombocytopenia - will need urology follow up at discharge, cath placed at [facility]-- resolved Bipolar disorder: continue home medication, mood stable Seizure disorder: continue topamax, depakote, no witnessed seizure in several years Hypothyroidism: continue levothyroxine, TSH 5.261 uIu/ml and free T4 1.0 DVT ppx: heparin subc FULL CODE PCP: Guilherme Berger Dispo: PCU PT/OT evaluation, CM to assist with DC planning. chanelle/ckd, getting ivf for now. Admission and Anticipated Discharge Date Admission Date: February 03, 2024 Subjective Patient was seen and examined at bedside. Patient was lying in bed, on room air, NAD, resting comfortably. Per RN, patient is eating okay and moving bowels okay. Patient's blood pressure has been rising up, will resume home metoprolol which was initially held due to low BP. No new acute events overnight. Physical Exam Physical Exam: General-awake, alert, not in distress, poor articulation at baseline. Eyes- anicteric Neck- no JVD Lungs- clear breath sounds bilaterally, no rales/wheezes Heart- normal rate, regular rhythm; no murmurs Abdomen- normal bowel sounds, nondistended, soft, nontender Extremities- no pretibial edema, no calf tenderness Neuro- alert, no new gross focal neurologic deficits Skin- warm & dry Results & Data Results & Data Vital Signs (Past 12 Hours) Vital Signs Temp Pulse Pulse Resp BP Pulse Ox O2 Del Method 02/19/24 14:50 36.9 C 85 18 144/78 H 94 Room Air 02/19/24 10:53 36.8 C 71 18 146/81 H 95 Room Air 02/19/24 08:10 36.6 C 83 18 148/80 H 94 Room Air 02/19/24 08:00 65 02/19/24 05:46 37.3 C 64 18 128/72 91 Room Air
[2024-02-20 06:45] LABS: Hematocrit (blood only) 25.4 % (42.0-52.0); Hemoglobin 8.2 g/dl (14.0-18.0); Mean Corpuscular Hemoglobin 30.7 pg (25.0-34.0); Mean Corpuscular Hgb Conc 32.3 g/dL (32.0-36.0); Mean Corpuscular Volume 95.1 fL (80.0-100.0); Mean Platelet Volume 11.4 fL (9.4-12.4); Platelet Count 204 K/uL (130-400); RDW Coefficient of Variation 16.3 % (11.5-14.5); RDW Standard Deviation 56.6 fL (36.4-46.3); Red Blood Count 2.67 M/uL (4.70-6.10); White Blood Count 5.59 K/ul (4.8-10.8)
[2024-02-20 07:13] LABS: Calcium 9.5 mg/dl (8.6-10.3); Creatinine Clr Calc Pharmacy 34.2 ml/min; Magnesium 1.8 mg/dl (1.7-2.4); Phosphorus 3.4 mg/dl (2.5-4.9); Potassium 4.1 mmol/L (3.5-5.1)
--- NOTE | 2024-02-20 15:18 | Hospitalist Progress Note ---
Date of Service February 20, 2024 Assessment & Plan (1) Septic shock: Plan: 63 yo M w/ PMH of baseline intellectual disability, Afib on Eliquis, CHB s/p permanent pacemaker placement, hypothyroidism, BPH, bipolar disorder, CKD stage III [baseline creatinine 1.4-1.5], horseshoe kidney, bilateral renal masses, BPH, chronic anemia who presents to ED 02/03/24 secondary to altered mental status and lethargy. Recent hospitalization 01/11-01/[address] [facility] 2/2 Staphylococcus Haemolyticus, PNA presumed aspiration, negative TTE/DE; however ID recommended treating with 6 week course of IV Vanco/rifampin given negative cultures with treatment and no clear source of bacteremia. He was seen and evaluated by ST and underwent videofluoroscopy which described moderate oral pharyngeal dysphagia. Hosp course also complicated with hematuria, a/c anemia, thrombocytopenia. He was D/C To [facility] to complete course of antibiotics. He is from a intermediate. In ED pt with mild hypotension, tachycardia, altered mental status, elevated BUN/Cr from baseline, worsening anemia/thrombocytopenia in setting of IV Vanco with elevated vanco level at 27, oral rifampin and concern for worsened aspiration. He is being managed for the following: Septic shock 2/2 possible bacteremia and aspiration pna. Metabolic encephalopathy Recent Staph hemolyticus bacteremia - supposed to be on treatment through 02/27 at the time of presentation Possible Aspiration Pneumonia Possible catheter associated complicated UTI- ruled out At presentation patient was in septic shock requiring Levophed, off of Levophed since 02/04, mentation noted to have improved since 02/05 Patient with recent staph bacteremia [+ culture from [facility] 01/11 Staph hemolyticus, resistant except for vanco - unknown source, negative DE/TTE, cleared with treatment, ID recommend tx through 02/27] MRSA swab negative, admitting CPK level 23, admitting procalcitonin elevated at 2.05, admitting lactate WNL. ID evaluated 02/03, recommended holding both vancomycin and rifampin. Patient was switched to IV daptomycin due to concern for nephrotoxicity and added IV Zosyn for aspiration coverage. 02/03/2024 blood culture negative for 5 days. 02/03/2024 urine culture no growth. Zosyn discontinued 02/05. Daptomycin continued for treatment of previously diagnosed as staph hemolyticus bacteremia until 02/27. Patient was doing well on daptomycin and was afebrile and clinically stable. ID reevaluated 02/09 and recommended antibiotic cessation, hence daptomycin discontinued 02/09. On 02/11, patient found hypothermic [34.2C], hypotensive [99/65] Patient received IV fluid, IV albumin, blood culture, chest x-ray, CTAP, urine analysis, random cortisol, lactate. Foster was replaced w/ temp sensor CXR with no acute finding, CTAP with thickening of the urinary bladder wall, redemonstration of horseshoe shaped kidney and noted was soft tissue density in the right side of the kidney. UA neg, Bl Cx Positive for Staph epidermidis in 2 of 4 bottles and Staph capitis in 1 of 4 bottles. Zosyn and daptomycin were restarted 02/11---> Patient's vitals stabilized and has been afebrile. Home atorvastatin on hold. d/w ID 02/16, dc zosyn, c/w dapto and add rifampicin through 02/28/2024. Uro evaled for rt sided soft tissue density, plan for additional imaging as OP. FU w/ URO as OP. Patient has been afebrile, vitals are stable, continue with daptomycin and rifampin through 02/28/24. Bilateral Petechiae Thrombocytopenia Acute on chronic anemia Hematuria- resolved Possibly from Vanco rather than Rifampicin (being taken as outpatient), further d/w ID was held 02/16, rifampic resumed 02/16. Hemoglobin has been stable and improving, platelets has normalized. Hematuria resolved. Continue to monitor. Acute/Chronic CKD-3b: Baseline creatinine of 1.4-1.5, nephrology evaluated, admitting creatinine of 2.74 likely prerenal in the setting of poor intake versus intrarenal from ATN/nephrotoxicity. Status post IV fluid. Creatinine has gradually improved, then again trended up, 2.41 on 02/18, s/p IVF, Cr today 2.0. encourage PO fluid intake. Avoid nephrotoxic, labs in AM. Hypernatremia: Admitting sodium of 147, nephrology evaluated, increases w/ poor po fluid intake, improved w/ adequate hydration. Atrial Fibrillation hx of CHB s/p PPM HLD Metoprolol held for low BP Flecainide continued Per OP chart review 02/16: "Apixaban 5 Mg was discontinued at the hospital" Pt on hep sc for dvt px. Resume metoprolol 02/18 Hypoglycemia: resolved. Falls - pt with 2 falls in 3 days, likely 2/2 to suspected illness. PT/OT eval - recommends snf. Mild Oropharyngeal dysphagia: : had video fluoroscopy at [facility] which was negative for jade aspiration, speech evaled here as well due to caregiver's concern - continue with minced and moist diet, aspiration precautions Mild intellectual disability: resides in intermediate. BPH/Gross hematuria: likely from traumatic cath vs thrombocytopenia - will need urology follow up at discharge, cath placed at [facility]-- resolved Bipolar disorder: continue home medication, mood stable Seizure disorder: continue topamax, depakote, no witnessed seizure in several years Hypothyroidism: continue levothyroxine, TSH 5.261 uIu/ml and free T4 1.0 DVT ppx: heparin subc FULL CODE PCP: Guilherme Berger Dispo: can go to med/surg PT/OT evaluation, CM to assist with DC planning. f/u chanelle/ckd, if downtrending marie, clear for dc. Admission and Anticipated Discharge Date Admission Date: February 03, 2024 Subjective Patient was seen and examined at bedside. Patient was lying in bed, on room air, NAD, resting comfortably. Per RN, patient is eating okay and moving bowels okay. No new acute events overnight. Physical Exam Physical Exam: General-awake, alert, not in distress, poor articulation at baseline. Eyes- anicteric Neck- no JVD Lungs- clear breath sounds bilaterally, no rales/wheezes Heart- normal rate, regular rhythm; no murmurs Abdomen- normal bowel sounds, nondistended, soft, nontender Extremities- no pretibial edema, no calf tenderness Neuro- alert, no new gross focal neurologic deficits Skin- warm & dry Results & Data Results & Data Vital Signs (Past 12 Hours) Vital Signs Temp Pulse Pulse Resp BP Pulse Ox O2 Del Method 02/20/24 08:00 36.7 C 60 16 131/71 95 Room Air 02/20/24 07:00 61
[2024-02-21 07:47] LABS: Hematocrit (blood only) 30.1 % (42.0-52.0); Hemoglobin 9.5 g/dl (14.0-18.0); Mean Corpuscular Hemoglobin 30.5 pg (25.0-34.0); Mean Corpuscular Hgb Conc 31.6 g/dL (32.0-36.0); Mean Corpuscular Volume 96.8 fL (80.0-100.0); Mean Platelet Volume 11.5 fL (9.4-12.4); Platelet Count 211 K/uL (130-400); RDW Coefficient of Variation 16.2 % (11.5-14.5); RDW Standard Deviation 58.2 fL (36.4-46.3); Red Blood Count 3.11 M/uL (4.70-6.10)
[2024-02-21 08:03] LABS: BUN Creatinine Ratio 14.1 (10-20); Calcium 10.1 mg/dl (8.6-10.3); Creatinine Clr Calc Pharmacy 35.7 ml/min; Potassium 4.1 mmol/L (3.5-5.1)
--- NOTE | 2024-02-21 12:31 | Hospitalist Progress Note ---
Date of Service February 21, 2024 Assessment & Plan (1) Septic shock: Plan: 63 yo M w/ PMH of baseline intellectual disability, Afib on Eliquis, CHB s/p permanent pacemaker placement, hypothyroidism, BPH, bipolar disorder, CKD stage III [baseline creatinine 1.4-1.5], horseshoe kidney, bilateral renal masses, BPH, chronic anemia who presents to ED 02/03/24 secondary to altered mental status and lethargy. Recent hospitalization 01/11-01/24 @ [facility] 2/2 Staphylococcus Haemolyticus, PNA presumed aspiration, negative TTE/DE; however ID recommended treating with 6 week course of IV Vanco/rifampin given negative cultures with treatment and no clear source of bacteremia. He was seen and evaluated by ST and underwent videofluoroscopy which described moderate oral pharyngeal dysphagia. Hosp course also complicated with hematuria, a/c anemia, thrombocytopenia. He was D/C To [facility] to complete course of antibiotics. He is from a intermediate. In ED pt with mild hypotension, tachycardia, altered mental status, elevated BUN/Cr from baseline, worsening anemia/thrombocytopenia in setting of IV Vanco with elevated vanco level at 27, oral rifampin and concern for worsened aspiration. He is being managed for the following: Septic shock 2/2 possible bacteremia and aspiration pna. Metabolic encephalopathy Recent Staph hemolyticus bacteremia - supposed to be on treatment through 02/27 at the time of presentation Possible Aspiration Pneumonia Possible catheter associated complicated UTI- ruled out At presentation patient was in septic shock requiring Levophed, off of Levophed since 02/04, mentation noted to have improved since 02/05 Patient with recent staph bacteremia [+ culture from [facility] 01/11 Staph hemolyticus, resistant except for vanco - unknown source, negative DE/TTE, cleared with treatment, ID recommend tx through 02/27] MRSA swab negative, admitting CPK level 23, admitting procalcitonin elevated at 2.05, admitting lactate WNL. ID evaluated 02/03, recommended holding both vancomycin and rifampin. Patient was switched to IV daptomycin due to concern for nephrotoxicity and added IV Zosyn for aspiration coverage. 02/03/2024 blood culture negative for 5 days. 02/03/2024 urine culture no growth. Zosyn discontinued 02/05. Daptomycin continued for treatment of previously diagnosed as staph hemolyticus bacteremia until 02/27. Patient was doing well on daptomycin and was afebrile and clinically stable. ID reevaluated 02/09 and recommended antibiotic cessation, hence daptomycin discontinued 02/09. On 02/11, patient found hypothermic [34.2C], hypotensive [99/65] Patient received IV fluid, IV albumin, blood culture, chest x-ray, CTAP, urine analysis, random cortisol, lactate. Foster was replaced w/ temp sensor CXR with no acute finding, CTAP with thickening of the urinary bladder wall, redemonstration of horseshoe shaped kidney and noted was soft tissue density in the right side of the kidney. UA neg, Bl Cx Positive for Staph epidermidis in 2 of 4 bottles and Staph capitis in 1 of 4 bottles. Zosyn and daptomycin were restarted 02/11---> Patient's vitals stabilized and has been afebrile. Home atorvastatin on hold. d/w ID 02/16, dc zosyn, c/w dapto and add rifampicin through 02/28/2024. Uro evaled for rt sided soft tissue density, plan for additional imaging as OP. FU w/ URO as OP. Patient has been afebrile, vitals are stable, continue with daptomycin and rifampin through 02/28/24. Bilateral Petechiae Thrombocytopenia Acute on chronic anemia Hematuria- resolved Possibly from Vanco rather than Rifampicin (being taken as outpatient), further d/w ID was held 02/16, rifampic resumed 02/16. Hemoglobin has been stable and improving, platelets has normalized. Hematuria resolved. Continue to monitor. Acute/Chronic CKD-3b: Baseline creatinine of 1.4-1.5, nephrology evaluated, admitting creatinine of 2.74 likely prerenal in the setting of poor intake versus intrarenal from ATN/nephrotoxicity. Status post IV fluid. Creatinine has gradually improved, then again trended up, 2.41 on 02/18, s/p IVF, Cr today 1.85. encourage PO fluid intake. Avoid nephrotoxic, labs in AM. Hypernatremia: Admitting sodium of 147, nephrology evaluated, increases w/ poor po fluid intake, improved w/ adequate hydration. Atrial Fibrillation hx of CHB s/p PPM HLD Metoprolol held for low BP Flecainide continued Per OP chart review 02/16: "Apixaban 5 Mg was discontinued at the hospital" Pt on hep sc for dvt px. Resume metoprolol 02/18 Hypoglycemia: resolved. Falls - pt with 2 falls in 3 days, likely 2/2 to suspected illness. PT/OT eval - recommends snf. Mild Oropharyngeal dysphagia: : had video fluoroscopy at [facility] which was negative for jade aspiration, speech evaled here as well due to caregiver's concern - continue with minced and moist diet, aspiration precautions Mild intellectual disability: resides in intermediate. BPH/Gross hematuria: likely from traumatic cath vs thrombocytopenia - will need urology follow up at discharge, cath placed at [facility]-- resolved Bipolar disorder: continue home medication, mood stable Seizure disorder: continue topamax, depakote, no witnessed seizure in several years Hypothyroidism: continue levothyroxine, TSH 5.261 uIu/ml and free T4 1.0 DVT ppx: heparin subc FULL CODE PCP: Guilherme Berger Dispo: can go to med/surg PT/OT evaluation, CM to assist with DC planning. can dc to facility. needs iv antibiotic. Admission and Anticipated Discharge Date Admission Date: February 03, 2024 Subjective Patient was seen and examined at bedside. Patient was lying in bed, on room air, NAD, resting comfortably. Per RN, patient is eating okay and moving bowels okay. He briefly passed today while getting ready to sit on commode, didn't fall /hit head, caregivers at bedside at the time. Likely vasovagal. He had good amount of physical therapy just prior to this. Pt was again examined in the room, b/l limbs (UE and LE) strength are symmetrical. Pt can't follow commands. No focal deficit complained or noted. Pt's caregivers who were at his bedside thinks he is at his baseline. No new acute events overnight. Physical Exam Physical Exam: General-awake, alert, not in distress, poor articulation at baseline. Eyes- anicteric Neck- no JVD Lungs- clear breath sounds bilaterally, no rales/wheezes Heart- normal rate, regular rhythm; no murmurs Abdomen- normal bowel sounds, nondistended, soft, nontender Extremities- no pretibial edema, no calf tenderness Neuro- alert, no new gross focal neurologic deficits Skin- warm & dry Results & Data Results & Data Vital Signs (Past 12 Hours) Vital Signs Temp Pulse Resp BP Pulse Ox O2 Del Method 02/21/24 07:53 36.4 C L 62 17 154/76 H 96 Room Air
[2024-02-22 06:36] LABS: Hematocrit (blood only) 31.3 % (42.0-52.0); Mean Corpuscular Hemoglobin 30.6 pg (25.0-34.0); Mean Corpuscular Hgb Conc 31.9 g/dL (32.0-36.0); Mean Corpuscular Volume 95.7 fL (80.0-100.0); Mean Platelet Volume 11.7 fL (9.4-12.4); Platelet Count 221 K/uL (130-400); RDW Coefficient of Variation 16.2 % (11.5-14.5); RDW Standard Deviation 57.6 fL (36.4-46.3); Red Blood Count 3.27 M/uL (4.70-6.10); White Blood Count 3.99 K/ul (4.8-10.8)
[2024-02-22 06:48] LABS: Calcium 10.2 mg/dl (8.6-10.3); Potassium 4.3 mmol/L (3.5-5.1)
[2024-02-22 06:53] LABS: BUN Creatinine Ratio 17.9 (10-20); Creatinine Clr Calc Pharmacy 39.4 ml/min
--- NOTE | 2024-02-22 13:35 | Hospitalist Progress Note ---
Date of Service February 22, 2024 Assessment & Plan (1) Septic shock: Plan: 63 yo M w/ PMH of baseline intellectual disability, Afib on Eliquis, CHB s/p permanent pacemaker placement, hypothyroidism, BPH, bipolar disorder, CKD stage III [baseline creatinine 1.4-1.5], horseshoe kidney, bilateral renal masses, BPH, chronic anemia who presents to ED 02/03/24 secondary to altered mental status and lethargy. Recent hospitalization 01/11-01/[address] [facility] 2/2 Staphylococcus Haemolyticus, PNA presumed aspiration, negative TTE/DE; however ID recommended treating with 6 week course of IV Vanco/rifampin given negative cultures with treatment and no clear source of bacteremia. He was seen and evaluated by ST and underwent videofluoroscopy which described moderate oral pharyngeal dysphagia. Hosp course also complicated with hematuria, a/c anemia, thrombocytopenia. He was D/C To [facility] to complete course of antibiotics. [facility] In ED pt with mild hypotension, tachycardia, altered mental status, elevated BUN/Cr from baseline, worsening anemia/thrombocytopenia in setting of IV Vanco with elevated vanco level at 27, oral rifampin and concern for worsened aspiration. He is being managed for the following: Septic shock 2/2 possible bacteremia and aspiration pna. Metabolic encephalopathy Recent Staph hemolyticus bacteremia - supposed to be on treatment through 02/27 at the time of presentation Possible Aspiration Pneumonia Possible catheter associated complicated UTI- ruled out At presentation patient was in septic shock requiring Levophed, off of Levophed since 02/04, mentation noted to have improved since 02/05 Patient with recent staph bacteremia [+ culture from [facility] 01/11 Staph hemolyticus, resistant except for vanco - unknown source, negative DE/TTE, cleared with treatment, ID recommend tx through 02/27] MRSA swab negative, admitting CPK level 23, admitting procalcitonin elevated at 2.05, admitting lactate WNL. ID evaluated 02/03, recommended holding both vancomycin and rifampin. Patient was switched to IV daptomycin due to concern for nephrotoxicity and added IV Zosyn for aspiration coverage. 02/03/2024 blood culture negative for 5 days. 02/03/2024 urine culture no growth. Zosyn discontinued 02/05. Daptomycin continued for treatment of previously diagnosed as staph hemolyticus bacteremia until 02/27. Patient was doing well on daptomycin and was afebrile and clinically stable. ID reevaluated 02/09 and recommended antibiotic cessation, hence daptomycin discontinued 02/09. On 02/11, patient found hypothermic [34.2C], hypotensive [99/65] Patient received IV fluid, IV albumin, blood culture, chest x-ray, CTAP, urine analysis, random cortisol, lactate. Foster was replaced w/ temp sensor CXR with no acute finding, CTAP with thickening of the urinary bladder wall, redemonstration of horseshoe shaped kidney and noted was soft tissue density in the right side of the kidney. UA neg, Bl Cx Positive for Staph epidermidis in 2 of 4 bottles and Staph capitis in 1 of 4 bottles. Zosyn and daptomycin were restarted 02/11---> Patient's vitals stabilized and has been afebrile. Home atorvastatin on hold. d/w ID 02/16, dc zosyn, c/w dapto and add rifampicin through 02/28/2024. Uro evaled for rt sided soft tissue density, plan for additional imaging as OP. FU w/ URO as OP. Patient has been afebrile, vitals are stable, continue with daptomycin and rifampin through 02/28/24. 02/22/2024: Remains stable and is afebrile and hemodynamic stable Pulled out his central line without any complication thereafter Has a peripheral line and getting antibiotic through it Has not got any bed to be discharged so he will be staying here for the next few days to finish the IV antibiotic His daptomycin dose has been adjusted according to the renal function Bilateral Petechiae Thrombocytopenia Acute on chronic anemia Hematuria- resolved Possibly from Vanco rather than Rifampicin (being taken as outpatient), further d/w ID was held 02/16, rifampic resumed 02/16. Hemoglobin has been stable and improving, platelets has normalized. Hematuria resolved. Continue to monitor. hemoglobin is stable Acute/Chronic CKD-3b: Baseline creatinine of 1.4-1.5, nephrology evaluated, admitting creatinine of 2.74 likely prerenal in the setting of poor intake versus intrarenal from ATN/nephrotoxicity. Status post IV fluid. Creatinine has gradually improved, then again trended up, 2.41 on 02/18, s/p IVF, Cr today 1.85. encourage PO fluid intake. Avoid nephrotoxic, labs in AM. Creatinine shows improvement at 1.68 as of today Hypernatremia: Admitting sodium of 147, nephrology evaluated, increases w/ poor po fluid intake, improved w/ adequate hydration. Sodium level has been normalized Atrial Fibrillation hx of CHB s/p PPM HLD Metoprolol held for low BP Flecainide continued Per OP chart review 02/16: "Apixaban 5 Mg was discontinued at the hospital" Pt on hep sc for dvt px. Resume metoprolol 02/18 Hypoglycemia: resolved. Falls - pt with 2 falls in 3 days, likely 2/2 to suspected illness. PT/OT eval - recommends snf. Mild Oropharyngeal dysphagia: : had video fluoroscopy at [facility] which was negative for jade aspiration, speech evaled here as well due to caregiver's concern - continue with minced and moist diet, aspiration precautions Mild intellectual disability: [facility]. BPH/Gross hematuria: likely from traumatic cath vs thrombocytopenia - will need urology follow up at discharge, cath placed at [facility]-- resolved Bipolar disorder: continue home medication, mood stable Seizure disorder: Continue topamax, depakote, no witnessed seizure in several years no more seizures Hypothyroidism: continue levothyroxine, TSH 5.261 uIu/ml and free T4 1.0 DVT ppx: heparin subc FULL CODE PCP: Guilherme Berger Dispo: can go to med/surg PT/OT evaluation, CM to assist with DC planning. can dc to facility. needs iv antibiotic. Awaiting placement Admission and Anticipated Discharge Date Admission Date: February 03, 2024 Subjective 02/22/2024 The patient was seen and examined in ICU He has intellectual disability and is noncommunicative to be a meaningful way Does not seems to be in any acute distress and remains hemodynamically stable Review of Systems Review of Systems: Unobtainable due to cognitive status Physical Exam Physical Exam: Lying in bed without any acute distress Constitutional: + ill appearing and + thin Eyes: PERRL, conjunctivae normal, anicteric sclerae ENMT: external ear and nose normal, oropharynx normal Respiratory: no respiratory distress Auscultation: + diminished lung sounds and + crackles ( minimal crackles at the bases) Cardiovascular: Rate/Rhythm: regular rate and regular rhythm; not tachycardic Heart Sounds: normal S1 and normal S2; no murmur Extremities: + edema ( Trace edema bilaterally) Gastrointestinal (Abdomen): Inspection/Auscultation: abdomen not distended Percussion/Palpation: abdomen soft; abdomen nontender Musculoskeletal: No arthritis involving any of the joint Neurologic: has intellectual disability and cannot make any meaningful conversation. Moving all the limbs Lymphatic: no cervical or axillary lymphadenopathy Results & Data Results & Data Vital Signs (Past 12 Hours) Vital Signs Temp Pulse Resp BP Pulse Ox O2 Del Method 02/22/24 11:52 36.7 C 65 18 142/88 H Room Air 02/22/24 08:22 36.8 C 64 17 138/77 97 Room Air 02/22/24 03:59 36.4 C L 61 18 143/76 H 94 Room Air Laboratory Results Short CBC 02/22/24 Range/Units 05:36 WBC 3.99 L (4.8-10.8) K/ul Hgb 10.0 L (14.0-18.0) g/dl Hct 31.3 L (42.0-52.0) % Plt Count 221 (130-400) K/uL [facility] 02/22/24 05:36 Sodium 139 Potassium 4.3 Chloride 108 H Carbon Dioxide 23 BUN 30 H Creatinine 1.68 H Glucose 65 L Calcium 10.2 Medications Administered Current Inpatient Medications Acetaminophen (Acetaminophen 325 Mg Tab) 650 mg PO Q6H PRN PRN Reason: Pain or Fever Stop: 03/12/24 19:45 Last Admin: 02/20/24 20:08 Dose: 650 mg Allopurinol (Allopurinol 100 Mg Tab) 100 mg PO DAILY [facility] Stop: 03/08/24 08:59 Last Admin: 02/22/24 09:54 Dose: 100 mg Calcium Carbonate (Calcium Carbonate 500 Mg Chewable Tab) 500 mg PO BID [facility] Stop: 03/07/24 20:59 Last Admin: 02/22/24 09:55 Dose: 500 mg Cetirizine HCl (Cetirizine Oral Soln 1 Mg/Ml) 10 mg PO DAILY [facility] Stop: 03/09/24 09:59 Last Admin: 02/22/24 09:55 Dose: 10 mg Dextrose (Dextrose 50% 50 Ml Syringe) 25 - 50 ml IV UD PRN; Protocol PRN Reason: Hypoglycemia Protocol Stop: 03/04/24 13:57 Divalproex Sodium (Divalproex Extended Release 500 Mg Tab) 1,000 mg PO HS [facility] Stop: 03/10/24 20:59 Last Admin: 02/21/24 20:04 Dose: 1,000 mg Docusate Sodium (Docusate Sodium Syrup 100 Mg/10 Ml Udc) 100 mg PO DAILY [facility] Stop: 03/08/24 08:59 Famotidine (Famotidine 20 Mg Tab) 20 mg PO DAILY [facility]; Protocol Stop: 03/11/24 08:59 Last Admin: 02/22/24 09:52 Dose: 20 mg Finasteride (Finasteride 5 Mg Tab) 5 mg PO DAILY [facility] Stop: 03/05/24 08:59 Last Admin: 02/22/24 09:53 Dose: 5 mg Flecainide Acetate (Flecainide Acetate 100 Mg Tablet) 50 mg PO BID [facility] Stop: 03/04/24 20:59 Last Admin: 02/22/24 09:53 Dose: 50 mg Gabapentin (Gabapentin 250 Mg/5 Ml 470 Ml Btl) 100 mg PO TID [facility] Stop: 03/05/24 13:59 Last Admin: 02/22/24 09:52 Dose: 100 mg Glucagon (Glucagon For Inj 1 Mg Vial) 1 mg SQ UD PRN; Protocol PRN Reason: Hypoglycemia Protocol Stop: 03/04/24 13:57 Glucose (Glucose 40% Gel 15 Gm Tube) 15 - 30 gm PO UD PRN; Protocol PRN Reason: Hypoglycemia Protocol Stop: 03/04/24 13:57 Glucose (Glucose 10 Tab/Tube) 4 - 8 tab PO UD PRN; Protocol PRN Reason: Hypoglycemia Protocol Stop: 03/04/24 13:57 Heparin Sodium (Beef Lung) (Heparin 10 Unit/Ml 5 Ml Flush) 5 ml FLUSH PRN PRN PRN Reason: Flush Stop: 03/17/24 10:14 Last Admin: 02/17/24 16:36 Dose: 5 ml Heparin Sodium (Porcine) (Heparin Sod 5,000 Unit/0.5 Ml Vial) 5,000 units SQ Q12 [facility] Stop: 03/13/24 20:59 Last Admin: 02/22/24 09:56 Dose: 5,000 units Daptomycin 550 mg/ Syringe 11 mls @ 5.5 mls/min IV Q24H [facility]; Protocol Stop: 02/27/24 15:59 Last Admin: 02/22/24 11:47 Dose: 5.5 mls/min Lactobacillus Acidophilus (Lactobacillus Acidophilus 1 Gm Pack) 1 packet PO TIDM [facility] Stop: 03/11/24 07:59 Last Admin: 02/22/24 11:47 Dose: 1 packet Lansoprazole (Lansoprazole 30 Mg Soltab) 30 mg PO DAILY [facility] Stop: 03/10/24 08:59 Last Admin: 02/22/24 09:52 Dose: 30 mg Levothyroxine Sodium (Levothyroxine Sodium 75 Mcg Tablet) 75 mcg PO DAILYBB [facility] Stop: 03/05/24 06:29 Last Admin: 02/22/24 05:47 Dose: 75 mcg Metoprolol Succinate (Metoprolol Succ 25mg Ext Rel Tab) 25 mg PO QAM [facility] Stop: 03/20/24 08:59 Last Admin: 02/22/24 09:54 Dose: 25 mg Miscellaneous (Carbohydrates For Hypoglycemia ) 15 - 30 gm PO UD PRN PRN Reason: Hypoglycemia Protocol Stop: 03/04/24 13:57 Ondansetron HCl (Ondansetron Inj 2 Mg/Ml 2 Ml Vial) 4 mg IV Q6H PRN PRN Reason: Nausea Stop: 03/04/24 14:27 Last Admin: 02/11/24 20:47 Dose: 4 mg Polyethylene Glycol (Polyethylene (Miralax) 17 Gm Pack) 17 gm PO DAILY PRN PRN Reason: Constipation Stop: 03/04/24 14:27 Rifampin (Rifampin 300 Mg Capsule) 300 mg PO TID [facility] Stop: 03/18/24 20:59 Last Admin: 02/22/24 09:55 Dose: 300 mg Tamsulosin HCl (Tamsulosin Hcl 0.4 Mg Cap) 0.4 mg PO BID [facility] Stop: 03/04/24 20:59 Last Admin: 02/22/24 09:54 Dose: 0.4 mg Topiramate (Topiramate 100 Mg Tab) 100 mg PO QPM [facility] Stop: 03/04/24 20:59 Last Admin: 02/21/24 20:05 Dose: 100 mg Topiramate (Topiramate 50 Mg Tab) 50 mg PO QAM [facility] Stop: 03/05/24 08:59 Last Admin: 02/22/24 09:54 Dose: 50 mg Vitamin D (Cholecalciferol 25 Mcg (1000 Units) Tab) 50 mcg PO DAILY [facility] Stop: 03/05/24 08:59 Last Admin: 02/05/24 11:03 Dose: Not Given
[2024-02-23] MEDS: DAPTOmycin 500 MG in SYRINGE 0 ML IV SCH (11:46)
--- NOTE | 2024-02-23 13:11 | Hospitalist Progress Note ---
Date of Service February 23, 2024 Assessment & Plan (1) Septic shock: Plan: 63 yo M w/ PMH of baseline intellectual disability, Afib on Eliquis, CHB s/p permanent pacemaker placement, hypothyroidism, BPH, bipolar disorder, CKD stage III [baseline creatinine 1.4-1.5], horseshoe kidney, bilateral renal masses, BPH, chronic anemia who presents to ED 02/03/24 secondary to altered mental status and lethargy. Recent hospitalization 01/11-01/24 @ [facility] 2/2 Staphylococcus Haemolyticus, PNA presumed aspiration, negative TTE/DE; however ID recommended treating with 6 week course of IV Vanco/rifampin given negative cultures with treatment and no clear source of bacteremia. He was seen and evaluated by ST and underwent videofluoroscopy which described moderate oral pharyngeal dysphagia. Hosp course also complicated with hematuria, a/c anemia, thrombocytopenia. He was D/C To [facility] to complete course of antibiotics. He is from a care home. In ED pt with mild hypotension, tachycardia, altered mental status, elevated BUN/Cr from baseline, worsening anemia/thrombocytopenia in setting of IV Vanco with elevated vanco level at 27, oral rifampin and concern for worsened aspiration. He is being managed for the following: Septic shock 2/2 possible bacteremia and aspiration pna. Metabolic encephalopathy Recent Staph hemolyticus bacteremia - supposed to be on treatment through 02/27 at the time of presentation Possible Aspiration Pneumonia Possible catheter associated complicated UTI- ruled out At presentation patient was in septic shock requiring Levophed, off of Levophed since 02/04, mentation noted to have improved since 02/05 Patient with recent staph bacteremia [+ culture from [facility] 01/11 Staph hemolyticus, resistant except for vanco - unknown source, negative DE/TTE, cleared with treatment, ID recommend tx through 02/27] MRSA swab negative, admitting CPK level 23, admitting procalcitonin elevated at 2.05, admitting lactate WNL. ID evaluated 02/03, recommended holding both vancomycin and rifampin. Patient was switched to IV daptomycin due to concern for nephrotoxicity and added IV Zosyn for aspiration coverage. 02/03/2024 blood culture negative for 5 days. 02/03/2024 urine culture no growth. Zosyn discontinued 02/05. Daptomycin continued for treatment of previously diagnosed as staph hemolyticus bacteremia until 02/27. Patient was doing well on daptomycin and was afebrile and clinically stable. ID reevaluated 02/09 and recommended antibiotic cessation, hence daptomycin discontinued 02/09. On 02/11, patient found hypothermic [34.2C], hypotensive [99/65] Patient received IV fluid, IV albumin, blood culture, chest x-ray, CTAP, urine analysis, random cortisol, lactate. Foster was replaced w/ temp sensor CXR with no acute finding, CTAP with thickening of the urinary bladder wall, redemonstration of horseshoe shaped kidney and noted was soft tissue density in the right side of the kidney. UA neg, Bl Cx Positive for Staph epidermidis in 2 of 4 bottles and Staph capitis in 1 of 4 bottles. Zosyn and daptomycin were restarted 02/11---> Patient's vitals stabilized and has been afebrile. Home atorvastatin on hold. d/w ID 02/16, dc zosyn, c/w dapto and add rifampicin through 02/28/2024. Uro evaled for rt sided soft tissue density, plan for additional imaging as OP. FU w/ URO as OP. Patient has been afebrile, vitals are stable, continue with daptomycin and rifampin through 02/28/24. 02/22/2024: Remains stable and is afebrile and hemodynamic stable Pulled out his central line without any complication thereafter Has a peripheral line and getting antibiotic through it Has not got any bed to be discharged so he will be staying here for the next few days to finish the IV antibiotic His daptomycin dose has been adjusted according to the renal function Remains medically stable and will continue current antibiotics as per instruction from ID Awaiting placement Bilateral Petechiae Thrombocytopenia Acute on chronic anemia Hematuria- resolved Possibly from Vanco rather than Rifampicin (being taken as outpatient), further d/w ID was held 02/16, rifampic resumed 02/16. Hemoglobin has been stable and improving, platelets has normalized. Hematuria resolved. Continue to monitor. Hemoglobin is stable Acute/Chronic CKD-3b: Baseline creatinine of 1.4-1.5, nephrology evaluated, admitting creatinine of 2.74 likely prerenal in the setting of poor intake versus intrarenal from ATN/ne phrotoxicity. Status post IV fluid. Creatinine has gradually improved, then again trended up, 2.41 on 02/18, s/p IVF, Cr today 1.85. encourage PO fluid intake. Avoid nephrotoxic, labs in AM. Creatinine shows improvement at 1.68 as of today Hypernatremia: Admitting sodium of 147, nephrology evaluated, increases w/ poor po fluid intake, improved w/ adequate hydration. Sodium level has been normalized Atrial Fibrillation hx of CHB s/p PPM HLD Metoprolol held for low BP Flecainide continued Per OP chart review 02/16: "Apixaban 5 Mg was discontinued at the hospital" Pt on hep sc for dvt px. Resume metoprolol 02/18 Heart rate is controlled does not have any cardiac symptoms Hypoglycemia: resolved. Falls - pt with 2 falls in 3 days, likely 2/2 to suspected illness. PT/OT eval - recommends snf. Mild Oropharyngeal dysphagia: : had video fluoroscopy at [facility] which was negative for jade aspiration, speech evaled here as well due to caregiver's concern - continue with minced and moist diet, aspiration precautions Mild intellectual disability: resides in care home. BPH/Gross hematuria: likely from traumatic cath vs thrombocytopenia - will need urology follow up at discharge, cath placed at [facility]-- resolved Bipolar disorder: continue home medication, mood stable Seizure disorder: Continue topamax, depakote, no witnessed seizure in several years No more seizures Hypothyroidism: continue levothyroxine, TSH 5.261 uIu/ml and free T4 1.0 DVT ppx: heparin subc FULL CODE PCP: Guilherme Berger Dispo: can go to med/surg PT/OT evaluation, CM to assist with DC planning. can dc to facility. needs iv antibiotic. Awaiting placement Admission and Anticipated Discharge Date Admission Date: February 03, 2024 Subjective 02/22/2024 The patient was seen and examined in ICU He has intellectual disability and is noncommunicative to be a meaningful way Does not seems to be in any acute distress and remains hemodynamically stable 02/23/2024 The patient was seen and examined in telemetry unit He remains stable and wants to go home Does not seems to be in any distress Review of Systems Review of Systems: all noted and negative except for above Physical Exam Physical Exam: Lying in bed without any acute distress Constitutional: + ill appearing and + thin Eyes: PERRL, conjunctivae normal, anicteric sclerae ENMT: external ear and nose normal, oropharynx normal Respiratory: no respiratory distress Auscultation: + diminished lung sounds and + crackles ( minimal crackles at the bases) Cardiovascular: Rate/Rhythm: regular rate and regular rhythm; not tachycardic Heart Sounds: normal S1 and normal S2; no murmur Extremities: + edema ( T race edema bilaterally) Gastrointestinal (Abdomen): Inspection/Auscultation: abdomen not distended Percussion/Palpation: abdomen soft; abdomen nontender Musculoskeletal: Does not have any acute arthritis involving any of the joint Neurologic: Has significant intellectual impairment with minimal meaningful communication. Moves all extremities Lymphatic: no cervical or axillary lymphadenopathy Results & Data Results & Data Vital Signs (Past 12 Hours) Vital Signs Temp Pulse Pulse Resp BP Pulse Ox O2 Del Method 02/23/24 11:00 36.7 C 69 18 138/61 97 Room Air 02/23/24 10:00 60 02/23/24 10:00 Room Air 02/23/24 08:00 36.8 C 62 17 126/70 96 Room Air 02/23/24 03:03 36.3 C L 87 20 122/70 95 Room Air Medications Administered Current Inpatient Medications Acetaminophen (Acetaminophen 325 Mg Tab) 650 mg PO Q6H PRN PRN Reason: Pain or Fever Stop: 03/12/24 19:45 Last Admin: 02/20/24 20:08 Dose: 650 mg Allopurinol (Allopurinol 100 Mg Tab) 100 mg PO DAILY [facility] Stop: 03/08/24 08:59 Last Admin: 02/23/24 09:49 Dose: 100 mg Calcium Carbonate (Calcium Carbonate 500 Mg Chewable Tab) 500 mg PO BID [facility] Stop: 03/07/24 20:59 Last Admin: 02/23/24 09:51 Dose: 500 mg Cetirizine HCl (Cetirizine Oral Soln 1 Mg/Ml) 10 mg PO DAILY [facility] Stop: 03/09/24 09:59 Last Admin: 02/23/24 09:55 Dose: 10 mg Dextrose (Dextrose 50% 50 Ml Syringe) 25 - 50 ml IV UD PRN; Protocol PRN Reason: Hypoglycemia Protocol Stop: 03/04/24 13:57 Divalproex Sodium (Divalproex Extended Release 500 Mg Tab) 1,000 mg PO HS [facility] Stop: 03/10/24 20:59 Last Admin: 02/22/24 20:39 Dose: 1,000 mg Docusate Sodium (Docusate Sodium Syrup 100 Mg/10 Ml Udc) 100 mg PO DAILY [facility] Stop: 03/08/24 08:59 Famotidine (Famotidine 20 Mg Tab) 20 mg PO DAILY [facility]; Protocol Stop: 03/11/24 08:59 Last Admin: 02/23/24 09:50 Dose: 20 mg Finasteride (Finasteride 5 Mg Tab) 5 mg PO DAILY [facility] Stop: 03/05/24 08:59 Last Admin: 02/23/24 11:46 Dose: 5 mg Flecainide Acetate (Flecainide Acetate 100 Mg Tablet) 50 mg PO BID [facility] Stop: 03/04/24 20:59 Last Admin: 02/23/24 09:49 Dose: 50 mg Gabapentin (Gabapentin 250 Mg/5 Ml 470 Ml Btl) 100 mg PO TID [facility] Stop: 03/05/24 13:59 Last Admin: 02/23/24 10:29 Dose: 100 mg Glucagon (Glucagon For Inj 1 Mg Vial) 1 mg SQ UD PRN; Protocol PRN Reason: Hypoglycemia Protocol Stop: 03/04/24 13:57 Glucose (Glucose 40% Gel 15 Gm Tube) 15 - 30 gm PO UD PRN; Protocol PRN Reason: Hypoglycemia Protocol Stop: 03/04/24 13:57 Glucose (Glucose 10 Tab/Tube) 4 - 8 tab PO UD PRN; Protocol PRN Reason: Hypoglycemia Protocol Stop: 03/04/24 13:57 Heparin Sodium (Beef Lung) (Heparin 10 Unit/Ml 5 Ml Flush) 5 ml FLUSH PRN PRN PRN Reason: Flush Stop: 03/17/24 10:14 Last Admin: 02/17/24 16:36 Dose: 5 ml Heparin Sodium (Porcine) (Heparin Sod 5,000 Unit/0.5 Ml Vial) 5,000 units SQ Q12 [facility] Stop: 03/13/24 20:59 Last Admin: 02/23/24 10:29 Dose: 5,000 units Daptomycin 500 mg/ Syringe 10 mls @ 5 mls/min IV Q24H [facility]; Protocol Stop: 02/28/24 12:59 Last Admin: 02/23/24 11:46 Dose: 5 mls/min Lactobacillus Acidophilus (Lactobacillus Acidophilus 1 Gm Pack) 1 packet PO TIDM [facility] Stop: 03/11/24 07:59 Last Admin: 02/23/24 11:46 Dose: 1 packet Lansoprazole (Lansoprazole 30 Mg Soltab) 30 mg PO DAILY [facility] Stop: 03/10/24 08:59 Last Admin: 02/23/24 09:50 Dose: 30 mg Levothyroxine Sodium (Levothyroxine Sodium 75 Mcg Tablet) 75 mcg PO DAILYBB [facility] Stop: 03/05/24 06:29 Last Admin: 02/23/24 06:13 Dose: 75 mcg Metoprolol Succinate (Metoprolol Succ 25mg Ext Rel Tab) 25 mg PO QAM [facility] Stop: 03/20/24 08:59 Last Admin: 02/23/24 09:50 Dose: 25 mg Miscellaneous (Carbohydrates For Hypoglycemia ) 15 - 30 gm PO UD PRN PRN Reason: Hypoglycemia Protocol Stop: 03/04/24 13:57 Ondansetron HCl (Ondansetron Inj 2 Mg/Ml 2 Ml Vial) 4 mg IV Q6H PRN PRN Reason: Nausea Stop: 03/04/24 14:27 Last Admin: 02/11/24 20:47 Dose: 4 mg Polyethylene Glycol (Polyethylene (Miralax) 17 Gm Pack) 17 gm PO DAILY PRN PRN Reason: Constipation Stop: 03/04/24 14:27 Rifampin (Rifampin 300 Mg Capsule) 300 mg PO TID [facility] Stop: 03/18/24 20:59 Last Admin: 02/23/24 09:49 Dose: 300 mg Tamsulosin HCl (Tamsulosin Hcl 0.4 Mg Cap) 0.4 mg PO BID [facility] Stop: 03/04/24 20:59 Last Admin: 02/23/24 09:50 Dose: 0.4 mg Topiramate (Topiramate 100 Mg Tab) 100 mg PO QPM [facility] Stop: 03/04/24 20:59 Last Admin: 02/22/24 20:42 Dose: 100 mg Topiramate (Topiramate 50 Mg Tab) 50 mg PO QAM [facility] Stop: 03/05/24 08:59 Last Admin: 02/23/24 09:50 Dose: 50 mg Vitamin D (Cholecalciferol 25 Mcg (1000 Units) Tab) 50 mcg PO DAILY [facility] Stop: 03/05/24 08:59 Last Admin: 02/05/24 11:03 Dose: Not Given
[2024-02-24 06:51] LABS: Hematocrit (blood only) 32.4 % (42.0-52.0); Hemoglobin 10.5 g/dl (14.0-18.0); Mean Corpuscular Hemoglobin 31.2 pg (25.0-34.0); Mean Corpuscular Hgb Conc 32.4 g/dL (32.0-36.0); Mean Corpuscular Volume 96.1 fL (80.0-100.0); Mean Platelet Volume 11.8 fL (9.4-12.4); Platelet Count 209 K/uL (130-400); RDW Coefficient of Variation 16.1 % (11.5-14.5); RDW Standard Deviation 57.3 fL (36.4-46.3); Red Blood Count 3.37 M/uL (4.70-6.10); White Blood Count 4.18 K/ul (4.8-10.8)
[2024-02-24 07:28] LABS: BUN Creatinine Ratio 20.1 (10-20); Calcium 10.2 mg/dl (8.6-10.3); Creatinine Clr Calc Pharmacy 35.8 ml/min; Magnesium 2.1 mg/dl (1.7-2.4); Phosphorus 3.6 mg/dl (2.5-4.9); Potassium 4.3 mmol/L (3.5-5.1)
[2024-02-24 07:40] LABS: Basophils # (auto) 0.03 K/uL (0.00-0.20); Basophils % (auto) 0.7 %; Eosinophils # (auto) 0.11 K/uL (0.00-0.50); Eosinophils % (auto) 2.6 %; Immature Granulocytes # (auto) 0.02 K/uL (0.01-0.20); Immature Granulocytes % (auto) 0.5 %; Lymphocytes # (auto) 2.52 K/uL (1.20-3.40); Lymphocytes % (auto) 60.3 %; Monocytes # (auto) 0.27 K/uL (0.11-0.59); Monocytes % (auto) 6.5 %; Neutrophils # (auto) 1.23 K/uL (1.40-6.50); Neutrophils % (auto) 29.4 %
--- NOTE | 2024-02-24 13:47 | Hospitalist Progress Note ---
Date of Service February 24, 2024 Assessment & Plan (1) Septic shock: Plan: 63 yo M w/ PMH of baseline intellectual disability, Afib on Eliquis, CHB s/p permanent pacemaker placement, hypothyroidism, BPH, bipolar disorder, CKD stage III [baseline creatinine 1.4-1.5], horseshoe kidney, bilateral renal masses, BPH, chronic anemia who presents to ED 02/03/24 secondary to altered mental status and lethargy. Recent hospitalization 01/11-01/24 @ [facility] 2/2 Staphylococcus Haemolyticus, PNA presumed aspiration, negative TTE/DE; however ID recommended treating with 6 week course of IV Vanco/rifampin given negative cultures with treatment and no clear source of bacteremia. He was seen and evaluated by ST and underwent videofluoroscopy which described moderate oral pharyngeal dysphagia. Hosp course also complicated with hematuria, a/c anemia, thrombocytopenia. He was D/C To [facility] to complete course of antibiotics. He is from a halfway. In ED pt with mild hypotension, tachycardia, altered mental status, elevated BUN/Cr from baseline, worsening anemia/thrombocytopenia in setting of IV Vanco with elevated vanco level at 27, oral rifampin and concern for worsened aspiration. He is being managed for the following: Septic shock 2/2 possible bacteremia and aspiration pna. Metabolic encephalopathy Recent Staph hemolyticus bacteremia - supposed to be on treatment through 02/27 at the time of presentation Possible Aspiration Pneumonia Possible catheter associated complicated UTI- ruled out At presentation patient was in septic shock requiring Levophed, off of Levophed since 02/04, mentation noted to have improved since 02/05 Patient with recent staph bacteremia [+ culture from [facility] 01/11 Staph hemolyticus, resistant except for vanco - unknown source, negative DE/TTE, cleared with treatment, ID recommend tx through 02/27] MRSA swab negative, admitting CPK level 23, admitting procalcitonin elevated at 2.05, admitting lactate WNL. ID evaluated 02/03, recommended holding both vancomycin and rifampin. Patient was switched to IV daptomycin due to concern for nephrotoxicity and added IV Zosyn for aspiration coverage. 02/03/2024 blood culture negative for 5 days. 02/03/2024 urine culture no growth. Zosyn discontinued 02/05. Daptomycin continued for treatment of previously diagnosed as staph hemolyticus bacteremia until 02/27. Patient was doing well on daptomycin and was afebrile and clinically stable. ID reevaluated 02/09 and recommended antibiotic cessation, hence daptomycin discontinued 02/09. So about this patient will have so remains medically stable to be transferred On 02/11, patient found hypothermic [34.2C], hypotensive [99/65] Patient received IV fluid, IV albumin, blood culture, chest x-ray, CTAP, urine analysis, random cortisol, lactate. Foster was replaced w/ temp sensor CXR with no acute finding, CTAP with thickening of the urinary bladder wall, redemonstration of horseshoe shaped kidney and noted was soft tissue density in the right side of the kidney. UA neg, Bl Cx Positive for Staph epidermidis in 2 of 4 bottles and Staph capitis in 1 of 4 bottles. Zosyn and daptomycin were restarted 02/11---> Patient's vitals stabilized and has been afebrile. Home atorvastatin on hold. d/w ID 02/16, dc zosyn, c/w dapto and add rifampicin through 02/28/2024. Uro evaled for rt sided soft tissue density, plan for additional imaging as OP. FU w/ URO as OP. Patient has been afebrile, vitals are stable, continue with daptomycin and rif ampin through 02/28/24. 02/22/2024: Remains stable and is afebrile and hemodynamic stable Pulled out his central line without any complication thereafter Has a peripheral line and getting antibiotic through it Has not got any bed to be discharged so he will be staying here for the next few days to finish the IV antibiotic His daptomycin dose has been adjusted according to the renal function Remains medically stable and will continue current antibiotics as per instruction from ID Hemodynamica resolved lly stable hide I tried without any fever and chills and no other significant symptoms. Awaiting placement Bilateral Ganga SCDs CBCchiae Thrombocytopenia Acute on chronic anemia Hematuria- resolved Possibly from Vanco rather than Rifampicin (being taken as outpatient), further d/w ID was held 02/16, rifampic resumed 02/16. Hemoglobin has been stable and improving, platelets has normalized. Hematuria resolved. Continue to monitor. Hemoglobin is stable Acute/Chronic CKD-3b: Baseline creatinine of 1.4-1.5, nephrology evaluated, admitting creatinine of 2.74 likely prerenal in the setting of poor intake versus intrarenal from ATN/nephrotoxicity. Status post IV fluid. Creatinine has gradually improved, then again trended up, 2.41 on 02/18, s/p IVF, Cr today 1.85. encourage PO fluid intake. Avoid nephrotoxic, labs in AM. Creatinine shows improvement at 1.68 as of today Advised to drink more fluid Hypernatremia: Admitting sodium of 147, nephrology evaluated, increases w/ poor po fluid intake, improved w/ adequate hydration. Sodium level has been normalized Atrial Fibrillation hx of CHB s/p PPM HLD Metoprolol held for low BP Flecainide continued Per OP chart review 02/16: "Apixaban 5 Mg was discontinued at the hospital" Pt on hep sc for dvt px. Resume metoprolol 02/18 Heart rate is controlled does not have any cardiac symptoms Hypoglycemia: resolved. Falls - pt with 2 falls in 3 days, likely 2/2 to suspected illness. PT/OT eval - recommends snf. Mild Oropharyngeal dysphagia: : had video fluoroscopy at [facility] which was negative for jade aspiration, speech evaled here as well due to caregiver's concern - continue with minced and moist diet, aspiration precautions Mild intellectual disability: resides in halfway. BPH/Gross hematuria: likely from traumatic cath vs thrombocytopenia - will need urology follow up at discharge, cath placed at [facility]-- resolved Bipolar disorder: continue home medication, mood stable Seizure disorder: Continue topamax, depakote, no witnessed seizure in several years No more seizures Hypothyroidism: continue levothyroxine, TSH 5.261 uIu/ml and free T4 1.0 DVT ppx: heparin subc FULL CODE PCP: Guilherme Berger Dispo: can go to med/surg PT/OT evaluation, CM to assist with DC planning. can dc to facility. needs iv antibiotic. Awaiting placement Admission and Anticipated Discharge Date Admission Date: February 03, 2024 Subjective 02/22/2024 The patient was seen and examined in ICU He has intellectual disability and is noncommunicative to be a meaningful way Does not seems to be in any acute distress and remains hemodynamically stable 02/23/2024 The patient was seen and examined in telemetry unit He remains stable and wants to go home Does not seems to be in any distress 02/24/2024 The patient was seen and examined in telemetry unit He has been stable, afebrile and without any other significant symptoms He wants to go home Review of Systems Review of Systems: all noted and negative except for above Physical Exam Physical Exam: Lying in bed without any acute distress Constitutional: + ill appearing and + thin Eyes: PERRL, conjunctivae normal, anicteric sclerae ENMT: external ear and nose normal, oropharynx normal Respiratory: no respiratory distress Auscultation: + diminished lung sounds and + crackles ( minimal crackles at the bases) Cardiovascular: Rate/Rhythm: regular rate and regular rhythm; not tachycardic Heart Sounds: normal S1 and normal S2; no murmur Extremities: + edema ( Trace edema bilaterally) Gastrointestinal (Abdomen): Inspection/Auscultation: abdomen not distended Percussion/Palpation: abdomen soft; abdomen nontender Musculoskeletal: No acute arthritis involving any joint Neurologic: Alert and awake. Intellectual disability with occasional meaningful conversation Lymphatic: no cervical or axillary lymphadenopathy Results & Data Results & Data Vital Signs (Past 12 Hours) Vital Signs Temp Pulse Resp BP Pulse Ox O2 Del Method 02/24/24 08:41 Room Air 02/24/24 08:06 36.9 C 62 20 129/75 92 Room Air Laboratory Results Short CBC 02/24/24 Range/Units 05:39 WBC 4.18 L (4.8-10.8) K/ul Hgb 10.5 L (14.0-18.0) g/dl Hct 32.4 L (42.0-52.0) % Plt Count 209 (130-400) K/uL BMP 02/24/24 05:39 Sodium 142 Potassium 4.3 Chloride 107 Carbon Dioxide 28 BUN 38 H Creatinine 1.89 H Glucose 71 Calcium 10.2 G Medications Administered Current Inpatient Medications Acetaminophen (Acetaminophen 325 Mg Tab) 650 mg PO Q6H PRN PRN Reason: Pain or Fever Stop: 03/12/24 19:45 Last Admin: 02/20/24 20:08 Dose: 650 mg Allopurinol (Allopurinol 100 Mg Tab) 100 mg PO DAILY [facility] Stop: 03/08/24 08:59 Last Admin: 02/24/24 07:52 Dose: 100 mg Calcium Carbonate (Calcium Carbonate 500 Mg Chewable Tab) 500 mg PO BID [facility] Stop: 03/07/24 20:59 Last Admin: 02/24/24 07:55 Dose: 500 mg Cetirizine HCl (Cetirizine Oral Soln 1 Mg/Ml) 10 mg PO DAILY [facility] Stop: 03/09/24 09:59 Last Admin: 02/24/24 07:52 Dose: 10 mg Dextrose (Dextrose 50% 50 Ml Syringe) 25 - 50 ml IV UD PRN; Protocol PRN Reason: Hypoglycemia Protocol Stop: 03/04/24 13:57 Divalproex Sodium (Divalproex Extended Release 500 Mg Tab) 1,000 mg PO HS [facility] Stop: 03/10/24 20:59 Last Admin: 02/23/24 20:42 Dose: 1,000 mg Docusate Sodium (Docusate Sodium Syrup 100 Mg/10 Ml Udc) 100 mg PO DAILY [facility] Stop: 03/08/24 08:59 Famotidine (Famotidine 20 Mg Tab) 20 mg PO DAILY [facility]; Protocol Stop: 03/11/24 08:59 Last Admin: 02/24/24 07:50 Dose: 20 mg Finasteride (Finasteride 5 Mg Tab) 5 mg PO DAILY [facility] Stop: 03/05/24 08:59 Last Admin: 02/24/24 07:48 Dose: 5 mg Flecainide Acetate (Flecainide Acetate 100 Mg Tablet) 50 mg PO BID [facility] Stop: 03/04/24 20:59 Last Admin: 02/24/24 07:51 Dose: 50 mg Gabapentin (Gabapentin 250 Mg/5 Ml 470 Ml Btl) 100 mg PO TID [facility] Stop: 03/05/24 13:59 Last Admin: 02/24/24 12:59 Dose: 100 mg Glucagon (Glucagon For Inj 1 Mg Vial) 1 mg SQ UD PRN; Protocol PRN Reason: Hypoglycemia Protocol Stop: 03/04/24 13:57 Glucose (Glucose 40% Gel 15 Gm Tube) 15 - 30 gm PO UD PRN; Protocol PRN Reason: Hypoglycemia Protocol Stop: 03/04/24 13:57 Glucose (Glucose 10 Tab/Tube) 4 - 8 tab PO UD PRN; Protocol PRN Reason: Hypoglycemia Protocol Stop: 03/04/24 13:57 Heparin Sodium (Beef Lung) (Heparin 10 Unit/Ml 5 Ml Flush) 5 ml FLUSH PRN PRN PRN Reason: Flush Stop: 03/17/24 10:14 Last Admin: 02/17/24 16:36 Dose: 5 ml Heparin Sodium (Porcine) (Heparin Sod 5,000 Unit/0.5 Ml Vial) 5,000 units SQ Q12 [facility] Stop: 03/13/24 20:59 Last Admin: 02/24/24 07:56 Dose: 5,000 units Daptomycin 500 mg/ Syringe 10 mls @ 5 mls/min IV Q24H [facility]; Protocol Stop: 02/28/24 12:59 Last Admin: 02/24/24 12:56 Dose: 5 mls/min Lactobacillus Acidophilus (Lactobacillus Acidophilus 1 Gm Pack) 1 packet PO TIDM [facility] Stop: 03/11/24 07:59 Last Admin: 02/24/24 12:56 Dose: 1 packet Lansoprazole (Lansoprazole 30 Mg Soltab) 30 mg PO DAILY [facility] Stop: 03/10/24 08:59 Last Admin: 02/24/24 07:52 Dose: 30 mg Levothyroxine Sodium (Levothyroxine Sodium 75 Mcg Tablet) 75 mcg PO DAILYBB [facility] Stop: 03/05/24 06:29 Last Admin: 02/24/24 07:48 Dose: 75 mcg Metoprolol Succinate (Metoprolol Succ 25mg Ext Rel Tab) 25 mg PO QAM [facility] Stop: 03/20/24 08:59 Last Admin: 02/24/24 07:50 Dose: 25 mg Miscellaneous (Carbohydrates For Hypoglycemia ) 15 - 30 gm PO UD PRN PRN Reason: Hypoglycemia Protocol Stop: 03/04/24 13:57 Ondansetron HCl (Ondansetron Inj 2 Mg/Ml 2 Ml Vial) 4 mg IV Q6H PRN PRN Reason: Nausea Stop: 03/04/24 14:27 Last Admin: 02/11/24 20:47 Dose: 4 mg Polyethylene Glycol (Polyethylene (Miralax) 17 Gm Pack) 17 gm PO DAILY PRN PRN Reason: Constipation Stop: 03/04/24 14:27 Rifampin (Rifampin 300 Mg Capsule) 300 mg PO TID [facility] Stop: 03/18/24 20:59 Last Admin: 02/24/24 12:56 Dose: 300 mg Tamsulosin HCl (Tamsulosin Hcl 0.4 Mg Cap) 0.4 mg PO BID [facility] Stop: 03/04/24 20:59 Last Admin: 02/24/24 07:50 Dose: 0.4 mg Topiramate (Topiramate 100 Mg Tab) 100 mg PO QPM [facility] Stop: 03/04/24 20:59 Last Admin: 02/23/24 20:42 Dose: 100 mg Topiramate (Topiramate 50 Mg Tab) 50 mg PO QAM [facility] Stop: 03/05/24 08:59 Last Admin: 02/24/24 07:49 Dose: 50 mg Vitamin D (Cholecalciferol 25 Mcg (1000 Units) Tab) 50 mcg PO DAILY [facility] Stop: 03/05/24 08:59 Last Admin: 02/05/24 11:03 Dose: Not Given Metabolic pressure
--- NOTE | 2024-02-25 17:04 | Hospitalist Progress Note ---
Date of Service February 25, 2024 Assessment & Plan (1) Septic shock: Plan: 63 yo M w/ PMH of baseline intellectual disability, Afib on Eliquis, CHB s/p permanent pacemaker placement, hypothyroidism, BPH, bipolar disorder, CKD stage III [baseline creatinine 1.4-1.5], horseshoe kidney, bilateral renal masses, BPH, chronic anemia who presents to ED 02/03/24 secondary to altered mental status and lethargy. Recent hospitalization 01/11-01/24 @ [facility] 2/2 Staphylococcus Haemolyticus, PNA presumed aspiration, negative TTE/DE; however ID recommended treating with 6 week course of IV Vanco/rifampin given negative cultures with treatment and no clear source of bacteremia. He was seen and evaluated by ST and underwent videofluoroscopy which described moderate oral pharyngeal dysphagia. Hosp course also complicated with hematuria, a/c anemia, thrombocytopenia. He was D/C To [facility] to complete course of antibiotics. He is from a assisted. In ED pt with mild hypotension, tachycardia, altered mental status, elevated BUN/Cr from baseline, worsening anemia/thrombocytopenia in setting of IV Vanco with elevated vanco level at 27, oral rifampin and concern for worsened aspiration. He is being managed for the following: Septic shock 2/2 possible bacteremia and aspiration pna. Metabolic encephalopathy Recent Staph hemolyticus bacteremia - supposed to be on treatment through 02/27 at the time of presentation Possible Aspiration Pneumonia Possible catheter associated complicated UTI- ruled out At presentation patient was in septic shock requiring Levophed, off of Levophed since 02/04, mentation noted to have improved since 02/05 Patient with recent staph bacteremia [+ culture from [facility] 01/11 Staph hemolyticus, resistant except for vanco - unknown source, negative DE/TTE, cleared with treatment, ID recommend tx through 02/27] MRSA swab negative, admitting CPK level 23, admitting procalcitonin elevated at 2.05, admitting lactate WNL. ID evaluated 02/03, recommended holding both vancomycin and rifampin. Patient was switched to IV daptomycin due to concern for nephrotoxicity and added IV Zosyn for aspiration coverage. 02/03/2024 blood culture negative for 5 days. 02/03/2024 urine culture no growth. Zosyn discontinued 02/05. Daptomycin continued for treatment of previously diagnosed as staph hemolyticus bacteremia until 02/27. Patient was doing well on daptomycin and was afebrile and clinically stable. ID reevaluated 02/09 and recommended antibiotic cessation, hence daptomycin discontinued 02/09. Current antibiotics as per the documentation below On 02/11, patient found hypothermic [34.2C], hypotensive [99/65] Patient received IV fluid, IV albumin, blood culture, chest x-ray, CTAP, urine analysis, random cortisol, lactate. Foster was replaced w/ temp sensor CXR with no acute finding, CTAP with thickening of the urinary bladder wall, redemonstration of horseshoe shaped kidney and noted was soft tissue density in the right side of the kidney. UA neg, Bl Cx Positive for Staph epidermidis in 2 of 4 bottles and Staph capitis in 1 of 4 bottles. Zosyn and daptomycin were restarted 02/11---> Patient's vitals stabilized and has been afebrile. Home atorvastatin on hold. d/w ID 02/16, dc zosyn, c/w dapto and add rifampicin through 02/28/2024. Uro evaled for rt sided soft tissue density, plan for additional imaging as OP. FU w/ URO as OP. Patient has been afebrile, vitals are stable, continue with daptomycin and rifampin through 02/28/24. 02/22/2024- Remains stable and is afebrile and hemodynamic stable Pulled out his central line without any complication thereafter Has a peripheral line and getting antibiotic through it Has not got any bed to be discharged so he will be staying here for the next few days to finish the IV antibiotic His daptomycin dose has been adjusted according to the renal function Remains medically stable and will continue current antibiotics as per instruction from ID Awaiting placement Bilateral Ganga SCDs CBCchiae Thrombocytopenia Acute on chronic anemia Hematuria- resolved Possibly from Vanco rather than Rifampicin (being taken as outpatient), further d/w ID was held 02/16, rifampic resumed 02/16. Hemoglobin has been stable and improving, platelets has normalized. Hematuria resolved. Continue to monitor. Hemoglobin is stable Acute/Chronic CKD-3b: Baseline creatinine of 1.4-1.5, nephrology evaluated, admitting creatinine of 2.74 likely prerenal in the setting of poor intake versus intrarenal from ATN/nephrotoxicity. Status post IV fluid. Creatinine has gradually improved, then again trended up, 2.41 on 02/18, s/p IVF, Cr today 1.85. encourage PO fluid intake. Avoid nephrotoxic, labs in AM. Creatinine shows improvement at 1.68 as of today Advised to drink more fluid Hypernatremia: Admitting sodium of 147, nephrology evaluated, increases w/ poor po fluid intake, improved w/ adequate hydration. Sodium level has been normalized Atrial Fibrillation hx of CHB s/p PPM HLD Metoprolol held for low BP Flecainide continued Per OP chart review 02/16: "Apixaban 5 Mg was discontinued at the hospital" Pt on hep sc for dvt px. Resume metoprolol 02/18 Heart rate is controlled does not have any cardiac symptoms Hypoglycemia: resolved. Falls - pt with 2 falls in 3 days, likely 2/2 to suspected illness. PT/OT eval - recommends snf. Mild Oropharyngeal dysphagia: : had video fluoroscopy at [facility] which was negative for jade aspiration, speech evaled here as well due to caregiver's concern - continue with minced and moist diet, aspiration precautions Mild intellectual disability: resides in assisted. BPH/Gross hematuria: likely from traumatic cath vs thrombocytopenia - will need urology follow up at discharge, cath placed at [facility]-- resolved Bipolar disorder: continue home medication, mood stable Seizure disorder: Continue topamax, depakote, no witnessed seizure in several years No more seizures Hypothyroidism: continue levothyroxine, TSH 5.261 uIu/ml and free T4 1.0 DVT ppx: heparin subc FULL CODE PCP: Guilherme Berger Dispo: can go to med/surg PT/OT evaluation, CM to assist with DC planning. can dc to facility. needs iv antibiotic. Awaiting placement Admission and Anticipated Discharge Date Admission Date: February 03, 2024 Subjective 02/22/2024 The patient was seen and examined in ICU He has intellectual disability and is noncommunicative to be a meaningful way Does not seems to be in any acute distress and remains hemodynamically stable 02/23/2024 The patient was seen and examined in telemetry unit He remains stable and wants to go home Does not seems to be in any distress 02/24/2024 The patient was seen and examined in telemetry unit He has been stable, afebrile and without any other significant symptoms He wants to go home 02/25/2024 The patient was seen and examined in the telemetry unit He has been stable and wants to go home Denies any significant symptoms Review of Systems Review of Systems: Unobtainable due to cognitive status Physical Exam Physical Exam: Lying in bed without any acute distress Constitutional: + ill appearing and + thin Eyes: PERRL, conjunctivae normal, anicteric sclerae ENMT: external ear and nose normal, oropharynx normal Respiratory: no respiratory distress Auscultation: + diminished lung sounds and + crackles ( minimal crackles at the bases) Cardiovascular: Rate/Rhythm: regular rate and regular rhythm; not tachycardic Heart Sounds: normal S1 and normal S2; no murmur Extremities: + edema ( Trace edema bilaterally) Gastrointestinal (Abdomen): Inspection/Auscultation: abdomen not distended Percussion/Palpation: abdomen soft; abdomen nontender Lymphatic: no cervical or axillary lymphadenopathy Results & Data Results & Data Vital Signs (Past 12 Hours) Vital Signs Temp Pulse Resp BP Pulse Ox O2 Del Method 02/25/24 14:00 Room Air 02/25/24 13:54 36.6 C 61 16 147/78 H 93 Room Air 02/25/24 12:32 36.9 C 75 18 145/78 H 94 Room Air 02/25/24 07:39 36.3 C L 64 18 126/79 94 Room Air Medications Administered Current Inpatient Medications Acetaminophen (Acetaminophen 325 Mg Tab) 650 mg PO Q6H PRN PRN Reason: Pain or Fever Stop: 03/12/24 19:45 Last Admin: 02/20/24 20:08 Dose: 650 mg Allopurinol (Allopurinol 100 Mg Tab) 100 mg PO DAILY SIMIN Stop: 03/08/24 08:59 Last Admin: 02/25/24 09:01 Dose: 100 mg Calcium Carbonate (Calcium Carbonate 500 Mg Chewable Tab) 500 mg PO BID SIMIN Stop: 03/07/24 20:59 Last Admin: 02/25/24 09:02 Dose: 500 mg Cetirizine HCl (Cetirizine Oral Soln 1 Mg/Ml) 10 mg PO DAILY SIMIN Stop: 03/09/24 09:59 Last Admin: 02/25/24 09:00 Dose: 10 mg Dextrose (Dextrose 50% 50 Ml Syringe) 25 - 50 ml IV UD PRN; Protocol PRN Reason: Hypoglycemia Protocol Stop: 03/04/24 13:57 Divalproex Sodium (Divalproex Extended Release 500 Mg Tab) 1,000 mg PO HS [facility] Stop: 03/10/24 20:59 Last Admin: 02/24/24 22:03 Dose: 1,000 mg Docusate Sodium (Docusate Sodium Syrup 100 Mg/10 Ml Udc) 100 mg PO DAILY SIMIN Stop: 03/08/24 08:59 Famotidine (Famotidine 20 Mg Tab) 20 mg PO DAILY [facility]; Protocol Stop: 03/11/24 08:59 Last Admin: 02/25/24 09:01 Dose: 20 mg Finasteride (Finasteride 5 Mg Tab) 5 mg PO DAILY SIMIN Stop: 03/05/24 08:59 Last Admin: 02/25/24 09:01 Dose: 5 mg Flecainide Acetate (Flecainide Acetate 100 Mg Tablet) 50 mg PO BID [facility] Stop: 03/04/24 20:59 Last Admin: 02/25/24 09:01 Dose: 50 mg Gabapentin (Gabapentin 250 Mg/5 Ml 470 Ml Btl) 100 mg PO TID [facility] Stop: 03/05/24 13:59 Last Admin: 02/25/24 14:55 Dose: 100 mg Glucagon (Glucagon For Inj 1 Mg Vial) 1 mg SQ UD PRN; Protocol PRN Reason: Hypoglycemia Protocol Stop: 03/04/24 13:57 Glucose (Glucose 40% Gel 15 Gm Tube) 15 - 30 gm PO UD PRN; Protocol PRN Reason: Hypoglycemia Protocol Stop: 03/04/24 13:57 Glucose (Glucose 10 Tab/Tube) 4 - 8 tab PO UD PRN; Protocol PRN Reason: Hypoglycemia Protocol Stop: 03/04/24 13:57 Heparin Sodium (Beef Lung) (Heparin 10 Unit/Ml 5 Ml Flush) 5 ml FLUSH PRN PRN PRN Reason: Flush Stop: 03/17/24 10:14 Last Admin: 02/17/24 16:36 Dose: 5 ml Heparin Sodium (Porcine) (Heparin Sod 5,000 Unit/0.5 Ml Vial) 5,000 units SQ Q12 [facility] Stop: 03/13/24 20:59 Last Admin: 02/25/24 09:00 Dose: 5,000 units Daptomycin 500 mg/ Syringe 10 mls @ 5 mls/min IV Q24H [facility]; Protocol Stop: 02/28/24 12:59 Last Admin: 02/25/24 11:25 Dose: 5 mls/min Lactobacillus Acidophilus (Lactobacillus Acidophilus 1 Gm Pack) 1 packet PO TIDM [facility] Stop: 03/11/24 07:59 Last Admin: 02/25/24 11:25 Dose: 1 packet Lansoprazole (Lansoprazole 30 Mg Soltab) 30 mg PO DAILY [facility] Stop: 03/10/24 08:59 Last Admin: 02/25/24 09:02 Dose: 30 mg Levothyroxine Sodium (Levothyroxine Sodium 75 Mcg Tablet) 75 mcg PO DAILYBB [facility] Stop: 03/05/24 06:29 Last Admin: 02/25/24 05:47 Dose: 75 mcg Metoprolol Succinate (Metoprolol Succ 25mg Ext Rel Tab) 25 mg PO QAM [facility] Stop: 03/20/24 08:59 Last Admin: 02/25/24 09:01 Dose: 25 mg Miscellaneous (Carbohydrates For Hypoglycemia ) 15 - 30 gm PO UD PRN PRN Reason: Hypoglycemia Protocol Stop: 03/04/24 13:57 Ondansetron HCl (Ondansetron Inj 2 Mg/Ml 2 Ml Vial) 4 mg IV Q6H PRN PRN Reason: Nausea Stop: 03/04/24 14:27 Last Admin: 02/11/24 20:47 Dose: 4 mg Polyethylene Glycol (Polyethylene (Miralax) 17 Gm Pack) 17 gm PO DAILY PRN PRN Reason: Constipation Stop: 03/04/24 14:27 Rifampin (Rifampin 300 Mg Capsule) 300 mg PO TID [facility] Stop: 03/18/24 20:59 Last Admin: 02/25/24 14:55 Dose: 300 mg Tamsulosin HCl (Tamsulosin Hcl 0.4 Mg Cap) 0.4 mg PO BID [facility] Stop: 03/04/24 20:59 Last Admin: 02/25/24 09:01 Dose: 0.4 mg Topiramate (Topiramate 100 Mg Tab) 100 mg PO QPM [facility] Stop: 03/04/24 20:59 Last Admin: 02/24/24 22:11 Dose: 100 mg Topiramate (Topiramate 50 Mg Tab) 50 mg PO QAM [facility] Stop: 03/05/24 08:59 Last Admin: 02/25/24 09:01 Dose: 50 mg Vitamin D (Cholecalciferol 25 Mcg (1000 Units) Tab) 50 mcg PO DAILY [facility] Stop: 03/05/24 08:59 Last Admin: 02/05/24 11:03 Dose: Not Given
--- NOTE | 2024-02-26 14:32 | Hospitalist Progress Note ---
Date of Service February 26, 2024 Assessment & Plan (1) Septic shock: Plan: 63 yo M w/ PMH of baseline intellectual disability, Afib on Eliquis, CHB s/p permanent pacemaker placement, hypothyroidism, BPH, bipolar disorder, CKD stage III [baseline creatinine 1.4-1.5], horseshoe kidney, bilateral renal masses, BPH, chronic anemia who presents to ED 02/03/24 secondary to altered mental status and lethargy. Recent hospitalization 01/11-01/24 @ [facility] 2/2 Staphylococcus Haemolyticus, PNA presumed aspiration, negative TTE/DE; however ID recommended treating with 6 week course of IV Vanco/rifampin given negative cultures with treatment and no clear source of bacteremia. He was seen and evaluated by ST and underwent videofluoroscopy which described moderate oral pharyngeal dysphagia. Hosp course also complicated with hematuria, a/c anemia, thrombocytopenia. He was D/C To [facility] to complete course of antibiotics. [facility]. In ED pt with mild hypotension, tachycardia, altered mental status, elevated BUN/Cr from baseline, worsening anemia/thrombocytopenia in setting of IV Vanco with elevated vanco level at 27, oral rifampin and concern for worsened aspiration. He is being managed for the following: Septic shock 2/2 possible bacteremia and aspiration pna. Metabolic encephalopathy Recent Staph hemolyticus bacteremia - supposed to be on treatment through 02/27 at the time of presentation Possible Aspiration Pneumonia Possible catheter associated complicated UTI- ruled out At presentation patient was in septic shock requiring Levophed, off of Levophed since 02/04, mentation noted to have improved since 02/05 Patient with recent staph bacteremia [+ culture from [facility] 01/11 Staph hemolyticus, resistant except for vanco - unknown source, negative DE/TTE, cleared with treatment, ID recommend tx through 02/27] MRSA swab negative, admitting CPK level 23, admitting procalcitonin elevated at 2.05, admitting lactate WNL. ID evaluated 02/03, recommended holding both vancomycin and rifampin. Patient was switched to IV daptomycin due to concern for nephrotoxicity and added IV Zosyn for aspiration coverage. 02/03/2024 blood culture negative for 5 days. 02/03/2024 urine culture no growth. Zosyn discontinued 02/05. Daptomycin continued for treatment of previously diagnosed as staph hemolyticus bacteremia until 02/27. Patient was doing well on daptomycin and was afebrile and clinically stable. ID reevaluated 02/09 and recommended antibiotic cessation, hence daptomycin discontinued 02/09. Current antibiotics as per the documentation below Still has few days of antibiotic to go He is otherwise stable and medically ready to be discharged On 02/11, patient found hypothermic [34.2C], hypotensive [99/65] Patient received IV fluid, IV albumin, blood culture, chest x-ray, CTAP, urine analysis, random cortisol, lactate. Foster was replaced w/ temp sensor CXR with no acute finding, CTAP with thickening of the urinary bladder wall, redemonstration of horseshoe shaped kidney and noted was soft tissue density in the right side of the kidney. UA neg, Bl Cx Positive for Staph epidermidis in 2 of 4 bottles and Staph capitis in 1 of 4 bottles. Zosyn and daptomycin were restarted 02/11---> Patient's vitals stabilized and has been afebrile. Home atorvastatin on hold. d/w ID 02/16, dc zosyn, c/w dapto and add rifampicin through 02/28/2024. Uro evaled for rt sided soft tissue density, plan for additional imaging as OP. FU w/ URO as OP. Patient has been afebrile, vitals are stable, continue with daptomycin and rifampin through 02/28/24. 02/22/2024- Remains stable and is afebrile and hemodynamic stable Pulled out his central line without any complication thereafter Has a peripheral line and getting antibiotic through it Has not got any bed to be discharged so he will be staying here for the next few days to finish the IV antibiotic His daptomycin dose has been adjusted according to the renal function Remains medically stable and will continue current antibiotics as per instruction from ID Awaiting placement Bilateral Ganga SCDs CBCchiae Thrombocytopenia Acute on chronic anemia Hematuria- resolved Possibly from Vanco rather than Rifampicin (being taken as outpatient), further d/w ID was held 02/16, rifampic resumed 02/16. Hemoglobin has been stable and improving, platelets has normalized. Hematuria resolved. Continue to monitor. Hemoglobin is stable Will check CBC on Wednesday Acute/Chronic CKD-3b: Baseline creatinine of 1.4-1.5, nephrology evaluated, admitting creatinine of 2.74 likely prerenal in the setting of poor intake versus intrarenal from ATN/nephrotoxicity. Status post IV fluid. Creatinine has gradually improved, then again trended up, 2.41 on 02/18, s/p IVF, Cr today 1.85. encourage PO fluid intake. Avoid nephrotoxic, labs in AM. Creatinine shows improvement at 1.68 as of today Advised to drink more fluid Will check PRP on Wednesday Hypernatremia: Admitting sodium of 147, nephrology evaluated, increases w/ poor po fluid intake, improved w/ adequate hydration. Sodium level has been normalized Atrial Fibrillation hx of CHB s/p PPM HLD Metoprolol held for low BP Flecainide continued Per OP chart review 02/16: "Apixaban 5 Mg was discontinued at the hospital" Pt on hep sc for dvt px. Resume metoprolol 02/18 Heart rate is controlled does not have any cardiac symptoms Hypoglycemia: resolved. Falls - pt with 2 falls in 3 days, likely 2/2 to suspected illness. PT/OT eval - recommends snf. Mild Oropharyngeal dysphagia: : had video fluoroscopy at [facility] which was negative for jade aspiration, speech evaled here as well due to caregiver's concern - continue with minced and moist diet, aspiration precautions Mild intellectual disability: [facility]. BPH/Gross hematuria: likely from traumatic cath vs thrombocytopenia - will need urology follow up at discharge, cath placed at [facility]-- resolved Bipolar disorder: continue home medication, mood stable Seizure disorder: Continue topamax, depakote, no witnessed seizure in several years No more seizures Hypothyroidism: continue levothyroxine, TSH 5.261 uIu/ml and free T4 1.0 DVT ppx: heparin subc FULL CODE PCP: Guilherme Berger Dispo: can go to med/surg PT/OT evaluation, CM to assist with DC planning. can dc to facility. needs iv antibiotic. Awaiting placement Admission and Anticipated Discharge Date Admission Date: February 03, 2024 Subjective 02/22/2024 The patient was seen and examined in ICU He has intellectual disability and is noncommunicative to be a meaningful way Does not seems to be in any acute distress and remains hemodynamically stable 02/23/2024 The patient was seen and examined in telemetry unit He remains stable and wants to go home Does not seems to be in any distress 02/24/2024 The patient was seen and examined in telemetry unit He has been stable, afebrile and without any other significant symptoms He wants to go home 02/25/2024 The patient was seen and examined in the telemetry unit He has been stable and wants to go home Denies any significant symptoms 02/26/2024 The patient was seen and examined in medical floor He has been stable does not have any significant symptoms He is awaiting placement Review of Systems Review of Systems: all noted and negative except for above Physical Exam Physical Exam: Lying in bed without any acute distress Constitutional: + ill appearing and + thin Eyes: PERRL, conjunctivae normal, anicteric sclerae ENMT: external ear and nose normal, oropharynx normal Respiratory: no respiratory distress Auscultation: + diminished lung sounds and + crackles ( minimal crackles at the bases) Cardiovascular: Rate/Rhythm: regular rate and regular rhythm; not tachycardic Heart Sounds: normal S1 and normal S2; no murmur Extremities: + edema ( Trace edema bilaterally) Gastrointestinal (Abdomen): Inspection/Auscultation: abdomen not distended Percussion/Palpation: abdomen soft; abdomen nontender Neurologic: alert and awake. no meaningful communication. moves all extremities Lymphatic: no cervical or axillary lymphadenopathy Results & Data Results & Data Vital Signs (Past 12 Hours) Vital Signs Temp Pulse Resp BP Pulse Ox O2 Del Method 02/26/24 08:31 36.7 C 76 18 155/86 H 92 Room Air 02/26/24 08:00 Room Air Medications Administered Current Inpatient Medications Acetaminophen (Acetaminophen 325 Mg Tab) 650 mg PO Q6H PRN PRN Reason: Pain or Fever Stop: 03/12/24 19:45 Last Admin: 02/20/24 20:08 Dose: 650 mg Allopurinol (Allopurinol 100 Mg Tab) 100 mg PO DAILY [facility] Stop: 03/08/24 08:59 Last Admin: 02/26/24 08:49 Dose: 100 mg Calcium Carbonate (Calcium Carbonate 500 Mg Chewable Tab) 500 mg PO BID [facility] Stop: 03/07/24 20:59 Last Admin: 02/26/24 08:57 Dose: 500 mg Cetirizine HCl (Cetirizine Oral Soln 1 Mg/Ml) 10 mg PO DAILY [facility] Stop: 03/09/24 09:59 Last Admin: 02/26/24 08:48 Dose: 10 mg Dextrose (Dextrose 50% 50 Ml Syringe) 25 - 50 ml IV UD PRN; Protocol PRN Reason: Hypoglycemia Protocol Stop: 03/04/24 13:57 Divalproex Sodium (Divalproex Extended Release 500 Mg Tab) 1,000 mg PO HS [facility] Stop: 03/10/24 20:59 Last Admin: 02/25/24 22:01 Dose: 1,000 mg Docusate Sodium (Docusate Sodium Syrup 100 Mg/10 Ml Udc) 100 mg PO DAILY SIMIN Stop: 03/08/24 08:59 Famotidine (Famotidine 20 Mg Tab) 20 mg PO DAILY [facility]; Protocol Stop: 03/11/24 08:59 Last Admin: 02/26/24 08:49 Dose: 20 mg Finasteride (Finasteride 5 Mg Tab) 5 mg PO DAILY [facility] Stop: 03/05/24 08:59 Last Admin: 02/26/24 10:47 Dose: 5 mg Flecainide Acetate (Flecainide Acetate 100 Mg Tablet) 50 mg PO BID [facility] Stop: 03/04/24 20:59 Last Admin: 02/26/24 08:49 Dose: 50 mg Gabapentin (Gabapentin 250 Mg/5 Ml 470 Ml Btl) 100 mg PO TID SIMIN Stop: 03/05/24 13:59 Last Admin: 02/26/24 13:35 Dose: 100 mg Glucagon (Glucagon For Inj 1 Mg Vial) 1 mg SQ UD PRN; Protocol PRN Reason: Hypoglycemia Protocol Stop: 03/04/24 13:57 Glucose (Glucose 40% Gel 15 Gm Tube) 15 - 30 gm PO UD PRN; Protocol PRN Reason: Hypoglycemia Protocol Stop: 03/04/24 13:57 Glucose (Glucose 10 Tab/Tube) 4 - 8 tab PO UD PRN; Protocol PRN Reason: Hypoglycemia Protocol Stop: 03/04/24 13:57 Heparin Sodium (Beef Lung) (Heparin 10 Unit/Ml 5 Ml Flush) 5 ml FLUSH PRN PRN PRN Reason: Flush Stop: 03/17/24 10:14 Last Admin: 02/17/24 16:36 Dose: 5 ml Heparin Sodium (Porcine) (Heparin Sod 5,000 Unit/0.5 Ml Vial) 5,000 units SQ Q12 SIMIN Stop: 03/13/24 20:59 Last Admin: 02/26/24 08:57 Dose: 5,000 units Daptomycin 500 mg/ Syringe 10 mls @ 5 mls/min IV Q24H [facility]; Protocol Stop: 02/28/24 12:59 Last Admin: 02/26/24 12:06 Dose: 5 mls/min Lactobacillus Acidophilus (Lactobacillus Acidophilus 1 Gm Pack) 1 packet PO TIDM [facility] Stop: 03/11/24 07:59 Last Admin: 02/26/24 12:06 Dose: 1 packet Lansoprazole (Lansoprazole 30 Mg Soltab) 30 mg PO DAILY [facility] Stop: 03/10/24 08:59 Last Admin: 02/26/24 08:49 Dose: 30 mg Levothyroxine Sodium (Levothyroxine Sodium 75 Mcg Tablet) 75 mcg PO DAILYBB [facility] Stop: 03/05/24 06:29 Last Admin: 02/26/24 05:25 Dose: 75 mcg Metoprolol Succinate (Metoprolol Succ 25mg Ext Rel Tab) 25 mg PO QAM [facility] Stop: 03/20/24 08:59 Last Admin: 02/26/24 08:49 Dose: 25 mg Miscellaneous (Carbohydrates For Hypoglycemia ) 15 - 30 gm PO UD PRN PRN Reason: Hypoglycemia Protocol Stop: 03/04/24 13:57 Ondansetron HCl (Ondansetron Inj 2 Mg/Ml 2 Ml Vial) 4 mg IV Q6H PRN PRN Reason: Nausea Stop: 03/04/24 14:27 Last Admin: 02/11/24 20:47 Dose: 4 mg Polyethylene Glycol (Polyethylene (Miralax) 17 Gm Pack) 17 gm PO DAILY PRN PRN Reason: Constipation Stop: 03/04/24 14:27 Rifampin (Rifampin 300 Mg Capsule) 300 mg PO TID [facility] Stop: 03/18/24 20:59 Last Admin: 02/26/24 13:35 Dose: 300 mg Tamsulosin HCl (Tamsulosin Hcl 0.4 Mg Cap) 0.4 mg PO BID [facility] Stop: 03/04/24 20:59 Last Admin: 02/26/24 08:49 Dose: 0.4 mg Topiramate (Topiramate 100 Mg Tab) 100 mg PO QPM [facility] Stop: 03/04/24 20:59 Last Admin: 02/25/24 22:12 Dose: 100 mg Topiramate (Topiramate 50 Mg Tab) 50 mg PO QAM [facility] Stop: 03/05/24 08:59 Last Admin: 02/26/24 08:49 Dose: 50 mg Vitamin D (Cholecalciferol 25 Mcg (1000 Units) Tab) 50 mcg PO DAILY [facility] Stop: 03/05/24 08:59 Last Admin: 02/05/24 11:03 Dose: Not Given
--- NOTE | 2024-02-27 14:13 | Hospitalist Progress Note ---
Date of Service February 27, 2024 Assessment & Plan (1) Septic shock: Plan: 63 yo M w/ PMH of baseline intellectual disability, Afib on Eliquis, CHB s/p permanent pacemaker placement, hypothyroidism, BPH, bipolar disorder, CKD stage III [baseline creatinine 1.4-1.5], horseshoe kidney, bilateral renal masses, BPH, chronic anemia who presents to ED 02/03/24 secondary to altered mental status and lethargy. Recent hospitalization 01/11-01/24 @ [facility] 2/2 Staphylococcus Haemolyticus, PNA presumed aspiration, negative TTE/DE; however ID recommended treating with 6 week course of IV Vanco/rifampin given negative cultures with treatment and no clear source of bacteremia. He was seen and evaluated by ST and underwent videofluoroscopy which described moderate oral pharyngeal dysphagia. Hosp course also complicated with hematuria, a/c anemia, thrombocytopenia. He was D/C To [facility] to complete course of antibiotics. He is from a alf. In ED pt with mild hypotension, tachycardia, altered mental status, elevated BUN/Cr from baseline, worsening anemia/thrombocytopenia in setting of IV Vanco with elevated vanco level at 27, oral rifampin and concern for worsened aspiration. He is being managed for the following: Septic shock 2/2 possible bacteremia and aspiration pna. Metabolic encephalopathy Recent Staph hemolyticus bacteremia - supposed to be on treatment through 02/27 at the time of presentation Possible Aspiration Pneumonia Possible catheter associated complicated UTI- ruled out At presentation patient was in septic shock requiring Levophed, off of Levophed since 02/04, mentation noted to have improved since 02/05 Patient with recent staph bacteremia [+ culture from [facility] 01/11 Staph hemolyticus, resistant except for vanco - unknown source, negative DE/TTE, cleared with treatment, ID recommend tx through 02/27] MRSA swab negative, admitting CPK level 23, admitting procalcitonin elevated at 2.05, admitting lactate WNL. ID evaluated 02/03, recommended holding both vancomycin and rifampin. Patient was switched to IV daptomycin due to concern for nephrotoxicity and added IV Zosyn for aspiration coverage. 02/03/2024 blood culture negative for 5 days. 02/03/2024 urine culture no growth. Zosyn discontinued 02/05. Daptomycin continued for treatment of previously diagnosed as staph hemolyticus bacteremia until 02/27. Patient was doing well on daptomycin and was afebrile and clinically stable. ID reevaluated 02/09 and recommended antibiotic cessation, hence daptomycin discontinued 02/09. Current antibiotics as per the documentation below Still has few days of antibiotic to go He is otherwise stable and medically ready to be discharged He is intravenous antibiotic will be finished by tomorrow Remained free from any fever and does not have any new signs or symptoms of infection He is medically stable to be transferred to facility when approved On 02/11, patient found hypothermic [34.2C], hypotensive [99/65] Patient received IV fluid, IV albumin, blood culture, chest x-ray, CTAP, urine analysis, random cortisol, lactate. Foster was replaced w/ temp sensor CXR with no acute finding, CTAP with thickening of the urinary bladder wall, redemonstration of horseshoe shaped kidney and noted was soft tissue density in the right side of the kidney. UA neg, Bl Cx Positive for Staph epidermidis in 2 of 4 bottles and Staph capitis in 1 of 4 bottles. Zosyn and daptomycin were restarted 02/11---> Patient's vitals stabilized and has been afebrile. Home atorvastatin on hold. d/w ID 02/16, dc zosyn, c/w dapto and add rifampicin through 02/28/2024. Uro evaled for rt sided soft tissue density, plan for additional imaging as OP. FU w/ URO as OP. Patient has been afebrile, vitals are stable, continue with daptomycin and rifampin through 02/28/24. 02/22/2024- Remains stable and is afebrile and hemodynamic stable Pulled out his central line without any complication thereafter Has a peripheral line and getting antibiotic through it Has not got any bed to be discharged so he will be staying here for the next few days to finish the IV antibiotic His daptomycin dose has been adjusted according to the renal function Remains medically stable and will continue current antibiotics as per instruction from ID Awaiting placement Bilateral Ganga SCDs CBCchiae Thrombocytopenia Acute on chronic anemia Hematuria- resolved Possibly from Vanco rather than Rifampicin (being taken as outpatient), further d/w ID was held 02/16, rifampic resumed 02/16. Hemoglobin has been stable and improving, platelets has normalized. Hematuria resolved. Continue to monitor. Hemoglobin is stable Will check CBC on Wednesday Acute/Chronic CKD-3b: Baseline creatinine of 1.4-1.5, nephrology evaluated, admitting creatinine of 2.74 likely prerenal in the setting of poor intake versus intrarenal from ATN/nephrotoxicity. Status post IV fluid. Creatinine has gradually improved, then again trended up, 2.41 on 02/18, s/p IVF, Cr today 1.85. encourage PO fluid intake. Avoid nephrotoxic, labs in AM. Creatinine shows improvement at 1.68 as of today Advised to drink more fluid Will check PRP on Wednesday Hypernatremia: Admitting sodium of 147, nephrology evaluated, increases w/ poor po fluid intake, improved w/ adequate hydration. Sodium level has been normalized Atrial Fibrillation hx of CHB s/p PPM HLD Metoprolol held for low BP Flecainide continued Per OP chart review 02/16: "Apixaban 5 Mg was discontinued at the hospital" Pt on hep sc for dvt px. Resume metoprolol 02/18 Heart rate is controlled does not have any cardiac symptoms Hypoglycemia: resolved. Falls - pt with 2 falls in 3 days, likely 2/2 to suspected illness. PT/OT eval - recommends snf. Mild Oropharyngeal dysphagia: : had video fluoroscopy at [facility] which was negative for jade aspiration, speech evaled here as well due to caregiver's concern - continue with minced and moist diet, aspiration precautions Mild intellectual disability: resides in alf. BPH/Gross hematuria: likely from traumatic cath vs thrombocytopenia - will need urology follow up at discharge, cath placed at [facility]-- resolved Bipolar disorder: continue home medication, mood stable Seizure disorder: Continue topamax, depakote, no witnessed seizure in several years No more seizures Hypothyroidism: continue levothyroxine, TSH 5.261 uIu/ml and free T4 1.0 DVT ppx: heparin subc FULL CODE PCP: Guilherme Berger Dispo: can go to med/surg PT/OT evaluation, CM to assist with DC planning. can dc to facility. needs iv antibiotic. Awaiting placement Admission and Anticipated Discharge Date Admission Date: February 03, 2024 Subjective 02/22/2024 The patient was seen and examined in ICU He has intellectual disability and is noncommunicative to be a meaningful way Does not seems to be in any acute distress and remains hemodynamically stable 02/23/2024 The patient was seen and examined in telemetry unit He remains stable and wants to go home Does not seems to be in any distress 02/24/2024 The patient was seen and examined in telemetry unit He has been stable, afebrile and without any other significant symptoms He wants to go home 02/25/2024 The patient was seen and examined in the telemetry unit He has been stable and wants to go home Denies any significant symptoms 02/26/2024 The patient was seen and examined in medical floor He has been stable does not have any significant symptoms He is awaiting placement 02/27/2024 Patient was seen and examined in medical floor He remains stable without any fever and or chills No cough, no nausea no vomiting He wants to go home Review of Systems Review of Systems: all noted and negative except for above Physical Exam Physical Exam: Lying in bed without any acute distress Constitutional: + ill appearing and + thin Eyes: PERRL, conjunctivae normal, anicteric sclerae ENMT: external ear and nose normal, oropharynx normal Respiratory: no respiratory distress Auscultation: + diminished lung sounds and + crackles ( minimal crackles at the bases) Cardiovascular: Rate/Rhythm: regular rate and regular rhythm; not tachycardic Heart Sounds: normal S1 and normal S2; no murmur Extremities: + edema ( Trace edema bilaterally) Gastrointestinal (Abdomen): Inspection/Auscultation: abdomen not distended Percussion/Palpation: abdomen soft; abdomen nontender Musculoskeletal: No acute arthritis involving any of the joint Neurologic: Has significant intellectual impairment and remains minimally communicative. Moves all extremities sometime nonpurposeful way Lymphatic: no cervical or axillary lymphadenopathy Results & Data Results & Data Vital Signs (Past 12 Hours) Vital Signs Temp Pulse Resp BP Pulse Ox O2 Del Method 02/27/24 07:45 36.8 C 72 14 123/75 94 Room Air 02/27/24 07:40 Room Air Medications Administered Current Inpatient Medications Acetaminophen (Acetaminophen 325 Mg Tab) 650 mg PO Q6H PRN PRN Reason: Pain or Fever Stop: 03/12/24 19:45 Last Admin: 02/20/24 20:08 Dose: 650 mg Allopurinol (Allopurinol 100 Mg Tab) 100 mg PO DAILY SIMIN Stop: 03/08/24 08:59 Last Admin: 02/27/24 07:50 Dose: 100 mg Calcium Carbonate (Calcium Carbonate 500 Mg Chewable Tab) 500 mg PO BID [facility] Stop: 03/07/24 20:59 Last Admin: 02/27/24 08:05 Dose: 500 mg Cetirizine HCl (Cetirizine Oral Soln 1 Mg/Ml) 10 mg PO DAILY [facility] Stop: 03/09/24 09:59 Last Admin: 02/27/24 07:51 Dose: 10 mg Dextrose (Dextrose 50% 50 Ml Syringe) 25 - 50 ml IV UD PRN; Protocol PRN Reason: Hypoglycemia Protocol Stop: 03/04/24 13:57 Divalproex Sodium (Divalproex Extended Release 500 Mg Tab) 1,000 mg PO HS [facility] Stop: 03/10/24 20:59 Last Admin: 02/26/24 21:51 Dose: 1,000 mg Docusate Sodium (Docusate Sodium Syrup 100 Mg/10 Ml Udc) 100 mg PO DAILY [facility] Stop: 03/08/24 08:59 Famotidine (Famotidine 20 Mg Tab) 20 mg PO DAILY [facility]; Protocol Stop: 03/11/24 08:59 Last Admin: 02/27/24 08:05 Dose: 20 mg Finasteride (Finasteride 5 Mg Tab) 5 mg PO DAILY [facility] Stop: 03/05/24 08:59 Last Admin: 02/27/24 07:51 Dose: 5 mg Flecainide Acetate (Flecainide Acetate 100 Mg Tablet) 50 mg PO BID [facility] Stop: 03/04/24 20:59 Last Admin: 02/27/24 07:51 Dose: 50 mg Gabapentin (Gabapentin 250 Mg/5 Ml 470 Ml Btl) 100 mg PO TID SIMIN Stop: 03/05/24 13:59 Last Admin: 02/27/24 13:55 Dose: 100 mg Glucagon (Glucagon For Inj 1 Mg Vial) 1 mg SQ UD PRN; Protocol PRN Reason: Hypoglycemia Protocol Stop: 03/04/24 13:57 Glucose (Glucose 40% Gel 15 Gm Tube) 15 - 30 gm PO UD PRN; Protocol PRN Reason: Hypoglycemia Protocol Stop: 03/04/24 13:57 Glucose (Glucose 10 Tab/Tube) 4 - 8 tab PO UD PRN; Protocol PRN Reason: Hypoglycemia Protocol Stop: 03/04/24 13:57 Heparin Sodium (Beef Lung) (Heparin 10 Unit/Ml 5 Ml Flush) 5 ml FLUSH PRN PRN PRN Reason: Flush Stop: 03/17/24 10:14 Last Admin: 02/17/24 16:36 Dose: 5 ml Heparin Sodium (Porcine) (Heparin Sod 5,000 Unit/0.5 Ml Vial) 5,000 units SQ Q12 SIMIN Stop: 03/13/24 20:59 Last Admin: 02/27/24 08:05 Dose: 5,000 units Daptomycin 500 mg/ Syringe 10 mls @ 5 mls/min IV Q24H [facility]; Protocol Stop: 02/28/24 12:59 Last Admin: 02/27/24 11:59 Dose: 5 mls/min Lactobacillus Acidophilus (Lactobacillus Acidophilus 1 Gm Pack) 1 packet PO TIDM [facility] Stop: 03/11/24 07:59 Last Admin: 02/27/24 11:59 Dose: 1 packet Lansoprazole (Lansoprazole 30 Mg Soltab) 30 mg PO DAILY [facility] Stop: 03/10/24 08:59 Last Admin: 02/27/24 07:51 Dose: 30 mg Levothyroxine Sodium (Levothyroxine Sodium 75 Mcg Tablet) 75 mcg PO DAILYBB [facility] Stop: 03/05/24 06:29 Last Admin: 02/27/24 05:47 Dose: 75 mcg Metoprolol Succinate (Metoprolol Succ 25mg Ext Rel Tab) 25 mg PO QAM [facility] Stop: 03/20/24 08:59 Last Admin: 02/27/24 07:55 Dose: 25 mg Miscellaneous (Carbohydrates For Hypoglycemia ) 15 - 30 gm PO UD PRN PRN Reason: Hypoglycemia Protocol Stop: 03/04/24 13:57 Ondansetron HCl (Ondansetron Inj 2 Mg/Ml 2 Ml Vial) 4 mg IV Q6H PRN PRN Reason: Nausea Stop: 03/04/24 14:27 Last Admin: 02/11/24 20:47 Dose: 4 mg Polyethylene Glycol (Polyethylene (Miralax) 17 Gm Pack) 17 gm PO DAILY PRN PRN Reason: Constipation Stop: 03/04/24 14:27 Rifampin (Rifampin 300 Mg Capsule) 300 mg PO TID [facility] Stop: 03/18/24 20:59 Last Admin: 02/27/24 13:55 Dose: 300 mg Tamsulosin HCl (Tamsulosin Hcl 0.4 Mg Cap) 0.4 mg PO BID [facility] Stop: 03/04/24 20:59 Last Admin: 02/27/24 07:50 Dose: 0.4 mg Topiramate (Topiramate 100 Mg Tab) 100 mg PO QPM [facility]IN Stop: 03/04/24 20:59 Last Admin: 02/26/24 21:53 Dose: 100 mg Topiramate (Topiramate 50 Mg Tab) 50 mg PO QAM [facility] Stop: 03/05/24 08:59 Last Admin: 02/27/24 07:51 Dose: 50 mg Vitamin D (Cholecalciferol 25 Mcg (1000 Units) Tab) 50 mcg PO DAILY [facility] Stop: 03/05/24 08:59 Last Admin: 02/05/24 11:03 Dose: Not Given
[2024-02-28 07:45] LABS: Basophils # (auto) 0.02 K/uL (0.00-0.20); Basophils % (auto) 0.3 %; Eosinophils # (auto) 0.09 K/uL (0.00-0.50); Eosinophils % (auto) 1.3 %; Hematocrit (blood only) 31.2 % (42.0-52.0); Immature Granulocytes # (auto) 0.07 K/uL (0.01-0.20); Lymphocytes # (auto) 2.62 K/uL (1.20-3.40); Lymphocytes % (auto) 37.3 %; Mean Corpuscular Hemoglobin 30.9 pg (25.0-34.0); Mean Corpuscular Hgb Conc 32.1 g/dL (32.0-36.0); Mean Corpuscular Volume 96.3 fL (80.0-100.0); Mean Platelet Volume 12.6 fL (9.4-12.4); Monocytes # (auto) 0.53 K/uL (0.11-0.59); Monocytes % (auto) 7.5 %; Neutrophils # (auto) 3.69 K/uL (1.40-6.50); Neutrophils % (auto) 52.6 %; Platelet Count 217 K/uL (130-400); RDW Coefficient of Variation 15.6 % (11.5-14.5); RDW Standard Deviation 55.5 fL (36.4-46.3); Red Blood Count 3.24 M/uL (4.70-6.10); White Blood Count 7.02 K/ul (4.8-10.8)
[2024-02-28 08:10] LABS: Alanine Aminotransferase 14 U/L (7-52); Albumin Level 3.2 gm/dl (3.4-5.0); Alkaline Phosphatase 91 U/L (34-104); Anion Gap 7 (3-11); Aspartate Aminotransferase 26 U/L (13-39); Bilirubin,Total 0.7 mg/dl (0.2-1.0); Blood Urea Nitrogen 45 mg/dl (6-23); Calcium 10.4 mg/dl (8.6-10.3); Carbon Dioxide 29 mmol/L (21-32); Chloride 103 mmol/L (98-107); Creatine Kinase 16 U/L (30-223); Creatinine Clr Calc Pharmacy 30.8 ml/min; Glucose 88 mg/dl (70-99(Fasting)); Potassium 4.4 mmol/L (3.5-5.1); Sodium 139 mmol/L (136-145)
--- NOTE | 2024-02-28 14:28 | Hospitalist Progress Note ---
Date of Service February 28, 2024 Assessment & Plan (1) Septic shock: Plan: 63 yo M w/ PMH of baseline intellectual disability, Afib on Eliquis, CHB s/p permanent pacemaker placement, hypothyroidism, BPH, bipolar disorder, CKD stage III [baseline creatinine 1.4-1.5], horseshoe kidney, bilateral renal masses, BPH, chronic anemia who presents to ED 02/03/24 secondary to altered mental status and lethargy. Recent hospitalization 01/11-01/24 @ [facility] 2/2 Staphylococcus Haemolyticus, PNA presumed aspiration, negative TTE/DE; however ID recommended treating with 6 week course of IV Vanco/rifampin given negative cultures with treatment and no clear source of bacteremia. He was seen and evaluated by ST and underwent videofluoroscopy which described moderate oral pharyngeal dysphagia. Hosp course also complicated with hematuria, a/c anemia, thrombocytopenia. He was D/C To [facility] to complete course of antibiotics. [facility] from a [facility]. In ED pt with mild hypotension, tachycardia, altered mental status, elevated BUN/Cr from baseline, worsening anemia/thrombocytopenia in setting of IV Vanco with elevated vanco level at 27, oral rifampin and concern for worsened aspiration. He is being managed for the following: Septic shock 2/2 possible bacteremia and aspiration pna. Metabolic encephalopathy Recent Staph hemolyticus bacteremia - supposed to be on treatment through 02/27 at the time of presentation Possible Aspiration Pneumonia Possible catheter associated complicated UTI- ruled out At presentation patient was in septic shock requiring Levophed, off of Levophed since 02/04, mentation noted to have improved since 02/05 Patient with recent staph bacteremia [+ culture from [facility] 01/11 Staph hemolyticus, resistant except for vanco - unknown source, negative DE/TTE, cleared with treatment, ID recommend tx through 02/27] MRSA swab negative, admitting CPK level 23, admitting procalcitonin elevated at 2.05, admitting lactate WNL. ID evaluated 02/03, recommended holding both vancomycin and rifampin. Patient was switched to IV daptomycin due to concern for nephrotoxicity and added IV Zosyn for aspiration coverage. 02/03/2024 blood culture negative for 5 days. 02/03/2024 urine culture no growth. Zosyn discontinued 02/05. Daptomycin continued for treatment of previously diagnosed as staph hemolyticus bacteremia until 02/27. Patient was doing well on daptomycin and was afebrile and clinically stable. ID reevaluated 02/09 and recommended antibiotic cessation, hence daptomycin discontinued 02/09. Current antibiotics as per the documentation below Still has few days of antibiotic to go He is otherwise stable and medically ready to be discharged He is intravenous antibiotic will be finished by tomorrow Remained free from any fever and does not have any new signs or symptoms of infection He is medically stable to be transferred to facility when approved Remains medically stable without any acute distress and wants to go home Awaiting placement On 02/11, patient found hypothermic [34.2C], hypotensive [99/65] Patient received IV fluid, IV albumin, blood culture, chest x-ray, CTAP, urine analysis, random cortisol, lactate. Foster was replaced w/ temp sensor CXR with no acute finding, CTAP with thickening of the urinary bladder wall, redemonstration of horseshoe shaped kidney and noted was soft tissue density in the right side of the kidney. UA neg, Bl Cx Positive for Staph epidermidis in 2 of 4 bottles and Staph capitis in 1 of 4 bottles. Zosyn and daptomycin were restarted 02/11---> Patient's vitals stabilized and has been afebrile. Home atorvastatin on hold. d/w ID 02/16, dc zosyn, c/w dapto and add rifampicin through 02/28/2024. Uro evaled for rt sided soft tissue density, plan for additional imaging as OP. FU w/ URO as OP. Patient has been afebrile, vitals are stable, continue with daptomycin and rifampin through 02/28/24. 02/22/2024- Remains stable and is afebrile and hemodynamic stable Pulled out his central line without any complication thereafter Has a peripheral line and getting antibiotic through it Has not got any bed to be discharged so he will be staying here for the next few days to finish the IV antibiotic His daptomycin dose has been adjusted according to the renal function Remains medically stable and will continue current antibiotics as per instruction from ID Awaiting placement Bilateral Ganga SCDs CBCchiae Thrombocytopenia Acute on chronic anemia Hematuria- resolved Possibly from Vanco rather than Rifampicin (being taken as outpatient), further d/w ID was held 02/16, rifampic resumed 02/16. Hemoglobin has been stable and improving, platelets has normalized. Hematuria resolved. Continue to monitor. Hemoglobin is stable Will check CBC on Wednesday Acute/Chronic CKD-3b: Baseline creatinine of 1.4-1.5, nephrology evaluated, admitting creatinine of 2.74 likely prerenal in the setting of poor intake versus intrarenal from ATN/nephrotoxicity. Status post IV fluid. Creatinine has gradually improved, then again trended up, 2.41 on 02/18, s/p IVF, Cr today 1.85. encourage PO fluid intake. Avoid nephrotoxic, labs in AM. Creatinine shows improvement at 1.68 as of today Advised to drink more fluid Will check PRP on Wednesday-hemoglobin remains stable with normal CBC Hypernatremia: Admitting sodium of 147, nephrology evaluated, increases w/ poor po fluid intake, improved w/ adequate hydration. Sodium level has been normalized Sodium level is normal with mild dehydration with increasing BUN/creatinine Advised to drink more fluid Atrial Fibrillation hx of CHB s/p PPM HLD Metoprolol held for low BP Flecainide continued Per OP chart review 02/16: "Apixaban 5 Mg was discontinued at the hospital" Pt on hep sc for dvt px. Resume metoprolol 02/18 Heart rate is controlled does not have any cardiac symptoms Hypoglycemia: resolved. Falls - pt with 2 falls in 3 days, likely 2/2 to suspected illness. PT/OT eval - recommends snf. Mild Oropharyngeal dysphagia: : had video fluoroscopy at [facility] which was negative for jade aspiration, speech evaled here as well due to caregiver's concern - continue with minced and moist diet, aspiration precautions Mild intellectual disability: resides in [facility]. BPH/Gross hematuria: likely from traumatic cath vs thrombocytopenia - will need urology follow up at discharge, cath placed at [facility]-- resolved Bipolar disorder: continue home medication, mood stable Seizure disorder: Continue topamax, depakote, no witnessed seizure in several years No more seizures Hypothyroidism: continue levothyroxine, TSH 5.261 uIu/ml and free T4 1.0 DVT ppx: heparin subc FULL CODE PCP: Guilherme Berger Dispo: can go to med/surg PT/OT evaluation, CM to assist with DC planning. can dc to facility. needs iv antibiotic. Awaiting placement Admission and Anticipated Discharge Date Admission Date: February 03, 2024 Subjective 02/22/2024 The patient was seen and examined in ICU He has intellectual disability and is noncommunicative to be a meaningful way Does not seems to be in any acute distress and remains hemodynamically stable 02/23/2024 The patient was seen and examined in telemetry unit He remains stable and wants to go home Does not seems to be in any distress 02/24/2024 The patient was seen and examined in telemetry unit He has been stable, afebrile and without any other significant symptoms He wants to go home 02/25/2024 The patient was seen and examined in the telemetry unit He has been stable and wants to go home Denies any significant symptoms 02/26/2024 The patient was seen and examined in medical floor He has been stable does not have any significant symptoms He is awaiting placement 02/27/2024 Patient was seen and examined in medical floor He remains stable without any fever and or chills No cough, no nausea no vomiting He wants to go home 02/28/2024 The patient was seen and examined in medical floor He has been stable and awaiting placement Denies any symptoms Review of Systems Review of Systems: all noted and negative except for above Physical Exam Physical Exam: Lying in bed without any acute distress Constitutional: + ill appearing and + thin Eyes: PERRL, conjunctivae normal, anicteric sclerae ENMT: external ear and nose normal, oropharynx normal Respiratory: no respiratory distress Auscultation: + diminished lung sounds and + crackles ( minimal crackles at the bases) Cardiovascular: Rate/Rhythm: regular rate and regular rhythm; not tachycardic Heart Sounds: normal S1 and normal S2; no murmur Extremities: + edema ( Trace edema bilaterally) Gastrointestinal (Abdomen): Inspection/Auscultation: abdomen not distended Percussion/Palpation: abdomen soft; abdomen nontender Musculoskeletal: No acute arthritis involving any of the joint Neurologic: Alert and awake moving all limbs. Occasional can have meaningful communication Lymphatic: no cervical or axillary lymphadenopathy Results & Data Results & Data Vital Signs (Past 12 Hours) Vital Signs Temp Pulse Resp BP Pulse Ox O2 Del Method 02/28/24 07:42 36.7 C 60 16 120/74 93 Room Air 02/28/24 07:30 Room Air Laboratory Results Short CBC 02/28/24 Range/Units 06:48 WBC 7.02 (4.8-10.8) K/ul Hgb 10.0 L (14.0-18.0) g/dl Hct 31.2 L (42.0-52.0) % Plt Count 217 (130-400) K/uL BMP 02/28/24 06:48 Sodium 139 Potassium 4.4 Chloride 103 Carbon Dioxide 29 BUN 45 H Creatinine 2.05 H Glucose 88 Calcium 10.4 H Cardiac Enzymes 02/28/24 Range/Units 06:48 Total Creatine Kinase 16 L (30-223) U/L Liver Function 02/28/24 Range/Units 06:48 Total Bilirubin 0.7 (0.2-1.0) mg/dl Direct Bilirubin TNP AST 26 (13-39) U/L ALT 14 (7-52) U/L Alkaline Phosphatase 91 (34-104) U/L Albumin 3.2 L (3.4-5.0) gm/dl Medications Administered Current Inpatient Medications Acetaminophen (Acetaminophen 325 Mg Tab) 650 mg PO Q6H PRN PRN Reason: Pain or Fever Stop: 03/12/24 19:45 Last Admin: 02/28/24 05:27 Dose: 650 mg Allopurinol (Allopurinol 100 Mg Tab) 100 mg PO DAILY SIMIN Stop: 03/08/24 08:59 Last Admin: 02/28/24 09:25 Dose: 100 mg Calcium Carbonate (Calcium Carbonate 500 Mg Chewable Tab) 500 mg PO BID SIMIN Stop: 03/07/24 20:59 Last Admin: 02/28/24 09:32 Dose: 500 mg Cetirizine HCl (Cetirizine Oral Soln 1 Mg/Ml) 10 mg PO DAILY SIMIN Stop: 03/09/24 09:59 Last Admin: 02/28/24 09:26 Dose: 10 mg Dextrose (Dextrose 50% 50 Ml Syringe) 25 - 50 ml IV UD PRN; Protocol PRN Reason: Hypoglycemia Protocol Stop: 03/04/24 13:57 Divalproex Sodium (Divalproex Extended Release 500 Mg Tab) 1,000 mg PO HS SIMIN Stop: 03/10/24 20:59 Last Admin: 02/27/24 22:20 Dose: 1,000 mg Docusate Sodium (Docusate Sodium Syrup 100 Mg/10 Ml Udc) 100 mg PO DAILY SIMIN Stop: 03/08/24 08:59 Famotidine (Famotidine 20 Mg Tab) 20 mg PO DAILY [facility]; Protocol Stop: 03/11/24 08:59 Last Admin: 02/28/24 09:32 Dose: 20 mg Finasteride (Finasteride 5 Mg Tab) 5 mg PO DAILY SIMIN Stop: 03/05/24 08:59 Last Admin: 02/28/24 09:24 Dose: 5 mg Flecainide Acetate (Flecainide Acetate 100 Mg Tablet) 50 mg PO BID SIMIN Stop: 03/04/24 20:59 Last Admin: 02/28/24 09:25 Dose: 50 mg Gabapentin (Gabapentin 250 Mg/5 Ml 470 Ml Btl) 100 mg PO TID SIMIN Stop: 03/05/24 13:59 Last Admin: 02/28/24 14:03 Dose: 100 mg Glucagon (Glucagon For Inj 1 Mg Vial) 1 mg SQ UD PRN; Protocol PRN Reason: Hypoglycemia Protocol Stop: 03/04/24 13:57 Glucose (Glucose 40% Gel 15 Gm Tube) 15 - 30 gm PO UD PRN; Protocol PRN Reason: Hypoglycemia Protocol Stop: 03/04/24 13:57 Glucose (Glucose 10 Tab/Tube) 4 - 8 tab PO UD PRN; Protocol PRN Reason: Hypoglycemia Protocol Stop: 03/04/24 13:57 Heparin Sodium (Beef Lung) (Heparin 10 Unit/Ml 5 Ml Flush) 5 ml FLUSH PRN PRN PRN Reason: Flush Stop: 03/17/24 10:14 Last Admin: 02/17/24 16:36 Dose: 5 ml Heparin Sodium (Porcine) (Heparin Sod 5,000 Unit/0.5 Ml Vial) 5,000 units SQ Q12 SIMIN Stop: 03/13/24 20:59 Last Admin: 02/28/24 09:32 Dose: 5,000 units Lactobacillus Acidophilus (Lactobacillus Acidophilus 1 Gm Pack) 1 packet PO TIDM SIMIN Stop: 03/11/24 07:59 Last Admin: 02/28/24 11:59 Dose: 1 packet Lansoprazole (Lansoprazole 30 Mg Soltab) 30 mg PO DAILY SIMIN Stop: 03/10/24 08:59 Last Admin: 02/28/24 09:24 Dose: 30 mg Levothyroxine Sodium (Levothyroxine Sodium 75 Mcg Tablet) 75 mcg PO DAILYBB [facility] Stop: 03/05/24 06:29 Last Admin: 02/28/24 05:28 Dose: 75 mcg Metoprolol Succinate (Metoprolol Succ 25mg Ext Rel Tab) 25 mg PO QAM SIMIN Stop: 03/20/24 08:59 Last Admin: 02/28/24 09:25 Dose: 25 mg Miscellaneous (Carbohydrates For Hypoglycemia ) 15 - 30 gm PO UD PRN PRN Reason: Hypoglycemia Protocol Stop: 03/04/24 13:57 Ondansetron HCl (Ondansetron Inj 2 Mg/Ml 2 Ml Vial) 4 mg IV Q6H PRN PRN Reason: Nausea Stop: 03/04/24 14:27 Last Admin: 02/11/24 20:47 Dose: 4 mg Polyethylene Glycol (Polyethylene (Miralax) 17 Gm Pack) 17 gm PO DAILY PRN PRN Reason: Constipation Stop: 03/04/24 14:27 Rifampin (Rifampin 300 Mg Capsule) 300 mg PO TID [facility] Stop: 03/18/24 20:59 Last Admin: 02/28/24 14:03 Dose: 300 mg Tamsulosin HCl (Tamsulosin Hcl 0.4 Mg Cap) 0.4 mg PO BID SIMIN Stop: 03/04/24 20:59 Last Admin: 02/28/24 09:25 Dose: 0.4 mg Topiramate (Topiramate 100 Mg Tab) 100 mg PO QPM SIMIN Stop: 03/04/24 20:59 Last Admin: 02/27/24 22:23 Dose: 100 mg Topiramate (Topiramate 50 Mg Tab) 50 mg PO QAM [facility] Stop: 03/05/24 08:59 Last Admin: 02/28/24 09:26 Dose: 50 mg Vitamin D (Cholecalciferol 25 Mcg (1000 Units) Tab) 50 mcg PO DAILY SIMIN Stop: 03/05/24 08:59 Last Admin: 02/05/24 11:03 Dose: Not Given
--- NOTE | 2024-02-29 16:36 | Hospitalist Progress Note ---
Date of Service February 29, 2024 Assessment & Plan (1) Septic shock: Plan: 63 yo M w/ PMH of baseline intellectual disability, Afib on Eliquis, CHB s/p permanent pacemaker placement, hypothyroidism, BPH, bipolar disorder, CKD stage III [baseline creatinine 1.4-1.5], horseshoe kidney, bilateral renal masses, BPH, chronic anemia who presents to ED 02/03/24 secondary to altered mental status and lethargy. Recent hospitalization 01/11-01/24 @ [facility] 2/2 Staphylococcus Haemolyticus, PNA presumed aspiration, negative TTE/DE; however ID recommended treating with 6 week course of IV Vanco/rifampin given negative cultures with treatment and no clear source of bacteremia. He was seen and evaluated by ST and underwent videofluoroscopy which described moderate oral pharyngeal dysphagia. Hosp course also complicated with hematuria, a/c anemia, thrombocytopenia. He was D/C To [facility] to complete course of antibiotics. He is from [facility] [place] [facility]. In ED pt with mild hypotension, tachycardia, altered mental status, elevated BUN/Cr from baseline, worsening anemia/thrombocytopenia in setting of IV Vanco with elevated vanco level at 27, oral rifampin and concern for worsened aspiration. He is being managed for the following: Septic shock 2/2 possible bacteremia and aspiration pna. Metabolic encephalopathy Recent Staph hemolyticus bacteremia - supposed to be on treatment through 02/27 at the time of presentation Possible Aspiration Pneumonia Possible catheter associated complicated UTI- ruled out At presentation patient was in septic shock requiring Levophed, off of Levophed since 02/04, mentation noted to have improved since 02/05 Patient with recent staph bacteremia [+ culture from [facility] 01/11 Staph hemolyticus, resistant except for vanco - unknown source, negative DE/TTE, cleared with treatment, ID recommend tx through 02/27] MRSA swab negative, admitting CPK level 23, admitting procalcitonin elevated at 2.05, admitting lactate WNL. ID evaluated 02/03, recommended holding both vancomycin and rifampin. Patient was switched to IV daptomycin due to concern for nephrotoxicity and added IV Zosyn for aspiration coverage. 02/03/2024 blood culture negative for 5 days. 02/03/2024 urine culture no growth. Zosyn discontinued 02/05. Daptomycin continued for treatment of previously diagnosed as staph hemolyticus bacteremia until 02/27. Patient was doing well on daptomycin and was afebrile and clinically stable. ID reevaluated 02/09 and recommended antibiotic cessation, hence daptomycin discontinued 02/09. Current antibiotics as per the documentation below Still has few days of antibiotic to go He is otherwise stable and medically ready to be discharged He is intravenous antibiotic will be finished by tomorrow Remained free from any fever and does not have any new signs or symptoms of infection He is medically stable to be transferred to facility when approved Remains medically stable without any acute distress and wants to go home Antibiotic course is finished and he does not have any more symptoms or signs of infection Awaiting placement On 02/11, patient found hypothermic [34.2C], hypotensive [99/65] Patient received IV fluid, IV albumin, blood culture, chest x-ray, CTAP, urine analysis, random cortisol, lactate. Foster was replaced w/ temp sensor CXR with no acute finding, CTAP with thickening of the urinary bladder wall, redemonstration of horseshoe shaped kidney and noted was soft tissue density in the right side of the kidney. UA neg, Bl Cx Positive for Staph epidermidis in 2 of 4 bottles and Staph capitis in 1 of 4 bottles. Zosyn and daptomycin were restarted 02/11---> Patient's vitals stabilized and has been afebrile. Home atorvastatin on hold. d/w ID 02/16, dc zosyn, c/w dapto and add rifampicin through 02/28/2024. Uro evaled for rt sided soft tissue density, plan for additional imaging as OP. FU w/ URO as OP. Patient has been afebrile, vitals are stable, continue with daptomycin and rifampin through 02/28/24. 02/22/2024- Remains stable and is afebrile and hemodynamic stable Pulled out his central line without any complication thereafter Has a peripheral line and getting antibiotic through it Has not got any bed to be discharged so he will be staying here for the next few days to finish the IV antibiotic His daptomycin dose has been adjusted according to the renal function Remains medically stable and will continue current antibiotics as per instruction from ID Awaiting placement Bilateral Ganga SCDs CBCchiae Thrombocytopenia Acute on chronic anemia Hematuria- resolved Possibly from Vanco rather than Rifampicin (being taken as outpatient), further d/w ID was held 02/16, rifampic resumed 02/16. Hemoglobin has been stable and improving, platelets has normalized. Hematuria resolved. Continue to monitor. Hemoglobin is stable Will check CBC on Wednesday- remains stable with hemoglobin of 10.0 Acute/Chronic CKD-3b: Baseline creatinine of 1.4-1.5, nephrology evaluated, admitting creatinine of 2.74 likely prerenal in the setting of poor intake versus intrarenal from ATN/nephrotoxicity. Status post IV fluid. Creatinine has gradually improved, then again trended up, 2.41 on 02/18, s/p IVF, Cr today 1.85. encourage PO fluid intake. Avoid nephrotoxic, labs in AM. Creatinine shows improvement at 1.68 as of today Advised to drink more fluid Will check PRP on Wednesday- kidney function is slightly worse with BUN of 45 and creatinine 2.05 He was advised to drink more fluid Hypernatremia: Admitting sodium of 147, nephrology evaluated, increases w/ poor po fluid intake, improved w/ adequate hydration. Sodium level has been normalized Sodium level is normal with mild dehydration with increasing BUN/creatinine Advised to drink more fluid Sodium level has been normalized Atrial Fibrillation hx of CHB s/p PPM HLD Metoprolol held for low BP Flecainide continued Per OP chart review 02/16: "Apixaban 5 Mg was discontinued at the hospital" Pt on hep sc for dvt px. Resume metoprolol 02/18 Heart rate is controlled does not have any cardiac symptoms Hypoglycemia: resolved. Falls - pt with 2 falls in 3 days, likely 2/2 to suspected illness. PT/OT eval - recommends snf. Mild Oropharyngeal dysphagia: : had video fluoroscopy at [facility] which was negative for jade aspiration, speech evaled here as well due to caregiver's concern - continue with minced and moist diet, aspiration precautions Mild intellectual disability: resides [place] [facility]. BPH/Gross hematuria: likely from traumatic cath vs thrombocytopenia - will need urology follow up at discharge, cath placed at [facility]-- resolved Bipolar disorder: continue home medication, mood stable Seizure disorder: Continue topamax, depakote, no witnessed seizure in several years No more seizures Hypothyroidism: continue levothyroxine, TSH 5.261 uIu/ml and free T4 1.0 DVT ppx: heparin subc FULL CODE PCP: Guilherme Berger Dispo: can go to med/surg PT/OT evaluation, CM to assist with DC planning. can dc to facility. needs iv antibiotic. The caregiver thinks that he has been requiring to assist for ambulation and t madhavi do not have the manpower to provide that sort of care at the facility He is awaiting placement Admission and Anticipated Discharge Date Admission Date: February 03, 2024 Subjective 02/22/2024 The patient was seen and examined in ICU He has intellectual disability and is noncommunicative to be a meaningful way Does not seems to be in any acute distress and remains hemodynamically stable 02/23/2024 The patient was seen and examined in telemetry unit He remains stable and wants to go home Does not seems to be in any distress 02/24/2024 The patient was seen and examined in telemetry unit He has been stable, afebrile and without any other significant symptoms He wants to go home 02/25/2024 The patient was seen and examined in the telemetry unit He has been stable and wants to go home Denies any significant symptoms 02/26/2024 The patient was seen and examined in medical floor He has been stable does not have any significant symptoms He is awaiting placement 02/27/2024 Patient was seen and examined in medical floor He remains stable without any fever and or chills No cough, no nausea no vomiting He wants to go home 02/28/2024 The patient was seen and examined in medical floor He has been stable and awaiting placement Denies any symptoms 02/29/2024 The patient was seen and examined in medical floor in presence of the caregiver The caregiver thinks that he has been requiring 2 assist to ambulate and they cannot take him back The patient has been waiting to be placed Review of Systems Review of Systems: Unobtainable due to cognitive status Physical Exam Physical Exam: Lying in bed without any acute distress Constitutional: + ill appearing and + thin Eyes: PERRL, conjunctivae normal, anicteric sclerae ENMT: external ear and nose normal, oropharynx normal Respiratory: no respiratory distress Auscultation: + diminished lung sounds and + crackles ( minimal crackles at the bases) Cardiovascular: Rate/Rhythm: regular rate and regular rhythm; not tachycardic Heart Sounds: normal S1 and normal S2; no murmur Extremities: no edema ( Trace edema bilaterally) Gastrointestinal (Abdomen): Inspection/Auscultation: abdomen not distended Percussion/Palpation: abdomen soft; abdomen nontender Musculoskeletal: No acute arthritis involving any of the joint Lymphatic: no cervical or axillary lymphadenopathy Results & Data Results & Data Vital Signs (Past 12 Hours) Vital Signs Temp Pulse Pulse Resp BP Pulse Ox O2 Del Method 02/29/24 13:12 Room Air 02/29/24 08:53 77 122/80 02/29/24 08:32 36.4 C L 62 19 95 Room Air Medications Administered Current Inpatient Medications Acetaminophen (Acetaminophen 325 Mg Tab) 650 mg PO Q6H PRN PRN Reason: Pain or Fever Stop: 03/12/24 19:45 Last Admin: 02/29/24 05:51 Dose: 650 mg Allopurinol (Allopurinol 100 Mg Tab) 100 mg PO DAILY [facility] Stop: 03/08/24 08:59 Last Admin: 02/29/24 08:39 Dose: 100 mg Calcium Carbonate (Calcium Carbonate 500 Mg Chewable Tab) 500 mg PO BID [facility] Stop: 03/07/24 20:59 Last Admin: 02/29/24 08:51 Dose: 500 mg Cetirizine HCl (Cetirizine Oral Soln 1 Mg/Ml) 10 mg PO DAILY [facility] Stop: 03/09/24 09:59 Last Admin: 02/29/24 08:38 Dose: 10 mg Dextrose (Dextrose 50% 50 Ml Syringe) 25 - 50 ml IV UD PRN; Protocol PRN Reason: Hypoglycemia Protocol Stop: 03/04/24 13:57 Divalproex Sodium (Divalproex Extended Release 500 Mg Tab) 1,000 mg PO HS [facility] Stop: 03/10/24 20:59 Last Admin: 02/28/24 20:43 Dose: 1,000 mg Docusate Sodium (Docusate Sodium Syrup 100 Mg/10 Ml Udc) 100 mg PO DAILY [facility] Stop: 03/08/24 08:59 Famotidine (Famotidine 20 Mg Tab) 20 mg PO DAILY [facility]; Protocol Stop: 03/11/24 08:59 Last Admin: 02/29/24 08:51 Dose: 20 mg Finasteride (Finasteride 5 Mg Tab) 5 mg PO DAILY [facility] Stop: 03/05/24 08:59 Last Admin: 02/29/24 08:37 Dose: 5 mg Flecainide Acetate (Flecainide Acetate 100 Mg Tablet) 50 mg PO BID [facility] Stop: 03/04/24 20:59 Last Admin: 02/29/24 08:37 Dose: 50 mg Gabapentin (Gabapentin 250 Mg/5 Ml 470 Ml Btl) 100 mg PO TID [facility] Stop: 03/05/24 13:59 Last Admin: 02/29/24 14:47 Dose: 100 mg Glucagon (Glucagon For Inj 1 Mg Vial) 1 mg SQ UD PRN; Protocol PRN Reason: Hypoglycemia Protocol Stop: 03/04/24 13:57 Glucose (Glucose 40% Gel 15 Gm Tube) 15 - 30 gm PO UD PRN; Protocol PRN Reason: Hypoglycemia Protocol Stop: 03/04/24 13:57 Glucose (Glucose 10 Tab/Tube) 4 - 8 tab PO UD PRN; Protocol PRN Reason: Hypoglycemia Protocol Stop: 03/04/24 13:57 Heparin Sodium (Beef Lung) (Heparin 10 Unit/Ml 5 Ml Flush) 5 ml FLUSH PRN PRN PRN Reason: Flush Stop: 03/17/24 10:14 Last Admin: 02/17/24 16:36 Dose: 5 ml Heparin Sodium (Porcine) (Heparin Sod 5,000 Unit/0.5 Ml Vial) 5,000 units SQ Q12 [facility] Stop: 03/13/24 20:59 Last Admin: 02/29/24 08:51 Dose: 5,000 units Lactobacillus Acidophilus (Lactobacillus Acidophilus 1 Gm Pack) 1 packet PO TIDM [facility] Stop: 03/11/24 07:59 Last Admin: 02/29/24 12:45 Dose: 1 packet Lansoprazole (Lansoprazole 30 Mg Soltab) 30 mg PO DAILY [facility] Stop: 03/10/24 08:59 Last Admin: 02/29/24 08:38 Dose: 30 mg Levothyroxine Sodium (Levothyroxine Sodium 75 Mcg Tablet) 75 mcg PO DAILYBB [facility] Stop: 03/05/24 06:29 Last Admin: 02/29/24 05:51 Dose: 75 mcg Metoprolol Succinate (Metoprolol Succ 25mg Ext Rel Tab) 25 mg PO QAM [facility] Stop: 03/20/24 08:59 Last Admin: 02/29/24 08:44 Dose: 25 mg Miscellaneous (Carbohydrates For Hypoglycemia ) 15 - 30 gm PO UD PRN PRN Reason: Hypoglycemia Protocol Stop: 03/04/24 13:57 Ondansetron HCl (Ondansetron Inj 2 Mg/Ml 2 Ml Vial) 4 mg IV Q6H PRN PRN Reason: Nausea Stop: 03/04/24 14:27 Last Admin: 02/11/24 20:47 Dose: 4 mg Polyethylene Glycol (Polyethylene (Miralax) 17 Gm Pack) 17 gm PO DAILY PRN PRN Reason: Constipation Stop: 03/04/24 14:27 Rifampin (Rifampin 300 Mg Capsule) 300 mg PO TID [facility] Stop: 03/18/24 20:59 Last Admin: 02/29/24 14:45 Dose: 300 mg Tamsulosin HCl (Tamsulosin Hcl 0.4 Mg Cap) 0.4 mg PO BID [facility] Stop: 03/04/24 20:59 Last Admin: 02/29/24 08:37 Dose: 0.4 mg Topiramate (Topiramate 100 Mg Tab) 100 mg PO QPM [facility] Stop: 03/04/24 20:59 Last Admin: 02/28/24 20:45 Dose: 100 mg Topiramate (Topiramate 50 Mg Tab) 50 mg PO QAM [facility] Stop: 03/05/24 08:59 Last Admin: 02/29/24 08:38 Dose: 50 mg Vitamin D (Cholecalciferol 25 Mcg (1000 Units) Tab) 50 mcg PO DAILY [facility] Stop: 03/05/24 08:59 Last Admin: 02/05/24 11:03 Dose: Not Given
--- NOTE | 2024-03-01 14:51 | Hospitalist Progress Note ---
Date of Service March 01, 2024 Assessment & Plan (1) Gram-positive bacteremia: (2) PAF (paroxysmal atrial fibrillation): (3) Chronic renal failure, stage 3b: (4) Chronic pulmonary aspiration: (5) Bipolar disorder: (6) Intellectual disability: (7) Septic shock: (8) Catheter-associated urinary tract infection: (9) Metabolic encephalopathy: Plan Patient initially presented with septic shock due to gram-positive bacteremia possibly associated to aspiration pneumonia and complicated catheter associated UTI. Patient has recovered from this infection has completed all of his antibiotics. Physical therapy notes reviewed, 1 assist Physical therapy was performed with representatives from his [facility]. Believe that the patient may be able to return to the [facility]. Case management working with [facility] registration representative and administration to help coordinate return to his [facility], may need some additional support there Review home medications and reorder as appropriate Anticipate Foster catheter remaining in appears as though he is had history of BPH and chronic retention. Admission and Anticipated Discharge Date Admission Date: February 03, 2024 Subjective No acute issues reported overnight. Patient states he has some pain in his feet Physical Exam Physical Exam: Constitutional: Alert, nontoxic HEENT: Mucous membranes moist. Lungs: Clear to auscultation, decreased, no wheezes rales or rhonchi CV: S1-S2, regular Abdomen: Soft, nontender, nondistended Extremities: No significant edema Neuro: Baseline cognitive deficits, generalized weakness Psych: Cooperative, normal mood Results & Data Results & Data Vital Signs (Past 12 Hours) Vital Signs Temp Pulse Resp BP Pulse Ox O2 Del Method 03/01/24 09:00 Room Air 03/01/24 07:31 36.6 C 82 16 138/80 94 Room Air Diagnostic Findings Reviewed most recent diagnostics
[2024-03-01] MEDS: APIXABAN 5 MG TABLET PO SCH (20:16)
[2024-03-01] MEDS: SCOPOLAMINE 1 MG/72 HR TDSY PATCH TD PRN (20:17)
[2024-03-02] MEDS: ATORVASTATIN 10 MG TAB PO SCH (08:19)
--- NOTE | 2024-03-02 13:00 | Hospitalist Progress Note ---
Date of Service March 02, 2024 Assessment & Plan (1) Gram-positive bacteremia: (2) PAF (paroxysmal atrial fibrillation): (3) Chronic renal failure, stage 3b: (4) Chronic pulmonary aspiration: Plan: Due to patient's medical comorbidities and overall condition he will be a a chronic risk for aspiration no matter what living facility he would reside. Recommend continuing to be diligent with positioning while feeding and accepting these known risks. (5) Bipolar disorder: (6) Intellectual disability: (7) Septic shock: (8) Catheter-associated urinary tract infection: (9) Metabolic encephalopathy: Plan Patient has completed treatment for his infections, continue with his other routine care Reviewed home med list was on Zyprexa 10 mg twice daily, will restart Zyprexa 5 mg twice daily first dose now and continue to monitor his behaviors Further history obtained from senior care and nursing. Apparently patient was at [facility] Foster catheter was placed there when he was critically ill and septic. He subsequently he went to [facility] snf Foster catheter remained in and it appears that a voiding trial was never done. Presented to [facility] with the Foster catheter again with severe sepsis and bacteremia. [facility] will be unable to take patient back until least next week. Most likely unable to find any other place of care prior to then. While patient is here in the hospital and essentially at his baseline we will do a voiding trial attempt and will discontinue Foster catheter today will attempt to straight cath as needed. Basic labs to be checked in a.m. Continue other care 53 minutes spent on review of records, communication with staff, care of patient at bedside Admission and Anticipated Discharge Date Admission Date: February 03, 2024 Subjective Patient seems a little bit more irritable and restless today. [facility] staff noted that patient is usually on scheduled Zyprexa. During his acute illness this was discontinued. Physical Exam Physical Exam: Constitutional: Alert, a bit irritable HEENT: Mucous membranes moist. Lungs: Decreased breath sounds CV: S1-S2, regular, slightly tachycardic Abdomen: Soft, nontender, nondistended Extremities: No significant edema Neuro: No focal deficits, generalized weakness Psych: Cognitively impaired, little irritable, repeating unintelligible sentence over and over Results & Data Results & Data Vital Signs (Past 12 Hours) Vital Signs Temp Pulse Resp BP Pulse Ox O2 Del Method 03/02/24 09:15 Room Air 03/02/24 07:54 36.4 C L 110 H 16 119/82 94 Room Air
[2024-03-02] MEDS: OLANZapine 5 MG TABLET PO SCH (13:45)
[2024-03-02] MEDS: APIXABAN 2.5 MG TAB PO SCH (20:58)
[2024-03-03 07:26] LABS: Hematocrit (blood only) 32.8 % (42.0-52.0); Hemoglobin 10.8 g/dl (14.0-18.0); Mean Corpuscular Hgb Conc 32.9 g/dL (32.0-36.0); Mean Corpuscular Volume 94.3 fL (80.0-100.0); Mean Platelet Volume 13.2 fL (9.4-12.4); Platelet Count 171 K/uL (130-400); RDW Coefficient of Variation 14.8 % (11.5-14.5); RDW Standard Deviation 51.4 fL (36.4-46.3); Red Blood Count 3.48 M/uL (4.70-6.10); White Blood Count 9.41 K/ul (4.8-10.8)
[2024-03-03 07:44] LABS: BUN Creatinine Ratio 29.3 (10-20); Calcium 10.4 mg/dl (8.6-10.3); Creatinine Clr Calc Pharmacy 34.4 ml/min; Potassium 3.9 mmol/L (3.5-5.1)
--- NOTE | 2024-03-03 10:56 | Hospitalist Progress Note ---
Date of Service March 03, 2024 Assessment & Plan (1) Gram-positive bacteremia: (2) PAF (paroxysmal atrial fibrillation): (3) Chronic renal failure, stage 3b: (4) Chronic pulmonary aspiration: Plan: Due to patient's medical comorbidities and overall condition he will be a a chronic risk for aspiration no matter what living facility he would reside. Recommend continuing to be diligent with positioning while feeding and accepting these known risks. (5) Bipolar disorder: (6) Intellectual disability: (7) Septic shock: (8) Catheter-associated urinary tract infection: (9) Metabolic encephalopathy: (10) Ambulatory dysfunction: Plan: Patient cannot use a walker or cane or other assistive device safely for long distances requiring need of a wheelchair Plan Suspect patient really is at his baseline cognitive abilities and physical abilities. Patient will have chronic risks of aspiration due to his overall physical condition. Continue with aspiration precautions with feedings Continue therapy Continue with voiding trial today, suspect patient not urinating frequently just due to poor oral intake. This will be an ongoing issue and ongoing challenge for him. When you asked the patient to take a drink he is cooperative it always takes a drink from his water bottle on repeated attempts at the bedside today. Patient has completed his course of antibiotics Laboratory studies reviewed and overall stable and at his baseline Case management continuing to work with his previous place of living to coordinate return there. Patient would not be able to return to his longterm with straight cath if cannot urinate on his own will need Foster catheter chronically and outpatient follow-up with urology. Admission and Anticipated Discharge Date Admission Date: February 03, 2024 Subjective Patient sitting up in a chair actually able to understand his communication a little bit more. States he would like to have eggs for breakfast and that he wants to get out of here. Physical Exam Physical Exam: Constitutional: Alert, sitting in chair, nontoxic in no acute distress HEENT: Mucous membranes moist. Lungs: Clear to auscultation, decreased, no wheezes rales or rhonchi CV: S1-S2, regular Abdomen: Soft, nontender, nondistended Extremities: No significant edema Neuro: At baseline cognitive deficits Psych: Cooperative for the most part Results & Data Results & Data Vital Signs (Past 12 Hours) Vital Signs Temp Pulse Resp BP Pulse Ox O2 Del Method 03/03/24 07:41 36.6 C 98 H 20 118/78 92 Room Air Laboratory Results Reviewed imaging, laboratory and diagnostic studies. Pertinent findings as below. WBCs 9.4 Hemoglobin 10.8 Potassium 3.9 Creatinine 1.8, baseline Calcium of 10.4 Foster catheter removed yesterday afternoon, required straight cath this morning without 500 cc of urine, first since Foster removed
[2024-03-03] MEDS: GABAPENTIN 100 MG CAP PO SCH (14:22)
--- NOTE | 2024-03-04 08:53 | Hospitalist Progress Note ---
<Statement entered by Trey Bean, - 03/04/24 15:13> I have seen and examined the patient and have discussed the case with the provider above. I have reviewed the advanced practitioner's documentation, and I agree with, and take responsibility for that plan of care. Results of voiding trial reviewed. Patient interactive today happy that he got some eggs. Patient nontoxic and appearance. Patient at baseline cognitive and physical abilities Anticipate best course of treatment for patient's bladder issues is straight cath at [facility] 1-2 times daily. Further plan of care as outlined below Date of Service March 04, 2024 Assessment & Plan (1) Gram-positive bacteremia: (2) PAF (paroxysmal atrial fibrillation): (3) Chronic renal failure, stage 3b: (4) Chronic pulmonary aspiration: Plan: Due to patient's medical comorbidities and overall condition he will be a a chronic risk for aspiration no matter what living facility he would reside. Recommend continuing to be diligent with positioning while feeding and accepting these known risks. (5) Bipolar disorder: (6) Intellectual disability: (7) Septic shock: (8) Catheter-associated urinary tract infection: (9) Metabolic encephalopathy: (10) Ambulatory dysfunction: Plan: Patient cannot use a walker or cane or other assistive device safely for long distances requiring need of a wheelchair Plan Suspect patient really is at his baseline cognitive abilities and physical abilities. Patient will have chronic risks of aspiration due to his overall physical condition -continue with aspiration precautions with feedings Continue therapy Continue with voiding trial today, suspect patient not urinating frequently just due to poor oral intake. This will be an ongoing issue and ongoing challenge for him. When you asked the patient to take a drink he is cooperative it always takes a drink from his water bottle on repeated attempts at the bedside today. Per RN, straight cathed for 600ml last night around 2300. At [facility] reportedly urinates seldomly during the day and is incontinent at night. Bladder scan this afternoon. Patient has completed his course of antibiotics Laboratory studies reviewed and overall stable and at his baseline Case management continuing to work with his previous place of living to coordinate return to [facility]. Per CM note - caregivers state [facility] [employer] [employer] can come in and straight cath PRN but would need supplies at time of discharge Patient seen in collaboration with Dr. Bean. Please see addendum. I spent a total of 40 minutes coordinating, documenting, and providing care for this patient excluding time spent in the performance of separately billed services. Admission and Anticipated Discharge Date Admission Date: February 03, 2024 Subjective Patient resting comfortably in 354-1. Denies any acute changes overnight. Liked his breakfast. No questions other than when he can go home. No CP, SOB, N,V, abd pain. Bowel movement yesterday per RN. Review of Systems Review of Systems: At least ten systems reviewed and negative except as noted in the HPI. Physical Exam Physical Exam: Gen: WD/WN, NAD, sitting in bedside chair, at baseline cognitive deficits HEENT: Normocephalic, atraumatic, mucous membranes moist Lung: Clear to Auscultation bilaterally Heart: Regular rate, regular rhythm Abdomen: Soft, NT, ND +BS x 4 Extremities: no edema Skin: Warm, no rash Results & Data Results & Data Vital Signs (Past 12 Hours) Vital Signs Temp Pulse Resp BP Pulse Ox O2 Del Method 03/04/24 07:32 36.4 C L 63 14 115/72 95 Room Air 03/03/24 21:30 Room Air Diagnostic Findings Chest X-Ray 02/03/24 11:23 XR chest 1V portable HISTORY: 63 years-old Male weakness COMPARISON: 02/01/2024 TECHNIQUE: AP view of the chest FINDINGS: Cardiac silhouette is enlarged. There is persistent interstitial coarsening with ill-defined left basilar and right midlung predominant opacities. Overall improved aeration of the lungs. Probable trace pleural effusions. No pneumothorax. Left subclavian pacer/AICD. Bones appear grossly intact. IMPRESSION: 1. Cardiomegaly with improved aeration of the lungs suggestive of resolving pulmonary edema. 2. Trace pleural effusions. ACT 112: Negative or not required by law. The above report was generated using voice recognition software. It may contain grammatical, syntax or spelling errors. Electronically signed by: Jason Marte M.D. 02/03/2024 11:[address] 02/03/24 11:24 CT head/brain wo con CLINICAL HISTORY: change in mentation Technique: Contiguous axial CT images of the head were acquired from the base of the skull to the vertex without intravenous contrast administration. Images were viewed in brain, subdural and bone windows. Automated dose lowering techniques and/or adjustment according to patient size were utilized for this exam. Comparison: None available at the time of this dictation. Findings: Areas of decreased attenuation are present in the periventricular and subcortical white matter bilaterally consistent with small vessel ischemic disease. Generalized cerebral atrophy with commensurate enlargement of the ventricles, sulci, and cisterns is also present. There is no acute intracranial hemorrhage or evidence of acute territorial infarction. No shift of the midline structures, mass effect, or extra-axial abnormalities are shown. Atherosclerotic calcifications are present in the intracranial segments of the internal carotid arteries. Imaged portions of the paranasal sinuses and mastoid air cells are clear. The orbits appear normal. There are no acute fractures of the calvaria or scalp swelling. Impression: No acute intracranial hemorrhage, no evidence of acute territorial infarction or other acute intracranial disease process. ACT 112: Negative or not required by law. Electronically signed by: Jordan Gupta M.D. 02/03/2024 12:00 PM KUB X-Ray 02/04/24 12:15 KUB HISTORY: Status post placement of an enteric tube NG tube placement COMPARISON: None. FINDINGS: Cardiomegaly with partially imaged pacer leads. Distal tip of enteric tube projects over the abdominal left upper quadrant, likely within the gastric body. Moderate colonic fecal retention. Nonobstructive bowel gas pattern. No renal calculi. No ureteral calculi. No pneumoperitoneum or pneumatosis. No fracture. IMPRESSION: Distal tip of feeding tube projects over the stomach. ACT 112: Negative or not required by law. The above report was generated using voice recognition software. It may contain grammatical, syntax or spelling errors. Electronically signed by: Jason Marte M.D. 02/04/2024 1:18 PM Chest X-Ray 02/12/24 15:53 EXAM: Radiograph of the Chest 1 View INDICATION: Sepsis. TECHNIQUE: Frontal view of the chest. COMPARISON: 02/03/2024 FINDINGS: Lungs and pleural spaces: No consolidation or pulmonary edema. No pleural effusion or pneumothorax. Heart: Stable enlargement and pacing device. Mediastinum: Normal contour. Bones/joints: No fracture, erosion or dislocation. Soft tissues: No abnormality noted. No radiopaque foreign body noted. Tubes, lines and devices: Right peripherally inserted central catheter (PICC) tip in the distal superior vena cava. Upper abdomen: No abnormality noted. IMPRESSION: No acute cardiopulmonary disease. ACT 112: Negative or not required by law. Electronically signed by Rowena Recio 02-12-2024 4:20 PM Abdomen/Pelvis CT 02/12/24 15:57 Exam(s): CT ABDOMEN + PELVIS Without Contrast EXAM: CT Abdomen and Pelvis Without Intravenous Contrast CLINICAL HISTORY: Reason for exam: anemia, sepsis. TECHNIQUE: Axial computed tomography images of the abdomen and pelvis without intravenous contrast. Automated exposure control was utilized for the study. A dose lowering technique was utilized adhering to the principles of ALARA. COMPARISON: No relevant prior studies available. FINDINGS: Exam is limited due to lack of contrast. The exam is further limited due to artifact. Lung bases: There is a small left pleural effusion with a trace right pleural effusion. There are bibasilar areas of atelectasis. The heart is enlarged. ABDOMEN: Liver: Lucencies within the liver appear to represent unopacified blood vessels. Gallbladder and bile ducts: No calcified stones. No ductal dilation. Pancreas: The visualized portions of the pancreas, on this noncontrast study, are grossly unremarkable.. Spleen: No splenomegaly. Adrenals: No mass. Kidneys and ureters: The patient has a horseshoe shaped kidney. No obstructing stones. No hydronephrosis. There are hyperdense lesions noted in the kidney. There is a 2.5 cm soft tissue density noted on the right lower pole. Stomach and bowel: There are retained foodstuffs within the stomach. There is air and stool noted in the colon.. PELVIS: Appendix: Unremarkable CT scan appearance noted the appendix.. Bladder: A Foster catheter is noted within the urinary bladder. There is thickening of the urinary bladder wall.. Reproductive: Unremarkable as visualized. ABDOMEN and PELVIS: Intraperitoneal space: No free air. No significant fluid collection. Bones/joints: There are degenerative changes in the spine.. Soft tissues: Unremarkable. Vasculature: No abdominal aortic aneurysm. Lymph nodes: No enlarged lymph nodes. IMPRESSION: Limited exam. There is a small left pleural effusion and a trace right pleural effusion with bibasilar areas of atelectasis. There is thickening of the urinary bladder wall. This may be due to hypertrophy. Cannot exclude cystitis. The patient has a horseshoe shaped kidney. There are hyperdense lesions within the kidney . There is a 2.5 cm soft tissue density within the right side of the kidney. These may represent complex cysts. Masses cannot be excluded on this noncontrast study. Electronically signed by: Loyd Jaramillo MD 02/13/24 02:34 AM
[2024-03-04] MEDS: LORATADINE 10 MG TAB PO SCH (10:36)
[2024-03-04 21:40] LABS: Thyroid Stimulating Hormone 3.36 uIu/ml (0.300-4.500)
[2024-03-04 23:18] LABS: BUN Creatinine Ratio 30.9 (10-20); Calcium 10.2 mg/dl (8.6-10.3); Potassium 3.9 mmol/L (3.5-5.1)
[2024-03-05 04:57] LABS: Appearance Urine Cloudy (Clear); Bacteria Urine Automated 4+ (None Seen); Bilirubin Urine Negative (Negative); Blood Urine Trace (Negative); Cast Urine Automated 0-2 /lpf (0-2); Color Urine Yellow; Epithelial Cell Urine Auto 0-2 /hpf (0-2); Glucose Urine UA Negative (Negative); Ketones Urine Negative (Negative); Leukocyte Esterase Urine 1+ (Negative); Nitrite Urine Negative (Negative); Protein Urine Negative (Negative); RBC Urine Automated 0-2 /hpf (0-2); Specific Gravity Urine 1.013 (1.000-1.030); Urobilinogen Urine Negative (Negative); WBC Urine Automated 21-50 /hpf (0-5); pH Urine 5.5 (4.5-7.5)
[2024-03-05 06:17] LABS: Creatinine Clr Calc Pharmacy 38.9 ml/min
[2024-03-05 08:20] LABS: Hematocrit (blood only) 33.8 % (42.0-52.0); Hemoglobin 11.1 g/dl (14.0-18.0); Mean Corpuscular Hemoglobin 30.8 pg (25.0-34.0); Mean Corpuscular Hgb Conc 32.8 g/dL (32.0-36.0); Mean Corpuscular Volume 93.9 fL (80.0-100.0); Mean Platelet Volume 13.2 fL (9.4-12.4); Platelet Count 187 K/uL (130-400); RDW Coefficient of Variation 14.7 % (11.5-14.5); RDW Standard Deviation 51.3 fL (36.4-46.3); White Blood Count 8.49 K/ul (4.8-10.8)
--- NOTE | 2024-03-05 11:15 | Hospitalist Progress Note ---
Date of Service March 05, 2024 Assessment & Plan (1) Gram-positive bacteremia: (2) PAF (paroxysmal atrial fibrillation): (3) Chronic renal failure, stage 3b: (4) Chronic pulmonary aspiration: Plan: Due to patient's medical comorbidities and overall condition he will be a a chronic risk for aspiration no matter what living facility he would reside. Recommend continuing to be diligent with positioning while feeding and accepting these known risks. (5) Bipolar disorder: (6) Intellectual disability: (7) Septic shock: (8) Catheter-associated urinary tract infection: (9) Metabolic encephalopathy: (10) Ambulatory dysfunction: Plan: Patient cannot use a walker or cane or other assistive device safely for long distances requiring need of a wheelchair Plan This is a 63-year-old male who has a significant past medical history of baseline intellectual disability, atrial fibrillation on Eliquis, history of CHB status post permanent pacemaker placement, hypothyroidism, BPH, bipolar disorder, CKD stage III with baseline creatinine 1.4-1.5, horseshoe kidney, bilateral renal masses, BPH, chronic anemia who presents to ED secondary to altered mental status and lethargy and was found to have staph hemolyticus bacteremia on treatment through 02/27 as well as possible aspiration pneumonia and catheter associated complicated UTI. ID consulted for help with antibiotics of which he has completed treatment. Patient seems to have returned to baseline cognitive abilities and physical abilities. Will have chronic risks of aspiration due to his overall physical condition -continue with aspiration precautions with feedings. Had a sadler catheter in place from recent hospitalizations but attempted voiding trial in order to decrease likelihood of repeat infections. Per discussion with custodial, he rarely urinates during the day and is grossly incontinent overnight. Have been bladder scanning with success of BID straight cathing over the weekend. Per CM note, caregivers state [facility] can come in and straight cath PRN but would need supplies at time of discharge. Of note, was hypothermic with rectal temp of 33.8 C last night. Patient removing all covers and clothing. Temp returned to normal within hours with jose hugger and has remained WNL. Notably, has had intermittent low temp on vitals throughout admission. As part of workup last evening, UA was repeated and abnormal. Given asymptomatic bacteruria, no leukocytosis - abx treatment not indicated at this time. Follow urine culture. New small rash noted on L anterior thigh, erythema with pustules - non-tender or pruritic, non-dermatomal. Patient denies pain. Appearance consistent with heat rash. Monitor Dispo- Case management continuing to work with his previous place of living to coordinate return to [facility]. Will need straight cath supplies at time of discharge I spent a total of 45 minutes coordinating, documenting, and providing care for this patient excluding time spent in the performance of separately billed services. Admission and Anticipated Discharge Date Admission Date: February 03, 2024 Subjective Patient resting comfortably in 354-1. Patient at his mentation baseline today. No acute concerns or pain. RN straight cathing BID PRN. Patient is moving his bowels. Contacted last evening by RN that patient unwilling to keep clothing or blankets on, unable to obtain temp for routine vitals so rectal temp was done - 33.8 C. Ordered jose bro with repeat temp later that night within normal range. Has had intermittent low temperature reads throughout stay. No other acute changes noted. Review of Systems Review of Systems: At least ten systems reviewed and negative except as noted in the HPI. Physical Exam Physical Exam: Gen: WD/WN, NAD, restin in bed, at baseline cognitive deficits HEENT: Normocephalic, atraumatic, mucous membranes moist Lung: Clear to Auscultation bilaterally Heart: Regular rate, regular rhythm Abdomen: Soft, NT, ND +BS x 4 Extremities: no edema Skin: Warm, no rash Results & Data Results & Data Vital Signs (Past 12 Hours) Vital Signs Temp Pulse Resp BP Pulse Ox O2 Del Method 03/05/24 07:28 36.6 C 67 18 124/70 95 Room Air 03/05/24 05:21 36.3 C L 03/05/24 03:15 36.7 C 03/05/24 01:41 36.2 C L Laboratory Results Short CBC 03/05/24 Range/Units 05:38 WBC 8.49 (4.8-10.8) K/ul Hgb 11.1 L (14.0-18.0) g/dl Hct 33.8 L (42.0-52.0) % Plt Count 187 (130-400) K/uL BMP 03/04/24 03/05/24 20:43 05:38 Sodium 138 Potassium 3.9 Chloride 102 Carbon Dioxide 28 BUN 47 H Creatinine 1.52 H 1.60 H Glucose 125 H Calcium 10.2 Urine 03/05/24 Range/Units 04:15 Urine Color Yellow Urine Appearance Cloudy A (Clear) Urine pH 5.5 (4.5-7.5) Ur Specific [place] 1.013 (1.000-1.030) Urine Protein Negative (Negative) Urine Glucose (UA) Negative (Negative) Diagnostic Findings Chest X-Ray 02/03/24 11:23 XR chest 1V portable HISTORY: 63 years-old Male weakness COMPARISON: 02/01/2024 TECHNIQUE: AP view of the chest FINDINGS: Cardiac silhouette is enlarged. There is persistent interstitial coarsening with ill-defined left basilar and right midlung predominant opacities. Overall improved aeration of the lungs. Probable trace pleural effusions. No pneumothorax. Left subclavian pacer/AICD. Bones appear grossly intact. IMPRESSION: 1. Cardiomegaly with improved aeration of the lungs suggestive of resolving pul monary edema. 2. Trace pleural effusions. ACT 112: Negative or not required by law. The above report was generated using voice recognition software. It may contain grammatical, syntax or spelling errors. Electronically signed by: Jason Marte M.D. 02/03/2024 11:[address] 02/03/24 11:24 CT head/brain wo con CLINICAL HISTORY: change in mentation Technique: Contiguous axial CT images of the head were acquired from the base of the skull to the vertex without intravenous contrast administration. Images were viewed in brain, subdural and bone windows. Automated dose lowering techniques and/or adjustment according to patient size were utilized for this exam. Comparison: None available at the time of this dictation. Findings: Areas of decreased attenuation are present in the periventricular and subcortical white matter bilaterally consistent with small vessel ischemic disease. Generalized cerebral atrophy with commensurate enlargement of the ventricles, sulci, and cisterns is also present. There is no acute intracranial hemorrhage or evidence of acute territorial infarction. No shift of the midline structures, mass effect, or extra-axial abnormalities are shown. Atherosclerotic calcifications are present in the intracranial segments of the internal carotid arteries. Imaged portions of the paranasal sinuses and mastoid air cells are clear. The orbits appear normal. There are no acute fractures of the calvaria or scalp swelling. Impression: No acute intracranial hemorrhage, no evidence of acute territorial infarction or other acute intracranial disease process. ACT 112: Negative or not required by law. Electronically signed by: Jordan Gupta M.D. 02/03/2024 12:00 PM KUB X-Ray 02/04/24 12:15 KUB HISTORY: Status post placement of an enteric tube NG tube placement COMPARISON: None. FINDINGS: Cardiomegaly with partially imaged pacer leads. Distal tip of enteric tube projects over the abdominal left upper quadrant, likely within the gastric body. Moderate colonic fecal retention. Nonobstructive bowel gas pattern. No renal calculi. No ureteral calculi. No pneumoperitoneum or pneumatosis. No fracture. IMPRESSION: Distal tip of feeding tube projects over the stomach. ACT 112: Negative or not required by law. The above report was generated using voice recognition software. It may contain grammatical, syntax or spelling errors. Electronically signed by: Jason Marte M.D. 02/04/2024 1:18 PM Chest X-Ray 02/12/24 15:53 EXAM: Radiograph of the Chest 1 View INDICATION: Sepsis. TECHNIQUE: Frontal view of the chest. COMPARISON: 02/03/2024 FINDINGS: Lungs and pleural spaces: No consolidation or pulmonary edema. No pleural effusion or pneumothorax. Heart: Stable enlargement and pacing device. Mediastinum: Normal contour. Bones/joints: No fracture, erosion or dislocation. Soft tissues: No abnormality noted. No radiopaque foreign body noted. Tubes, lines and devices: Right peripherally inserted central catheter (PICC) tip in the distal superior vena cava. Upper abdomen: No abnormality noted. IMPRESSION: No acute cardiopulmonary disease. ACT 112: Negative or not required by law. Electronically signed by Rowena Recio 02-12-2024 4:20 PM Abdomen/Pelvis CT 02/12/24 15:57 Exam(s): CT ABDOMEN + PELVIS Without Contrast EXAM: CT Abdomen and Pelvis Without Intravenous Contrast CLINICAL HISTORY: Reason for exam: anemia, sepsis. TECHNIQUE: Axial computed tomography images of the abdomen and pelvis without intravenous contrast. Automated exposure control was utilized for the study. A dose lowering technique was utilized adhering to the principles of ALARA. COMPARISON: No relevant prior studies available. FINDINGS: Exam is limited due to lack of contrast. The exam is further limited due to artifact. Lung bases: There is a small left pleural effusion with a trace right pleural effusion. There are bibasilar areas of atelectasis. The heart is enlarged. ABDOMEN: Liver: Lucencies within the liver appear to represent unopacified blood vessels. Gallbladder and bile ducts: No calcified stones. No ductal dilation. Pancreas: The visualized portions of the pancreas, on this noncontrast study, are grossly unremarkable.. Spleen: No splenomegaly. Adrenals: No mass. Kidneys and ureters: The patient has a horseshoe shaped kidney. No obstructing stones. No hydronephrosis. There are hyperdense lesions noted in the kidney. There is a 2.5 cm soft tissue density noted on the right lower pole. Stomach and bowel: There are retained foodstuffs within the stomach. There is air and stool noted in the colon.. PELVIS: Appendix: Unremarkable CT scan appearance noted the appendix.. Bladder: A Sadler catheter is noted within the urinary bladder. There is thickening of the urinary bladder wall.. Reproductive: Unremarkable as visualized. ABDOMEN and PELVIS: Intraperitoneal space: No free air. No significant fluid collection. Bones/joints: There are degenerative changes in the spine.. Soft tissues: Unremarkable. Vasculature: No abdominal aortic aneurysm. Lymph nodes: No enlarged lymph nodes. IMPRESSION: Limited exam. There is a small left pleural effusion and a trace right pleural effusion with bibasilar areas of atelectasis. There is thickening of the urinary bladder wall. This may be due to hypertrophy. Cannot exclude cystitis. The patient has a horseshoe shaped kidney. There are hyperdense lesions within the kidney . There is a 2.5 cm soft tissue density within the right side of the kidney. These may represent complex cysts. Masses cannot be excluded on this noncontrast study. Electronically signed by: Loyd Jaramillo MD 02/13/24 02:34 AM
[2024-03-05] MEDS: TOPIRAMATE 50 MG TAB PO SCH (12:49)
[2024-03-05] MEDS: FINASTERIDE 5 MG TAB PO SCH (12:49)
[2024-03-05] MEDS: CHOLECALCIFEROL 25 MCG (1000 UNITS) TAB PO SCH (12:49)
[2024-03-05] MEDS: TAMSULOSIN HCL 0.4 MG CAP PO SCH (12:50)
[2024-03-05] MEDS: TOPIRAMATE 100 MG TAB PO SCH (20:56)
[2024-03-06] MEDS: LEVOTHYROXINE SODIUM 75 MCG TABLET PO SCH (05:44)
--- NOTE | 2024-03-06 12:27 | Hospitalist Progress Note ---
Date of Service March 06, 2024 Assessment & Plan (1) Gram-positive bacteremia: (2) PAF (paroxysmal atrial fibrillation): (3) Chronic renal failure, stage 3b: (4) Chronic pulmonary aspiration: (5) Bipolar disorder: (6) Intellectual disability: (7) Septic shock: (8) Catheter-associated urinary tract infection: (9) Metabolic encephalopathy: (10) Ambulatory dysfunction: Plan This is a 63-year-old male who has a significant past medical history of baseline intellectual disability, atrial fibrillation on Eliquis, history of CHB status post permanent pacemaker placement, hypothyroidism, BPH, bipolar disorder, CKD stage III with baseline creatinine 1.4-1.5, horseshoe kidney, bilateral renal masses, BPH, chronic anemia who presents to ED secondary to altered mental status and lethargy and was found to have staph hemolyticus bacteremia on treatment through 02/27 as well as possible aspiration pneumonia and catheter associated complicated UTI. ID consulted for help with antibiotics of which he has completed treatment. Patient seems to have returned to baseline cog nitive abilities and physical abilities. Will have chronic risks of aspiration due to his overall physical condition -continue with aspiration precautions with feedings. Had a sadler catheter in place from recent hospitalizations but attempted voiding trial in order to decrease likelihood of repeat infections. Per discussion with custodial they are unable to provide intermittent cath support and therefore a sadler cath will need to be replaced prior to discharge. Currently we are planning for upcoming discharge. Of note, was hypothermic with rectal temp of 33.8 C on 03/04. Patient removing all covers and clothing. Temp returned to normal within hours with jose hugger and has remained WNL. Notably, has had intermittent low temp on vitals throughout admission. As part of workup last evening, UA was repeated and abnormal. Given asymptomatic bacteruria, no leukocytosis - abx treatment not indicated at this time. Urine culture is currently growing > 100k klebsiella variicola. Will await final culture before d/c. Dispo- Case management continuing to work with his previous place of living to coordinate return to custodial. Await urine culture prior to discharge. He will be ready for discharge tomorrow on 03/07. I spent a total of 41 minutes coordinating, documenting, and providing care for this patient excluding time spent in the performance of separately billed services. Admission and Anticipated Discharge Date Admission Date: February 03, 2024 Subjective Pt seen in room 354-1. ROS limited given intellectual disability. Discussed pts care with Caregiver Noemi at custodial. Review of Systems Review of Systems: All systems reviewed & are unremarkable except as noted in HPI & below Physical Exam Physical Exam: Gen: Thin male, intellectually disabled, NAD, Alert to self, difficult to understand HEENT: Normocephalic, atraumatic, conjunctivae moist, sclerae anicteric, mucous membranes moist. Lung: Clear to Auscultation bilaterally, no wheezes/rales/rhonchi Heart: Regular rate, regular rhythm, no murmurs, rubs, or gallops Abdomen: Soft, NT, ND +BS x 4 Extremities: No edema Skin: Warm, no rash, negative turgor. Results & Data Results & Data Vital Signs (Past 12 Hours) Vital Signs Temp Pulse Resp BP Pulse Ox O2 Del Method 03/06/24 07:41 36.6 C 66 16 106/71 96 Room Air
[2024-03-07 08:22] LABS: Basophils # (auto) 0.05 K/uL (0.00-0.20); Basophils % (auto) 0.4 %; Eosinophils # (auto) 0.15 K/uL (0.00-0.50); Eosinophils % (auto) 1.1 %; Hematocrit (blood only) 33.7 % (42.0-52.0); Hemoglobin 11.1 g/dl (14.0-18.0); Immature Granulocytes # (auto) 0.09 K/uL (0.01-0.20); Immature Granulocytes % (auto) 0.6 %; Lymphocytes # (auto) 3.18 K/uL (1.20-3.40); Lymphocytes % (auto) 22.8 %; Mean Corpuscular Hemoglobin 30.6 pg (25.0-34.0); Mean Corpuscular Hgb Conc 32.9 g/dL (32.0-36.0); Mean Corpuscular Volume 92.8 fL (80.0-100.0); Monocytes % (auto) 4.3 %; Neutrophils # (auto) 9.89 K/uL (1.40-6.50); Neutrophils % (auto) 70.8 %; Platelet Count 156 K/uL (130-400); RDW Coefficient of Variation 14.7 % (11.5-14.5); RDW Standard Deviation 50.1 fL (36.4-46.3); Red Blood Count 3.63 M/uL (4.70-6.10); White Blood Count 13.96 K/ul (4.8-10.8)
[2024-03-07 08:34] LABS: BUN Creatinine Ratio 25.7 (10-20); Creatinine Clr Calc Pharmacy 28.6 ml/min; Potassium 4.1 mmol/L (3.5-5.1)
[2024-03-07] MEDS ORDERED: SULFAMETHOXAZOLE/TRIMETHOPRIM DS 800/160MG TAB PO SCH (09:00)
[2024-03-07] MEDS: SODIUM CHLORIDE 0.9% 1,000 ML IV SCH (09:33)
[2024-03-07] MEDS: cefTRIAXone SODIUM 2,000 MG/50 ML BAG IV SCH (09:37)
--- NOTE | 2024-03-07 12:33 | Hospitalist Progress Note ---
<Statement entered by Trey Bean DO - 03/07/24 12:43> I have seen and examined the patient and have discussed the case with the provider above. I have reviewed the advanced practitioner's documentation, and I agree with, and take responsibility for that plan of care. Patient interactive and talkative. Does not appear to be toxic in any manner. Sadler catheter reinserted Plan of care as outlined below, discussed with REYMUNDO Date of Service March 07, 2024 Assessment & Plan (1) Gram-positive bacteremia: (2) PAF (paroxysmal atrial fibrillation): (3) Chronic renal failure, stage 3b: (4) Chronic pulmonary aspiration: (5) Bipolar disorder: (6) Intellectual disability: (7) Septic shock: (8) Catheter-associated urinary tract infection: (9) Metabolic encephalopathy: (10) Ambulatory dysfunction: Plan This is a 63-year-old male who has a significant past medical history of baseline intellectual disability, atrial fibrillation on Eliquis, history of CHB status post permanent pacemaker placement, hypothyroidism, BPH, bipolar disorder, CKD stage III with baseline creatinine 1.4-1.5, horseshoe kidney, bilateral renal masses, BPH, chronic anemia who presents to ED secondary to altered mental status and lethargy and was found to have staph hemolyticus bacteremia on treatment through 02/27 as well as possible aspiration pneumonia and catheter associated complicated UTI. ID consulted for help with antibiotics of which he has completed treatment. Patient seems to have returned to baseline cognitive abilities and physical abilities. Will have chronic risks of aspiration due to his overall physical condition -continue with aspiration precautions with feedings. Had a sadler catheter in place from recent hospitalizations but attempted voiding trial in order to decrease likelihood of repeat infections. Per discussion with [facility] they are unable to provide intermittent cath support and therefore a sadler cath will be replaced Of note, was hypothermic with rectal temp of 33.8 C on 03/04. Patient removing all covers and clothing. Temp returned to normal within hours with jose hugger and has remained WNL. Notably, has had intermittent low temp on vitals throughout admission. As part of workup UA was repeated and abnormal. Urine culture is currently growing > 100k klebsiella variicola. 03/07/24: urine culture resulted, wbc up to 13.96k, pt with mild chanelle and cr up to 2.1, recommend placing admission on hold. Will start pt on IV Rocephin and 24hr of maintenance fluids. I will repeat labs in the morning. If this has improved he can receive another dose of IV antibiotic tomorrow and then discharge home with a course of oral antibiotics Dispo- Discussed with CM as well as Noemi from [facility], plan was to d/c today, but given findings recommend pt remain inpatient for 1 more day. Will give IV antibiotics today and tomorrow along with IVF with plan to transition to oral antibiotic at discharge if blood work improving. Noemi is hopeful to push D/C to Wednesday; however, she was made aware Watson will need to be discharge when medically ready as there are varying illnesses he can contract while hospitalized and its prudent he be discharged when medically ready. I spent a total of 45 minutes coordinating, documenting, and providing care for this patient excluding time spent in the performance of separately billed services. Admission and Anticipated Discharge Date Admission Date: February 03, 2024 Subjective Pt seen in room 354-1. ROS limited given intellectual disability. Watson does appear upset this morning and is asking for his pencil and paper. Discussed pts care with Caregiver Noemi at [facility]. Review of Systems Review of Systems: All systems reviewed & are unremarkable except as noted in HPI & below Physical Exam Physical Exam: Gen: Thin male, intellectually disabled, NAD, Alert to self, difficult to understand HEENT: Normocephalic, atraumatic, conjunctivae moist, sclerae anicteric, mucous membranes moist. Lung: Clear to Auscultation bilaterally, no wheezes/rales/rhonchi Heart: Regular rate, regular rhythm, no murmurs, rubs, or gallops Abdomen: Soft, NT, ND +BS x 4 Extremities: No edema Skin: Warm, no rash, negative turgor. Results & Data Results & Data Vital Signs (Past 12 Hours) Vital Signs Temp Pulse Pulse Resp BP Pulse Ox O2 Del Method 03/07/24 09:11 73 113/84 03/07/24 07:53 36.5 C 107 H 18 114/73 96 Room Air Laboratory Results I have independently reviewed and interpreted patient's CBC, BMP Short CBC 03/07/24 Range/Units 07:55 WBC 13.96 H (4.8-10.8) K/ul Hgb 11.1 L (14.0-18.0) g/dl Hct 33.7 L (42.0-52.0) % Plt Count 156 (130-400) K/uL BMP 03/07/24 07:55 Sodium 138 Potassium 4.1 Chloride 102 Carbon Dioxide 25 BUN 56 H Creatinine 2.18 H Glucose 63 L Calcium 10.0 Medications Administered Current Inpatient Medications Acetaminophen (Acetaminophen 325 Mg Tab) 650 mg PO Q6H PRN PRN Reason: Pain or Fever Stop: 03/12/24 19:45 Last Admin: 03/06/24 21:34 Dose: 650 mg Allopurinol (Allopurinol 100 Mg Tab) 100 mg PO DAILY [facility] Stop: 03/08/24 08:59 Last Admin: 03/07/24 09:13 Dose: 100 mg Apixaban (Apixaban 2.5 Mg Tab) 2.5 mg PO BID [facility] Stop: 04/01/24 20:59 Last Admin: 03/07/24 09:13 Dose: 2.5 mg Atorvastatin Calcium (Atorvastatin 10 Mg Tab) 10 mg PO DAILY [facility] Stop: 04/01/24 08:59 Last Admin: 03/07/24 09:14 Dose: 10 mg Calcium Carbonate (Calcium Carbonate 500 Mg Chewable Tab) 500 mg PO BID [facility] Stop: 03/07/24 20:59 Last Admin: 03/07/24 09:18 Dose: 500 mg Divalproex Sodium (Divalproex Extended Release 500 Mg Tab) 1,000 mg PO HS [facility] Stop: 03/10/24 20:59 Last Admin: 03/06/24 21:35 Dose: 1,000 mg Docusate Sodium (Docusate Sodium Syrup 100 Mg/10 Ml Udc) 100 mg PO DAILY [facility] Stop: 03/08/24 08:59 Famotidine (Famotidine 20 Mg Tab) 20 mg PO DAILY [facility]; Protocol Stop: 03/11/24 08:59 Last Admin: 03/07/24 09:13 Dose: 20 mg Finasteride (Finasteride 5 Mg Tab) 5 mg PO QAM [facility] Stop: 04/04/24 11:14 Last Admin: 03/07/24 09:16 Dose: 5 mg Gabapentin (Gabapentin 100 Mg Cap) 100 mg PO TID [facility] Stop: 04/02/24 13:59 Last Admin: 03/07/24 09:14 Dose: 100 mg Heparin Sodium (Beef Lung) (Heparin 10 Unit/Ml 5 Ml Flush) 5 ml FLUSH PRN PRN PRN Reason: Flush Stop: 03/17/24 10:14 Last Admin: 02/17/24 16:36 Dose: 5 ml Ceftriaxone Sodium (Rocephin) 2,000 mg in 50 mls @ 100 mls/hr IV Q24H [facility] Stop: 03/17/24 08:59 Last Infusion: 03/07/24 11:01 Dose: Infused Sodium Chloride (Nss) 1,000 mls @ 80 mls/hr IV .[id number] [facility] Stop: 03/08/24 08:59 Last Admin: 03/07/24 09:33 Dose: 80 mls/hr Lactobacillus Acidophilus (Lactobacillus Acidophilus 1 Gm Pack) 1 packet PO TIDM [facility] Stop: 03/11/24 07:59 Last Admin: 03/07/24 09:12 Dose: Not Given Lansoprazole (Lansoprazole 30 Mg Soltab) 30 mg PO DAILY [facility] Stop: 03/10/24 08:59 Last Admin: 03/07/24 09:15 Dose: 30 mg Levothyroxine Sodium (Levothyroxine Sodium 75 Mcg Tablet) 75 mcg PO DAILYBB [facility] Stop: 04/05/24 06:29 Last Admin: 03/07/24 05:34 Dose: 75 mcg Loratadine (Loratadine 10 Mg Tab) 10 mg PO QAM [facility] Stop: 04/03/24 08:59 Last Admin: 03/07/24 09:13 Dose: 10 mg Metoprolol Succinate (Metoprolol Succ 25mg Ext Rel Tab) 25 mg PO QAM [facility] Stop: 03/20/24 08:59 Last Admin: 03/07/24 09:14 Dose: 25 mg Olanzapine (Olanzapine 5 Mg Tablet) 5 mg PO BID [facility] Stop: 04/01/24 12:59 Last Admin: 03/07/24 09:16 Dose: 5 mg Scopolamine (Scopolamine 1 Mg/72 Hr Tdsy Patch) 1 patch TD Q72H PRN PRN Reason: Nausea And Vomiting Stop: 03/31/24 14:24 Last Admin: 03/01/24 20:17 Dose: 1 patch Tamsulosin HCl (Tamsulosin Hcl 0.4 Mg Cap) 0.4 mg PO BID [facility] Stop: 04/04/24 11:14 Last Admin: 03/07/24 09:13 Dose: 0.4 mg Topiramate (Topiramate 50 Mg Tab) 50 mg PO QAM [facility] Stop: 04/04/24 11:14 Last Admin: 03/07/24 09:19 Dose: 50 mg Topiramate (Topiramate 100 Mg Tab) 100 mg PO PM [facility] Stop: 04/04/24 20:59 Last Admin: 03/06/24 21:36 Dose: 100 mg Vitamin D (Cholecalciferol 25 Mcg (1000 Units) Tab) 50 mcg PO QAM [facility] Stop: 04/04/24 11:14 Last Admin: 03/07/24 09:14 Dose: 50 mcg
--- NOTE | 2024-03-07 19:31 | Communication Note ---
Date of Service: March 07, 2024 Patient with hematuria without unusual abdominal/flank complaints as per RN Hold Angela for now.
[2024-03-07 20:12] LABS: Hematocrit (blood only) 29.6 % (42.0-52.0); Hemoglobin 9.4 g/dl (14.0-18.0)
[2024-03-07 21:50] LABS: Appearance Urine Cloudy (Clear); Bilirubin Urine Negative (Negative); Blood Urine 3+ (Negative); Color Urine Red; Glucose Urine UA Negative (Negative); Ketones Urine Negative (Negative); Leukocyte Esterase Urine 3+ (Negative); Nitrite Urine Negative (Negative); Protein Urine 3+ (Negative); Urobilinogen Urine Negative (Negative); pH Urine 5.5 (4.5-7.5)
[2024-03-07 21:53] LABS: Bacteria Urine None Seen (None Seen); Epithelial Cell Urine 0-2 /hpf (0-2); RBC Urine >20 /hpf (0-2); WBC Urine >50 /hpf (0-5)
[2024-03-08 08:18] LABS: Basophils # (auto) 0.03 K/uL (0.00-0.20); Basophils % (auto) 0.3 %; Eosinophils # (auto) 0.19 K/uL (0.00-0.50); Hematocrit (blood only) 30.1 % (42.0-52.0); Hemoglobin 9.7 g/dl (14.0-18.0); Immature Granulocytes # (auto) 0.11 K/uL (0.01-0.20); Immature Granulocytes % (auto) 1.1 %; Lymphocytes # (auto) 3.01 K/uL (1.20-3.40); Lymphocytes % (auto) 30.9 %; Mean Corpuscular Hgb Conc 32.2 g/dL (32.0-36.0); Mean Corpuscular Volume 96.2 fL (80.0-100.0); Mean Platelet Volume 13.7 fL (9.4-12.4); Monocytes # (auto) 0.45 K/uL (0.11-0.59); Monocytes % (auto) 4.6 %; Neutrophils # (auto) 5.95 K/uL (1.40-6.50); Neutrophils % (auto) 61.1 %; Platelet Count 128 K/uL (130-400); RDW Coefficient of Variation 15.1 % (11.5-14.5); RDW Standard Deviation 52.9 fL (36.4-46.3); Red Blood Count 3.13 M/uL (4.70-6.10); White Blood Count 9.74 K/ul (4.8-10.8)
[2024-03-08 08:26] LABS: BUN Creatinine Ratio 27.7 (10-20); Calcium 9.2 mg/dl (8.6-10.3); Creatinine Clr Calc Pharmacy 37.5 ml/min; Potassium 4.1 mmol/L (3.5-5.1)
[2024-03-08] MEDS ORDERED: ADVANCED PROBIOTIC 625 MG CAPSULE PO SCH (09:00)
[2024-03-08] MEDS: cefTRIAXone SODIUM 1,000 MG/50 ML BAG IV SCH (09:37)
--- NOTE | 2024-03-08 11:55 | Hospitalist Progress Note ---
Date of Service March 08, 2024 Assessment & Plan (1) Gram-positive bacteremia: (2) PAF (paroxysmal atrial fibrillation): (3) Chronic renal failure, stage 3b: (4) Chronic pulmonary aspiration: (5) Bipolar disorder: (6) Intellectual disability: (7) Septic shock: (8) Catheter-associated urinary tract infection: (9) Metabolic encephalopathy: (10) Ambulatory dysfunction: Plan This is a 63-year-old male who has a significant past medical history of baseline intellectual disability, atrial fibrillation on Eliquis, history of CHB status post permanent pacemaker placement, hypothyroidism, BPH, bipolar disorder, CKD stage III with baseline creatinine 1.4-1.5, horseshoe kidney, bilateral renal masses, BPH, chronic anemia who presents to ED secondary to altered mental status and lethargy and was found to have staph hemolyticus bacteremia on treatment through 02/27 as well as possible aspiration pneumonia and catheter associated complicated UTI. ID consulted for help with antibiotics of which he has completed treatment. Patient seems to have returned to baseline co gnitive abilities and physical abilities. Will have chronic risks of aspiration due to his overall physical condition -continue with aspiration precautions with feedings. Had a sadler catheter in place from recent hospitalizations but attempted voiding trial in order to decrease likelihood of repeat infections. Per discussion with [facility] they are unable to provide intermittent cath support and therefore a sadler cath will be replaced Of note, was hypothermic with rectal temp of 33.8 C on 03/04. Patient removing all covers and clothing. Temp returned to normal within hours with jose hugger and has remained WNL. Notably, has had intermittent low temp on vitals throughout admission. As part of workup UA was repeated and abnormal. Urine culture is currently growing > 100k klebsiella variicola. 03/07/24: urine culture resulted, wbc up to 13.96k, pt with mild chanelle and cr up to 2.1, recommend placing admission on hold. Will start pt on IV Rocephin and 24hr of maintenance fluids. I will repeat labs in the morning. If this has improved he can receive another dose of IV antibiotic tomorrow and then discharge home with a course of oral antibiotics 03/08/24: Pt feeling much better today. He is eating/drinking better. Cr downtrended to 1.66. Will continue IV rocephin and continue to encourage fluids[facility]. Sadler cath placed and he developed some mild hematuria. Initially his eliquis was placed on hold, but this resolved and it will be resumed. Dispo- Pt medically stable to [facility] to [facility]; however they are unable to accept til Wednesday. I spent a total of 44 minutes coordinating, documenting, and providing care for this patient excluding time spent in the performance of separately billed services. Admission and Anticipated Discharge Date Admission Date: February 03, 2024 Supervising Physician Co-Signing Physician Notes Patient seen and examined I spent a total of 30 minutes coordinating, documenting and providing care for this patient excluding time spent in performance of separately billed services Subjective Pt seen in room 354-1. ROS limited given intellectual disability. He states he feels better today and he is ready to go. Denies f/c/s, chest pain, sob, n/v. He drank quite a bit for breakfast. Review of Systems Review of Systems: All systems reviewed & are unremarkable except as noted in HPI & below Physical Exam Physical Exam: Gen: Thin male, intellectually disabled, NAD, Alert to self, difficult to understand HEENT: Normocephalic, atraumatic, conjunctivae moist, sclerae anicteric, mucous membranes moist. Lung: Clear to Auscultation bilaterally, no wheezes/rales/rhonchi Heart: Regular rate, regular rhythm, no murmurs, rubs, or gallops Abdomen: Soft, NT, ND +BS x 4 Extremities: No edema Skin: Warm, no rash, negative turgor. : Sadler draining yellow urine Results & Data Results & Data Vital Signs (Past 12 Hours) Vital Signs Temp Pulse Pulse Resp BP Pulse Ox O2 Del Method 03/08/24 09:21 70 119/75 03/08/24 07:52 36.5 C 66 16 106/64 94 Room Air 03/08/24 07:48 Room Air 03/08/24 05:21 37.4 C 03/08/24 02:39 37.5 C 03/08/24 00:27 37.5 C Laboratory Results Short CBC 03/07/24 03/08/24 Range/Units 19:50 07:26 WBC 9.74 (4.8-10.8) K/ul Hgb 9.4 L 9.7 L (14.0-18.0) g/dl Hct 29.6 L 30.1 L (42.0-52.0) % Plt Count 128 L (130-400) K/uL BMP 03/08/24 07:26 Sodium 139 Potassium 4.1 Chloride 107 Carbon Dioxide 26 BUN 46 H Creatinine 1.66 H D Glucose 73 Calcium 9.2 Urine 03/07/24 Range/Units 19:50 Urine Color Red Urine Appearance Cloudy A (Clear) Urine pH 5.5 (4.5-7.5) Ur Specific [place] 1.020 (1.000-1.030) Urine Protein 3+ H (Negative) Urine Glucose (UA) Negative (Negative) I have independently reviewed and interpreted patient's cbc, bmp Medications Administered Current Inpatient Medications Acetaminophen (Acetaminophen 325 Mg Tab) 650 mg PO Q6H PRN PRN Reason: Pain or Fever Stop: 03/12/24 19:45 Last Admin: 03/06/24 21:34 Dose: 650 mg Apixaban (Apixaban 2.5 Mg Tab) 2.5 mg PO BID [facility] Stop: 04/07/24 11:59 Atorvastatin Calcium (Atorvastatin 10 Mg Tab) 10 mg PO DAILY [facility] Stop: 04/01/24 08:59 Last Admin: 03/08/24 09:24 Dose: 10 mg Divalproex Sodium (Divalproex Extended Release 500 Mg Tab) 1,000 mg PO HS [facility] Stop: 03/10/24 20:59 Last Admin: 03/07/24 22:12 Dose: 1,000 mg Famotidine (Famotidine 20 Mg Tab) 20 mg PO DAILY [facility]; Protocol Stop: 03/11/24 08:59 Last Admin: 03/08/24 09:25 Dose: 20 mg Finasteride (Finasteride 5 Mg Tab) 5 mg PO QAM [facility] Stop: 04/04/24 11:14 Last Admin: 03/08/24 09:26 Dose: 5 mg Gabapentin (Gabapentin 100 Mg Cap) 100 mg PO TID [facility] Stop: 04/02/24 13:59 Last Admin: 03/08/24 09:24 Dose: 100 mg Heparin Sodium (Beef Lung) (Heparin 10 Unit/Ml 5 Ml Flush) 5 ml FLUSH PRN PRN PRN Reason: Flush Stop: 03/17/24 10:14 Last Admin: 02/17/24 16:36 Dose: 5 ml Ceftriaxone Sodium (Rocephin) 1,000 mg in 50 mls @ 100 mls/hr IV Q24H [facility] Stop: 03/17/24 08:59 Last Infusion: 03/08/24 10:10 Dose: Infused Lactobacillus Acidophilus (Lactobacillus Acidophilus 1 Gm Pack) 1 packet PO TIDM [facility] Stop: 03/11/24 07:59 Last Admin: 03/08/24 11:03 Dose: Not Given Lansoprazole (Lansoprazole 30 Mg Soltab) 30 mg PO DAILY [facility] Stop: 03/10/24 08:59 Last Admin: 03/08/24 09:24 Dose: 30 mg Levothyroxine Sodium (Levothyroxine Sodium 75 Mcg Tablet) 75 mcg PO DAILYBB [facility] Stop: 04/05/24 06:29 Last Admin: 03/08/24 05:24 Dose: 75 mcg Loratadine ([facility]or[facility]adine 10 Mg Tab) [facility] Stop: 04/03/24 08:59 Last Admin: 03/08/24 09:23 Dose: 10 mg Metoprolol Succinate (Metoprolol Succ 25mg Ext Rel Tab) [facility] [place] Stop: 03/20/24 08:59 Last Admin: 03/08/24 09:25 Dose: 25 mg Olanzapine (Olanzapine 5 Mg Tablet) 5 mg PO BID [facility] Stop: 04/01/24 12:59 Last Admin: 03/08/24 09:25 Dose: 5 mg Scopolamine (Scopolamine 1 Mg/72 Hr Tdsy Patch) 1 patch TD Q72H PRN PRN Reason: Nausea And Vomiting Stop: 03/31/24 14:24 Last Admin: 03/01/24 20:17 Dose: 1 patch Tamsulosin HCl (Tamsulosin Hcl 0.4 Mg Cap) 0.4 mg PO BID [facility] Stop: 04/04/24 11:14 Last Admin: 03/08/24 09:25 Dose: 0.4 mg Topiramate (Topiramate 50 Mg Tab) 50 mg PO QAM [facility] Stop: 04/04/24 11:14 Last Admin: 03/08/24 09:23 Dose: 50 mg Topiramate (Topiramate 100 Mg Tab) 100 mg PO PM [facility] Stop: 04/04/24 20:59 Last Admin: 03/07/24 22:14 Dose: 100 mg Vitamin D (Cholecalciferol 25 Mcg (1000 Units) Tab) [facility] [place] Stop: 04/04/24 11:14 Last Admin: 03/08/24 09:23 Dose: 50 mcg
[2024-03-08] MEDS: APIXABAN 2.5 MG TAB PO SCH (12:18)
--- NOTE | 2024-03-09 11:25 | Hospitalist Progress Note ---
Date of Service March 09, 2024 Assessment & Plan (1) Gram-positive bacteremia: (2) PAF (paroxysmal atrial fibrillation): (3) Chronic renal failure, stage 3b: (4) Chronic pulmonary aspiration: (5) Bipolar disorder: (6) Intellectual disability: (7) Septic shock: (8) Catheter-associated urinary tract infection: (9) Metabolic encephalopathy: (10) Ambulatory dysfunction: Plan This is a 63-year-old male who has a significant past medical history of baseline intellectual disability, atrial fibrillation on Eliquis, history of CHB status post permanent pacemaker placement, hypothyroidism, BPH, bipolar disorder, CKD stage III with baseline creatinine 1.4-1.5, horseshoe kidney, bilateral renal masses, BPH, chronic anemia who presents to ED secondary to altered mental status and lethargy and was found to have staph hemolyticus bacteremia on treatment through 02/27 as well as possible aspiration pneumonia and catheter associated complicated UTI. ID consulted for help with antibiotics of which he has completed treatment. Patient seems to have returned to baseline co gnitive abilities and physical abilities. Will have chronic risks of aspiration due to his overall physical condition -continue with aspiration precautions with feedings. Had a sadler catheter in place from recent hospitalizations but attempted voiding trial in order to decrease likelihood of repeat infections. [facility] discussion with [facility] they are unable to provide intermittent cath support and therefore a sadler cath will be replaced Of note, was hypothermic with rectal temp of 33.8 C on 03/04. Patient removing all covers and clothing. Temp returned to normal within hours with jose hugger and has remained WNL. Notably, has had intermittent low temp on vitals throughout admission. As part of workup UA was repeated and abnormal. Urine culture is currently growing > 100k klebsiella variicola. 03/07/24: urine culture resulted, wbc up to 13.96k, pt with mild chanelle and cr up to 2.1, recommend placing admission on hold. Will start pt on IV Rocephin and 24hr of maintenance fluids. I will repeat labs in the morning. If this has improved he can receive another dose of IV antibiotic tomorrow and then discharge home with a course of oral antibiotics 03/08/24: Pt feeling much better today. He is eating/drinking better. Cr downtrended to 1.66. Will continue IV rocephin and continue to encourage fluids. retirement unable to accept pt until Wednesday morning. Sadler cath placed and he developed some mild hematuria. Initially his eliquis was placed on hold 03/09/24: Medically stable. Sadler in place. Brief hematuria this AM which has since resolved. On day #3 of Rocephin for Klebsiella variicola UTI per 03/07 culture. Cont abx, transition to PO at dc (EOT 03/13). Care coordinated with [facility] and [facility] - plan on discharge home tomorrow AM. Dispo- Pt medically stable to [facility] to [facility]; however they are unable to accept til Wednesday. I spent a total of 40 minutes coordinating, documenting, and providing care for this patient excluding time spent in the performance of separately billed services. Admission and Anticipated Discharge Date Admission Date: February 03, 2024 Subjective Pt seen in room 354-1. ROS limited given intellectual disability. Denies f/c/s, chest pain, sob, n/v. He drank quite a bit for breakfast. Review of Systems Review of Systems: At least ten systems reviewed and negative except as noted in the HPI. Physical Exam Physical Exam: Gen: WD/WN, NAD, resting in bed, at baseline cognitive deficits HEENT: Normocephalic, atraumatic, mucous membranes moist Lung: Clear to Auscultation bilaterally Heart: Regular rate, regular rhythm Abdomen: Soft, NT, ND +BS x 4 Extremities: no edema : Sadler Skin: Warm, no rash Results & Data Results & Data Vital Signs (Past 12 Hours) Vital Signs Temp Pulse Resp BP Pulse Ox O2 Del Method 03/09/24 07:09 37.1 C 77 16 145/82 H 96 Room Air Diagnostic Findings Chest X-Ray 02/03/24 11:23 XR chest 1V portable HISTORY: 63 years-old Male weakness COMPARISON: 02/01/2024 TECHNIQUE: AP view of the chest FINDINGS: Cardiac silhouette is enlarged. There is persistent interstitial coarsening with ill-defined left basilar and right midlung predominant opacities. Overall improved aeration of the lungs. Probable trace pleural effusions. No pneumothorax. Left subclavian pacer/AICD. Bones appear grossly intact. IMPRESSION: 1. Cardiomegaly with improved aeration of the lungs suggestive of resolving pulmonary edema. 2. Trace pleural effusions. ACT 112: Negative or not required by law. The above report was generated using voice recognition software. It may contain grammatical, syntax or spelling errors. Electronically signed by: Jason Marte M.D. 02/03/2024 11:[address] 02/03/24 11:24 CT head/brain wo con CLINICAL HISTORY: change in mentation Technique: Contiguous axial CT images of the head were acquired from the base of the skull to the vertex without intravenous contrast administration. Images were viewed in brain, subdural and bone windows. Automated dose lowering techniques and/or adjustment according to patient size were utilized for this exam. Comparison: None available at the time of this dictation. Findings: Areas of decreased attenuation are present in the periventricular and jeter bcortical white matter bilaterally consistent with small vessel ischemic disease. Generalized cerebral atrophy with commensurate enlargement of the ventricles, sulci, and cisterns is also present. There is no acute intracranial hemorrhage or evidence of acute territorial infarction. No shift of the midline structures, mass effect, or extra-axial abnormalities are shown. Atherosclerotic calcifications are present in the intracranial segments of the internal carotid arteries. Imaged portions of the paranasal sinuses and mastoid air cells are clear. The orbits appear normal. There are no acute fractures of the calvaria or scalp swelling. Impression: No acute intracranial hemorrhage, no evidence of acute territorial infarction or other acute intracranial disease process. ACT 112: Negative or not required by law. Electronically signed by: Jordan Gupta M.D. 02/03/2024 12:00 PM KUB X-Ray 02/04/24 12:15 KUB HISTORY: Status post placement of an enteric tube NG tube placement COMPARISON: None. FINDINGS: Cardiomegaly with partially imaged pacer leads. Distal tip of enteric tube projects over the abdominal left upper quadrant, likely within the gastric body. Moderate colonic fecal retention. Nonobstructive bowel gas pattern. No renal calculi. No ureteral calculi. No pneumoperitoneum or pneumatosis. No fracture. IMPRESSION: Distal tip of feeding tube projects over the stomach. ACT 112: Negative or not required by law. The above report was generated using voice recognition software. It may contain grammatical, syntax or spelling errors. Electronically signed by: Jason Marte M.D. 02/04/2024 1:18 PM Chest X-Ray 02/12/24 15:53 EXAM: Radiograph of the Chest 1 View INDICATION: Sepsis. TECHNIQUE: Frontal view of the chest. COMPARISON: 02/03/2024 FINDINGS: Lungs and pleural spaces: No consolidation or pulmonary edema. No pleural effusion or pneumothorax. Heart: Stable enlargement and pacing device. Mediastinum: Normal contour. Bones/joints: No fracture, erosion or dislocation. Soft tissues: No abnormality noted. No radiopaque foreign body noted. Tubes, lines and devices: Right peripherally inserted central catheter (PICC) tip in the distal superior vena cava. Upper abdomen: No abnormality noted. IMPRESSION: No acute cardiopulmonary disease. ACT 112: Negative or not required by law. Electronically signed by Rowena Recio 02-12-2024 4:20 PM Abdomen/Pelvis CT 02/12/24 15:57 Exam(s): CT ABDOMEN + PELVIS Without Contrast EXAM: CT Abdomen and Pelvis Without Intravenous Contrast CLINICAL HISTORY: Reason for exam: anemia, sepsis. TECHNIQUE: Axial computed tomography images of the abdomen and pelvis without intravenous contrast. Automated exposure control was utilized for the study. A dose lowering technique was utilized adhering to the principles of ALARA. COMPARISON: No relevant prior studies available. FINDINGS: Exam is limited due to lack of contrast. The exam is further limited due to artifact. Lung bases: There is a small left pleural effusion with a trace right pleural effusion. There are bibasilar areas of atelectasis. The heart is enlarged. ABDOMEN: Liver: Lucencies within the liver appear to represent unopacified blood vessels. Gallbladder and bile ducts: No calcified stones. No ductal dilation. Pancreas: The visualized portions of the pancreas, on this noncontrast study, are grossly unremarkable.. Spleen: No splenomegaly. Adrenals: No mass. Kidneys and ureters: The patient has a horseshoe shaped kidney. No obstructing stones. No hydronephrosis. There are hyperdense lesions noted in the kidney. There is a 2.5 cm soft tissue density noted on the right lower pole. Stomach and bowel: There are retained foodstuffs within the stomach. There is air and stool noted in the colon.. PELVIS: Appendix: Unremarkable CT scan appearance noted the appendix.. Bladder: A Sadler catheter is noted within the urinary bladder. There is thickening of the urinary bladder wall.. Reproductive: Unremarkable as visualized. ABDOMEN and PELVIS: Intraperitoneal space: No free air. No significant fluid collection. Bones/joints: There are degenerative changes in the spine.. Soft tissues: Unremarkable. Vasculature: No abdominal aortic aneurysm. Lymph nodes: No enlarged lymph nodes. IMPRESSION: Limited exam. There is a small left pleural effusion and a trace right pleural effusion with bibasilar areas of atelectasis. There is thickening of the urinary bladder wall. This may be due to hypertrophy. Cannot exclude cystitis. The patient has a horseshoe shaped kidney. There are hyperdense lesions within the kidney . There is a 2.5 cm soft tissue density within the right side of the kidney. These may represent complex cysts. Masses cannot be excluded on this noncontrast study. Electronically signed by: Loyd Jaramillo MD 02/13/24 02:34 AM
[2024-03-09 17:53] LABS: Hematocrit (blood only) 33.8 % (42.0-52.0); Hemoglobin 10.6 g/dl (14.0-18.0)
[2024-03-10 07:16] VITALS: BP 124/80; RESP 16; TEMP 98.1; O2SAT 95
--- NOTE | 2024-03-10 09:05 | Discharge Summary ---
Discharge Summary Date of Service March 10, 2024 Principal Dx & Hospital Course #1 = Principal Diagnosis (1) Gram-positive bacteremia: (2) PAF (paroxysmal atrial fibrillation): (3) Chronic renal failure, stage 3b: (4) Chronic pulmonary aspiration: (5) Bipolar disorder: (6) Intellectual disability: (7) Septic shock: (8) Catheter-associated urinary tract infection: (9) Metabolic encephalopathy: (10) Ambulatory dysfunction: Plan This is a 63-year-old male who has a significant past medical history of baseline intellectual disability, atrial fibrillation on Eliquis, history of CHB status post permanent pacemaker placement, hypothyroidism, BPH, bipolar disorder, CKD stage III with baseline creatinine 1.4-1.5, horseshoe kidney, bilateral renal masses, BPH, chronic anemia who presents to ED secondary to altered mental status and lethargy and was found to have staph hemolyticus bacteremia on treatment through 02/27 as well as possible aspiration pneumonia and catheter associated complicated UTI. ID consulted for help with antibiotics of which he has completed treatment. Patient seems to have returned to baseline cognitive abilities and physical abilities. Will have chronic risks of aspiration due to his overall physical condition -continue with aspiration precautions with feedings. Had a sadler catheter in place from recent hospitalizations but attempted voiding trial in order to decrease likelihood of repeat infections. Per discussion with shelter they are unable to provide intermittent cath support and therefore a sadler cath was replaced. Noted to be hypothermic with rectal temp of 33.8 C on 03/04. Temp returned to normal within hours with jose hugger and has remained WNL. Noted to have leukocytosis and mild SHE on 03/07 so repeat urine culture obtained and grew klebsiella variicola. Started on Rocephin on 03/07 and will be transitioned to PO cefdinir for completion of treatment. Of note, patient with intermittent hematuria since admission to [facility] in December. Recommendation for Eliquis to be discontinued at discharge home. Has been resumed during this admission for stroke ppx in setting of atrial fibrillation but has needed to be held for intermittent hematuria, patient pulling on sadler catheter. Recommend continuing to hold coumadin at time of discharge until risk vs benefit conversation of resuming anticoagulation can be discussed with PCP at follow up. Discussed with urology to coordinate follow up and they will call patient contact to make appointment. Continue incontinence briefs for stool incontinence. Elevate HOB 30 degress for aspiration precautions and GERD history. HH and low sodium diet to be continued, minced and moist. Patient at mentation baseline and stable for return to shelter. Care plan discussed in detail with director of shelter. Recommended close follow up with PCP. Notes For Next Care Provider AMS in setting of UTI, possible aspiration PNA and staph hemolyticus bacteremia on treatment through 02/27 Mentation has returned to baseline Chronic sadler catheter is in place - continue routine care at shelter, urology appt as below Medication Changes From Visit Continue Cefdinir 300mg by mouth twice daily to complete course forUTI. Probiotic daily x 5 days for GI Health. HOLD Eliquis for now given intermittent bleeding in urine until PCP follow up for further discussion HOLD Toprol until PCP follow up - NIGHT TIME NANNY to discuss BP monitoring at shelter and collaborate with a plan before resuming med Admission HPI Per Admitting Provider This is a 63-year-old male who has a significant past medical history of baseline intellectual disability, atrial fibrillation on Eliquis, history of CHB status post permanent pacemaker placement, hypothyroidism, BPH, bipolar disorder, CKD stage III with baseline creatinine 1.4-1.5, horseshoe kidney, bilateral renal masses, BPH, chronic anemia who presents to ED secondary to altered mental status and lethargy. Of significance patient resides in a shelter due to his intellectual disability. 2 staff members from the shelter are at bedside. At baseline he is very talkative and able to perform his own ADLS. Of significance patient was recently hospitalized at [facility] from 01/11 to 01/24 secondary to sepsis in setting of right lower lobe pneumonia and acute respiratory failure with hypoxia. CT chest showed a right lower lobe consolidation and he had a positive blood culture for coag negative staph. There was concern for aspiration pneumonia. He did have a speech evaluation and dysphagia eval revealed mild oropharyngeal dysphagia on videofluoroscopy and his diet was modified. Regarding positive blood culture infectious disease was involved. He underwent a TTE and DE which were negative for infectious endocarditis. Infectious disease recommended a 6-week course of IV vancomycin and oral rifampin to cover for IE given unknown course of bactermia. A PICC line was placed. His hospital course was complicated with episodes of hypoglycemia due to poor oral oral intake. This was treated with assisted feeding and D5 fluid administration. Further it was complicated by gross hematuria and nosebleeds. He did require Sadler catheter placement. Because of this and worsening baseline anemia his Eliquis was placed on hold. ROS unobtainable from pt given underlying current cognition. Staff reports after being discharge from [facility] to [facility] he was his normal self and playing bingo approx 3 days ago. They went to see he him this morning and he was completely lethargic and not responding to normal questions which isn't like him. He also has another rash on his legs which was noticed at [facility] hospital. He had 2 falls in the past 3 days. It was also reported pts roommate tested positive for covid. He has a hx of seizure disorder but caregiver at bedside states she has been with him for 15 years and never witnessed seizure activity. In ED patient was tachycardic and borderline hypotensive. Lab work revealed H&H of 8.8 and 27.3, BUN 56, creatinine 2.55, glucose 69, mag 2.5, abnormal urinalysis, negative respiratory bio fire. His head CT was negative for acute abnormality. Chest x-ray revealed trace of bilateral pleural effusions and resolving pulmonary edema. Admission Exam Per Admitting Provider Vitals signs as noted above General Appearance: Thin, frail, chronic ill appearing, no apparent distress Head: normocephalic, Atraumatic Eyes: normal inspection, EOMI Neck: supple, Trachea midline Respiratory/Chest: Coarse decreased breath sounds,No accessory muscle use Cardiovascular: S1, S2, No murmur, + pacer Abdomen/GI:Soft, Non tender, Bowel sounds present Extremities/Musculoskeletal:normal inspection, 2+ edema Neurologic/Psych: Alert, awake, confused, grossly moves all extremities, does not follow commands. Unable to perform complete neurological exam. Skin: normal color, warm, + petechiae Discharge Exam Gen: WD/WN, NAD, resting in bed, at baseline cognitive deficits HEENT: Normocephalic, atraumatic, mucous membranes moist Lung: Clear to Auscultation bilaterally Heart: Regular rate, regular rhythm Abdomen: Soft, NT, ND +BS x 4 Extremities: no edema : Sadler Skin: Warm, no rash Updated Medication List Medication Instructions Recorded Confirmed Type acetaminophen 325 mg tablet 650 mg PO QID PRN Fever/Pain 02/01/24 02/03/24 History allopurinol 100 mg tablet 200 mg PO DAILY 02/01/24 02/03/24 History atorvastatin 10 mg tablet 10 mg PO DAILY 02/01/24 02/03/24 History cetirizine 10 mg capsule 10 mg PO DAILY 02/01/24 02/03/24 History divalproex 500 mg tablet,extended 1,000 mg PO HS 02/01/24 02/03/24 History release 24 hr docusate sodium 100 mg tablet 100 mg PO DAILY 02/01/24 02/03/24 History famotidine 20 mg tablet 40 mg PO DAILY 02/01/24 03/10/24 History gabapentin 100 mg capsule 100 mg PO TID 02/01/24 02/03/24 History metoprolol succinate 25 mg 25 mg PO DAILY 02/01/24 02/03/24 History tablet,extended release 24 hr pantoprazole 40 mg tablet,delayed 40 mg PO DAILY 02/01/24 02/03/24 History release (Protonix) tamsulosin 0.4 mg capsule 0.4 mg PO BID 02/01/24 02/03/24 History topiramate 100 mg tablet 100 mg PO QPM 02/01/24 02/03/24 History topiramate 50 mg tablet 50 mg PO QAM 02/01/24 02/03/24 History calcium carbonate (Calcium 600) 600 mg PO BID 02/03/24 02/03/24 History cholecalciferol (vitamin D3) 25 50 mcg PO DAILY 02/03/24 02/03/24 History mcg (1,000 unit) tablet (Vitamin D3) finasteride 5 mg tablet 5 mg PO DAILY 02/03/24 02/03/24 History flecainide 50 mg tablet 50 mg PO BID 02/03/24 02/03/24 History fluticasone propionate 50 1 spray intranasal BID PRN Nasal 02/03/24 02/03/24 History mcg/actuation nasal Congestion spray,suspension levothyroxine 75 mcg tablet 75 mcg PO QAM 02/03/24 02/03/24 History psyllium husk 0.52 gram capsule 0.52 g PO QAM 02/03/24 02/03/24 History apixaban 5 mg tablet (Eliquis) 5 mg PO BID 02/11/24 02/11/24 History Lactobacillus acidophilus, 1 packet PO BID #12 ea 03/10/24 Rx bulgaricus 100 million cell granules packet (Floranex) bisacodyl 10 mg rectal suppository 10 mg PA DAILY PRN Constipation 03/10/24 Rx (Dulcolax (bisacodyl)) #12 ea cefdinir 300 mg capsule 300 mg PO BID #8 caps 03/10/24 Rx olanzapine 20 mg tablet 10 mg PO BID 03/10/24 03/10/24 History scopolamine base 1 mg over 3 days 1 patch transdermal Q72H PRN 03/10/24 Rx transdermal patch Nausea And Vomiting #4 ea Hospital Stay Data Consultations 02/03/24 12:58 ED Decision to Admit Stat 02/03/24 13:35 Consult Infectious Diseases Routine Consult Nephrology Routine 02/03/24 21:16 Consult [employer] Routine 02/14/24 18:05 Consult Urology Routine Diagnostic Imagining Performed 02/03/24 11:24 CT head/brain wo con Stat 02/12/24 15:57 CT Abd and Pelvis [CT abd pelvis wo con] Urgent Pending Results Patient Have Any Pending Studies at Discharge: No Discharge Instructions Given to Patient (Per Discharging Provider) MEDICATION CHANGES: Continue Cefdinir 300mg by mouth twice daily to complete course forUTI. Probiotic daily x 5 days for GI Health. HOLD Eliquis for now given intermittent bleeding in urine - please follow up with PCP Dr. Berger for further discussion. HOLD Toprol until follow up with PCP SUMMARY OF TEST RESULTS: You were admitted to hospital secondary to confusion in setting of UTI, possible aspiration PNA and staph hemolyticus bacteremia on treatment through 02/27 Mentation has returned to baseline Chronic sadler catheter is in place - continue routine care at shelter, urology appt as below PENDING TEST RESULTS: None RECOMMENDATIONS FOR FOLLOW-UP: Follow up with PCP as scheduled - need to discuss risk vs benefit of resuming blood thinner given intermittent blood in urine [facility] will set up follow up appointment for you and call (confirmed 03/10 with office) Please continue heart healthy low sodium diet (minced and moist texture). Keep head of bed elevated at 30 degrees for aspiration precautions, GERD Case management provided script for outpatient services Complete antibiotic in its entirety Continue medication regimen as scheduled aside from changes noted above OTHER INSTRUCTIONS: Seek medical attention if you have: * temperature above 101 * chest pain or trouble breathing * abdominal pain, nausea, vomiting * diarrhea, dark stools or bloody stools * any unanswered questions or concerns Call 911 if symptoms are severe. Please take good care of yourself. Call if you have any questions or problems. You can reach a [facility] hospitalist on duty at [facility] 24 hours a day by calling [phone]. Total Time Total Time Spent Total Time Spent (In Minutes): 28
[2024-03-10 10:13] VITALS: PULSE 69
== END 2024-03-10 11:46 | disposition home or self-care (01) | DRG 871 ==
LOC: ED 10:49 → 2S 12:45 → SUATTDRO 12:45 → 2S 14:00 → 1E 19:56 → 4W 02-06 18:19 → 2E 02-12 18:52 → 3W 02-25 13:48
DX: E27.40 Unspecified adrenocortical insufficiency; E87.0 Hyperosmolality and hypernatremia; E86.0 Dehydration; D64.9 Anemia, unspecified; F31.9 Bipolar disorder, unspecified; K21.9 Gastro-esophageal reflux disease without esophagitis; N28.9 Disorder of kidney and ureter, unspecified; I44.2 Atrioventricular block, complete; E16.2 Hypoglycemia, unspecified; N18.32 Chronic kidney disease, stage 3b; R65.21 Severe sepsis with septic shock; A41.1 Sepsis due to other specified staphylococcus; G93.41 Metabolic encephalopathy; J69.0 Pneumonitis due to inhalation of food and vomit; R13.12 Dysphagia, oropharyngeal phase; Z95.0 Presence of cardiac pacemaker; R31.0 Gross hematuria; F70 Mild intellectual disabilities; N17.0 Acute kidney failure with tubular necrosis; I48.0 Paroxysmal atrial fibrillation; N40.1 Benign prostatic hyperplasia with lower urinary tract symptoms; Q63.1 Lobulated, fused and horseshoe kidney; D61.818 Other pancytopenia